=== PATIENT | male | born 1955 | race Caucasian/White ===

== ENCOUNTER 2020-05-21 10:10 | Emergency (ER) | payer OTHER ==
--- OUTSIDE RECORDS SUMMARY | 2020-05-21 10:13 | XMS REPORT | Continuity of Care Document ---
:1955 Author Organization [facility]tras Care Team Providers Name Role Phone hetras Unavailable Un available Problems Problem Status Onset Classification Date Comments Sourc e Date Reported PAINFUL TKA Active 08/03/20 [facility] 17 [place]ick Arthritis Active Problem 08/22/2017 [facility] (disorder[facility] Chronic pain Active Problem 08/22/2017 [facility] (finding) and Spine Dementia Active Problem 08/22/2017 [facility] (disorder[facility] Depressive Active Problem 08/22/2017 [facility] disorder and Spine (disorder) Diabetes mellitus Active Problem 08/22/2017 [facility] (disorder) [facility] Spine Hyperlipidemia Active Problem 08/22/2017 [facility] (disorder) and Spine Hypertensive Active Problem 08/22/2017 Ort [facility] disorder, systemic a nd Spine arterial (disorder) Neuropathy Active Problem 08/22/2017 Feet [facility] (disorder) and Spine Pain (finding) Active Problem 08/22/2017 Chronic [facility] rtho back pain and Spine Restless legs Active Problem 08/22/2017 [facility] tho (disorder) and Spine Sleep apnea Active Problem 08/22/2017 [facility] (finding) and Spine Therapeutic opioid Active Problem 08/22/2017 [facility] induced and Spine constipation (disorder) Diabetes mellitus Active Problem 08/22/2017 [facility] type 2 (disorder) an d Spine Medications Medication Details Route Status Patient Ordering Order Source Instructions Provider Date POLYETHYLENE Notes: Dissolve No Longer 08/20/ M H GLYCOL 3350 in 8 oz of Active 2016 Ortho water or juice. and (Same as: Spine Miralax) remove patch Notes: Remove No Longer old patch Active 2017 Ortho before and application of Spine new patch. Aspirin 325 MG Notes: (Do Not No Longer Enteric Coated Crush) Do not Active 2017 Or tho Tablet crush or chew. and Spine pantoprazole Notes: Tablet No Longer should not be Active 2017 Ortho chewed or and crushed. (Same Spine as: Protonix) rosuvastatin Notes: (Same Inactive As: Crestor) 2017 Orth[facility] and Spine Requip Notes: (Same Inactive as: Requip) 2016 Orth[facility] and Spine donepezil Notes: (Same Inactive as: Aricept) 2017 Ortho and Spine sennosides, SHELTER Notes: (Same Inactive as: Senokot) 2016 Ortho and Spine Celebrex Notes: NSAID. Inactive Please check 2017 Ortho indication. Not and for seizure. Spine (Same As: CeleBREX) Vancomycin 2001 mg: Inactive infuse over 2.5 2017 Ortho hours and MEDICATION Spine WASTE Product Size: 1000 mg Product Wasted: ___ mg Ergocalciferol 50,000 IntlUnit Active H 12832 UNT Oral = 1 cap, PO, 2016 Orth o Capsule Q7D, # 8 and caplet, 0 Spine Refill(s) metFORMIN 500 mg Notes: (Same Inactive H oral tablet, as: Glucophage 2016 Orth o extended release XR) "Do Not and Crush" Spine Docusate Sodium Notes: (Same Inactive 100 MG Oral as: Colace) (Do 2016 Orth o Capsule Not Crush) and Spine Lyrica Notes: Same as Inactive Lyrica 2016 Ortho and Spine Aspirin 325 MG 325 mg = 1 tab, Active H Enteric Coated PO, BID, # 60 2017 Ort ho Tablet tab, 0 and Refill(s) Spine Cefazolin Notes: (Same Inactive As: Ancef, 2016 Ortho Kefzol) and MEDICATION Spine WASTE Product Size: 1000 mg Product Wasted: ___ mg Dextrose 50% 25 gm, 50 mL, Inactive Syringe Route: IVP, 2017 Ortho Drug Form: INJ, and Dosing Weight Spine 102.273, kg, PRN, PRN Blood Glucose Results, Start date: 08/19/17 11:50:00 GRAZING AIDE, Duration: 30 day, Stop date: 09/18/17 11:49:00 GRAZING AIDE Insulin Lispro Notes: (Same Inactive as: Humalog ) 2017 Ortho Roll in palms and of hands Spine gently; Do not shake `vigorously. "Single Patient Use Only " WASTE: F/P - Black; E - Municipal Trash Bin Stable for 28 days at room temperature. Expires in days from D ate Glucagon 1 mg, Route: Inactive IM, Drug form: 2017 Ortho PDR/INJ, PRN, and Dosing Weight Spine 102.273, kg, PRN Blood Glucose Results, Start date: 08/19/17 11:50:00 GRAZING AIDE, Duration: 30 day, Stop date: 09/18/17 11:49:00 GRAZING AIDE Ergocalciferol Notes: (Same Inactive 68817 UNT Oral as: Vitamin D) 2017 Or tho Capsule "Do Not Crush" and Spine tizanidine Notes: (Same Inactive As: Zanaflex) 2016 Ortho and Spine Insulin Lispro Notes: (Same Inactive as: Humalog ) 2017 Ortho Roll in palms and of hands Spine gently; Do not shake `vigorously. "Single Patient Use Only " WASTE: F/P - Black; E - Municipal Trash Bin Stable for 28 days at room temperature. Expires in days from D ate Promethazine Notes: (Same Inactive as: Phenergan) 2017 Ortho and Spine Acetaminophen Notes: Do not Inactive exceed 4 2017 Ortho gm/day. (Same and as: Tylenol) Spine Hydroxyzine Notes: (Same Inactive as: Vistaril) 2017 Ortho and Spine Ondansetron Notes: (Same Inactive as: Zofran) 2017 Ortho MEDICATION and WASTE Spine Product Size: 4 mg Product Wasted: ___ mg Milk of Magnesia Notes: (Same Inactive 08/19/ H as: Milk of 2017 Ortho Magnesia, MOM) and Spine Lactated Ringers 1,000 mL, Rate: Inactive IV 1,000 mL 75 ml/hr, 2017 Ortho Infuse over: and 13.3 hr, Route: Spine IV, Dosing Weight 102.273 kg, Total Volume: 1,000, Start date: 08/19/17 9:30:00 GRAZING AIDE, Duration: 30 day, Stop date: 09/18/17 9:29:00 GRAZING AIDE, 2.35, m2 Promethazine Notes: Do not Inactive give IV push. 2017 Ortho (Same as: and Phenergan) Spine Ondansetron Notes: (Same Inactive as: Zofran) 2017 Ortho MEDICATION and WASTE Spine Product Size: 4 mg Product Wasted: ___ mg Meperidine Notes: (Same Inactive as: Demerol) 2017 Ortho "Use Precaution and in Elderly, Spine Seizure disorders, and Renal impairment&quot ; Acetaminophen Notes: Max Inactive acetaminophen 2017 Ortho 4000 mg/day (4 and gm/day). (Same Spine as: Tylenol Extra Strength) Naloxone Notes: Same as Inactive Narcan 2017 Ortho and Spine Flumazenil Notes: (Same Inactive as: Romazicon) 2016 Ortho and Spine Hydromorphone Notes: (Same Inactive as: Dilaudid) 2017 Ortho and Spine Morphine Notes: (Same Inactive as:MORPhine 2017 Ortho Sulfate) and Spine Labetalol 10 mg, 2 mL, Inactive Route: IVP, 2017 Ortho Drug form: INJ, and Q5Min, Dosing Spine Weight 102.273, kg, PRN Elevated BP, Start date: 08/19/17 7:38:00 GRAZING AIDE, Duration: 5 doses or times, Stop date: 08/19/17 22:00:00 GRAZING AIDE Hydralazine Notes: (Same Inactive as: Apresoline) 2017 Ortho Push over 5 and minutes Spine vancomycin + Notes: TIME Inactive Sodium Chloride CRITICAL 2017 Ortho 0.9% IV 250 mL MEDICATION and (Same As: Spine Vancocin) ropivacaine Notes: NOT Inactive FOR IV use 2017 Ortho Each mL and contains: Spine Ropivacaine 2.46 mg, Epinephrine 0.005 mg, Clonidine 0.0008 mg and Ketorolac 0.3 mg in Sodium Chloride polymyxin B Notes: (Same Inactive sulfate + Sodium as: Polymyxin B 2017 Ortho Chloride 0.9% IV Sulfate) and 250 mL Spine vancomycin 2001 mg: Inactive infuse over 2.5 2017 Ortho hours and Spine Cefazolin Notes: (Same Inactive As: Ancef, 2017 Ortho Kefzol) and MEDICATION Spine WASTE Product Size: 1000 mg Product Wasted: ___ mg Vancomycin 1,534.095 mg, Inactive Route: IVPB, 2017 Ortho ONCALL, Dosing and Weight 102.273, Spine kg, Start date: 08/19/17 6:00:00 GRAZING AIDE, Duration: 1 doses or times, ABX Indication: Surgical Prophylaxis celecoxib Notes: NSAID. Inactive Please check 2017 Ortho indication. Not and for seizure. Spine (Same As: CeleBREX) 72 HR Notes: Change Inactive Scopolamine patch every 72 2016 Ortho 0.0139 MG/HR hours (Same and Transdermal as: Spine Patch Transderm-Scop) Calcium Chloride 1,000 mL, 1,000 Inactive 0.0014 MEQ/ML / ml/hr, Infuse 2017 Or tho Potassium Over: 1 hr, and Chloride 0.004 Route: IV, Spine MEQ/ML / Sodium 1,000, Drug Chloride 0.103 form: INJ, MEQ/ML / Sodium ONCE, Priority: Lactate 0.028 STAT, Dosing MEQ/ML Weight 105.909 Injectable kg, Start date: Solution 08/19/17 5:24:00 GRAZING AIDE, Stop date: 08/19/17 5:24:00 GRAZING AIDE Lactated Ringers 1,000 mL, Rate: Inactive IV 1,000 mL 100 ml/hr, 2017 Ortho Infuse over: 10 and hr, Route: IV, Spine Dosing Weight 102.273 kg, Total Volume: 1,000, Start date: 08/19/17 5:24:00 GRAZING AIDE, Duration: 30 day, Stop date: 09/18/17 5:23:00 GRAZING AIDE, 2.35, m2 Acetaminophen Notes: Max Inactive acetaminophen 2017 Ortho 4000 mg/day (4 and gm/day). (Same Spine as: Tylenol Extra Strength) Famotidine Notes: (Same Inactive as: Pepcid) 2017 Ortho and Spine linaclotide 0.29 290 microgram = Active MG Oral Capsule 1 cap, PO, 2017 Ortho [Linzess] Daily, PRN and Constipation, Spine 30 minutes prior to the first meal of the day, # 30 cap, 0 Refill(s) MORPHINE PAIN MORPHINE PAIN Active PUMP PUMP, Refill(s) 2017 Ortho 0 and Spine donepezil 5 mg 5 mg = 1 tab, No Longer 12/05/ M H oral tablet PO, Bedtime, # Active 2017 Ortho 90 tab, 1 and Refill(s) Spine ropinirole 1 MG 1 mg = 1 tab, Active Oral Tablet PO, Bedtime, # 2017 Ortho [Requip] 30 tab, 1 and Refill(s) Spine Hydromorphone 4 mg = 1 tab, Active Hydrochloride 4 PO, Q8H, PRN 2017 Ort ho MG Oral Tablet Pain, 0 and [Dilaudid] Refill(s) Spine tizanidine 4 mg 4 mg = 1 tab, No Longer oral tablet PO, Q8H, PRN Active 2017 Ortho for muscle and spasms, # 270 Spine tab, 0 Refill(s) glimepiride 2 mg 2 mg = 1 tab, Active 12/ M H oral tablet PO, Breakfast, 2016 Ortho # 30 tab, 0 and Refill(s) Spine metFORMIN 500 mg 500 mg = 1 tab, Active oral tablet, PO, BID-Meals, 2016 Orth o extended release # 60 tab, 1 and Refill(s) Spine rosuvastatin 40 40 mg = 1 tab, No Longer mg oral tablet PO, Bedtime, # Active 2016 Or tho 90 tab, 1 and Refill(s) Spine Azelastine 2 spray, NASAL, Active hydrochloride BID, 0 2016 Ortho 0.137 MG/ACTUAT Refill(s) and Metered Dose Spine Nasal Hughes metFORMIN 500 mg 500 mg = 1 tab, No Longer 08/09 oral tablet, PO, BID-Meals, Active 2016 Orth o extended release # 60 tab, 1 and Refill(s) Spine Hydromorphone 4 mg = 1 tab, No Longer Hydrochloride 4 PO, TID, PRN Active 2016 Ort ho MG Oral Tablet Pain, 0 and [Dilaudid] Refill(s) Spine tizanidine 4 mg See No Longer oral tablet Instructions, Active 2016 Ortho PRN as needed and for muscle Spine spasm, 1-2 tab PO BID PRN muscle spasm, 0 Refill(s) Azelastine 2 spray, NASAL, No Longer hydrochloride BID, 0 Active 2016 Ortho 0.137 MG/ACTUAT Refill(s) and Metered Dose Spine Nasal Hughes linaclotide 0.29 290 microgram = No Longer 08/09 MG Oral Capsule 1 cap, PO, Active 2016 Ortho [Linzess] Daily, PRN and Constipation, Spine 30 minutes prior to the first meal of the day, # 30 cap, 0 Refill(s) glimepiride 2 mg 2 mg = 1 tab, No Longer oral tablet PO, Breakfast, Active 2016 Ortho # 30 tab, 0 and Refill(s) Spine donepezil 5 mg 5 mg = 1 tab, Active oral tablet PO, Daily, # 30 2016 Orth o tab, 0 and Refill(s) Spine ropinirole 1 MG 1 mg = 1 tab, No Longer Oral Tablet PO, Bedtime, # Active 2016 Ortho [Requip] 30 tab, 1 and Refill(s) Spine rosuvastatin 40 40 mg = 1 tab, Active 08/09/ M H mg oral tablet PO, Bedtime, # 2017 Or tho 30 tab, 0 and Refill(s) Spine Allergies, Adverse Reactions, Alerts Substance Category Reaction Severity Reaction Status Date Comments S ource type Reported sulfamethoxazole Assertion Drug Active allergy [facility] Sp[facility] Immunizations No Data Provided for This Section Results Order Name Results Value Reference Date Interpretation Comments Roseanne rce Range CHEM PANEL Vitamin D, 25-OH, 24.0 30.0 - 08/09 Total 100.0 [facility] and Spine CHEM PANEL Globulin 3.9 2.7 - 4.2 08/09 Ortho and Spine CHEM PANEL A/G Ratio 0.9 0.7 - 1.6 08/09 [facility] and Spine CHEM PANEL AGAP 7.2 10.0 - 12 MH 20.0 /2017 Ortho and Spine CHEM PANEL B/C Ratio 15 6 - 25 08/09 [facility] Spine CHEM PANEL eGFR 65 08/09 Result Comment: The Ortho eGFR is and calculated Spine using the CKD-EPI formula. In most young, healthy individuals the eGFR will be >90 mL/min/1.73m2 . The eGFR declines with age. An eGFR of 60-89 may be normal in some populations, particularly the elderly, for whom the CKD-EPI formula has not been extensively validated. Use of the eGFR is not recommended in the following populations:< br/>
Renita viduals with unstable creatinine concentration s, including patients and those with serious co-morbid conditions.<b r/>
Patie nts with extremes in muscle mass or diet.

The data above are obtained from the National Kidney Disease Education Program (NKDEP) which additionally recommends that when the eGFR is used in patients with extremes of body mass index for purposes of drug dosing, the eGFR should be multiplied by the estimated BMI. CHEM PANEL CO2 34 24 - 32 08/09 [facility] CHEM PANEL Glucose Lvl 87 70 - 99 08/09 [facility] CHEM PANEL BUN 18 7 - 22 08/09 [facility] CHEM PANEL Creatinine Lvl 1.20 0.50 - 08/09 1.40 [facility] CHEM PANEL Sodium Lvl 141 135 - 145 08/09 [facility] CHEM PANEL Alk Phos 55 39 - 136 08/09 [facility] CHEM PANEL Bili Total 0.7 0.2 - 1.3 08/09 [facility] Spine CHEM PANEL Total Protein 7.6 6.4 - 8.4 08/09 [facility] and Spine CHEM PANEL ALANINE 25 0 - 65 08/09 AMINOTRANSFERASE Ortho and Spine CHEM PANEL Albumin Lvl 3.7 3.5 - 5.0 08/09 [facility] and Spine CHEM PANEL ASPARTATE 19 0 - 37 08/09 TRANSAMINASE Ortho and Spine CHEM PANEL Calcium Lvl 9.3 8.5 - 10.5 08/09 [facility] and Spine CHEM PANEL Chloride Lvl 104 95 - 109 08/09 [facility] Sp[facility] CHEM PANEL Potassium Lvl 4.2 3.5 - 5.1 08/09 [facility] Spine HEMATOLOGY INR 0.91 0.85 - 08/09 MH 1.17 /2016 Orth[facility] and Spine HEMATOLOGY PROTIME 12.3 12.0 - 12 MH 14.7 /2016 [facility] and Spine HEMATOLOGY aPTT 33.6 22.9 - 12 MH 35.8 /2017 [facility] and Spine HEMATOLOGY MPV 7.5 7.4 - 10.4 12 [facility] and Spine HEMATOLOGY Platelet 196 133 - 450 12 [facility] and Spine HEMATOLOGY RDW 17.4 11.5 - 12 MH 14.5 /2016 [facility] and Spine HEMATOLOGY MCH 25.4 27.0 - 12 MH 31.0 /2016 [facility] and Spine HEMATOLOGY MCHC 31.9 32.0 - 12 MH 36.0 /2016 [facility] Spine HEMATOLOGY MCV 79.5 80.0 - 12 MH 94.0 /2016 [facility] and Spine HEMATOLOGY Hct 42.1 42.0 - 08/09 MH 54.0 /2016 [facility] and Spine HEMATOLOGY Hgb 13.4 14.0 - 08/09 MH 18.0 /2016 [facility] HEMATOLOGY RBC 5.29 4.70 - 08/09 MH 6.10 /2016 [facility] HEMATOLOGY WBC 4.8 3.7 - 10.4 08/09 [facility] HEMATOLOGY Monocytes # 0.5 0.0 - 0.8 08/09 [facility] HEMATOLOGY Eosinophils # 0.2 0.0 - 0.5 08/09 [facility] HEMATOLOGY Lymphocytes # 1.1 1.0 - 5.5 08/09 [facility] HEMATOLOGY Segs-Bands # 3.0 1.5 - 8.1 08/09 [facility] HEMATOLOGY Basophils 0.7 0.0 - 1.0 08/09 [facility] HEMATOLOGY Eosinophils 4.7 0.0 - 4.0 08/09 [facility] HEMATOLOGY Monocytes 10.6 2.0 - 12.0 08/09 [facility] HEMATOLOGY Lymphocytes 23.0 20.0 - 12 MH 40.0 /2017 [facility] and Spine HEMATOLOGY Segs 61.0 45.0 - 12 MH 75.0 /2016 [facility] SPECIAL Hgb A1C 7.1 <=5.6 % 08/09 [facility] Spine Pathology Reports No Data Provided for This Section Diagnostic Reports Report Value Date Source Knee 1-2 Views EXAM: XR RIGHT KNEE 2 VIEWS 08/19/2017 Nickolas Teresa unilateral DX DATE: 08/19/2017 9:30 AM GRAZING AIDE INDICATION: post-operative in PACU. COMPARISON: None. TECHNIQUE: AP and lateral radiographs of the kn ee. FINDINGS: Postsurgical herrera es of a revision right total knee arthroplasty are present. 2 screws are visualized at the tibial tuberosity. Normal alignment. Mild, chronic remodeling around the medial asp ects of the femoral and tibi al components. No hardware complication. No acute fracture. Expected postoperative edema and air. Anterior skin fredrick. IMPRESSION: Expected postsur gical changes without hardware complication identified. Consultation Notes No Data Provided for This Section Discharge Summaries No Data Provided for This Section History and Physicals No Data Provided for This Section Vital Signs Vital Sign Value Date Comments Source Respitory Rate 18 08/19/2017 [facility] Systolic (mm Hg) 119 08/19/2017 [facility]ine Diastolic (mm Hg) 60 08/19/2017 [facility] a nd Spine Temperature Oral (F) 97.7 F 08/19/2017 [facility] Heart Rate 59 08/19/2017 [facility] Systolic (mm Hg) 122 08/19/2017 [facility] Diastolic (mm Hg) 61 08/19/2017 [facility] a nd Spine Respitory Rate 16 08/19/2017 [facility] Heart Rate 78 08/19/2017 [facility] Heart Rate 77 08/19/2017 [facility] Temperature Oral (F) 96.9 F 08/19/2017 [facility] Systolic (mm Hg) 122 08/19/2017 [facility] Spine Diastolic (mm Hg) 61 08/19/2017 [facility] a nd Spine Respitory Rate 18 08/19/2017 [facility] Temperature Oral (F) 97.8 F 08/19/2017 [facility] BMI Calculated 27.45 08/19/2017 [facility] Weight 102.273 08/19/2017 [facility] Height 193.04 cm 08/19/2017 [facility] Encounters Location Location Encounter Encounter Reason Attending ADM [place] Stat us Source Details Type Number For Provider Date Date Visit [facility] [id number] S[facility]a 08/19 08/20 [facility] Procedures Procedure Code Date Perfomer Comments Source Arthroscopic [id number] Ortho procedure and Spine Back fusion [id number] [facility] Cholecystectomy [id number] [facility] Implantation of [id number] NON-WORKING Ortho sacral nerve and Spine stimulator<sup>1</sup > Insertion of [id number] MORPHINE PUMP [facility] implantable and Spine intrathecal pump<sup>2</sup> Knee replacement [id number] [facility] Procedure on foot [id number] [facility] Assessment and Plan Assessment and Plan Date Source Extracted from:Title: Progress Note 08/20/2017 [facility] Author: Michael Vargas MD Date: 08/19/17 Right knee pain due to s/p R knee excision of exostosis lateral femur and patella r elease Immediate postop care; IVF, IV Abx per SCIP, DVT prophylaxis Optimize pain control w/ multimodal regimen Consult PT for mobility Vitamin D deficiency Start ergocalciferol Diabetesmellitus type II,well-controlled (A1c 7.1) Resume metformin.Hold glimepiride. Accu-Checks and sliding s roque insulin Chronic pain syndromeon morphine pump Will benefit from APMS consultation for pain control Dementia; continue donepezil Restless leg syndrome; continueropinirole ASA 325 BID As per the primary team [place] hospitalist is a consult service , please call [phone] with questions or concerns Extracted from:Title: Clinical Document Author: Yovana Vogel Date: 08/19/17 CHIEF COMPLAINT: Right knee pain, status post multiple knee surgeries. HISTORY OF PRESENT ILLNESS: This is a v catherine pleasant 62-year-old male here with his today to discuss his right knee pain. He has had catching and locking episodes since his most recent knee surger y approximately [address] Dickerson is to the best of his recollection. His knee surgery started back in the early with knee replacement and had early loosening, then had an early revision x2 with Dr. Guerrero and subsequently went on for further loosening and had a more recent surgery with Dr. Jean for a right knee revision with stemmed components in what he thinks is 2016. Since that most recent surgery, he has had painful catching and locking symptoms and popping to the right knee. He had a recent scoped procedure of unknown time approximately 6 months ago with no resolution of s ymptoms. He notices these symptoms when he is coming from flexion to full extension and it is audible and painful. PAST MEDICAL HISTORY: Significant for b ack pain, depression, diabetes, gallbladder disease, hay fever, hernia. PAST SURGICAL HISTORY: Previous mention ed right knee surgeries as well as a foot surgery at an unknown time, shoulder surgery at an unknown time and a back surgery in 1988. CURRENT MEDICATIONS: Please see Care4. ALLERGIES: NKDA. SOCIAL HISTORY: Negative for smoking, a lcohol or drug use. Daily caffeine use and no exercise. FAMILY HISTORY: Significant for diabete s, tuberculosis, heart disease, high blood pressure, arthritis, cancer. His father had a pancreas tumor and at 60. His mother in her sleep when she was 69. REVIEW OF SYSTEMS: An 11-point review o f systems are reviewed on the patients intake chart and signed, but significant for weight loss, weight gain, poor appetite, rash, hay fever, depression, gas, con stipation, musculoskeletal complaints, i ntermittent chest pain, swollen ankles, headaches, and dizziness. PHYSICAL EXAMINATION: A well-appearing male, height 6 foot 4 inches, weight 237 pounds, no acute distress. Equal chest expansion bilaterally. Unable to recall distant memories at this time. Focused exam to right lower extremity with mild swelling, no erythema around the right knee, well-healed surgical incision without signs of infection. Range of motion from 0 to 110 degrees with pain and audibl e click going from flexion to extension approximately at 30 degrees. This click is also palpable over the anterior aspect of the knee and painful. He is able to hold his full extension with full strength with no extension lag. IMAGING: Reviewed 3 views of right knee status post revision knee components with DePuy SROM components. Components appeared to be well fixed with no signs of early loosening. ASSESSMENT AND PLAN: A 62-year-old male with painful right total knee, status post revision. At this time, we discussed with him about possible etiologies of his pain. We discussed the more likely et iology of the patellar maltracking and p ossible scar tissue buildup. We discussed different operative and nonoperative courses with him. He wishes to undergo an operative management of this, which herrera l include an open lysis of adhesions and possible patellar realignment surgery with a possible revision patellar resurfacing. Infectious markers including ESR, CRP, D-dimer are negative at this time. The risks, benefits, and alternatives of a right patella realignment were discussed with the patient. The risks discussed included but were not limited to the possibility of a DVT, PE, infection, bleedi ng, necessity for subsequent surgeries, difficulty with anesthesia, nerve palsy, and even . No guarantees were made or implied. I believe that informed, verbal consent was obtained from the patient . Formal, written consent will be obtain ed on the day of surgery. All of the patient's questions were answered and they expressed understanding of the plan moving forward. Of the 20-minute clinic visit, mireille calhoun dennis 50% of time was spent in counseling the patient on his diagnosis and treatment. He was satisfied and all questions were answered. Extracted from:Title: Consult Note Author: Kris Mercado MD Date: 08/09/17 1.Preop cardiovascular exam Type of surgery:Right knee patellar realignment, interme diate risksurgery Surgery specificmedical issues:Diabetes, hypertension, hy perlipidemia Physical exam concerns: None Patient is able to perform >4METs Act ivity with out cardiovascular symptoms(biking, stairs) Baseline EKG showssinus bradycardia Outpatient docking saw operator:None Revised cardiac risk index scoreis 0 consistent with 0.4% risk ofmajor perioperativecardiac event Patient is considered a lowperioperat iveCardiovascular risk for intermediate risk surgery and may proceed without further preoperativeworkup. Risks and benefits of surgery discussed with patient 2.Right knee pain Scheduled for right knee patellar realignmentwith Dr. Vieira on08/19/2017 3.Hypertension Not currently on medications 4.DM (diabetes mellitus), type 2 Continue on metformin and glimepiride. Hemoglobin A1c is 7. 1% 5.Hyperlipidemia Continue on rosuvastatin 6.Restless leg syndrome Continue on Requip 7.Mild dementia Continue on donepezil 8.Constipation due to opioid therapy Takes Linzess as needed 9.Chronic pain Patient has morphinepump in place,takes as needed Dilaudid andtizanidine. Would recommendacute pain service consult postoperativelyto help with pain control [facility] Hospitalist Consult Please [id number] with any questions Plan of Care No Data Provided for This Section Social History Social History Date Source Social History TypeResponse 08/09/2017 [facility] Substance Abuse Use: None. Exercise Exercise duration: 0.1 Alcohol Current, Frequency: 1-2 times per month. Smoking Status Never smoker; Exposure to Tobacco Smoke None; Cigarette Smoking Last 365 Days No; Reg Smoking Cessation Counseling No 1PT DENIES ANY SOB/CP W/EXERTION. Family History No Data Provided for This Section Advance Directives No Data Provided for This Section Functional Status No Data Provided for This Section
--- OUTSIDE RECORDS SUMMARY | 2020-05-21 10:14 | XMS REPORT | Summary of Care ---
:1955 Author Organization [facility] Address [address] [place] [id number] Care Team Providers Name Role Phone MD Yamil Primary Care Provider Reason for Referral (Routine) Status Reason Specialty Diagnoses / Referred By Referred To Procedures Contact Contact New Request Cardiology Diagnoses Chest pain, unspecified type Earnest Lobo, Procedures CONSULT/REFERRAL CARDIOLOGY [address] [place] [phone] Reason for Visit Reason Comments Follow-up INJECTION Tshot 200mg left plus B12 Encounter Details Date Type Department Care Team Description 03/27/2020 Office Visit [facility] Pediatric Earnest Lobo Lo w serum vitamin B12 (Primary Dx); and Adult Primary Hypogonadism in male; [facility]- [address] Chest pain, unspecified type [address] [facility], [address] [place] [phone] Allergies Active Allergy Reactions Severity Noted Date Comments Sulfamethoxazole Nausea and/or Vomiting 08/16/2016 documented as of this encounter (statuses as of 03/31/2020) Medications Medication Sig Dispensed Refills Start Date End Date Status HYDROmorphOne Take 4 mg by 0 Act jose (DILAUDID) 4 mg tablet mouth 3 (three) times daily. tiZANidine (ZANAFLEX) Take 4 mg by 0 Active 4 mg capsule mouth 2 (two) times daily. omega-3/dha/epa/dpa/fi Take by mouth. 0 Active sh oil (OMEGA-3 2100 ORAL) cinnamon bark Take by mouth. 0 Active (CINNAMON ORAL) ergocalciferol, Take by mouth. 0 Active vitamin D2, (VITAMIN D ORAL) Cholecalciferol, Take by mouth. 0 Active Vitamin D3, (VITAMIN D3) 1,000 unit capsule triamcinolone 55 mcg Use 2 Sprays in 1 Bottle 3 07/25/2018 Active nasal inhaler each nostril daily. docusate (STOOL TAKE ONE CAPSULE 100 capsule 3 08/22/2018 Active SOFTENER) 100 mg BY MOUTH TWICE A capsule DAY ONETOUCH ULTRA2 METER Use as directed 1 Each 0 05/16/2019 Active Kit once a day to monitor blood glucose for ICD code of E11.9. ONE TOUCH DELICA 33 Use as directed 100 Each 3 05/23/2019 Active gauge MiscIndications: once a day to Type 2 diabetes monitor blood mellitus with diabetic glucose for ICD polyneuropathy, code of E11.9. without long-term current use of insulin ONE TOUCH DELICA Use as directed 1 Kit 0 05/23/2019 Active KitIndications: Type 2 once a day to diabetes mellitus with monitor blood diabetic glucose for ICD polyneuropathy, code of E11.9. without long-term current use of insulin ONETOUCH ULTRA BLUE Use as directed 100 Strip 0 05/23/2019 Active TEST STRIP for once a day stripIndications: Type glucose 2 diabetes mellitus monitoring for with diabetic ICD of E11.9 polyneuropathy, without long-term current use of insulin aspirin 81 mg EC Take 1 tablet by 0 06/29/2019 Active tabletIndications: mouth daily. Atherosclerosis of [place] coronary artery of [place] heart without angina pectoris, Essential hypertension, Type 2 diabetes mellitus with diabetic polyneuropathy, without long-term current use of insulin nitroglycerin 0.[address] 1 tablet 1 Bottle 5 06/29/2019 Active sublingual under the tongue tabletIndications: every 5 (five) Atherosclerosis of minutes as [place] coronary artery needed for Chest of [place] heart pain. without angina pectoris, Essential hypertension, Type 2 diabetes mellitus with diabetic polyneuropathy, without long-term current use of insulin galantamine 12 mg Take 1 tablet by 60 tablet 6 10/11/2019 Active tablet mouth 2 (two) times daily. tamsulosin 0.4 mg 24 Take 1 capsule 30 capsule 5 11/01/2019 Active hr capsuleIndications: by mouth daily. BPH with obstruction/lower urinary tract symptoms mupirocin 2 % Apply to 22 g 0 11/07/2019 Activ e ointmentIndications: area(s) 3 Cellulitis of right (three) times lower extremity, daily. Infected cyst of skin cefUROXime 500 mg Take 1 tablet by 20 tablet 0 11/15/2019 Active tabletIndications: mouth 2 (two) Abscess times daily. gabapentin 300 mg TAKE ONE CAPSULE 90 capsule 2 12/27/2019 Active capsuleIndications: BY MOUTH THREE Diabetic TIMES A DAY polyneuropathy associated with type 2 diabetes mellitus LOSARTAN 25 mg tablet TAKE ONE TABLET 90 tablet 0 01/08/2020 Active BY MOUTH DAILY rosuvastatin 40 mg TAKE ONE TABLET 90 tablet 1 01/17/2020 Active tabletIndications: BY MOUTH EVERY Hyperlipidemia, EVENING unspecified hyperlipidemia type azelastine 137 mcg USE ONE SPRAY IN 1 Bottle 4 02/27/2020 Active (0.1 %) nasal EACH NOSTRIL sprayIndications: TWICE DAILY Allergic rhinitis, unspecified seasonality, unspecified trigger donepezil 5 mg Take 1 tablet by 90 tablet 1 02/27/2020 Active tabletIndications: mouth at Memory loss bedtime. metformin ER 500 mg 24 Take 1 tablet by 180 tablet 3 0 Active hr tabletIndications: mouth 2 (two) Type 2 diabetes times daily. mellitus with diabetic polyneuropathy, without long-term current use of insulin glimepiride 2 mg TAKE ONE TABLET 90 tablet 1 02/27/2020 Active tabletIndications: BY MOUTH DAILY Type 2 diabetes WITH BREAKFAST mellitus with diabetic polyneuropathy, without long-term current use of insulin Hospital, Clinic, or Ordered Dose Route Frequency Start Date End D ate Status Other Facility Administered Medication NaCl 0.9% (NS) IV 250 mL IV Infusion CONTINUOUS 06/08/2018 Active infusion 250 mLIndications: Other chest pain DOBUTamine (DOBUTREX) 540 mcg/min IV TITRATE 06/08/2018 Active 500 mg in 250mL(Fixed Dose) D5W infusionIndications: Other chest pain testosterone 200 mg IM ONCE 03/27/2020 03/27/2020 Ended cypionate (DEPO-TESTOSTERONE) injection 200 mg cyanocobalamin 1000 mcg IM ONCE 03/27/2020 03/27/2020 End ed (VITAMIN B12) injection 1,000 mcg documented as of this encounter (statuses as of 03/31/2020) Active Problems Problem Noted Date Low serum vitamin B12 05/17/2019 SOB (shortness of breath) 05/21/2018 Chest pain 05/21/2018 PVC (premature ventricular contraction) 05/21/2018 Dizziness 05/21/2018 Venous insufficiency 05/21/2018 Palpitations 05/20/2018 Type 2 diabetes mellitus 06/06/2015 Essential hypertension 06/06/2015 Degenerative disc disease, lumbar 06/06/2015 Fusion of lumbar spine 06/06/2015 History of knee replacement, total, right 06/06/2015 Chronic back pain 06/06/2015 Fracture of metatarsal bone of left foot with malunion 06/06/2015 H/O repair of right rotator cuff 06/06/2015 Neuropathy in diabetes 06/06/2015 Presence of intrathecal pump 06/06/2015 Hypogonadism in male 06/06/2015 documented as of this encounter (statuses as of 03/31/2020) Immunizations Name Administration Dates Next Due Influenza Virus Vaccine Quad .5 mL IM 6+ MO 06/20/2019 Influenza Virus Vaccine Quad ID 18-64 YRS 06/06/2015 Influenza Virus Vaccine Quad IM Multi-dose 6+ MO 08/03/2016 Pneumococcal Polysaccharide, PPSV23 (PNEUMOVAX) 05/21/2018 TDAP 11/07/2019 documented as of this encounter Social History Tobacco Use Types Packs/Day Years Used Date Never Smoker Smokeless Tobacco: Never Used Alcohol Use Drinks/Week oz/Week Comments Yes 0 Standard drinks or equival ent 1.0 1 Cans of beer Alcohol Habits Answer Date Recorded How often do you have a drink containing alcohol? Monthly or less 07/04/2019 How many drinks containing alcohol do you have on a Not aske d typical day when you are drinking? How often do you have six or more drinks on one Not asked occasion? Sex Assigned at Date Recorded Not on file Job Start Date Occupation Industry Not on file Not on file Not on file Travel History Travel Start Travel End No recent travel history available. COVID-19 Exposure Response Date Recorded In the last month, have you been in contact with No / Unsure 03/27/2020 9:21 AM CDT someone who was confirmed or suspected to have Coronavirus / COVID-19? documented as of this encounter Last Filed Vital Signs Vital Sign Reading Time Taken Comments Blood Pressure 130/70 03/27/2020 9:26 AM CDT Pulse - - Temperature - - Respiratory Rate - - Oxygen Saturation - - Inhaled Oxygen Concentration - - Weight 104.3 kg (230 lb) 03/27/2020 9:26 AM CDT Height - - Body Mass Index 28 11/19/2019 9:06 AM CDT documented in this encounter Progress Notes Earnest Loob MD - 03/27/2020 9:30 AM CDT Cc: Low t and B-12 Chief Complaint Patient presents with Follow-up INJECTION Tshot 200mg left plus B12 Melody Duarte is a 64 year old male. Here for low B-12 and T. Having congestion, chest pain Allergies Melody is allergic to sulfamethoxazole. Medications Outpatient Medications Prior to Visit Medication Sig Dispense Refill azelastine 137 mcg (0.1 %) nasal spray USE ONE SPRAY IN EACH NOSTRIL TWICE DAILY 1 Bottle 4 donepezil 5 mg tablet Take 1 tablet by mouth at bedtime. 90 tablet 1 glimepiride 2 mg tablet TAKE ONE TABLET BY MOUTH DAILY WITH BREAKFAST 90 tablet 1 metformin ER 500 mg 24 hr tablet Take 1 tablet by mouth 2 (two) times daily. 180 tablet 3 rosuvastatin 40 mg tablet TAKE ONE TABLET BY MOUTH EVERY EVENING 90 tablet 1 LOSARTAN 25 mg tablet TAKE ONE TABLET BY MOUTH DAILY 90 tablet 0 gabapentin 300 mg capsule TAKE ONE CAPSULE BY MOUTH THREE TIMES A DAY 90 capsule 2 cefUROXime 500 mg tablet Take 1 tablet by mouth 2 (two) times daily. 20 tablet 0 mupirocin 2 % ointment Apply to area(s) 3 (three) times daily. 22 g 0 tamsulosin 0.4 mg 24 hr capsule Take 1 capsule by mouth daily. 30 capsule 5 galantamine 12 mg tablet Take 1 tablet by mouth 2 (two) times daily. 60 tablet 6 aspirin 81 mg EC tablet Take 1 tablet by mouth daily. nitroglycerin 0.[address] 1 tablet under the tongue every 5 (five) minutes as needed for Chest pain. 1 Bottle 5 ONE TOUCH DELICA 33 gauge Misc Use as directed once a day to monitor blood glucose for ICD code of E11.9. 100 Each 3 ONE TOUCH DELICA Kit Use as directed once a day to monitor blood glucose for ICD code of E11.9. 1 Kit 0 ONETOUCH ULTRA BLUE TEST STRIP strip Use as directed for once a day glucose monitoring for ICD of E11.9 100 Strip 0 ONETOUCH ULTRA2 METER Kit Use as directed once a day to monitor blood glucose for ICD code of E11.9. 1 Each 0 docusate (STOOL SOFTENER) 100 mg capsule TAKE ONE CAPSULE BY MOUTH TWICE A DAY 100 capsule 3 triamcinolone 55 mcg nasal inhaler Use 2 Sprays in each nostril daily. 1 Bottle 3 Cholecalciferol, Vitamin D3, (VITAMIN D3) 1,000 unit capsule Take by mouth. cinnamon bark (CINNAMON ORAL) Take by mouth. ergocalciferol, vitamin D2, (VITAMIN D ORAL) Take by mouth. omega-3/dha/epa/dpa/fish oil (OMEGA-3 2100 ORAL) Take by mouth. HYDROmorphOne (DILAUDID) 4 mg tablet Take 4 mg by mouth 3 (three) times daily. tiZANidine (ZANAFLEX) 4 mg capsule Take 4 mg by mouth 2 (two) times daily. Facility-Administered Medications Prior to Visit Medication Dose Route Frequency Provider Last Rate Last Dose DOBUTamine (DOBUTREX) 500 mg in 250mL(Fixed Dose) D5W infusion 5 mcg/kg/min Intravenous TITRATE Keli Spence MD 129.6 mL/hr at 06/08/18 0904 40 mcg/kg/min at 06/08/18 0904 NaCl 0.9% (NS) IV infusion 250 mL 250 mL IV Infusion CONTINUOUS Keli Spence MD 50 mL/hr at 06/08/18 0815 250 mL at 06/08/18 0815 Histories Past Medical History: Diagnosis Date Arthritis Chronic back pain DM (diabetes mellitus) Hyperlipidemia Hypertension Hypogonadism, male Past Surgical History: Procedure Laterality Date BACK SURGERY CHOLECYSTECTOMY FRACTURE SURGERY Left ORIF L foot INTRATHECAL INFUSION PUMP REVISION Left 07/09/2019 Surgeon: Pipe Mathis MD; Location: [facility] OR Location LUMBAR EPIDURAL STEROID INJECTION N/A 11/10/2015 Surgeon: Pipe Mathis MD; Location: [facility] OR Location LUMBAR EPIDURAL STEROID INJECTION N/A 11/17/2015 Surgeon: Pipe Mathis MD; Location: [facility] OR [facility] LUMBAR EPIDURAL STEROID INJECTION N/A 11/03/2015 Surgeon: Pipe Mathis MD; Location: [facility] OR Location LUMBAR EPIDURAL STEROID INJECTION N/A 08/16/2016 Surgeon: Pipe Mathis MD; Location: [facility] OR Location LUMBAR EPIDURAL STEROID INJECTION N/A 08/23/2016 Surgeon: Pipe Mathis MD; Location: [facility] OR Location LUMBAR EPIDURAL STEROID INJECTION N/A 09/06/2016 Surgeon: Pipe Mathis MD; Location: [facility] OR Location NERVE STIMULATOR INSERTION NERVE STIMULATOR REVISION SPINE SURGERY TOTAL KNEE ARTHROPLASTY Right X 4 Social History Socioeconomic History Marital status: Spouse name: Not on file Number of children: Not on file Years of education: Not on file Highest education level: Not on file Occupational History Not on file Social Needs Financial resource strain: Not on file Food insecurity: Worry: Not on file Inability: Not on file Transportation needs: Medical: Not on file Non-medical: Not on file Tobacco Use Smoking status: Never Smoker Smokeless tobacco: Never Used Substance and Sexual Activity Alcohol use: Yes Alcohol/week: 1.0 standard drinks Types: 1 Cans of beer per week Frequency: Monthly or less Drug use: No Sexual activity: Not on file Lifestyle Physical activity: Days per week: Not on file Minutes per session: Not on file Stress: Not on file Relationships Social connections: Talks on phone: Not on file Gets together: Not on file Attends islam service: Not on file Active member of club or organization: Not on file Attends meetings of clubs or organizations: Not on file Relationship status: Not on file Intimate partner violence: Fear of current or ex partner: Not on file Emotionally abused: Not on file Physically abused: Not on file Forced sexual activity: Not on file Other Topics Concern Not on file Social History Narrative disabled Family History Problem Relation Age of Onset Kidney disease Mother Other - see comments Father pancoast tumors Heart Brother HTN [place] (myocardial infarction) Maternal Uncle [place] (myocardial infarction) Other cousin, [place] @ 40 Review of Systems Vital Signs BP 130/70 | Wt 230 lb (104.3 kg) | BMI 28.00 kg/m Physical Exam Constitutional: He is oriented to person, place, and time. He appears well- developed and well-nourished. HENT: Head: Normocephalic and atraumatic. Right Ear: External ear normal. Left Ear: External ear normal. Cardiovascular: Normal rate and regular rhythm. Pulmonary/Chest: Effort normal and breath sounds normal. Abdominal: Soft. Musculoskeletal: Normal range of motion. Neurological: He is alert and oriented to person, place, and time. Skin: Skin is warm. Vitals reviewed. Assessment/Plan Low t, depotestosterone 200mg Low B-12, injection Chest pain, cardiology, This visit did not involve counseling and coordination that comprised more than 50% of the visit time. documented in this encounter Plan of Treatment Date Type Specialty Care Team Description 04/28/2020 Office Visit Family Medicine Earnest Lobo MD [address] [place] [phone] 06/30/2020 Office Visit Cardiology Keli Spence M D [address] [place] [phone] Health Maintenance Due Date Last Done Comments HEPATITIS C (HCV) SCREEN 1955 EYE EXAM 1965 URINE MICROALBUMIN 1966 COLONOSCOPY 2006 Zoster Recombinant Vaccine 2006 (SHINGRIX) (1 of 2) HgA1C 05/27/2019 11/24/2018, 05/20/2018, 06/08/2016, Additional history exists LDL-C 11/25/2019 11/24/2018, 05/20/2018, 06/08/2016, Additional history exists INFLUENZA VACCINE (#1) 2020 06/20/2019, 08/03/2016 FOOT EXAM 06/18/2020 06/18/2019, 06/18/2019 CREATININE (SERUM) 10/29/2020 10/29/2019, 10/18/2019, 05/17/2019, Additional history exists Depression Screening 11/18/2020 11/19/2019 DTaP,Tdap,and Td Vaccines (2 - Td) 11/06/2029 11/07/2019 PNEUMOCOCCAL 0-64 YEARS COMBINED Completed 05/21/2018 SERIES documented as of this encounter Implants Implanted Type Area Ticket Writer Device Identifier Shelf Exp iration Model / Date Serial / L ot Pump, Medtronic Synchromed Ii Infusion W ith Filter (20 Ml) #8637-20 - [id number] Pump Medtronic 09/18/2020 8637-20 / Implanted: Qty: 1 on 07/09/2019 by Pipe Easton MD at [facility] N [id number] / [id number] Right Total Knee documented as of this encounter Results Not on filedocumented in this encounter Visit Diagnoses Diagnosis Low serum vitamin B12 - Primary Hypogonadism in male Chest pain, unspecified type documented in this encounter Administered Medications Medication Order MAR Action Action Date Dose Rate Site cyanocobalamin (VITAMIN Given 03/27/2020 10:08 1,000 mcg Left B12) injection 1,000 mcg AM CDT Dorsogluteal-IM 1,000 mcg, Intramuscular, ONCE, 1 dose, Bing 03/27/20 at 1100, Routine testosterone cypionate Given 03/27/2020 10:08 AM 200 mg Left Dorsogluteal-IM (DEPO-TESTOSTERONE) injection CDT 200 mg 200 mg, Intramuscular, ONCE, 1 dose, Bing 03/27/20 at 1045, Routine documented in this encounter Insurance Payer Benefit Plan / Subscriber ID Effective Dates Phone Addre ss Type Group [employer] [id number] 2019-Prese Medicare Adv PLUS PLUS nt HMO CLASSIC/VALUE documented as of this encounter"
--- OUTSIDE RECORDS SUMMARY | 2020-05-21 10:14 | XMS REPORT | Summary of Care ---
:1955 Author Organization [facility] Address [address] [place] [id number] Care Team Providers Name Role Phone MD Yamil Primary Care Provider Reason for Visit Reason Comments Follow-up INJECTION Tshot 200mg to right hip due with B12 1000mcg Refill Request Encounter Details Date Type Department Care Team Description 02/27/2020 Office Visit [facility] Earnest Lobo Hy pogonadism in male (Primary Dx); and Adult Primary MD Type 2 diabetes mellitus with diabetic p olyneuropathy, without long-term current use of insulin; [place] [id number] [address] [facility] Allergic rhinitis, unspecifi ed seasonality, unspecified trigger; [address] [facility] Memory loss [facility], [address] [place] [address] [phone] Allergies Active Allergy Reactions Severity Noted Date Comments Sulfamethoxazole Nausea and/or Vomiting 08/16/2016 documented as of this encounter (statuses as of 02/28/2020) Medications Medication Sig Dispensed Refills Start End Date Status Date HYDROmorphOne Take 4 mg by 0 Act jose (DILAUDID) 4 mg mouth 3 tablet (three) times daily. tiZANidine Take 4 mg by 0 Active (ZANAFLEX) 4 mg mouth 2 (two) capsule times daily. omega-3/dha/epa/dpa Take by 0 Active /fish oil (OMEGA-3 mouth. 2100 ORAL) cinnamon bark Take by 0 Active (CINNAMON ORAL) mouth. ergocalciferol, Take by 0 Acti ve vitamin D2, mouth. (VITAMIN D ORAL) Cholecalciferol, Take by 0 Act jose Vitamin D3, mouth. (VITAMIN D3) 1,000 unit capsule triamcinolone 55 Use 2 Sprays 1 Bottle 3 Active mcg nasal inhaler in each 8 nostril daily. docusate (STOOL TAKE ONE 100 capsule 3 Ac tive SOFTENER) 100 mg CAPSULE BY 8 capsule MOUTH TWICE A DAY ONETOUCH ULTRA2 Use as 1 Each 0 Acti ve METER Kit directed once 9 a day to monitor blood glucose for ICD code of E11.9. ONE TOUCH DELICA 33 Use as 100 Each 3 Active gauge directed once 9 MiscIndications: a day to Type 2 diabetes monitor blood mellitus with glucose for diabetic ICD code of polyneuropathy, E11.9. without long-term current use of insulin ONE TOUCH DELICA Use as 1 Kit 0 Act jose KitIndications: directed once 9 Type 2 diabetes a day to mellitus with monitor blood diabetic glucose for polyneuropathy, ICD code of without long-term E11.9. current use of insulin ONETOUCH ULTRA BLUE Use as 100 Strip 0 Active TEST STRIP directed for 9 stripIndications: once a day Type 2 diabetes glucose mellitus with monitoring for diabetic ICD of E11.9 polyneuropathy, without long-term current use of insulin aspirin 81 mg EC Take 1 tablet 0 Active tabletIndications: by mouth 9 Atherosclerosis of daily. [place] coronary artery of [place] heart without angina pectoris, Essential hypertension, Type 2 diabetes mellitus with diabetic polyneuropathy, without long-term current use of insulin nitroglycerin 0.[address] Place 1 tablet 1 Bottle 5 Active mg sublingual under the 9 tabletIndications: tongue every Atherosclerosis of 5 (five) [place] coronary minutes as artery of [place] needed for heart without Chest pain. angina pectoris, Essential hypertension, Type 2 diabetes mellitus with diabetic polyneuropathy, without long-term current use of insulin galantamine 12 mg Take 1 tablet 60 tablet 6 Active tablet by mouth 2 0 (two) times daily. tamsulosin 0.4 mg Take 1 capsule 30 capsule 5 Active 24 hr by mouth 0 capsuleIndications: daily. BPH with obstruction/lower urinary tract symptoms mupirocin 2 % Apply to 22 g 0 Active ointmentIndications area(s) 3 0 : Cellulitis of (three) times right lower daily. extremity, Infected cyst of skin cefUROXime 500 mg Take 1 tablet 20 tablet 0 Active tabletIndications: by mouth 2 0 Abscess (two) times daily. gabapentin 300 mg TAKE ONE 90 capsule 2 A ctive capsuleIndications: CAPSULE BY 0 Diabetic MOUTH THREE polyneuropathy TIMES A DAY associated with type 2 diabetes mellitus LOSARTAN 25 mg TAKE ONE 90 tablet 0 Activ e tablet TABLET BY 0 MOUTH DAILY rosuvastatin 40 mg TAKE ONE 90 tablet 1 A ctive tabletIndications: TABLET BY 0 Hyperlipidemia, MOUTH EVERY unspecified EVENING hyperlipidemia type azelastine 137 mcg USE ONE SPRAY 1 Bottle 4 Active (0.1 %) nasal IN EACH 0 sprayIndications: NOSTRIL TWICE Allergic rhinitis, DAILY unspecified seasonality, unspecified trigger donepezil 5 mg Take 1 tablet 90 tablet 1 A ctive tabletIndications: by mouth at 0 Memory loss bedtime. metformin ER 500 mg Take 1 tablet 180 tablet 3 Active 24 hr by mouth 2 0 tabletIndications: (two) times Type 2 diabetes daily. mellitus with diabetic polyneuropathy, without long-term current use of insulin glimepiride 2 mg TAKE ONE 90 tablet 1 Act jose tabletIndications: TABLET BY 0 Type 2 diabetes MOUTH DAILY mellitus with WITH BREAKFAST diabetic polyneuropathy, without long-term current use of insulin azelastine 137 mcg USE ONE SPRAY 1 Bottle 4 0 Discontinued (0.1 %) nasal IN EACH 9 20 (Reord er) sprayIndications: NOSTRIL TWICE Allergic rhinitis, DAILY unspecified seasonality, unspecified trigger GLIMEPIRIDE 2 mg TAKE ONE 90 tablet 1 02/27/20 Dis continued tablet TABLET BY 0 20 (Reorder) MOUTH DAILY WITH BREAKFAST donepezil 5 mg Take 1 tablet 90 tablet 1 02/27/20 D iscontinued tabletIndications: by mouth at 0 20 (Reorder) Memory loss bedtime. METFORMIN ER 500 mg TAKE ONE 180 tablet 0 02/27/20 Discontinued 24 hr tablet TABLET BY 0 20 (Reorde r) MOUTH TWICE A DAY Hospital, Clinic, or Ordered Dose Route Frequency Start Date End D ate Status Other Facility Administered Medication NaCl 0.9% (NS) IV 250 mL IV Infusion CONTINUOUS 06/08/2018 Active infusion 250 mLIndications: Other chest pain DOBUTamine (DOBUTREX) 540 mcg/min IV TITRATE 06/08/2018 Active 500 mg in 250mL(Fixed Dose) D5W infusionIndications: Other chest pain testosterone 200 mg IM ONCE 02/27/2020 02/27/2020 Ended cypionate (DEPO-TESTOSTERONE) injection 200 mg cyanocobalamin 1000 mcg IM ONCE 02/27/2020 02/27/2020 End ed (VITAMIN B12) injection 1,000 mcg documented as of this encounter (statuses as of 02/28/2020) Active Problems Problem Noted Date Low serum [...] as of this encounter (statuses as of 02/28/2020) Immunizations Name Administration Dates Next Due Influenza [...] been in contact with No / Unsure 02/27/2020 8:33 AM CDT someone who was confirmed or suspected to have Coronavirus / COVID-19? documented as of this encounter Last Filed Vital Signs Vital Sign Reading Time Taken Comments Blood Pressure 112/70 02/27/2020 8:34 AM CDT Pulse - - Temperature - - Respiratory Rate - - Oxygen Saturation - - Inhaled Oxygen Concentration - - Weight 103.9 kg (229 lb) 02/27/2020 8:34 AM CDT Height - - Body Mass Index 27.87 11/19/2019 9:06 AM CDT documented in this encounter Progress Notes Earnest Lobo MD - 02/27/2020 8:30 AM CDT Cc: low t Chief Complaint Patient presents with Follow-up INJECTION Tshot 200mg to right hip due with B12 1000mcg Refill Request Melody Duarte is a 64 year old male. Here for low t, medication medication refills Allergies Melody is allergic to sulfamethoxazole. Medications Outpatient Medications Prior to Visit Medication Sig Dispense Refill METFORMIN ER 500 mg 24 hr tablet TAKE ONE TABLET BY MOUTH TWICE A DAY 180 tablet 0 donepezil 5 mg tablet Take 1 tablet by mouth at bedtime. 90 tablet 1 rosuvastatin 40 mg tablet TAKE ONE TABLET BY MOUTH EVERY EVENING 90 tablet 1 LOSARTAN 25 mg tablet TAKE ONE TABLET BY MOUTH DAILY 90 tablet 0 gabapentin 300 mg capsule TAKE ONE CAPSULE BY MOUTH THREE TIMES A DAY 90 capsule 2 GLIMEPIRIDE 2 mg tablet TAKE ONE TABLET BY MOUTH DAILY WITH BREAKFAST 90 tablet 1 cefUROXime 500 mg tablet Take 1 tablet [...] for ICD of E11.9 100 Strip 0 azelastine 137 mcg (0.1 %) nasal spray USE ONE SPRAY IN EACH NOSTRIL TWICE DAILY 1 Bottle 4 ONETOUCH ULTRA2 METER Kit Use as directed [...] 250 mL 250 mL IV Infusion CONTINUOUS Jordy, MD Keli 50 mL/hr at 06/08/18814 250 mL at 06/08/1815 Histories Past Medical History: Diagnosis Date Arthritis Chronic back pain DM (diabetes mellitus) Hyperlipidemia Hypertension Hypogonadism, male Past Surgical History: Procedure Laterality Date BACK SURGERY CHOLECYSTECTOMY FRACTURE SURGERY Left ORIF L foot INTRATHECAL INFUSION PUMP REVISION Left 07/09/2019 Surgeon: Pipe Mathis MD; Location: [facility] OR Location LUMBAR EPIDURAL STEROID INJECTION N/A 11/10/2015 Surgeon: Pipe Mathis MD; Location: [facility] OR Location LUMBAR EPIDURAL STEROID INJECTION N/A 11/17/2015 Surgeon: Pipe Mathis MD; Location: [facility] OR Location LUMBAR EPIDURAL STEROID INJECTION N/A 11/03/2015 Surgeon: Pipe Mathis MD; Location: [facility] OR Location LUMBAR EPIDURAL STEROID INJECTION N/A 08/16/2016 Surgeon: Pipe Mathis MD; Location: [facility] OR Location LUMBAR EPIDURAL STEROID INJECTION N/A 08/23/2016 Surgeon: Pipe Mathis MD; Location: [facility] OR Location LUMBAR EPIDURAL STEROID INJECTION N/A 09/06/2016 Surgeon: Pipe Mathis MD; Location: [facility] OR Location NERVE STIMULATOR INSERTION NERVE [...] file Gets together: Not on file Attends jehovah's witness service: Not on file Active member of [...] comments Father pancoast tumors Heart Brother HTN [place] (myocardial infarction) Maternal Uncle [place] (myocardial infarction) Other cousin, [place] @ 40 Review of Systems Vital Signs BP 112/70 | Wt 229 lb (103.9 kg) | BMI 27.87 kg/m Physical Exam Constitutional: He appears well-developed and well-nourished. HENT: Head: Normocephalic and atraumatic. Right Ear: External ear normal. Cardiovascular: Normal rate and regular rhythm. Pulmonary/Chest: Effort normal and breath sounds normal. Abdominal: Soft. Musculoskeletal: Normal range of motion. Neurological: He is alert. Vitals reviewed. Assessment/Plan Hypogonadism, 200mg depotestosterone DM, medication refilled AR, medication refill This visit did not involve counseling and coordination that comprised more than 50% of the visit time. documented in this encounter Plan of Treatment Date Type Specialty Care Team Description 03/27/2020 Office Visit Family Medicine Earnest Lobo MD [address] [place] [address] [phone] 06/30/2020 Office Visit Cardiology eKli Spence M D [address] [place] [address] [place] [address] 15 [phone] Health Maintenance Due Date Last Done Comments HEPATITIS C (HCV) SCREEN 1955 EYE EXAM 1965 URINE MICROALBUMIN 1966 COLONOSCOPY 2006 Zoster Recombinant Vaccine 2006 (SHINGRIX) (1 of 2) HgA1C 05/27/2019 11/24/2018, 05/20/2018, 06/08/2016, Additional history exists LDL-C 11/25/2019 11/24/2018, 05/20/2018, 06/08/2016, Additional history exists FOOT EXAM 06/18/2020 06/18/2019, 06/18/2019 CREATININE (SERUM) 10/29/2020 10/29/2019, 10/18/2019, 05/17/2019, Additional history exists Depression Screening 11/18/2020 11/19/2019 DTaP,Tdap,and Td Vaccines (2 - Td) 11/06/2029 11/07/2019 PNEUMOCOCCAL 0-64 YEARS COMBINED Completed 05/21/2018 SERIES INFLUENZA VACCINE Completed 06/20/2019, 08/03/2016 documented as of this encounter Implants Implanted Type Area Pilot Can Router Device Identifier Shelf Exp iration Model / Date Serial / L ot Pump, Medtronic Synchromed Ii Infusion W ith Filter (20 Ml) #8637-20 - [id number] Pump Medtronic 09/18/2020 8637-20 / Implanted: Qty: 1 on 07/09/2019 by Pipe Easton MD at [facility] N [id number] / [id number] Right Total Knee documented as of this encounter Results Not on filedocumented in this encounter Visit Diagnoses Diagnosis Hypogonadism in male - Primary Type 2 diabetes mellitus with diabetic p olyneuropathy, without long-term current use of insulin Allergic rhinitis, unspecified seasonali ty, unspecified trigger Memory loss documented in this encounter Administered Medications Medication Order MAR Action Action Date Dose Rate Site cyanocobalamin (VITAMIN Given 02/27/2020 10:07 1,000 mcg Right B12) injection 1,000 mcg AM CDT Dorsogluteal-IM 1,000 mcg, Intramuscular, ONCE, 1 dose, Tue02/27/20 at 1030, Routine testosterone cypionate Given 02/27/2020 8:58 AM 200 mg Right Dorsogluteal-IM (DEPO-TESTOSTERONE) injection CDT 200 mg 200 mg, Intramuscular, ONCE, 1 dose, Tue02/27/20 at 1000, Routine documented in this encounter Insurance Payer Benefit Plan / Subscriber ID Effective Dates Phone Addre ss Type Group RESHMA DURAN [id number] 2019-Prese Medicare Adv PLUS PLUS nt HMO CLASSIC/VALUE documented as of this encounter"
--- OUTSIDE RECORDS SUMMARY | 2020-05-21 10:14 | XMS REPORT | Summary of Care ---
:1955 Author Organization [facility] Address [address] [place] [address] Care Team Providers Name Role Phone MD Yamil Primary Care Provider Reason for Visit Reason Comments Follow-up INJECTION Tshot 200mg to right hip due with B12 1000mcg Refill Request Encounter Details Date Type Department Care Team Description 02/27/2020 Office Visit [facility] Earnest Lobo Hy pogonadism in male (Primary Dx); and Adult Primary MD Type 2 diabetes mellitus with diabetic p olyneuropathy, without long-term current use of insulin; [place] [id number] [address] [facility] Allergic rhinitis, unspecifi ed seasonality, unspecified trigger; [address] [facility] Memory loss [facility], [address] [place] [address] [phone] Allergies Active Allergy Reactions Severity Noted Date [...] tabletIndications: by mouth 9 Atherosclerosis of daily. [place] coronary artery of [place] heart without angina pectoris, Essential hypertension, Type 2 diabetes mellitus with diabetic polyneuropathy, without long-term current use of insulin nitroglycerin 0.4 Place 1 tablet 1 Bottle 5 Active mg sublingual under the 9 tabletIndications: tongue every Atherosclerosis of 5 (five) [place] coronary minutes as artery of [place] needed for heart without Chest pain. angina [...] Left 07/09/2019 Surgeon: Pipe Mathis MD; Location: [facility] OR Location LUMBAR EPIDURAL STEROID INJECTION N/A 11/10/2015 Surgeon: Pipe Mathis MD; Location: [facility] OR Location LUMBAR EPIDURAL STEROID INJECTION N/A 11/17/2015 Surgeon: Pipe Mathis MD; Location: [facility] OR Location LUMBAR EPIDURAL STEROID INJECTION N/A 11/03/2015 Surgeon: Pipe Mathis MD; Location: [facility] OR Location LUMBAR EPIDURAL STEROID INJECTION N/A 08/16/2016 Surgeon: Pipe Mathis MD; Location: [facility] OR Location LUMBAR EPIDURAL STEROID INJECTION N/A 08/23/2016 Surgeon: Pipe Mathis MD; Location: [facility] OR Location LUMBAR EPIDURAL STEROID INJECTION N/A 09/06/2016 Surgeon: Pipe Mathis MD; Location: [facility] OR Location NERVE STIMULATOR INSERTION NERVE STIMULATOR [...] comments Father pancoast tumors Heart Brother HTN [place] (myocardial infarction) Maternal Uncle [place] (myocardial infarction) Other cousin, [place] @ 40 Review of Systems Vital Signs [...] Office Visit Family Medicine Earnest Lobo MD [address] [place] [address] [phone] 06/30/2020 Office Visit Cardiology Keli Spence M D [address] [place] [address] [place] [address] 15 [phone] Health Maintenance Due Date Last Done Comments [...] of this encounter Implants Implanted Type Area Orthopedic Tech Device Identifier Shelf Exp iration Model / Date Serial / L ot Pump, Medtronic Synchromed Ii Infusion W ith Filter (20 Ml) #8637-20 - [id number] Pump Medtronic 09/18/2020 8637-20 / Implanted: Qty: 1 on 07/09/2019 by Pipe Easton MD at [facility] N [id number] / [id number] Right Total Knee documented as of this [...] Phone Addre ss Type Group RESHMA DURAN [id number] 2019-Prese Medicare Adv PLUS PLUS nt HMO CLASSIC/VALUE documented as of this encounter"
--- OUTSIDE RECORDS SUMMARY | 2020-05-21 10:14 | XMS REPORT | Continuity of Care Document ---
:1955 Author Organization [facility] t Address [address] [place] [address] Care Team Providers Name Role Phone Provider, Urgent Care Attending Clinician Unavailable Yamil THOMPSON Attending Clinician Porfirio BLAIR Attending Clinician MEGHA Attending Clinician Unavailable LEYDA Attending Clinician Unavailable Donald Vieira Attending Clinician Donald Vieira Admitting Clinician Problems Condition Condition Condition Status Onset Resolution Last Treating Co mments Source Name Details Category Date Date Treatment Clinician Date PAINFUL Diagnosis Active 2016-092017-08-22 Me moria TKA 10-03 16:59:00 l PAINFUL 00:00: [place] TKA 00 Active 08/03/2017 [facility] Arthritis Problem Active 2017-08-22 Me moria (disorder) 01:57:15 l [place] Arthritis (disorder) Active Problem 08/22/2017 [facility] Chronic Problem Active 2017-08-22 Nickolas emeka pain 01:57:15 l (finding) Chronic Herm ely pain (finding) Active Problem 08/22/2017 [facility] Dementia Problem Active 2017-08-22 Mem oria (disorder) 01:57:15 l Dementia Ken n (disorder) Active Problem 08/22/2017 [facility] Depressive Problem Active 2017-08-22 M emoria disorder 01:57:15 l (disorder) Ken n Depressive disorder (disorder) Active Problem 08/22/2017 [facility] Diabetes Problem Active 2017-08-22 Mem oria mellitus 01:57:15 l (disorder) Diabetes He r[place] mellitus (disorder) Active Problem 08/22/2017 [facility] Hyperlipid Problem Active 2017-08-22 M emoria emia 01:57:15 l (disorder) Ken n Hyperlipid emia (disorder) Active Problem 08/22/2017 [facility] Hypertensi Problem Active 2017-08-22 M emoria ve 01:57:15 l disorder, [place] systemic Hypertensi arterial ve (disorder) disorder, systemic arterial (disorder) Active Problem 08/22/2017 [facility] Neuropathy Problem Active 2017-08-22 M emoria (disorder) 01:57:15 l [place] Neuropathy (disorder) Active Problem 08/22/2017 Feet [facility] Pain Problem Active 2017-08-22 Mem[facility] ia (finding) 01:57:15 l Pain [place] (finding) Active Problem 08/22/2017 Chronic back pain [facility] Restless Problem Active 2017-08-22 Mem [facility] legs 01:57:15 l (disorder) Restless He [place] legs (disorder) Active Problem 08/22/2017 [facility] Sleep Problem Active 2017-08-22 [facility] ia apnea 01:57:15 l (finding) Sleep Ken n apnea (finding) Active Problem 08/22/2017 [facility] Therapeuti Problem Active 2017-08-22 M emoria c opioid 01:57:15 l induced [place] constipati Therapeuti on c opioid (disorder) induced constipati on (disorder) Active Problem 08/22/2017 [facility] Diabetes Problem Active 2017-08-22 Mem o[facility] mellitus 01:57:15 l type 2 Diabetes Ken n (disorder) mellitus type 2 (disorder) Active Problem 08/22/2017 [facility] Allergies, Adverse Reactions, Alerts Allergy Allergy Status Severity Reaction(s) Onset Inactive Treating Comm ents Source Name Type Date Date Clinician sulfamet sulfamet Active Shirin a hoxazole hoxazole koby Teresa Social History Social Habit Start Date Stop Date Quantity Comments Source Social History 2017-08-09 2017-08-09 Leilani redmond 20:40:47 20:40:47 Medications Ordered Filled Start Stop Current Ordering Indication Dosage Frequency Signature Comments Components Source Medication Medication Date Date Medication? Clinician (SIG) Name Name POLYETHYLEN 2016-09 No Notes: Nickolas emeka E GLYCOL 2-16 Dissolve l 3350 15:00: in 8 oz of [place] 00 water or juice. (Same as: Miralax) remove 2016-09 No Notes: Mem[facility] patch 2-16 Remove old l 15:00: patch [place] 00 before applicatio n of new patch. Aspirin 325 2016-09 No Notes: (Do [facility] MG Enteric 2-16 Not Crush) l Coated 14:00: Do not [place] Tablet 00 crush or chew. pantoprazol 2016-09 No Notes: Nickolas emeka e 2-16 Tablet l 13:30: should not [place] 00 be chewed or crushed. (Same as: Protonix) rosuvastati 2016-09 No Notes: Nickolas emeka n 2-16 (Same As: l 03:00: Crestor) [place] 00 Requip 2016-09 No Notes: Memoria 2-16 (Same as: l 03:00: Requip) [place] 00 donepezil 2016-09 No Notes: Mem[facility] a 2-16 (Same as: l 03:00: Aricept) [place] 00 sennosides, 2016-09 No Notes: Nickolas emeka LONGTERM 2-16 (Same as: l 03:00: Senokot) [place] 00 Celebrex 2016-09 No Notes: [facility] 2-16 NSAID. l 00:00: Please [place] 00 check indication . Not for seizure. (Same As: CeleBREX) Vancomycin 2016-09 Yes 2001 mg: Me moria 2-16 infuse l 00:00: over 2.5 [place] 00 hours MEDICATION WASTE Product Size: 1000 mg Product Wasted: ___ mg Ergocalcife 2016-09 Yes 50,000 Nickolas emeka rol 47731 2-15 IntlUnit = l UNT Oral 23:26: 1 cap, PO, Her cervantes Capsule 00 Q7D, # 8 caplet, 0 Refill(s) metFORMIN 2016-09 No Notes: Mem[facility] a 500 mg oral 2-15 (Same as: l tablet, 23:00: Glucophage Herm ely extended 00 XR) "Do release Not Crush" Docusate 2016-09 No Notes: [facility] Sodium 100 2-15 (Same as: l MG Oral 23:00: Colace) [place] Capsule 00 (Do Not Crush) Lyrica 2016-09 No Notes: [facility] 2-15 Same as l 22:00: Lyrica [place] 00 Aspirin 325 2016-09 Yes 325 mg = 1 Memoria MG Enteric 2-15 tab, PO, l Coated 20:33: BID, # 60 Ken n Tablet 00 tab, 0 Refill(s) Cefazolin 2016-09 No Notes: Mem[facility] a 2-15 (Same As: l 20:00: Ancef, [place] 00 Kefzol) MEDICATION WASTE Product Size: 1000 mg Product Wasted: ___ mg Dextrose 2016-09 No 25 gm, 50 Nickolas emeka 50% Syringe 2-15 mL, Route: l 17:50: IVP, Drug [place] 00 Form: INJ, Dosing Weight 102.273, kg, PRN, PRN Blood Glucose Results, Start date: 08/19/17 11:50:00 [employer] PROJECT MANAGER, Duration: 30 day, Stop date: 09/18/17 11:49:00 [employer] PROJECT MANAGER Insulin 2016-09 No Notes: [facility] Lispro 2-15 (Same as: l 17:50: Humalog ) [place] 00 Roll in palms of hands gently; Do not shake `vigorousl y. "Single Patient Use Only " WASTE: F/P - Black; E - Municipal Trash Bin Stable for 28 days at room temperatur e. Expires in days from ____Date Glucagon 2016-09 No 1 mg, Memoria 2-15 Route: IM, l 17:50: Drug form: [place] 00 PDR/INJ, PRN, Dosing Weight 102.273, kg, PRN Blood Glucose Results, Start date: 08/19/17 11:50:00 [employer] PROJECT MANAGER, Duration: 30 day, Stop date: 09/18/17 11:49:00 W[employer] PROJECT MANAGER Ergocalcife 2016-09 No Notes: Nickolas emeka rol 53771 2-15 (Same as: l UNT Oral 16:00: Vitamin D) Her cervantes Capsule 00 "Do Not Crush" tizanidine 2016-09 No Notes: Memor ia 2-15 (Same As: l 15:30: Zanaflex) [place] 00 Insulin 2016-09 No Notes: [facility] Lispro 2-15 (Same as: l 15:30: Humalog ) [place] 00 Roll in palms of hands gently; Do not shake `vigorousl y. "Single Patient Use Only " WASTE: F/P - Black; E - Municipal Trash Bin Stable for 28 days at room temperatur e. Expires in days from ____Date Promethazin 2016-09 No Notes: Nickolas emeka e 2-15 (Same as: l 15:30: Phenergan) Acetaminoph 2016-09 No Notes: Do M emoria en 2-15 not exceed l 15:30: 4 gm/day. (Same as: Tylenol) Hydroxyzine 2016-09 No Notes: Nickolas emeka 2-15 (Same as: l 15:30: Vistaril) Ondansetron 2016-09 No Notes: Nickolas emeka 2-15 (Same as: l 15:30: Zofran) MEDICATION WASTE Product Size: 4 mg Product Wasted: ___ mg Milk of 2016-09 No Notes: [facility] Magnesia 2-15 (Same as: l 15:30: Milk of Magnesia, MOM) Lactated 2016-09 No 1,000 mL, Nickolas emeka Ringers IV 2-15 Rate: 75 l 1,000 mL 15:30: ml/hr, Infuse over: 13.3 hr, Route: IV, Dosing Weight 102.273 kg, Total Volume: 1,000, Start date: 08/19/17 9:30:00 [employer] PROJECT MANAGER, Duration: 30 day, Stop date: 09/18/17 9:29:00 W[employer]OURCES PROJECT MANAGER, 2.35, m2 Promethazin 2016-09 No Notes: Do M emoria e 2-15 not give l 13:38: IV push. (Same as: Phenergan) Ondansetron 2016-09 No Notes: Nickolas emeka 2-15 (Same as: l 13:38: Zofran) MEDICATION WASTE Product Size: 4 mg Product Wasted: ___ mg Meperidine 2016-09 No Notes: Memor ia 2-15 (Same as: l 13:38: Demerol) "Use Precaution in Elderly, Seizure disorders, and Renal impairment " Acetaminoph 2016-09 No Notes: Max [facility]oria en 2-15 acetaminop l 13:38: hen 4000 [place] 00 mg/day (4 gm/day). (Same as: Tylenol Extra Strength) Naloxone 2016-09 No Notes: [facility] 2-15 Same as l 13:38: Narcan [place] 00 Flumazenil 2016-09 No Notes: Memor ia 2-15 (Same as: l 13:38: Romazicon) [place] 00 Hydromorpho 2016-09 No Notes: Nickolas emeka ne 2-15 (Same as: l 13:38: Dilaudid) [place] 00 Morphine 2016-09 No Notes: [facility] 2-15 (Same l 13:38: as:MORPhin [place] 00 e Sulfate) Labetalol 2016-09 No 10 mg, 2 Nickolas emeka 2-15 mL, Route: l 13:38: IVP, Drug [place] 00 form: INJ, Q5Min, Dosing Weight 102.273, kg, PRN Elevated BP, Start date: 08/19/17 7:38:00 [employer] PROJECT MANAGER, Duration: 5 doses or times, Stop date: 08/19/17 22:00:00 W[employer] PROJECT MANAGER Hydralazine 2016-09 No Notes: Nickolas emeka 2-15 (Same as: l 13:38: Apresoline [place] 00 ) Push over 5 minutes vancomycin 2016-09 No Notes: Memor ia + Sodium 2-15 TIME l Chloride 13:00: CRITICAL Suzy nn 0.9% IV 250 00 MEDICATION mL (Same As: Vancocin) ropivacaine 2016-09 No Notes: Nickolas emeka 2-15 NOT FOR l 13:00: IV use [place] 00 Each mL contains: Ropivacain e 2.46 mg, Epinephrin e 0.005 mg, Clonidine 0.0008 mg and Ketorolac 0.3 mg in Sodium Chloride polymyxin B 2016-09 No Notes: Nickolas emeka sulfate + 2-15 (Same as: l Sodium 13:00: Polymyxin Ken n Chloride 00 B Sulfate) 0.9% IV 250 mL vancomycin 2016-09 No 2001 mg: Me moria 2-15 infuse l 12:00: over 2.5 [place] 00 hours Cefazolin 2016-09 No Notes: Memori a 2-15 (Same As: l 12:00: Ancef, [place] 00 Kefzol) MEDICATION WASTE Product Size: 1000 mg Product Wasted: ___ mg Vancomycin 2016-09 No 1,534.095 Me moria 2-15 mg, Route: l 12:00: IVPB, [place] 00 ONCALL, Dosing Weight 102.273, kg, Start date: 08/19/17 6:00:00 W[employer] PROJECT MANAGER, Duration: 1 doses or times, ABX Indication : Surgical Prophylaxi s celecoxib 2016-09 No Notes: Memori a 2-15 NSAID. l 12:00: Please [place] 00 check indication . Not for seizure. (Same As: CeleBREX) 72 HR 2016-09 No Notes: [facility] Scopolamine 2-15 Change l 0.0139 11:24: patch [place] MG/HR 00 every 72 Transdermal hours Patch (Same as: Transderm- Scop) Calcium 2016-09 No 1,000 mL, Memor ia Chloride 2-15 1,000 l 0.0014 11:24: ml/hr, [place] MEQ/ML / 00 Infuse Potassium Over: 1 Chloride hr, Route: 0.004 IV, 1,000, MEQ/ML / Drug form: Sodium INJ, ONCE, Chloride Priority: 0.103 STAT, MEQ/ML / Dosing Sodium Weight Lactate 105.909 0.028 kg, Start MEQ/ML date: Injectable 08/19/17 Solution 5:24:00 W[employer] PROJECT MANAGER, Stop date: 08/19/17 5:24:00 WATER [employer] PROJECT MANAGER Lactated 2016-09 No 1,000 mL, Nickolas emeka Ringers IV 2-15 Rate: 100 l 1,000 mL 11:24: ml/hr, [place] 00 Infuse over: 10 hr, Route: IV, Dosing Weight 102.273 kg, Total Volume: 1,000, Start date: 08/19/17 5:24:00 W[employer] PROJECT MANAGER, Duration: 30 day, Stop date: 09/18/17 5:23:00 W[employer] PROJECT MANAGER, 2.35, m2 Acetaminoph 2016-09 No Notes: Max Memoria en 2-15 acetaminop l 11:24: hen 4000 [place] 00 mg/day (4 gm/day). (Same as: Tylenol Extra Strength) Famotidine 2016-09 No Notes: Memor ia 2-15 (Same as: l 11:24: Pepcid) [place] 00 linaclotide 2016-09 Yes 290 Memori a 0.29 MG 2-05 microgram l Oral 20:49: = 1 cap, [place] Capsule 00 PO, Daily, [Linzess] PRN Constipati on, 30 minutes prior to the first meal of the day, # 30 cap, 0 Refill(s) MORPHINE 2016-09 Yes MORPHINE Memor ia PAIN PUMP 2-05 PAIN PUMP, l 20:49: Refill(s) [place] 00 0 donepezil 5 2016-09 No 5 mg = 1 Me moria mg oral 2-05 tab, PO, l tablet 20:48: Bedtime, # Suzy nn 00 90 tab, 1 Refill(s) ropinirole 2016-09 Yes 1 mg = 1 Mem oria 1 MG Oral 2-05 tab, PO, l Tablet 20:47: Bedtime, # Suzy nn [Requip] 00 30 tab, 1 Refill(s) Hydromorpho 2016-09 Yes 4 mg = 1 Me moria ne 2-05 tab, PO, l Hydrochlori 20:47: Q8H, PRN He rmann de 4 MG 00 Pain, 0 Oral Tablet Refill(s) [Dilaudid] tizanidine 2016-09 No 4 mg = 1 Mem oria 4 mg oral 2-05 tab, PO, l tablet 20:47: Q8H, PRN [place] 00 for muscle spasms, # 270 tab, 0 Refill(s) glimepiride 2016-09 Yes 2 mg = 1 Me moria 2 mg oral 2-05 tab, PO, l tablet 20:47: Breakfast, Suzy nn 00 # 30 tab, 0 Refill(s) metFORMIN 2016-09 Yes 500 mg = 1 Me moria 500 mg oral 2-05 tab, PO, l tablet, 20:46: BID-Meals, Herm ely extended 00 # 60 tab, release 1 Refill(s) rosuvastati 2016-09 No 40 mg = 1 M emoria n 40 mg 2-05 tab, PO, l oral tablet 20:46: Bedtime, # [place] 00 90 tab, 1 Refill(s) Azelastine 2016-09 Yes 2 spray, Mem oria hydrochlori 2-05 NASAL, l de 0.137 20:45: BID, 0 [place] MG/ACTUAT 00 Refill(s) Metered Dose Nasal [place] metFORMIN 2016-09 No 500 mg = 1 Me moria 500 mg oral 2-05 tab, PO, l tablet, 20:43: BID-Meals, Herm ely extended 00 # 60 tab, release 1 Refill(s) Hydromorpho 2016-09 No 4 mg = 1 Me moria ne 2-05 tab, PO, l Hydrochlori 20:43: TID, PRN He rmann de 4 MG 00 Pain, 0 Oral Tablet Refill(s) [Dilaudid] tizanidine 2016-09 No See Memoria 4 mg oral 2-05 Instructio l tablet 20:43: ns, PRN as Suzy nn 00 needed for muscle spasm, 1-2 tab PO BID PRN muscle spasm, 0 Refill(s) Azelastine 2016-09 No 2 spray, Mem oria hydrochlori 2-05 NASAL, l de 0.137 20:43: BID, 0 [place] MG/ACTUAT 00 Refill(s) Metered Dose Nasal [place] linaclotide 2016-09 No 290 Memori a 0.29 MG 2-05 microgram l Oral 20:43: = 1 cap, [place] Capsule 00 PO, Daily, [Linzess] PRN Constipati on, 30 minutes prior to the first meal of the day, # 30 cap, 0 Refill(s) glimepiride 2016-09 No 2 mg = 1 Me moria 2 mg oral 2-05 tab, PO, l tablet 20:43: Breakfast, Suzy nn 00 # 30 tab, 0 Refill(s) donepezil 5 2016-09 Yes 5 mg = 1 Me moria mg oral 2-05 tab, PO, l tablet 20:43: Daily, # [place] 00 30 tab, 0 Refill(s) ropinirole 2016-09 No 1 mg = 1 Mem oria 1 MG Oral 2-05 tab, PO, l Tablet 20:43: Bedtime, # Suzy nn [Requip] 00 30 tab, 1 Refill(s) rosuvastati 2016-09 Yes 40 mg = 1 M emoria n 40 mg 2-05 tab, PO, l oral tablet 20:43: Bedtime, # [place] 00 30 tab, 0 Refill(s) Vital Signs Vital Name Observation Time Observation Value Comments Source Respitory Rate 2017-08-19 21:15:00 Memori al [place] Systolic (mm Hg) 2017-08-19 21:15:00 Nickolas rial [place] Diastolic (mm Hg) 2017-08-19 21:15:00 Mem orial [place] Temperature Oral (F) 2017-08-19 21:15:00 97.7 F [facility] [place] Heart Rate 2017-08-19 21:15:00 [facility] [place] Systolic (mm Hg) 2017-08-19 16:23:00 Nickolas rial [place] Diastolic (mm Hg) 2017-08-19 16:23:00 Mem orial [place] Respitory Rate 2017-08-19 16:23:00 [facility] al [place] Heart Rate 2017-08-19 16:23:00 [facility] [place] Heart Rate 2017-08-19 16:20:00 [facility] [place] Temperature Oral (F) 2017-08-19 16:20:00 96.9 F [facility] [place] Systolic (mm Hg) 2017-08-19 16:20:00 Nickolas rial [place] Diastolic (mm Hg) 2017-08-19 16:20:00 Mem orial [place] Respitory Rate 2017-08-19 16:20:00 Memori al [place] Temperature Oral (F) 2017-08-19 11:25:00 97.8 F [facility] [place] BMI Calculated 2017-08-19 11:20:00 [facility] al [place] Weight 2017-08-19 11:20:00 [facility] [place] Height 2017-08-19 11:20:00 193.04 cm [facility] Procedures Procedure Date / Time Performing Clinician Source Performed [U] XRAY KNEE 3 VWS RIGHT 2017-10-11 00:00[facility] [address] [facility] XRAY KNEE 3 VWS RIGHT [facility]10[facility]04 [facility]:00[facility] [facility] [address] [facility]QLH[facility] HEMOGLOBIN A1c 2017-07-20 00:00:00 [facility] Physicians Arthroscopic procedure [facility] Back fusion [facility] Cholecystectomy [facility] Implantation of sacral [facility] nerve stimulator<sup>1</sup> Insertion of implantable Memoria l [place] intrathecal pump<sup>2</sup> Knee replacement [facility] n Procedure on foot [facility] Suzy nn Encounters Start End Encounter Admission Attending Care Care Encounter Source Date/Time Date/Time Type Type Clinicians Facility Department ID 2020-05-20 2020-05-20 Urgent Provider, [facility] [id number] 12:53:56 13:53:03 [facility] [id number] Care [place] [id number] Professio [id number] nal [address] 2020-05-03 2020-05-03 [id number] 00:00:00 00:00:00 [facility] [id number] Surgical [id number] Specialti [id number] es Orestes Roman 2020-05-02 2020-05-02 [facility] [id number] 13:44:56 23:59:00 Encounter Xin Roman [id number] [place] [id number] [place] [id number] 2020-05-02 2020-05-02 Urgent Provider, [facility] [id number] 11:36:44 17:10:18 Care [facility] [id number] Care [place] [id number] Professio [id number] nal [facility] Office Building One 2017-10-13 2017-10-[address] [facility] [id number] Univers 10:15:00 10:15:00 t; ZENY VIEIRA Orthopedics Lesley Doty M.D. Physici ans 2017-10-05 2017-10-[address] [facility] [id number] Univers 13:45:00 13:45:00 t; ZENY VIEIRA Orthopedics ity of [place], M.D. [place] M.D. Physici ans 2017-09-02 2017-09-02 AppointTRINH Wan [facility] [id number] Univers 10:00:00 10:00:00 t; Angel [place] KELLY, Physici P.A. ans 2017-08-19 2017-08-19 Outpatient Vieira, [facility] [id number] 05:05:00 18:00:00 Zeny Almaz Bennett 2017-08-19 2017-08-19 Appointjorge VIEIRATRINH UTP [id number] Univers 09:00:00 09:00:00 t; ZENY VIEIRA it y of [place], M.D. [facility] 2017-07-20 2017-07-20 Appointjorge TRINH VIEIRA UTP [id number] Univers 12:30:00 12:30:00 t; ZENY VIEIRA it y [facility] [place], M.D. [facility] Results Test Description Test Time Test Comments Results Result Comments Source CHEM PANEL 2017-08-09 24.0 [facility] nn 16:50:00 CHEM PANEL 2017-08-09 3.9 [facility] nn 16:50:00 CHEM PANEL 2017-08-09 0.9 [facility] nn 16:50:00 CHEM PANEL 2017-08-09 7.2 [facility] nn 16:50:00 CHEM PANEL 2017-08-09 15 [facility] nn 16:50:00 CHEM PANEL 2017-08-09 65 [facility] nn 16:50:00 CHEM PANEL 2017-08-09 34 [facility] nn 16:50:00 CHEM PANEL 2017-08-09 87 [facility] nn 16:50:00 CHEM PANEL 2017-08-09 18 [facility] nn 16:50:00 CHEM PANEL 2017-08-09 1.20 [facility] nn 16:50:00 CHEM PANEL 2017-08-09 141 [facility] [place] nn 16:50:00 CHEM PANEL 2017-08-09 55 [facility] nn 16:50:00 CHEM PANEL 2017-08-09 0.7 [facility] nn 16:50:00 CHEM PANEL 2017-08-09 7.6 [facility] nn 16:50:00 CHEM PANEL 2017-08-09 25 [facility] nn 16:50:00 CHEM PANEL 2017-08-09 3.7 [facility] nn 16:50:00 CHEM PANEL 2017-08-09 19 [facility] nn 16:50:00 CHEM PANEL 2017-08-09 9.3 [facility] nn 16:50:00 CHEM PANEL 2017-08-09 104 [facility] nn 16:50:00 CHEM PANEL 2017-08-09 4.2 [facility] 16:50:00 HEMATOLOGY 2017-08-09 0.91 [facility] nn 16:50:00 HEMATOLOGY 2017-08-09 16:50:00 Test Item Value Reference Range Interpretation Comme nts PROTIME (test code = PROTIME) 12.3 s 12.0-14.7 Memorial [id number] 16:50:00 Test Item Value Reference Range Interpretation Comments aPTT (test code = aPTT) 33.6 s 22.9-35.8 Memorial [id number] 16:50:007.5[facility] HermannHEMATOLOGY 2017-08-09 16:50:60994Gdvrwyto [id number] 16:50:0017.4[facility] [id number] 16:50:00 Test Item Value Reference Range Interpretation Comments MCH (test code = MCH) 25.4 pg 27.0-31.0 Memorial [id number] 16:50:0031.9[facility] HermannHEMATOLOGY 2017-08-09 16:50:0079.5[facility] [id number] 16:50:0042.1[facility]orial [id number] 16:50:0013.4[facility]orial [id number] 16:50:005.29[facility] [id number] 16:50:004.8[facility] [place] [id number] 16:50:000.5[facility] WzdmcyuUCDHYGKPDJ6950-94-28 16:50:000.2 [facility] [id number] 16:50:001.1[facility] HermannHEMATOLOGY 2017-08-09 16:50:003.0[facility] [id number] 16:50:000.7Memorial [id number] 16:50:004.7Memorial GifucrwFQHWKLQZXH3410-23-56 16:50:0010.6[facility] FelhwdrUXBFWSAJCU6035-27-25 16:50:0023.0[facility] [id number] 16:50:0061.0[facility] HermannSPECIAL [id number] 16:50:007.1[facility]] D-DIMER, [id number] 15:20:01 Test Item Value Reference Range Interpretation Comments D-Dimer (test 0.87 {ug/ml In DIC, quanti tative code = D-Dimer) FEU} D-Dimer is g enerally greater than0.6 6 ug/mL FEU. Values of quantitative D- Dimer less than0.40 u g/mL FEU have been repor ping to be associated with a lowprobability of deep vein thrombosis/pulm onary embolism.This t est alone should not be u sed to rule out DVT/PE . [facility]] C-REACTIVE [id number] 15:20:01 Test Item Value Reference Range Interpretation Comments CRP (test code = CRP) <2.9 <=2.9 [facility]] SED RATE BY MODIFIED [id number] 15:20:01 Test Item Value Reference Range Interpretation Comments Sedimentation Rate (test code = 11 {mm/hr} 0-15 Sedimentation Rate) [facility][CR[facility]ICAL [facility]] HEMOGLOBIN [id number] 15:20:01 Test Item Value Reference Range Interpretation Comments Hemoglobin A1c; Above High Threshold 7.8 % <=5.6 (test code = 4548-4) [facility][U] XRAY KNEE 3 VWS RIGHT [id number] 14:25:00 Images acquired, not reported on this accession number.[facility]
--- OUTSIDE RECORDS SUMMARY | 2020-05-21 10:15 | XMS REPORT | Summary of Care ---
:1955 Author Organization [facility] Address [address] [place] [address] Care Team Providers Name Role Phone MD Yamil Primary Care Provider Reason for Visit Reason Comments Refill Request Encounter Details Date Type Department Care Team Description 04/06/2020 Refill [facility] Family Medicine Earnest Paul MD Refill Request - [address] [place] [address] [place] [address] [phone] Allergies Active Allergy Reactions Severity Noted Date Comments Sulfamethoxazole Nausea and/or Vomiting 08/16/2016 documented as of this encounter (statuses as of 04/07/2020) Medications Medication Sig Dispensed Refills Start End Date Status Date HYDROmorphOne Take 4 mg by 0 Act jose (DILAUDID) 4 mg mouth 3 (three) tablet times daily. tiZANidine Take 4 mg by 0 Active (ZANAFLEX) 4 mg mouth 2 (two) capsule times daily. omega-3/dha/epa/dpa/ Take by mouth. 0 Active fish oil (OMEGA-3 2100 ORAL) cinnamon bark Take by mouth. 0 Active (CINNAMON ORAL) ergocalciferol, Take by mouth. 0 Active vitamin D2, (VITAMIN D ORAL) Cholecalciferol, Take by mouth. 0 Active Vitamin D3, (VITAMIN D3) 1,000 unit capsule triamcinolone 55 mcg Use 2 Sprays in 1 Bottle 3 Active nasal inhaler each nostril 8 daily. docusate (STOOL TAKE ONE 100 capsule 3 Ac tive SOFTENER) 100 mg CAPSULE BY 8 capsule MOUTH TWICE A DAY ONETOUCH ULTRA2 Use as directed 1 Each 0 Active METER Kit once a day to 9 monitor blood glucose for ICD code of E11.9. ONE TOUCH DELICA 33 Use as directed 100 Each 3 Active gauge once a day to 9 MiscIndications: monitor blood Type 2 diabetes glucose for ICD mellitus with code of E11.9. diabetic polyneuropathy, without long-term current use of insulin ONE TOUCH DELICA Use as directed 1 Kit 0 Active KitIndications: Type once a day to 9 2 diabetes mellitus monitor blood with diabetic glucose for ICD polyneuropathy, code of E11.9. without long-term current use of insulin ONETOUCH ULTRA BLUE Use as directed 100 Strip 0 Active TEST STRIP for once a day 9 stripIndications: glucose Type 2 diabetes monitoring for mellitus with ICD of E11.9 diabetic polyneuropathy, without long-term current use of insulin aspirin 81 mg EC Take 1 tablet 0 Active tabletIndications: by mouth daily. 9 Atherosclerosis of [place] coronary artery of [place] heart without angina pectoris, Essential hypertension, Type 2 diabetes mellitus with diabetic polyneuropathy, without long-term current use of insulin nitroglycerin 0.[address] 1 tablet 1 Bottle 5 Active sublingual under the 9 tabletIndications: tongue every 5 Atherosclerosis of (five) minutes [place] coronary as needed for artery of [place] Chest pain. heart without angina pectoris, Essential hypertension, Type 2 diabetes mellitus with diabetic polyneuropathy, without long-term current use of insulin galantamine 12 mg Take 1 tablet 60 tablet 6 Active tablet by mouth 2 0 (two) times daily. tamsulosin 0.4 mg 24 Take 1 capsule 30 capsule 5 Active hr by mouth daily. 0 capsuleIndications: BPH with obstruction/lower urinary tract symptoms mupirocin 2 % Apply to 22 g 0 Active ointmentIndications: area(s) 3 0 Cellulitis of right (three) times lower extremity, daily. Infected cyst of skin cefUROXime 500 mg Take 1 tablet 20 tablet 0 Active tabletIndications: by mouth 2 0 Abscess (two) times daily. rosuvastatin 40 mg TAKE ONE TABLET 90 tablet 1 Active tabletIndications: BY MOUTH EVERY 0 Hyperlipidemia, EVENING unspecified hyperlipidemia type azelastine 137 mcg USE ONE SPRAY 1 Bottle 4 Active (0.1 %) nasal IN EACH NOSTRIL 0 sprayIndications: TWICE DAILY Allergic rhinitis, unspecified seasonality, [...] mg TAKE ONE TABLET 90 tablet 1 Active tabletIndications: BY MOUTH DAILY 0 Type 2 diabetes WITH BREAKFAST mellitus with diabetic polyneuropathy, without long-term current use of insulin GABAPENTIN 300 mg TAKE ONE 90 capsule 1 A ctive capsuleIndications: CAPSULE BY 0 Diabetic MOUTH THREE polyneuropathy TIMES A DAY associated with type 2 diabetes mellitus LOSARTAN 25 mg TAKE ONE TABLET 90 tablet 0 Active tablet BY MOUTH DAILY 0 LOSARTAN 25 mg TAKE ONE TABLET 90 tablet 0 04/07/20 Discontinued tablet BY MOUTH DAILY 0 20 Hospital, Clinic, or Ordered Dose Route Frequency Start Date End D ate Status Other Facility Administered Medication NaCl 0.9% (NS) IV 250 mL IV Infusion CONTINUOUS 06/08/2018 Active infusion 250 mLIndications: Other chest pain DOBUTamine (DOBUTREX) 540 mcg/min IV TITRATE 06/08/2018 Active 500 mg in 250mL(Fixed Dose) D5W infusionIndications: Other chest pain documented as of this encounter (statuses as of 04/07/2020) Active Problems Problem Noted Date Low serum [...] as of this encounter (statuses as of 04/07/2020) Immunizations Name Administration Dates Next Due Influenza [...] Assigned at Date Recorded Not on file COVID-19 Exposure Response Date Recorded In the last month, have you been in contact with No / Unsure 03/27/2020 9:21 AM CDT someone who was confirmed or suspected to have Coronavirus / COVID-19? documented as of this encounter Last Filed Vital Signs Not on filedocumented in this encounter Plan of Treatment Date Type Specialty Care Team Description 04/28/2020 Office Visit Family Medicine Earnest Lobo MD [address] [place] [address] [phone] 06/30/2020 Office Visit Cardiology Keli Spence M D [address] [facility] [address] [place] [address] 15 [phone] Health Maintenance Due Date Last Done Comments HEPATITIS C (HCV) SCREEN 1955 EYE EXAM 1965 URINE MICROALBUMIN 1966 COLON CANCER SCREENING ANNUAL 2006 FIT/FOBT COLON CANCER SCREENING FIT DNA 2006 EVERY 3 YEARS COLON CANCER SCREENING 2006 SIGMOIDOSCOPY EVERY 5 YEARS COLONOSCOPY 2006 Colorectal Cancer Screening 2006 Zoster Recombinant Vaccine 2006 (SHINGRIX) (1 [...] of this encounter Implants Implanted Type Area Diagnostics Sales Developer Device Identifier Shelf Exp iration Model / Date Serial / L ot Pump, Medtronic Synchromed Ii Infusion W ith Filter (20 Ml) #8637-20 - [id number] Pump Medtronic 09/18/2020 8637-20 / Implanted: Qty: 1 on 07/09/2019 by Pipe Easton MD at [facility] N [id number] / [id number] Right Total Knee documented as of this encounter Results Not on filedocumented in this encounter Insurance Payer Benefit Plan / Subscriber ID Effective Dates Phone Addre ss Type Group WE[employer] [place] WELLCARE ROGER [id number] 2019-Prese Medicare Adv PLUS PLUS nt HMO CLASSIC/VALUE documented as of this encounter
--- OUTSIDE RECORDS SUMMARY | 2020-05-21 10:15 | XMS REPORT | Summary of Care ---
:1955 Author Organization [facility] Address [address] [place] [address] Care Team Providers Name Role Phone MD Yamil Primary Care Provider Reason for Visit Reason Comments Refill Request Encounter Details Date Type Department Care Team Description 04/21/2020 Refill [facility] Family Medicine Earnest Paul MD Refill Request - [address] [place] [address] [place] [address] [phone] Allergies Active Allergy Reactions Severity Noted Date Comments Sulfamethoxazole Nausea and/or Vomiting 08/16/2016 documented as of this encounter (statuses as of 04/21/2020) Medications Medication Sig Dispensed Refills Start End [...] tabletIndications: by mouth daily. 9 Atherosclerosis of [place] coronary artery of [place] heart without angina pectoris, Essential hypertension, Type 2 diabetes mellitus with diabetic polyneuropathy, without long-term current use of insulin nitroglycerin 0.[address] 1 tablet 1 Bottle 5 Active sublingual under the 9 tabletIndications: tongue every 5 Atherosclerosis of (five) minutes [place] coronary as needed for artery of [place] Chest pain. heart without angina pectoris, Essential hypertension, Type 2 diabetes mellitus with diabetic polyneuropathy, without long-term current use of insulin galantamine 12 mg Take 1 tablet 60 tablet 6 Active tablet by mouth 2 0 (two) times daily. mupirocin 2 % Apply to 22 g [...] 0 Active tablet BY MOUTH DAILY 0 TAMSULOSIN 0.4 mg 24 TAKE ONE 90 capsule 0 Active hr CAPSULE BY 0 capsuleIndications: MOUTH DAILY BPH with obstruction/lower urinary tract symptoms tamsulosin 0.4 mg 24 Take 1 capsule 30 capsule 5 Discontinued hr by mouth daily. 0 20 capsuleIndications: BPH with obstruction/lower urinary tract symptoms Hospital, Clinic, or Ordered Dose Route Frequency Start Date End D ate Status Other Facility Administered Medication NaCl 0.9% (NS) IV 250 mL IV Infusion CONTINUOUS 06/08/2018 Active infusion 250 mLIndications: Other chest pain DOBUTamine (DOBUTREX) 540 mcg/min IV TITRATE 06/08/2018 Active 500 mg in 250mL(Fixed Dose) D5W infusionIndications: Other chest pain documented as of this encounter (statuses as of 04/21/2020) Active Problems Problem Noted Date Low serum [...] as of this encounter (statuses as of 04/21/2020) Immunizations Name Administration Dates Next Due Influenza [...] Office Visit Family Medicine Earnest Lobo MD [address] [place] [address] [phone] 06/30/2020 Office Visit Cardiology Keli Spence M D [address] [place] [phone] Health Maintenance Due Date Last Done Comments HEPATITIS C (HCV) SCREEN 1955 EYE EXAM 1965 URINE MICROALBUMIN 1966 COLON CANCER SCREENING 2006 ANNUAL FIT/FOBT COLON CANCER SCREENING FIT 2006 DNA EVERY 3 YEARS COLON CANCER SCREENING 2006 [...] Screening 11/18/2020 11/19/2019 DTaP,Tdap,and Td Vaccines (2 11/06/2029 11/07/2019 - Td) PNEUMOCOCCAL 0-64 YEARS Aged Out 05/21/2018 No longe r eligible COMBINED SERIES based on patient 's age to complete this topic documented as of this encounter Implants Implanted Type Area Card Decorator Device Identifier Shelf Exp iration Model / Date Serial / L ot Pump, Medtronic Synchromed Ii Infusion W ith Filter (20 Ml) #8637-20 - [id number] Pump Medtronic 09/18/2020 8637-20 / Implanted: Qty: 1 on 07/09/2019 by Pipe Easton MD at [facility] N [id number] / [id number] Right Total Knee documented as of this encounter Results Not on filedocumented in this encounter Visit Diagnoses Diagnosis BPH with obstruction/lower urinary tract symptoms Hypertrophy of prostate with urinary obs truction and other lower urinary tract symptoms (LUTS) documented in this encounter Insurance Payer Benefit Plan / Subscriber ID Effective Dates Phone Addre ss Type Group WE[employer] [place] WELL[employer]ARE [place] [id number] 2019-Prese Medicare Adv PLUS PLUS nt HMO CLASSIC/VALUE documented as of this encounter
--- OUTSIDE RECORDS SUMMARY | 2020-05-21 10:15 | XMS REPORT | Summary of Care ---
:1955 Author Organization [facility] Address [address] [place] [address] Care Team Providers Name Role Phone MD Yamil Primary Care Provider Reason for Visit Reason Comments Refill Request Encounter Details Date Type Department Care Team Description 04/25/2020 Refill [facility] Family Medicine Earnest Paul MD Refill Request - [address] [place] [address] [place] [address] [phone] Allergies Active Allergy Reactions Severity Noted Date Comments Sulfamethoxazole Nausea and/or Vomiting 08/16/2016 documented as of this encounter (statuses as of 04/25/2020) Medications Medication Sig Dispensed Refills Start End [...] tabletIndications: by mouth daily. 9 Atherosclerosis of [place] coronary artery of [place] heart without angina pectoris, Essential hypertension, Type 2 diabetes mellitus with diabetic polyneuropathy, without long-term current use of insulin nitroglycerin 0.[address] 1 tablet 1 Bottle 5 Active sublingual under the 9 tabletIndications: tongue every 5 Atherosclerosis of (five) minutes [place] coronary as needed for artery of [place] Chest pain. heart without angina pectoris, Essential [...] 0.4 mg 24 TAKE ONE 90 capsule 1 Active hr CAPSULE BY 0 capsuleIndications: MOUTH DAILY BPH with obstruction/lower urinary tract symptoms TAMSULOSIN 0.4 mg 24 TAKE ONE 90 capsule 0 04/25/20 Discontinued hr CAPSULE BY 0 20 capsuleIndications: MOUTH DAILY BPH with obstruction/lower urinary tract symptoms Hospital, [...] as of this encounter (statuses as of 04/25/2020) Active Problems Problem Noted Date Low serum [...] as of this encounter (statuses as of 04/25/2020) Immunizations Name Administration Dates Next Due Influenza [...] Treatment Date Type Specialty Care Team Description 06/30/2020 Office Visit Cardiology Keli Spence M D [address] [place] [address] 15 [phone] Health Maintenance Due Date Last Done Comments [...] of this encounter Implants Implanted Type Area Aerial Planting And Cultivation Manager Device Identifier Shelf Exp iration Model / Date Serial / L ot Pump, Medtronic Synchromed Ii Infusion W ith Filter (20 Ml) #8637-20 - [id number] Pump Medtronic 09/18/2020 8637-20 / Implanted: Qty: 1 on 07/09/2019 by Pipe Easton MD at [facility] N [id number] / [id number] Right Total Knee documented as of this encounter Results Not on filedocumented in this encounter Visit Diagnoses Diagnosis BPH with obstruction/lower urinary tract symptoms Hypertrophy of prostate with urinary obs truction and other lower urinary tract symptoms (LUTS) documented in this encounter Insurance Payer Benefit Plan / Subscriber ID Effective Dates Phone Addre ss Type Group RESHMA DURAN [id number] 2019-Prese Medicare Adv PLUS PLUS nt HMO CLASSIC/VALUE documented as of this encounter
--- OUTSIDE RECORDS SUMMARY | 2020-05-21 10:15 | XMS REPORT | Summary of Care ---
:1955 Author Organization [facility] Address [address] [place] [address] Care Team Providers Name Role Phone MD Yamil Primary Care Provider Reason for Referral (Routine) Status Reason Specialty Diagnoses / Referred By Referred To Procedures Contact Contact New Request Cardiology Diagnoses Chest pain, unspecified type Earnest Lobo, Procedures CONSULT/REFERRAL CARDIOLOGY [address] [place] [phone] Reason for Visit Reason Comments Follow-up INJECTION Tshot 200mg left plus B12 Encounter Details Date Type Department Care Team Description 03/27/2020 Office Visit [facility] Pediatric Earnest Lobo Lo w serum vitamin B12 (Primary Dx); and 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 Atherosclerosis of [place] coronary artery of [place] heart without angina pectoris, Essential hypertension, Type 2 diabetes mellitus with diabetic polyneuropathy, without long-term current use of insulin nitroglycerin 0.[address] 1 tablet 1 Bottle 5 06/29/2019 Active sublingual under the tongue tabletIndications: every 5 (five) Atherosclerosis of minutes as [place] coronary artery needed for Chest of [place] heart pain. without angina pectoris, Essential hypertension, [...] encounter Progress Notes Earnest Lobo MD - 03/27/2020 9:30 AM CDT Cc: [...] Left 07/09/2019 Surgeon: Pipe Mathis MD; Location: [facility] OR Location LUMBAR EPIDURAL STEROID INJECTION N/A 11/10/2015 Surgeon: Pipe Mathis MD; Location: [facility] OR Location LUMBAR EPIDURAL STEROID INJECTION N/A 11/17/2015 Surgeon: Pipe Mathis MD; Location: [facility] OR [facility] LUMBAR EPIDURAL STEROID INJECTION N/A 11/03/2015 Surgeon: Pipe Mathis MD; Location: [facility] OR Location LUMBAR EPIDURAL STEROID INJECTION N/A 08/16/2016 Surgeon: Pipe Mathis MD; Location: [facility] OR Location LUMBAR EPIDURAL STEROID INJECTION N/A 08/23/2016 Surgeon: Pipe Mathis MD; Location: [facility] OR Location LUMBAR EPIDURAL STEROID INJECTION N/A 09/06/2016 Surgeon: Pipe Mathis MD; Location: [facility] OR Location NERVE STIMULATOR INSERTION NERVE STIMULATOR [...] file Gets together: Not on file Attends restoration service: Not on file Active member of [...] comments Father pancoast tumors Heart Brother HTN [place] (myocardial infarction) Maternal Uncle [place] (myocardial infarction) Other cousin, [place] @ 40 Review of Systems Vital Signs [...] Office Visit Family Medicine Earnest Lobo MD [address] [place] [phone] 06/30/2020 Office Visit Cardiology Keli Spence M D [address] [place] [address] Health Maintenance Due Date Last [...] of this encounter Implants Implanted Type Area Marketing Database Coordinator Device Identifier Shelf Exp iration Model / Date Serial / L ot Pump, Medtronic Synchromed Ii Infusion W ith Filter (20 Ml) #8637-20 - [id number] Pump Medtronic 09/18/2020 8637-20 / Implanted: Qty: 1 on 07/09/2019 by iPpe Easton MD at [facility] N [id number] / [id number] Right Total Knee documented as of this [...] Addre ss Type Group WELLC[employer] ROGER DURAN [id number] 2019-Prese Medicare Adv PLUS PLUS nt HMO CLASSIC/VALUE documented as of this encounter"
--- OUTSIDE RECORDS SUMMARY | 2020-05-21 10:15 | XMS REPORT | Summary of Care ---
:1955 Author Organization [facility] Address [address] [place] [address] Care Team Providers Name Role Phone MD Yamil Primary Care Provider Reason for Visit Reason Comments Refill Request Encounter Details Date Type Department Care Team Description 03/30/2020 Refill [facility] Pediatric and Earnest Lobo MD Refill Request Adult Primary Care- [address] [place] [address] [place] [address], [address] [place] [address] Allergies Active Allergy Reactions Severity Noted Date Comments Sulfamethoxazole Nausea and/or Vomiting 08/16/2016 documented as of this encounter (statuses as of 03/31/2020) Medications Medication Sig Dispensed Refills Start End [...] tabletIndications: by mouth daily. 9 Atherosclerosis of [place] coronary artery of [place] heart without angina pectoris, Essential hypertension, Type 2 diabetes mellitus with diabetic polyneuropathy, without long-term current use of insulin nitroglycerin 0.[address] 1 tablet 1 Bottle 5 Active sublingual under the 9 tabletIndications: tongue every 5 Atherosclerosis of (five) minutes [place] coronary as needed for artery of [place] Chest pain. heart without angina pectoris, Essential [...] mouth 2 0 Abscess (two) times daily. LOSARTAN 25 mg TAKE ONE TABLET 90 tablet 0 Active tablet BY MOUTH DAILY 0 rosuvastatin 40 mg TAKE ONE TABLET 90 [...] DAY associated with type 2 diabetes mellitus gabapentin 300 mg TAKE ONE 90 capsule 2 03/31/20 D iscontinued capsuleIndications: CAPSULE BY 0 20 Diabetic MOUTH THREE polyneuropathy TIMES A DAY associated with type 2 diabetes mellitus Hospital, Clinic, or Ordered Dose Route Frequency [...] Office Visit Family Medicine Earnest Lobo MD [address] [place] [phone] 06/30/2020 Office Visit Cardiology Keli Spence M D [address] [place] [address] [phone] Health Maintenance Due Date Last Done Comments [...] of this encounter Implants Implanted Type Area Deck Supervisor Device Identifier Shelf Exp iration Model / Date Serial / L ot Pump, Medtronic Synchromed Ii Infusion W ith Filter (20 Ml) #8637-20 - [id number] Pump Medtronic 09/18/2020 8637-20 / Implanted: Qty: 1 on 07/09/2019 by Pipe Easton MD at [facility] N [id number] / [id number] Right Total Knee documented as of this encounter Results Not on filedocumented in this encounter Visit Diagnoses Diagnosis Diabetic polyneuropathy associated with type 2 diabetes mellitus documented in this encounter Insurance Payer Benefit Plan / Subscriber ID Effective Dates Phone Addre ss Type Group WE[employer] ROGER WELLLYLE DURAN [id number] 2019-Prese Medicare Adv PLUS PLUS nt HMO CLASSIC/VALUE documented as of this encounter
--- OUTSIDE RECORDS SUMMARY | 2020-05-21 10:16 | XMS REPORT | Summary of Care ---
:1955 Author Organization [facility] Address [address] [place] [id number] Care Team Providers Name Role Phone MD Yamil Primary Care Provider Reason for Visit Reason Comments LAB WORK Auth/Cert Status Reason Specialty Diagnoses / Procedures Referred By C ontact Referred To Contact Phlebotomy Diagnoses Non-intractable vomiting with nausea, unspecified vomiting type Adc Pob Lab Draw Procedures cbc Professional Office Building [address] [facility] , [address] [place] [address] Phone: Fax: Encounter Details Date Type Department Care Team Description 05/02/2020 Hand Molder Visit [facility] Xin Monroy FNP [address] [address] Non-intractable Professional Office Pob, Adc Lab Main vomiting, presence Building Phlebotomy of nause a not Lab specified, Professional Office unspecif ied Building vomiting type [address] [facility] , [address] [place] [address] Allergies Active Allergy Reactions Severity Noted Date Comments Sulfamethoxazole Nausea and/or Vomiting 08/16/2016 documented as of this encounter (statuses as of 05/02/2020) Medications Medication Sig Dispensed Refills Start Date [...] 06/29/2019 Active tabletIndications: mouth daily. Atherosclerosis of [place] coronary artery of [place] heart without angina pectoris, Essential hypertension, Type 2 diabetes mellitus with diabetic polyneuropathy, without long-term current use of insulin nitroglycerin 0.[address] 1 tablet 1 Bottle 5 06/29/2019 Active sublingual under the tongue tabletIndications: every 5 (five) Atherosclerosis of minutes as [place] coronary artery needed for Chest of [place] heart pain. without angina pectoris, Essential hypertension, Type 2 diabetes mellitus with diabetic polyneuropathy, without long-term current use of insulin galantamine 12 mg Take 1 tablet by 60 tablet 6 10/11/2019 Active tablet mouth 2 (two) times daily. mupirocin 2 % Apply to 22 g 0 11/07/2019 Activ e ointmentIndications: area(s) 3 Cellulitis of right (three) times lower extremity, daily. Infected cyst of skin cefUROXime 500 mg Take 1 tablet by 20 tablet 0 11/15/2019 Active tabletIndications: mouth 2 (two) Abscess times daily. rosuvastatin 40 mg TAKE ONE [...] of insulin GABAPENTIN 300 mg TAKE ONE CAPSULE 90 capsule 1 03/31/2020 Active capsuleIndications: BY MOUTH THREE Diabetic TIMES A DAY polyneuropathy associated with type 2 diabetes mellitus LOSARTAN 25 mg tablet TAKE ONE TABLET 90 tablet 0 04/07/2020 Active BY MOUTH DAILY TAMSULOSIN 0.4 mg 24 TAKE ONE CAPSULE 90 capsule 1 04/25/2020 Active hr capsuleIndications: BY MOUTH DAILY BPH with obstruction/lower urinary tract [...] as of this encounter (statuses as of 05/02/2020) Active Problems Problem Noted Date Low serum [...] as of this encounter (statuses as of 05/02/2020) Immunizations Name Administration Dates Next Due Influenza [...] been in contact with No / Unsure 05/02/2020 11:46 AM CDT someone who was confirmed or suspected to have Coronavirus / COVID-19? documented as of this encounter Last Filed Vital Signs Not on filedocumented in this encounter Nursing Notes Angela Pina - 05/02/2020 12:30 PM CDT Venipuncture collection performed by clean technique on the right anticubitus. Total of 1 attempts were made. Slight pressure and a bandage/dressing were applied to the site(s). The patient experiencedno complications. The following specimens were processed according to instructions and sent to [facility] laboratories per lab order on : LT BLUE 1 SST RED 1 LAV PPT DK GREEN (LiHep) DK GREEN (SodH) WILLS DK BLUE (K2) DK BLUE (S) ACD Blood Culture NIPT/NTD documented in this encounter Plan of Treatment Date Type Specialty Care Team Description 05/02/2020 Appointment Radiology Xin Monroy, MORNING BABYSITTER [address] [facility] [place], [place] [address] 06/30/2020 Office Visit Cardiology Keli Spence M D [address] [facility] [address] [place], [place] [address] Health Maintenance Due Date Last Done [...] of this encounter Implants Implanted Type Area Starchmaker Device Identifier Shelf Exp iration Model / Date Serial / L ot Pump, Medtronic Synchromed Ii Infusion W ith Filter (20 Ml) #8637-20 - [id number] Pump Medtronic 09/18/2020 8637-20 / Implanted: Qty: 1 on 07/09/2019 by Pipe Easton MD at [facility] N [id number] / [id number] Right Total Knee documented as of this encounter Results Not on filedocumented in this encounter Visit Diagnoses Diagnosis Non-intractable vomiting, presence of na usea not specified, unspecified vomiting type documented in this encounter Additional Health Concerns Infection Onset Date Last Indicated Resolved Time COVID-19 Rule Out 05/02/2020 05/02/2020 documented as of this encounter Insurance Payer Benefit Plan / Subscriber ID Effective Dates Phone Addre ss Type Group [employer] [place] [employer] [place] [id number] 2019-Prese Medicare Adv PLUS PLUS nt HMO CLASSIC/VALUE documented as of this encounter
--- OUTSIDE RECORDS SUMMARY | 2020-05-21 10:16 | XMS REPORT | Summary of Care ---
:1955 Author Organization [facility] Address [address] [place] [address] Care Team Providers Name Role Phone MD Yamil Primary Care Provider Reason for Referral MRI/CAT Scan (STAT) Status Reason Specialty Diagnoses / Referred By Referred To Procedures Contact Contact New Request Diagnostic Diagnoses Non-intractable vomiting with nausea, unspecified vomiting type Drug-induced constipation Generalized abdominal pain Xin Monroy, Radiology Procedures CT ABDOMEN PELVIS WO CONTRAST TAX PREPARER [address] [address] Reason for Visit Reason Comments Vomiting on and off x2 weeks Auth/Cert Status Reason Specialty Diagnoses / Procedures Referred By Sulema del cid Referred To Contact Phlebotomy Diagnoses Non-intractable vomiting with nausea, unspecified vomiting type Adc Pob Lab Draw Procedures cbc Professional Office Building [address] [facility] [address], [address] [place] [address] Phone: Fax: Encounter Details Date Type Department Care Team Description 05/02/2020 Urgent Care [facility] Family Naldo Monroy, TAX PREPARER [address] [address] Suspected Covid-19 Virus Infection (Prim regan Dx); Medicine - [place] Provider, [facility] Non-intractable vomiting with nausea, un specified vomiting type; [address] [place] [address] Drug-induc ed constipation; Drive Generalized abdominal pain [place] [phone] Allergies Active Allergy Reactions Severity Noted Date [...] 06/29/2019 Active tabletIndications: mouth daily. Atherosclerosis of [place] coronary artery of [place] heart without angina pectoris, Essential hypertension, Type 2 diabetes mellitus with diabetic polyneuropathy, without long-term current use of insulin nitroglycerin 0.[address] 1 tablet 1 Bottle 5 06/29/2019 Active sublingual under the tongue tabletIndications: every 5 (five) Atherosclerosis of minutes as [place] coronary artery needed for Chest of [place] heart pain. without angina pectoris, Essential hypertension, [...] Sign Reading Time Taken Comments Blood Pressure 136/77 05/02/2020 11:50 AM CDT Pulse 58 05/02/2020 11:50 AM CDT Temperature 36.6 C (97.8 F) 05/02/2020 11:50 AM CDT Respiratory Rate - - Oxygen Saturation 98% 05/02/2020 11:50 AM CDT Inhaled Oxygen Concentration - - Weight 104.3 kg (230 lb) 05/02/2020 11:50 AM CDT Height 193 cm (6' 4") 05/02/2020 11:50 AM CDT Body Mass Index 28 05/02/2020 11:50 AM CDT documented in this encounter Progress Notes Xin Monroy FNP - 05/02/2020 11:40 AM CDT Cc: Chief Complaint Patient presents with Vomiting on and off x2 weeks Melody Duarte is a 64 year old male. Patient in the past few weeks has had recurrent nausea and vomiting, sometimes he vomits once per day. Sometime multiple times, he has had his gall bladder removed, which has since helped with GERD. Noother GI symptoms. He has chronic constipation from multiple pain medication including morphine and dilaudid he is taking. She is on stool softners and miralax. His last BM was at least 3 days ago, itwas small amount, and Hard stools. GI Problem The primary symptoms include abdominal pain (bloating and pressure), nausea and vomiting. Primary symptoms do not include fever or fatigue. The onset was gradual. The illness is also significant for bloating and constipation. The illness does not include chills. Significant associated medical issues include GERD. Allergies Melody is allergic to sulfamethoxazole. Medications Outpatient Medications Prior to Visit Medication Sig Dispense Refill TAMSULOSIN 0.4 mg 24 hr capsule TAKE ONE CAPSULE BY MOUTH DAILY 90 capsule 1 LOSARTAN 25 mg tablet TAKE ONE TABLET BY MOUTH DAILY 90 tablet 0 GABAPENTIN 300 mg capsule TAKE ONE CAPSULE BY MOUTH THREE TIMES A DAY 90 capsule 1 azelastine 137 mcg (0.1 %) nasal spray [...] BY MOUTH EVERY EVENING 90 tablet 1 cefUROXime 500 mg tablet Take 1 tablet by mouth 2 (two) times daily. 20 tablet 0 mupirocin 2 % ointment Apply to area(s) 3 (three) times daily. 22 g 0 galantamine 12 mg tablet Take 1 tablet [...] Keli Spence MD 129.6 mL/hr at 06/08/18 09 40 mcg/kg/min at 06/08/18903 NaCl 0.9% (NS) IV infusion 250 mL 250 mL IV Infusion CONTINUOUS Keli Spence MD 50 mL/hr at 06/08/18814 250 mL at 06/08/18814 Histories Past Medical History: Diagnosis Date Arthritis Chronic back pain DM (diabetes mellitus) Hyperlipidemia Hypertension Hypogonadism, male Past Surgical History: Procedure Laterality Date BACK SURGERY CHOLECYSTECTOMY FRACTURE SURGERY Left ORIF L foot INTRATHECAL INFUSION PUMP REVISION Left 07/09/2019 Surgeon: Pipe Mathis MD; Location: [place] [facility] Location LUMBAR EPIDURAL STEROID INJECTION N/A 11/10/2015 Surgeon: Pipe Mathis MD; Location: [facility] Location LUMBAR EPIDURAL STEROID INJECTION N/A 11/17/2015 Surgeon: Pipe Mathis MD; Location: [facility] Location LUMBAR EPIDURAL STEROID INJECTION N/A 11/03/2015 Surgeon: Pipe Mathis MD; Location: [facility] Location LUMBAR EPIDURAL STEROID INJECTION N/A 08/16/2016 Surgeon: Pipe Mathis MD; Location: [facility] Location LUMBAR EPIDURAL STEROID INJECTION N/A 08/23/2016 Surgeon: Pipe Mathis MD; Location: [facility] Location LUMBAR EPIDURAL STEROID INJECTION N/A 09/06/2016 Surgeon: Pipe Mathis MD; Location: [facility] Location NERVE STIMULATOR INSERTION NERVE STIMULATOR REVISION SPINE SURGERY TOTAL KNEE ARTHROPLASTY Right X 4 Social History Socioeconomic History Marital status: Spouse name: Not on file Number of children: Not on file Years of education: Not on file Highest education level: Not on file Occupational History Not on file Social Needs Financial resource strain: Not on file Food insecurity Worry: Not on file Inability: Not on file Transportation needs Medical: Not on file Non-medical: Not on file Tobacco Use Smoking status: Never Smoker Smokeless tobacco: Never Used Substance and Sexual Activity Alcohol use: Yes Alcohol/week: 1.0 standard drinks Types: 1 Cans of beer per week Frequency: Monthly or less Drug use: No Sexual activity: Not on file Lifestyle Physical activity Days per week: Not on file Minutes per session: Not on file Stress: Not on file Relationships Social connections Talks on phone: Not on file Gets together: Not on file Attends mandaeism service: Not on file Active member of club or organization: Not on file Attends meetings of clubs or organizations: Not on file Relationship status: Not on file Intimate partner violence Fear of current or ex partner: Not on file Emotionally abused: Not on file Physically abused: Not on file Forced sexual activity: Not on file Other Topics Concern Not on file Social History Narrative disabled Family History Problem Relation Age of Onset Kidney disease Mother Other - see comments Father pancoast tumors Heart Brother HTN AR (myocardial infarction) Maternal Uncle AR (myocardial infarction) Other cousin, AR @ 40 Review of Systems Constitutional: Negative. Negative for chills, fatigue and fever. Respiratory: Negative. Negative for cough, chest tightness, shortness of breath and wheezing. Cardiovascular: Negative. Negative for chest pain and palpitations. Gastrointestinal: Positive for abdominal pain (bloating and pressure), bloating, constipation, nausea and vomiting. Neurological: Negative. Negative for syncope, weakness, light-headedness and headaches. Psychiatric/Behavioral: Negative. Endocrine: Endocrine negative Vital Signs BP 136/77 | Pulse 58 | Temp 36.6 C (97.8 F) (Oral) | Ht 6' 4" (1.93 m) | Wt 230 lb (104.3 kg) | SpO2 98% | BMI 28.00 kg/m Physical Exam Vitals signs and nursing note reviewed. Constitutional: General: He is not in acute distress. Appearance: He is well-developed. Cardiovascular: Rate and Rhythm: Normal rate and regular rhythm. Heart sounds: Normal heart sounds. No murmur. No friction rub. No gallop. Pulmonary: Effort: Pulmonary effort is normal. No respiratory distress. Breath sounds: Normal breath sounds. No stridor. No wheezing or rales. Chest: Chest wall: No tenderness. Abdominal: General: Bowel sounds are normal. There is distension. Palpations: Abdomen is soft. Tenderness: There is abdominal tenderness. Skin: General: Skin is warm and dry. Capillary Refill: Capillary refill takes less than 2 seconds. Neurological: Mental Status: He is alert and oriented to person, place, and time. Psychiatric: Mood and Affect: Mood normal. Assessment/Plan 1. Abdominal pain: 2. Nausea and vomiting: Will get CBC, CMP, UA and culture as well as CT of the abdomen for further eval to determine etiology. Clinical references for home care instructions reviewed and copy given, further interventions including the option to refer to GI to follow depending on study result and if symptoms persists. Plan of care, desired health behaviors, goals, and medication discussed with patient. Education resources provided and reviewed with AVS. Patient/guardian/family verbalized understanding & agrees to plan of care. This visit did not involve counseling and coordination that comprised more than 50% of the visit time. If applicable, the [place] ODIN database was accessed to review any controlled substance prescription claims data. The [place] PAL prescription claims data in [employer] was reviewed to assess patient compliance with the medication treatment plan. documented in this encounter Plan of Treatment Date Type Specialty Care Team Description 05/02/2020 Appointment Radiology Xin Monroy FNP [address] [place] [phone] 06/30/2020 Office Visit Cardiology Keli Spence M D [address] [facility] [address] [place], [place] [address] Name Type Priority Associated Diagnoses Date/Ti me COVID-19 (PCR MOLECULAR LAB Routine Suspected Covid-1 9 Virus 05/02/2020 11:49 AM CDT TESTING) Infection Name Type Priority Associated Diagnoses Order S chedule COVID-19 (PCR MOLECULAR LAB Routine Suspected Covid-1 9 Virus Expected: 05/02/2020, TESTING) Infection Expires: 2020 URINALYSIS LAB Routine Non-intractable vomiting Ord ered: 05/02/2020 with nausea, unspecified vomiting type Drug-induced constipation Generalized abdominal pain URINE CULTURE LAB Routine Non-intractable vomiting Or dered: 05/02/2020 with nausea, unspecified vomiting type Drug-induced constipation Generalized abdominal pain CT ABDOMEN PELVIS WO IMAGING STAT Non-intractable vomi ting Expected: 05/02/2020, CONTRAST with nausea, unspecified Exp ires: 05/02/2021 vomiting type Drug-induced constipation Generalized abdominal pain Health Maintenance Due Date Last Done Comments [...] of this encounter Implants Implanted Type Area Utilization Coordinator Device Identifier Shelf Exp iration Model / Date Serial / L ot Pump, Medtronic Synchromed Ii Infusion W ith Filter (20 Ml) #8637-20 - [id number] Pump Medtronic 09/18/2020 8637-20 / Implanted: Qty: 1 on 07/09/2019 by Pipe Easton MD at [facility] N [id number] / [id number] Right Total Knee documented as of this encounter Procedures Procedure Name Priority Date/Time Associated Diagnosis Comme nts CBC WITH DIFF Routine 05/02/2020 12:53 PM Non-intractable Resu lts for this CDT vomiting with procedure are in nausea, unspecified the resu lts vomiting type section. Drug-induced constipation Generalized abdominal pain COMP. METABOLIC Routine 05/02/2020 12:53 PM Non-intractable Re sults for this PANEL (41742) CDT vomiting with procedure are in nausea, unspecified the resu lts vomiting type section. Drug-induced constipation Generalized abdominal pain documented in this encounter Results COMP. METABOLIC PANEL (40924) (05/02/2020 12:53 PM CDT) Pathologist Sig nature NA 137 135 - 145 [facility] mmol/L [facility] K 4.8 3.5 - 5.0 [facility] mmol/L [facility] CL 102 98 - 108 mmol/L [facility] CO2 TOTAL 30 23 - 31 mmol/L [facility] AGAP 5 2 - 16 [facility] BUN 22 7 - 23 mg/dL [facility] GLUCOSE 174 (H) 70 - 110 mg/dL [facility] CREATININE 1.17 0.60 - 1.25 [facility] mg/dL [facility] TOTAL BILI 1.2 (H) 0.1 - 1.1 mg/dL [facility] CALCIUM 9.4 8.6 - 10.6 [facility] mg/dL [facility] T PROTEIN 6.9 6.3 - 8.2 g/dL [facility] ALBUMIN 4.2 3.5 - 5.0 g/dL [facility] ALK PHOS 66 34 - 122 U/L [facility] ALTv 15 5 - 50 U/L [facility] AST(SGOT) 20 13 - 40 U/L [facility] eGFR Calculation 63.0 mL/min/1.73m2 [facility] [place] eGFR Calculation 76.3 mL/min/1.73m2 [facility] ([facility]) [facility] Specimen Blood Narrative Performed At Association of Glomerular Filtration Rate (GFR) [facility] and Staging of Kidney Disease* + + +- + | GFR (mL/min/1.73 m2) | With Kidney Damage | Without Kidney Damage + + +- + | >90 | Stage one | Normal + + +- + | 60-89 | Stage two | Decreased GFR + + +- + | 30-59 | Stage three | Stage three + + +- + | 15-29 | Stage four | Stage four + + +- + | <15 (or dialysis) | Stage five | Stage five + + +- + *Each stage assumes the associated GFR level has been in effect for at least three months. Stages 1 to 5, with or without kidney disease, indicate chronic kidney disease. Notes: Determination of stages one and two (with eGFR >59mL/min/1.73 m2) requires estimation of kidney damage for at least three months as defined by structural or functional abnormalities of the kidney, manifested by either: Pathological abnormalities or Markers of kidney damage (including abnormalities in the composition of the blood or urine or abnormalities in imaging tests). Performing Organization Address City/State/Zipcode Phone Number [facility] CLIA: [id number] [place] [address] CBC WITH DIFF (05/02/2020 12:53 PM CDT) Pathologist Sig nature WBC 5.31 4.20 - 10.70 [facility] 10*3/L [facility] RBC 5.10 4.26 - 5.52 [facility] 10*6/L [facility] HGB 13.0 12.2 - 16.4 [facility] g/dL [facility] HCT 43.0 38.4 - 49.3 % [facility] MCV 84.3 81.7 - 95.6 fL [facility] MCH 25.5 (L) 26.1 - 32.7 pg [facility] MCHC 30.2 (L) 31.2 - 35.0 [facility] g/dL [facility] RDW-SD 46.9 38.5 - 51.6 fL [facility] RDW-CV 15.4 12.1 - 15.4 % [facility] PLT 175 150 - 328 [facility] 10*3/L [facility] MPV 9.6 (L) 9.8 - 13.0 fL [facility] NRBC/100 WBC 0.0 0.0 - 10.0 /100 [facility] WBCs [facility] NRBC x10^3 <0.01 10*3/L [facility] GRAN MAT (NEUT) % 78.9 % [facility] IMM GRAN % 0.20 % [facility] LYMPH % 14.7 % [facility] MONO % 4.9 % [facility] EOS % 0.9 % [facility] BASO % 0.4 % [facility] GRAN MAT x10^3(ANC) 4.19 1.99 - 6.95 [facility] 10*3/uL HOSPITAL LABORATORY IMM GRAN x10^3 <0.03 0.00 - 0.06 [facility] 10*3/uL HOSPITAL LABORATORY LYMPH x10^3 0.78 (L) 1.09 - 3.23 [facility] 10*3/uL [facility] MONO x10^3 0.26 (L) 0.36 - 1.02 [facility] 10*3/uL HOSPITAL LABORATORY EOS x10^3 0.05 (L) 0.06 - 0.53 [facility] 10*3/uL [facility] BASO x10^3 <0.03 0.01 - 0.09 [place] [address]*3/uL [facility] Specimen Blood Performing Organization Address City/State/Zipcode Phone Number [facility] CLIA: [id number] [place] [address] documented in this encounter Visit Diagnoses Diagnosis Suspected Covid-19 Virus Infection - [facility] Non-intractable vomiting with nausea, un specified vomiting type Drug-induced constipation Other constipation Generalized abdominal pain Abdominal pain, generalized documented in this encounter Additional Health Concerns Infection Onset Date Last Indicated Resolved Time COVID-19 Rule Out 05/02/2020 05/02/2020 documented as of this encounter Insurance Payer Benefit Plan / Subscriber ID Effective Dates Phone Addre ss Type Group [employer] [id number] 2019-Prese Medicare Adv PLUS PLUS nt HMO CLASSIC/VALUE documented as of this encounter
--- OUTSIDE RECORDS SUMMARY | 2020-05-21 10:16 | XMS REPORT | Summary of Care ---
:1955 Author Organization [facility] Address [address] [place] [address] Care Team Providers Name Role Phone MD Yamil Primary Care Provider Reason for Referral MRI/CAT Scan (STAT) Status Reason Specialty Diagnoses / Referred By Referred To Procedures Contact Contact Closed Diagnostic Diagnoses Non-intractable vomiting with nausea, unspecified vomiting type Drug-induced constipation Generalized abdominal pain Xin Monroy, Radiology Procedures CT ABDOMEN PELVIS WO CONTRAST CHG CT SCAN,ABDOMENT AND PELVIS,W/O CONTRAST [employer] [address] [address] Reason for Visit Reason Comments Vomiting on and off x2 weeks Auth/Cert Status Reason Specialty Diagnoses / Procedures Referred By C ontact Referred To Contact Phlebotomy Diagnoses Non-intractable vomiting with nausea, unspecified vomiting type Adc Pob Lab Draw Procedures cbc Professional Office Building [address] [place] [address] moe Thomas, [address] [place] [address] Phone: Fax: Encounter Details Date Type Department Care Team Description 05/02/2020 Urgent Care [facility] Family Naldo Monroy, [employer]ING [employer]ACH[employer] [address] [address] Generalized abdominal pain (Primary Dx); Medicine - [place] Provider, [facility] Suspected Covid-19 Virus Infection; [address] [place] [address] Non-intrac table vomiting with nausea, unspecified vomiting type; [place] [id number] Allergies Active Allergy Reactions Severity Noted Date [...] 06/29/2019 Active tabletIndications: mouth daily. Atherosclerosis of [place] coronary artery of [place] heart without angina pectoris, Essential hypertension, Type 2 diabetes mellitus with diabetic polyneuropathy, without long-term current use of insulin nitroglycerin 0.[address] 1 tablet 1 Bottle 5 06/29/2019 Active sublingual under the tongue tabletIndications: every 5 (five) Atherosclerosis of minutes as [place] coronary artery needed for Chest of [place] heart pain. without angina pectoris, Essential hypertension, [...] Left 07/09/2019 Surgeon: Pipe Mathis MD; Location: [facility] [facility] LUMBAR EPIDURAL STEROID INJECTION N/A 11/10/2015 Surgeon: Pipe Mathis MD; Location: [facility] LUMBAR EPIDURAL STEROID INJECTION N/A 11/17/2015 Surgeon: Pipe Mathis MD; Location: [facility] LUMBAR EPIDURAL STEROID INJECTION N/A 11/03/2015 Surgeon: Pipe Mathis MD; Location: [facility] LUMBAR EPIDURAL STEROID INJECTION N/A 08/16/2016 Surgeon: Pipe Mathis MD; Location: [facility] LUMBAR EPIDURAL STEROID INJECTION N/A 08/23/2016 Surgeon: Pipe Mathis MD; Location: [facility] LUMBAR EPIDURAL STEROID INJECTION N/A 09/06/2016 Surgeon: Pipe Mathis MD; Location: [facility] NERVE STIMULATOR INSERTION NERVE STIMULATOR [...] file Gets together: Not on file Attends pentecostal service: Not on file Active member of [...] cousin, [place] @ 41 Review of Systems Constitutional: Negative. [...] abdomen for further eval to determine etiology. 3. Suspected Covid-19 Virus Infection - COVID-19 (PCR MOLECULAR TESTING); Future - COVID-19 (PCR MOLECULAR TESTING) - Quarantine until your COVID results are back Criteria met - Covid testing - pending. This test can take 2-3 days to be resulted. While the test is pending...Please socially isolate your self - do not go out to stores or out in public. We will contact you once we have the results. If you are negative - continue with symptomatic treatment. (see below) Patients who have positive results will be contacted by the health department to enforce quarantine measures and for additional community contact tracing. The Infection Control Department will also undertake evaluation of exposures in our healthcare facility. If symptoms worsen - please call your Primary Care Doctor - do not go into the clinic. Call first. Clinical references for home care instructions reviewed [...] of the visit time. If applicable, the [facility] database was accessed to review any controlled substance prescription claims data. The [employer] prescription claims data in ITDatabase was reviewed to assess patient compliance with the medication treatment plan. documented in this encounter Plan of Treatment Date Type Specialty Care Team Description 06/30/2020 Office Visit Cardiology Keli Spence M D [address] [place] [address] [place] [address] [phone] Name Type Priority Associated Diagnoses Date/Ti me COVID-19 (PCR LAB Routine Suspected Covid-19 Virus 11:49 AM MOLECULAR TESTING) Infection CDT URINE CULTURE LAB Routine Non-intractable vomiting 12:53 PM with nausea, unspecified CDT vomiting type Drug-induced constipation Generalized abdominal pain CT ABDOMEN PELVIS WO IMAGING STAT Non-intractable vomi ting 05/02/2020 2:50 PM CONTRAST with nausea, unspecified CDT vomiting type Drug-induced constipation Generalized abdominal pain Name Type Priority Associated Diagnoses Order S chedule COVID-19 (PCR MOLECULAR LAB Routine Suspected Covid-1 9 Virus Expected: 05/02/2020, TESTING) Infection Expires: 2020 CT ABDOMEN PELVIS WO IMAGING STAT Non-intractable [...] of this encounter Implants Implanted Type Area Copyright Expert Device Identifier Shelf Exp iration Model / Date Serial / L ot Pump, Medtronic Synchromed Ii Infusion W ith Filter (20 Ml) #8637-20 - [id number] Pump Medtronic 09/18/2020 8637-20 / Implanted: Qty: 1 on 07/09/2019 by Pipe Easton MD at [facility] [place] N [id number] / [id number] Right Total Knee documented as of this encounter Procedures Procedure Name Priority Date/Time Associated Diagnosis Comme nts URINALYSIS Routine 05/02/2020 12:53 Non-intractable Results for this PM CDT vomiting with procedure are in nausea, unspecified the resu lts vomiting type section. Drug-induced constipation Generalized abdominal pain CBC WITH DIFF Routine 05/02/2020 12:53 Non-intractable Results for this PM CDT vomiting with procedure are in nausea, unspecified the resu lts vomiting type section. Drug-induced constipation Generalized abdominal pain COMP. METABOLIC Routine 05/02/2020 12:53 Non-intractable Resul ts for this PANEL (20590) PM CDT vomiting with procedure are in nausea, unspecified the resu lts vomiting type section. Drug-induced constipation Generalized abdominal pain documented in this encounter Results URINALYSIS (05/02/2020 12:53 PM CDT) Pathologist Sig nature APPEARANCE Clear Clear [facility] COLOR Yellow Yellow [facility] PH 6.0 4.8 - 8.0 [facility] SP GRAVITY 1.023 1.003 - 1.030 [facility] GLU U QUAL Normal Normal [facility] BLOOD Negative Negative [facility] KETONES 5 mg/dL (A) Negative [facility] PROTEIN 30 mg/dL (A) Negative [facility] UROBILIN 4.0 mg/dL (A) Normal [facility] BILIRUBIN Negative Negative [facility] NITRITE Negative Negative [facility] LEUK ABHAY Negative Negative [facility] RBC/HPF 1 0 - 3 HPF [facility] WBC/HPF 3 0 - 5 HPF [facility] BACTERIA Few (A) Negative [facility] MUCOUS Slight (A) Negative LPF [facility] SQ EPITH <1 HPF [facility] HYAL CAST 7 (H) <=2 LPF [facility] GRAN CASTS 16 (H) <=1 LPF [facility] Specimen Urine Performing Organization Address City/State/Zipcode Phone Number [facility] CLIA: [id number] [place] [address] COMP. METABOLIC PANEL (11977) (05/02/2020 12:53 PM CDT) [facility] NA 137 135 - 145 [facility] mmol/L [facility] K 4.8 3.5 - 5.0 [facility] mmol/L [facility] CL 102 98 - 108 mmol/L [facility] CO2 TOTAL 30 23 - 31 mmol/L [facility] AGAP 5 2 - 16 [facility] BUN 22 7 - 23 mg/dL [facility] GLUCOSE 174 (H) 70 - 110 mg/dL [facility] CREATININE 1.17 0.60 - 1.25 [facility] mg/dL [facility] TOTAL BILI 1.2 (H) 0.1 - 1.1 mg/dL [facility] CALCIUM 9.4 8.6 - 10.6 [facility] mg/dL [facility] T PROTEIN 6.9 6.3 - 8.2 g/dL [facility] ALBUMIN 4.2 3.5 - 5.0 g/dL [facility] ALK PHOS 66 34 - 122 U/L [facility] ALTv 15 5 - 50 U/L [facility] AST(SGOT) 20 13 - 40 U/L [facility] eGFR Calculation 63.0 mL/min/1.73m2 [facility] ([facility] [place]) eGFR Calculation 76.3 mL/min/1.73m2 [facility] () [facility] Specimen Blood Narrative Performed At Association of Glomerular Filtration Rate (GFR) [facility] and Staging of Kidney Disease* [...] tests). Performing Organization Address City/State/Zipcode Phone Number [facility] CLIA: [id number] [place] [address] CBC WITH DIFF (05/02/2020 12:53 PM CDT) Pathologist Sig nature WBC 5.31 4.20 - 10.70 [facility] 10*3/L [facility] RBC 5.10 4.26 - 5.52 [facility] 10*6/L [facility] HGB 13.0 12.2 - 16.4 [facility] g/dL [facility] HCT 43.0 38.4 - 49.3 % [facility] MCV 84.3 81.7 - 95.6 fL [facility] MCH 25.5 (L) 26.1 - 32.7 pg [facility] MCHC 30.2 (L) 31.2 - 35.0 [facility] g/dL [facility] RDW-SD 46.9 38.5 - 51.6 fL [facility] RDW-CV 15.4 12.1 - 15.4 % [facility] PLT 175 150 - 328 [facility] 10*3/L [facility] MPV 9.6 (L) 9.8 - 13.0 fL [facility] NRBC/100 WBC 0.0 0.0 - 10.0 /100 [facility] WBCs [facility] NRBC x10^3 <0.01 10*3/L [facility] GRAN MAT (NEUT) % 78.9 % [facility] IMM GRAN % 0.20 % [facility] LYMPH % 14.7 % [facility] MONO % 4.9 % [facility] EOS % 0.9 % [facility] BASO % 0.4 % [facility] GRAN MAT x10^3(ANC) 4.19 1.99 - 6.95 [facility] 10*3/uL HOSPITAL LAB[facility]ATORY IMM GRAN x10^3 <0.03 0.00 - 0.06 [facility] 10*3/uL HOSPITAL LAB[facility] LYMPH x10^3 0.78 (L) 1.09 - 3.23 [facility] 10*3/uL [facility] MONO x10^3 0.26 (L) 0.36 - 1.02 [facility] 10*3/uL [facility] EOS x10^3 0.05 (L) 0.06 - 0.53 [facility] 10*3/uL [facility] BASO x10^3 <0.03 0.01 - 0.09 [facility] 10*3/uL [facility] Specimen Blood Performing Organization Address City/State/Zipcode Phone Number [facility] CLIA: [id number] [place] [address] documented in this encounter Visit Diagnoses Diagnosis Generalized abdominal pain - Primary Abdominal pain, generalized Suspected Covid-19 Virus Infection Non-intractable vomiting with nausea, un specified vomiting type Drug-induced constipation Other constipation documented in this encounter Additional Health Concerns Infection Onset Date Last Indicated Resolved Time COVID-19 Rule Out 05/02/2020 05/02/2020 documented as of this encounter Insurance Payer Benefit Plan / Subscriber ID Effective Dates Phone Addre ss Type Group [employer] [id number] 2019-Prese Medicare Adv PLUS PLUS nt HMO CLASSIC/VALUE documented as of this encounter
--- OUTSIDE RECORDS SUMMARY | 2020-05-21 10:17 | XMS REPORT | Summary of Care ---
:1955 Author Organization [facility] - [facility] Address [address] [place] [id number] Care Team Providers Name Role Phone MD Yamil Primary Care Provider Reason for Visit Reason Comments Abdominal Pain Encounter Details Date Type Department Care Team Description 05/20/2020 Urgent Care [facility] Naldo Monroy FNP [address] [address] Nausea (Primary Dx); [facility] Provider, [facility] Drug-induced constipation [address] [place] [address] Allergies Active Allergy Reactions Severity Noted Date Comments Sulfamethoxazole Nausea and/or Vomiting 08/16/2016 documented as of this encounter (statuses as of 05/20/2020) Medications Medication Sig Dispensed Refills Start Date End Date Status HYDROmorphOne Take 4 mg by 0 Act jose (DILAUDID) 4 mg mouth 3 (three) tablet times daily. tiZANidine (ZANAFLEX) Take 4 mg by 0 Active 4 mg capsule mouth 2 (two) times daily. omega-3/dha/epa/dpa/f Take by mouth. 0 Active zara oil (OMEGA-3 2100 ORAL) cinnamon bark Take [...] directed 100 Each 3 05/23/2019 Active gauge once a day to MiscIndications: Type monitor blood 2 diabetes mellitus glucose for ICD with diabetic code of E11.9. polyneuropathy, without long-term current use of insulin ONE TOUCH DELICA Use as directed 1 Kit 0 05/23/2019 Active KitIndications: Type once a day to 2 diabetes mellitus monitor blood with diabetic glucose for ICD polyneuropathy, code of E11.9. without long-term current use of insulin ONETOUCH ULTRA BLUE Use as directed 100 Strip 0 05/23/2019 Active TEST STRIP for once a day stripIndications: glucose Type 2 diabetes monitoring for mellitus with ICD of E11.9 diabetic polyneuropathy, without long-term current use of insulin aspirin 81 mg EC Take 1 tablet by 0 06/29/2019 Active tabletIndications: mouth daily. Atherosclerosis of inaja coronary artery of inaja heart without angina pectoris, Essential hypertension, Type 2 diabetes mellitus with diabetic polyneuropathy, without long-term current use of insulin nitroglycerin 0.[address] 1 tablet 1 Bottle 5 06/29/2019 Active sublingual under the tongue tabletIndications: every 5 (five) Atherosclerosis of minutes as inaja coronary needed for Chest artery of inaja pain. heart without angina pectoris, Essential hypertension, [...] lower extremity, daily. Infected cyst of skin rosuvastatin 40 mg TAKE ONE TABLET 90 [...] metformin ER 500 mg Take 1 tablet by 180 tablet 3 02/27/2020 Active 24 hr mouth 2 (two) tabletIndications: times daily. Type 2 diabetes mellitus with diabetic polyneuropathy, [...] CAPSULE 90 capsule 1 04/25/2020 Active hr BY MOUTH DAILY capsuleIndications: BPH with obstruction/lower urinary tract symptoms proMETHazine 25 mg Take 1 tablet by 62 tablet 0 05/20/2020 Active tabletIndications: mouth every 6 Nausea (six) hours as needed for Nausea and Vomiting (N/V) for up to 30 days. magnesium citrate Take 300 mL by 150 mL 0 05/20/20202019 Active solutionIndications: mouth once now Drug-induced for 1 dose. constipation Hospital, Clinic, or Ordered Dose Route Frequency Start Date End D ate Status Other Facility Administered Medication NaCl 0.9% (NS) IV 250 mL IV Infusion CONTINUOUS 06/08/2018 Active infusion 250 mLIndications: Other chest pain DOBUTamine (DOBUTREX) 540 mcg/min IV TITRATE 06/08/2018 Active 500 mg in 250mL(Fixed Dose) D5W infusionIndications: Other chest pain documented as of this encounter (statuses as of 05/20/2020) Active Problems Problem Noted Date Low serum [...] as of this encounter (statuses as of 05/20/2020) Immunizations Name Administration Dates Next Due Influenza [...] been in contact with No / Unsure 05/20/2020 12:52 PM CDT someone who was confirmed or suspected to have Coronavirus / COVID-19? documented as of this encounter Last Filed Vital Signs Vital Sign Reading Time Taken Comments Blood Pressure 138/68 05/20/2020 1:06 PM CDT Pulse 67 05/20/2020 1:06 PM CDT Temperature 36.8 C (98.3 F) 05/20/2020 1:06 PM CDT Respiratory Rate - - Oxygen Saturation 100% 05/20/2020 1:06 PM CDT Inhaled Oxygen Concentration - - Weight 104.3 kg (230 lb) 05/20/2020 1:06 PM CDT Height 193 cm (6' 4") 05/20/2020 1:06 PM CDT Body Mass Index 28 05/20/2020 1:06 PM CDT documented in this encounter Patient Instructions Patient InstructionsXin Monroy, OPERATOR [employer] - 05/20/2020 1:00 PM CDT Patient Education Constipation (Adult) Constipation means that you have bowel movements that are less frequent than usual. Stools often become very hard and difficult to pass. Constipation is very common. At some point in life, it affects almost everyone. Since everyone's bowel habits are different, what is constipation to one person may not be to another. Your healthcare provider may do tests to diagnose constipation. It depends on whathe or shefinds when evaluating you. Symptoms of constipation include: Abdominal pain Bloating Vomiting Painful bowel movements Itching, swelling, bleeding, or pain around the anus Causes Constipation can have many causes. These include: Diet low in fiber Too much dairy Not drinking enough liquids Lack of exercise or physical activity (especially true for older adults) Changes in lifestyle or daily routine, including , aging, work, and travel Frequent use or misuse of laxatives Ignoring the urge to have a bowel movement or delaying it until later Medicines, such as certain prescription pain medicines, iron supplements, antacids, certain antidepressants, and calcium supplements Diseases like irritable bowel syndrome, bowel obstructions, stroke, diabetes, thyroid disease, Parkinson disease, hemorrhoids, and colon cancer Complications Potential complications of constipation can include: Hemorrhoids Rectal bleeding from hemorrhoids or anal fissures(skin tears) Hernias Dependency on laxatives Chronic constipation Fecal impaction, a severe form of constipation in which a large amount of hard stool is in your rectum that you can't pass Bowel obstruction or perforation Home care All treatment should be done after talking with your healthcare provider. This is especially true ifyou have another medical problems, are taking prescription medicines, or are an older adult. Treatment most often involves lifestyle changes. You may also need medicines. Your healthcare provider will tell you which will work best for you. Follow the advice below to help avoid this problem in the future. Lifestyle changes These lifestyle changes can help prevent constipation: Diet. Eat a high-fiber diet, with fresh fruit and vegetables, and reduce dairy intake, meats, andprocessed foods Fluids. It's important to get enough fluids each day. Drink plenty of water when you eat more fiber. If you are on diet that limits the amount of fluid you can have, talk about this with your healthcare provider. Regular exercise. Check with your healthcare provider first. Medicines Take any medicines as directed. Some laxatives are safe to use only every now and then. Others can be taken on a regular basis. While laxatives don't cause bowel dependence, they are treating the symptoms. So your constipation may return if you don't make other changes. Talk with your healthcare provider or pharmacist if you have questions. Prescription pain medicines can cause constipation. If you are taking this kind of medicine, ask your healthcare provider if you should also take a stool softener. Medicines you may take to treat constipation include: Fiber supplements Stool softeners Laxatives Enemas Rectal suppositories Follow-up care Follow up with your healthcare provider if symptoms don't get better in the next few days. You may need to have more tests or see a specialist. Call 911 Call 911 if any of these occur: Trouble breathing Stiff, rigid abdomen that is severely painful to touch Confusion Fainting or loss of consciousness Rapid heart rate Chest pain When to seek medical advice Call your healthcare provider right away if any of these occur: Fever of 100.4F (38C) or higher, or as directed by your healthcare provider Failure to resume normal bowel movements Pain in your abdomen or back gets worse Nausea or vomiting Swelling in your abdomen Blood in the stool Black, tarry stool Involuntary weight loss Weakness Counsyl last reviewed this educational content on 02/03/201819992810-9523 [employer]. [address] [place] [address]. All rights reserved. This information is not intended as a substitute for professional medical care. Always follow your healthcare professional's instructions. Patient Education Eating a High-Fiber Diet Fiber is what gives strength and structure to plants. Most grains, beans, vegetables, and fruits contain fiber. Foods rich in fiber are often low in calories and fat, and they fill you up more. They may also reduce your risks for certain health problems.To find out the amount of fiber in canned, packaged, or frozen foods, read the Nutrition Facts label. It tells you how much fiber is in one serving. Types of fiber and their benefits There are two types of fiber: insoluble and soluble. They both aid digestion and help you maintain ahealthy weight. Insoluble fiber. This is found in whole grains, cereals, certain fruits and vegetables such as apple skin, corn, and carrots. Insoluble fiber may prevent constipation and reduce the risk for certaintypes of cancer. It's called insoluble because it doesn't dissolve in water. Soluble fiber. This type of fiber is in oats, beans, and certain fruits and vegetables such as strawberries and peas. Soluble fiber can reduce cholesterol, which may help lower the risk for heart disease. It also helps control blood sugar levels. Look for high-fiber foods Try these foods to add fiber to your diet: Whole-grain breads and cereals. Try to eat6 to 8 ounces a day. Include wheat and oat bran cereals, whole-wheat muffins or toast, and corn tortillas in your meals. Fruits. Try to eat2 cups a day. Apples, oranges, strawberries, pears, and bananas are good sources. (Note: Fruit juice is lowin fiber.) Vegetables. Try to eat at least 2.5 cups a day. Add asparagus, carrots, broccoli, peas, and corn to your meals. Beans.One cup of cooked lentils gives you over15 grams of fiber. Try navy beans, lentils, andchickpeas. Seeds.A small handful of seeds gives you about 3 grams of fiber. Try sunflower or valorie seeds. Keep track of your fiber Keep track of how much fiber you eat. Start by reading food labels. Then eat a variety of foods highin fiber. As you start to eat more fiber, ask your healthcare provider how much water you should be drinking to keep your digestive system working smoothly. Aim for a certain amount of fiber in your diet each day. The daily value for fiber is 25 grams a day. But some experts advise that women under 50 eat 25 to 28grams per day and that men under 50 eat 30 to 38 grams per day. After age 50, your daily fiber needs drop to 22 grams for women and28 grams for men. Before you reach for the fiber supplements, think about this. Fiber is found naturally in healthy whole foods. It gives you that feeling of fullness after you eat. Taking fiber supplements or eating fiber-enrichedfoods will not give you this full feeling. Your fiber intake is a good measure for the quality of your overall diet. If you are missing out on your daily amount of fiber, you may be lacking other important nutrients as well. Tommy last reviewed this educational content on 03/05/201919993884-3120 [employer]. [address] [place] [address], [place] [address]. All rights reserved. This information is not intended as a substitute for professional medical care. Always follow your healthcare professional's instructions. Patient Education Diet: Diabetes Food is an important tool that you can use to control diabetes and stay healthy. Eating well-balanced meals in the correct amounts will help you control your blood glucose levels and prevent low blood sugar reactions. It will also help you reduce the health risks of diabetes. There is no one specific diet that is right for everyone with diabetes. But there are general guidelines to follow. A registered dietitian (RD) will create a tailored diet approach thats just right for you. He or she will also help you plan healthy meals and snacks. If you have any questions, call your dietitian for advice. Guidelines for success Talk with your healthcare provider before starting a diabetes diet or weight loss program. If you haven't talked with a dietitian yet, ask your provider for a referral. The following guidelines can help you succeed: Select foods from the 6 food groups below. Your dietitian will help you find food choices within each group. He or she will also show you serving sizes and how many servings you can have at each meal. ? Grains, beans, and starchy vegetables ? Vegetables ? Fruit ? Milk or yogurt ? Meat, poultry, fish, or tofu ? Healthy fats Check your blood sugar levels as directed by your provider. Take any medicine as prescribed by your provider. Learn to read food labels and pick the right portion sizes. Limit carbohydrates at each meal to help manage your diabetes. The carbohydrates you eat become glucose in the blood. Talk with your healthcare provider about how many grams of carbohydrates are recommended for you at each meal. Eat 3 meals a day, at consistent times. Don't skip meals. If you are hu ngry between meals, eat a small, low-carbohydrate snack. Talk with your healthcare provider if you drink alcohol. Alcohol can have unpredictable effects on blood glucose. It's also high in empty calories and can raise a type of blood fat called triglycerides. Drink water or calorie-free diet drinks instead. Eat less fat to help lower your risk of heart disease. Use nonfat or low-fat dairy products and lean meats. Avoid fried foods. Use cooking oils that are unsaturated, such as olive, canola, or peanutoil. Don't eat foods with added salt. Salt can contribute to high blood pressure, which can cause heart disease. People with diabetes already have a risk for high blood pressure and heart disease. Stay at a healthy weight. If you need to lose weight, cut down on your portion sizes. But dontskip meals. Exercise is an important part of any weight management program. Talk with your provider about an exercise program thats right for you. For more information about the best diet plan for you, talk with an RD. To find an RD in your area, contact: ? Academy of Nutrition and Dietetics www.eatright.org ? [place] [employer] [phone] www.diabetes.org Tommy alvarez reviewed this educational content on 03/05/201919996794-7623 [employer]. [address] [place] [address]. All rights reserved. This information is not intended as a substitute for professional medical care. Always follow your healthcare professional's instructions. Patient Education Liberty Diet Your healthcare provider may recommend a bland dietif you have an upset stomach. It consists of foods that are mild and easy to digest. It is better to eat small frequent meals rather than3 large meals a day. Beverages OK: Fruit juices, non-caffeinated teas and coffee, non-carbonated correa Avoid: Carbonated beverage, caffeinated tea and coffee, all alcoholic beverages Bread OK: Refined white, wheat or rye bread, duane or soda crackers, Eliza toast, plain rolls, bagels Avoid: Whole-grain bread Cereal OK: Refined cereals: cooked or ready to eat Avoid: Whole-grain cereals and granola, or those containing bran, seeds or nuts Desserts OK: Peanut butter and all others except those to "avoid" Avoid: Chocolate, cocoa, coconut, popcorn, nuts, seeds, jam, marmalade Fruits OK: Canned, cooked, frozen or fresh fruits without seeds or tough skin Avoid: Olives, skin and seeds of fruit, dried fruit Meats OK: All fresh or preserved meat, fish and fowl Avoid: Any that are prepared with those spices to "avoid" Cheese and eggs OK: Eggs, cottage cheese, cream cheese, other cheeses Avoid: All cheeses made with those spices to "avoid" Potatoes and pasta OK: Potato, rice, macaroni, noodles, spaghetti Avoid: None Soups OK: All soups without heavy seasoning Avoid: Soups made with those spices to "avoid" Vegetables OK: Canned, cooked, fresh or frozen mildly flavored vegetables without seeds, skins or coarse fiber Avoid: Vegetables prepared with those spices to "avoid"; skin and seeds of vegetables and those withcoarse fiber, broccoli, cabbage, cauliflower, cucumber, green peppers, and corn Spices OK: Salt, lemon and limejuice, vinegar, all extracts, diego, cinnamon, thyme, mace, allspice, paprika Avoid: [place] powder, cloves, pepper, seed spices, garlic, gravy pickles, highly seasoned salad dressings Counsyl last reviewed this educational content on 01/03/201819993289-4829 [employer]. [address] [place] [address]. All rights reserved. This information is not intended as a substitute for professional medical care. Always follow your healthcare professional's instructions. documented in this encounter Progress Notes Xin Monroy FNP - 05/20/2020 1:00 PM CDT Cc: Chief Complaint Patient presents with Abdominal Pain Melody Duarte is a 64 year old male. Patient has recurrent abdominal pain recent CT abdomen showed moderate stool, and he does have hx ofmedication induced constipation as he is on routine narcotics (pain pump). recent CT also show inflammatory bowel process, and he was recommended to see GI. He has an appointment with GI in a few days ( Tuesday). In the meantime, he continues to have pain, feel bloated and constipated despite stool softeners he is on. Abdominal Pain Pain location: Generalized Pain quality: bloating Pain radiates to: Does not radiate Pain severity: Moderate Onset quality: Gradual Timing: Intermittent Progression: Unchanged Chronicity: Recurrent Context: previous surgery (pain pump, cholecystectomy ) Relieved by: Nothing Worsened by: Nothing Ineffective treatments: OTC medications (prescription) Associated symptoms: nausea Associated symptoms: no anorexia, no belching, no chest pain, no chills, no constipation, no cough, no diarrhea, no dysuria, no fatigue, no fever, no flatus, no hematemesis, no hematochezia, no hematuria, no melena, no shortness of breath, no sore throat, no vaginal bleeding, no vaginal discharge and no vomiting Risk factors: being elderly, multiple surgeries and obesity Allergies Melody is allergic to sulfamethoxazole. Medications [...] BY MOUTH EVERY EVENING 90 tablet 1 mupirocin 2 % ointment Apply to area(s) [...] Left 07/09/2019 Surgeon: Pipe Mathis MD; Location: [facility] OR Location LUMBAR EPIDURAL STEROID INJECTION N/A 11/10/2015 Surgeon: Piep Mathis MD; Location: [facility] OR Location LUMBAR EPIDURAL STEROID INJECTION N/A 11/17/2015 Surgeon: Pipe Mathis MD; Location: [facility] OR Location LUMBAR EPIDURAL STEROID INJECTION N/A 11/03/2015 Surgeon: Pipe Mathis MD; Location: [facility] OR Location LUMBAR EPIDURAL STEROID INJECTION N/A 08/16/2016 Surgeon: Pipe Mathis MD; Location: [facility] OR Location LUMBAR EPIDURAL STEROID INJECTION N/A 08/23/2016 Surgeon: Pipe Mathis MD; Location: [facility] OR Location LUMBAR EPIDURAL STEROID INJECTION N/A 09/06/2016 Surgeon: Pipe Mathis MD; Location: [facility] OR [facility] NERVE STIMULATOR INSERTION NERVE STIMULATOR REVISION SPINE [...] file Gets together: Not on file Attends sabianism service: Not on file Active member of [...] comments Father pancoast tumors Heart Brother HTN [place] (myocardial infarction) Maternal Uncle [place] (myocardial infarction) Other cousin, [place] @ 40 Review of Systems Constitutional: Negative. Negative for chills, fatigue and fever. HENT: Negative for sore throat. Respiratory: Negative. Negative for cough, chest tightness, shortness of breath and wheezing. Cardiovascular: Negative. Negative for chest pain and palpitations. Gastrointestinal: Positive for abdominal distention, abdominal pain and nausea. Negative for anorexia, constipation, diarrhea, flatus, hematemesis, hematochezia, melena and vomiting. Genitourinary: Negative for dysuria, hematuria, vaginal bleeding and vaginal discharge. Neurological: Negative. Negative for syncope, weakness, light-headedness and headaches. Psychiatric/Behavioral: Negative. Endocrine: Endocrine negative Vital Signs BP 138/68 | Pulse 67 | Temp 36.8 C (98.3 F) (Oral) | Ht 6' 4" (1.93 m) | Wt 230 lb (104.3 kg) | SpO2 100% | BMI 28.00 kg/m Physical Exam Vitals [...] Palpations: Abdomen is soft. Tenderness: There is generalized abdominal tenderness. Skin: General: Skin is warm and dry. Capillary Refill: Capillary refill takes less than 2 seconds. Neurological: Mental Status: He is alert and oriented to person, place, and time. Psychiatric: Mood and Affect: Mood normal. Assessment/Plan Nausea (primary encounter diagnosis) Comment: Plan: proMETHazine 25 mg tablet Drug-induced constipation Comment: Plan: magnesium citrate solution x1 given Routine exercise as tolerated recommended. Clinical reference for other home care instructions reviewed and copy given. Abdominal pain: Appoitment made to GI for continued care. If worse or new onset of symptoms in the meantime, go to the ER. Plan of care, desired health behaviors, goals, and medication discussed with patient. Education resources provided and reviewed with AVS. Patient/guardian/family verbalized understanding & agrees to plan of care. This visit did not involve counseling and coordination that comprised more than 50% of the visit time. If applicable, the [facility] database was accessed to review any controlled substance prescription claims data. The [employer] prescription claims data in [place] was reviewed to assess patient compliance with the medication treatment plan. documented in this encounter Plan of Treatment Date Type Specialty Care Team Description 06/30/2020 Office Visit Cardiology Keli Spence M D [address] [id number] [phone] Health Maintenance Due Date Last Done Comments [...] 06/20/2019, 08/03/2016 FOOT EXAM 06/18/2020 06/18/2019, 06/18/2019 Depression Screening 11/18/2020 11/19/2019 CREATININE (SERUM) 05/02/2021 05/02/2020, 10/29/2019, 10/18/2019, Additional history exists DTaP,Tdap,and Td Vaccines (2 11/06/2029 11/07/2019 - Td) PNEUMOCOCCAL 0-64 YEARS Aged Out 05/21/2018 No longe r eligible COMBINED SERIES based on patient 's age to complete this topic documented as of this encounter Implants Implanted Type Area Head Of Business Development Device Identifier Shelf Exp iration Model / Date Serial / L ot Pump, Medtronic Synchromed Ii Infusion W ith Filter (20 Ml) #8637-20 - [id number] Pump Med[employer]onic 09/18/2020 8637-20 / Implanted: Qty: 1 on 07/09/2019 by Pipe Easton MD at [facility] N [id number] / [id number] Right Total Knee documented as of this encounter Results Not on filedocumented in this encounter Visit Diagnoses Diagnosis Nausea - Primary Nausea alone Drug-induced constipation Other constipation documented in this encounter Insurance Payer Benefit Plan / Subscriber ID Effective Dates Phone Addre ss Type Group [employer] [id number] 2019-Prese Medicare Adv PLUS PLUS nt HMO CLASSIC/VALUE documented as of this encounter
--- OUTSIDE RECORDS SUMMARY | 2020-05-21 10:17 | XMS REPORT | Summary of Care ---
:1955 Author Organization [facility] Address [address] [place] [address] Care Team Providers Name Role Phone MD Yamil Primary Care Provider Reason for Referral MRI/CAT Scan (STAT) Status Reason Specialty Diagnoses / Referred By Referred To Procedures Contact Contact Closed Diagnostic Diagnoses Non-intractable vomiting with nausea, unspecified vomiting type Drug-induced constipation Generalized abdominal pain Xin Monroy, Radiology Procedures CT ABDOMEN PELVIS WO CONTRAST CHG CT SCAN,ABDOMENT AND PELVIS,W/O CONTRAST HAIR BOILER [address] [place] [id number] Reason for Visit Auth/Cert Status Reason Specialty Diagnoses / Procedures Referred By Sulema mgact Referred To Contact Phlebotomy Diagnoses Non-intractable vomiting with nausea, unspecified vomiting type Adc Pob Lab Draw Procedures cbc Professional Office Building [address] [facility] [address], [address] [place] [address] Phone: Fax: Encounter Details Date Type Department Care Team Description 05/02/2020 Hospital Encounter [facility] Sulema Monroy, HAIR BOILER Arrived [employer] [address] Tomography [id number] [place] [id number] Allergies Active Allergy Reactions Severity Noted Date Comments Sulfamethoxazole Nausea and/or Vomiting 08/16/2016 documented as of this encounter (statuses as of 05/03/2020) Medications Medication Sig Dispensed Refills Start Date [...] 06/29/2019 Active tabletIndications: mouth daily. Atherosclerosis of [place] coronary artery of [place] heart without angina pectoris, Essential hypertension, Type 2 diabetes mellitus with diabetic polyneuropathy, without long-term current use of insulin nitroglycerin 0.[address] 1 tablet 1 Bottle 5 06/29/2019 Active sublingual under the tongue tabletIndications: every 5 (five) Atherosclerosis of minutes as [place] coronary artery needed for Chest of [place] heart pain. without angina pectoris, Essential hypertension, [...] as of this encounter (statuses as of 05/03/2020) Active Problems Problem Noted Date Low serum [...] as of this encounter (statuses as of 05/03/2020) Immunizations Name Administration Dates Next Due Influenza [...] Visit Cardiology Keli Spence M D [address] [facility] [address] [place] [address] [phone] Health Maintenance Due Date Last Done Comments [...] of this encounter Implants Implanted Type Area Hot Header Operator Device Identifier Shelf Exp iration Model / Date Serial / L ot Pump, Medtronic Synchromed Ii Infusion W ith Filter (20 Ml) #8637-20 - [id number] Pump Medtronic 09/18/2020 8637-20 / Implanted: Qty: 1 on 07/09/2019 by Pipe Easton MD at [facility] N [id number] / [id number] Right Total Knee documented as of this encounter Procedures Procedure Name Priority Date/Time Associated Diagnosis Comme nts CT ABDOMEN PELVIS STAT 05/02/2020 2:50 PM Non-intractable Results for this WO CONTRAST CDT vomiting with procedure are in nausea, unspecified the resu lts vomiting type section. Drug-induced constipation Generalized abdominal pain documented in this encounter Results CT ABDOMEN PELVIS WO CONTRAST (05/02/2020 2:50 PM CDT) Specimen Impressions Performed At PACS/VR/DOSE Fat stranding around the superior pole o f the left kidney is nonspecific could represent infectious or inflammato ry process. Otherwise no acute intraabdominal or pelvic process. Moderate stool burden Preliminary Report Dictated by Resident: Jessica Howard I, Danny Blanco MD., have reviewed this study and agree with the above report. Narrative Performed At EXAM: CT ABDOMEN PELVIS WO CONTRAST PACS/VR/DOSE HISTORY: 64 years -old Male with Nausea, vomiting COMPARISON: None, CT chest pulmonary ang iogram from 05/20/2018. TECHNIQUE AND FINDINGS: Contiguous axial imaging from the level of the lung bases through the pubic symphysis was pe rformed without the intravenous administration of contrast. Coronal and sagittal reconstructions were obtained. Auto mA and/or iterative rec onstruction were used to reduce radiation dose. FINDINGS: LOWER THORAX: Significant motion artifac t limits assessment of lower thorax. Approximately 7 mm partially gregory cified nodule is present in the right lower lobe. Lung bases are otherwi se clear. The lungs bases are clear. No cardiomegaly. Limited evaluation of solid organs in th e absence of IV contrast. LIVER: No focal hepatic lesions. Lucy l liver contour. Prior cholecystectomy. GALLBLADDER AND BILIARY TREE: No biliary ductal dilati on. No gallbladder wall thickening. SPLEEN: No splenomegaly. PANCREAS: No ductal dilation or masses. Pancreas is atrophic. ADRENAL GLANDS: No adrenal nodules. KIDNEYS: No hydronephrosis, stones, or m asses. There is nonspecific fat stranding around the superior pole of th e left kidney. GI TRACT: No dilation or wall thickening . Moderate stool burden PERITONEUM AND RETROPERITONEUM: No free air or fluid. LYMPH NODES: No enlarged lymphadenopathy . PELVIS/BLADDER: Prostate enlarged. Bladd er decompressed. VESSELS: Unremarkable. Scattered atheros clerotic calcifications in the aorta. BONES AND SOFT TISSUES: Severe osteoarthritic changes throughout the lumbar spine. No suspicious lytic or sclerotic bony lesions. An intrathecal lead is in place. Changes of flow laminectomy are seen at L5 level. Procedure Note [facility], Radiant Results Inft User - 2019 3:57 PM CDT EXAM: CT ABDOMEN PELVIS WO CONTRAST HISTORY: 64 years -old Male with Nausea, vomiting COMPARISON: None, CT chest pulmonary ang iogram from 05/20/2018. TECHNIQUE AND FINDINGS: Contiguous axial imaging from the level of the lung bases through the pubic symphysis was pe rformed without the intravenous administration of contrast. Coronal and sagittal reconstructions were obtained. Auto mA and/or iterative jewell nstruction were used to reduce radiation dose. FINDINGS: LOWER THORAX: Significant motion artifac t limits assessment of lower thorax. Approximately 7 mm partially gregory cified nodule is present in the right lower lobe. Lung bases are otherwi se clear. The lungs bases are clear. No cardiomegaly. Limited evaluation of solid organs in th e absence of IV contrast. LIVER: No focal hepatic lesions. Normal liver contour. Prior cholecystectomy. GALLBLADDER AND BILIARY TREE: No biliary ductal dilation. No gallbladder wall thickening. SPLEEN: No splenomegaly. PANCREAS: No ductal dilation or masses. Pancreas is atrophic. ADRENAL GLANDS: No adrenal nodules. KIDNEYS: No hydronephrosis, stones, or m asses. There is nonspecific fat stranding around the superior pole of th e left kidney. GI TRACT: No dilation or wall thickening . Moderate stool burden PERITONEUM AND RETROPERITONEUM: No free air or fluid. LYMPH NODES: No enlarged lymphadenopathy . PELVIS/BLADDER: Prostate enlarged. Bladd er decompressed. VESSELS: Unremarkable. Scattered atheros clerotic calcifications in the aorta. BONES AND SOFT TISSUES: Severe osteoarth ritic changes throughout the lumbar spine. No suspicious lytic or sclerotic bony lesions. An intrathecal lead is in place. Changes of flow laminectomy are seen at L5 level. IMPRESSION Fat stranding around the superior pole o f the left kidney is nonspecific could represent infectious or inflammato ry process. Otherwise no acute intraabdominal or pelvic process. Moderate stool burden Preliminary Report Dictated by Resident: Danny Burrell MD., have reviewed [facility] study and agree with the above report. Performing Organization Address City/State/Zipcode Phone Number PACS/VR/DOSE documented in this encounter Visit Diagnoses Diagnosis Non-intractable vomiting with nausea, un specified vomiting type Drug-induced constipation Other constipation Generalized abdominal pain Abdominal pain, generalized documented in this encounter Additional Health Concerns Infection Onset Date Last Indicated Resolved Time COVID-19 Rule Out 05/02/2020 05/02/2020 05/02/2020 11: 03 PM CDT documented as of this encounter Insurance Payer Benefit Plan / Subscriber ID Effective Dates Phone Addre ss Type Group RESHMA DURAN [id number] 2019-Prese Medicare Adv PLUS PLUS nt HMO CLASSIC/VALUE documented as of this encounter
--- OUTSIDE RECORDS SUMMARY | 2020-05-21 10:17 | XMS REPORT | Summary of Care ---
:1955 Author Organization [facility] Address [address] [place] [address] Care Team Providers Name Role Phone MD Yamil Primary Care Provider Reason for Referral MRI/CAT Scan (STAT) Status Reason Specialty Diagnoses / Referred By Referred To Procedures Contact Contact Closed Diagnostic Diagnoses Non-intractable vomiting with nausea, unspecified vomiting type Drug-induced constipation Generalized abdominal pain Xin Monroy, Radiology Procedures CT ABDOMEN PELVIS WO CONTRAST CHG CT SCAN,ABDOMENT AND PELVIS,W/O CONTRAST SAP BASIS [address] [address] Reason for Visit Reason Comments Vomiting on and off x2 weeks Auth/Cert Status Reason Specialty Diagnoses / Procedures Referred By C ontact Referred To Contact Phlebotomy Diagnoses Non-intractable vomiting with nausea, unspecified vomiting type Adc Pob Lab Draw Procedures cbc Professional Office Building [address] [place] [address] [address], [address] [place] [address] Phone: Fax: Encounter Details Date Type Department Care Team Description 05/02/2020 Urgent Care [facility] Naldo Monroy, SAP BASIS [address] [address] Generalized abdominal pain (Primary Dx); Medicine - [place] Provider, [facility] Suspected Covid-19 Virus Infection; [address] [place] [address] Non-intrac table vomiting with nausea, unspecified vomiting type; Drive Drug-induced constipation; [place], [place] Acute cystitis without hematuria; [id number] Infection in abdomen [phone] Allergies Active Allergy Reactions Severity Noted Date Comments Sulfamethoxazole Nausea and/or Vomiting 08/16/2016 documented as of this encounter (statuses as of 05/02/2020) Medications Medication Sig Dispensed Refills Start End [...] tabletIndications: by mouth 9 Atherosclerosis of daily. [place] coronary artery of [place] heart without angina pectoris, Essential hypertension, Type 2 diabetes mellitus with diabetic polyneuropathy, without long-term current use of insulin nitroglycerin 0.4 Place 1 tablet 1 Bottle 5 Active mg sublingual under the 9 tabletIndications: tongue every Atherosclerosis of 5 (five) [place] coronary minutes as artery of [place] needed for heart without Chest pain. angina [...] lower daily. extremity, Infected cyst of skin rosuvastatin 40 mg TAKE ONE 90 tablet [...] e tablet TABLET BY 0 MOUTH DAILY TAMSULOSIN 0.4 mg TAKE ONE 90 capsule 1 A ctive 24 hr CAPSULE BY 0 capsuleIndications: MOUTH DAILY BPH with obstruction/lower urinary tract symptoms amoxicillin-clavula Take 1 tablet 20 tablet 0 Active nadia (AUGMENTIN) by mouth 2 0 20 875-125 mg per (two) times tabletIndications: daily for 10 Acute cystitis days. without hematuria, Infection in abdomen cefUROXime 500 mg Take 1 tablet 20 tablet 0 05/02/20 Discontinued tabletIndications: by mouth 2 0 20 (Therapy Abscess (two) times complete d) daily. Hospital, Clinic, or Ordered Dose Route Frequency [...] Left 07/09/2019 Surgeon: Pipe Mathis MD; Location: [place] [facility] LUMBAR EPIDURAL STEROID INJECTION N/A 11/10/2015 Surgeon: Pipe Mathis MD; Location: [place] [facility] LUMBAR EPIDURAL STEROID INJECTION N/A 11/17/2015 Surgeon: Pipe Mathis MD; Location: [place] [facility] LUMBAR EPIDURAL STEROID INJECTION N/A 11/03/2015 Surgeon: Pipe Mathis MD; Location: [place] [facility] LUMBAR EPIDURAL STEROID INJECTION N/A 08/16/2016 Surgeon: Pipe Mathis MD; Location: [place] [facility] LUMBAR EPIDURAL STEROID INJECTION N/A 08/23/2016 Surgeon: Pipe Mathis MD; Location: [place] [facility] LUMBAR EPIDURAL STEROID INJECTION N/A 09/06/2016 Surgeon: Pipe Mathis MD; Location: [place] [facility] NERVE STIMULATOR INSERTION NERVE STIMULATOR [...] file Gets together: Not on file Attends congregation service: Not on file Active member of [...] comments Father pancoast tumors Heart Brother HTN [place] (myocardial infarction) Maternal Uncle [place] (myocardial infarction) Other cousin, [place] @ 40 Review of Systems Constitutional: Negative. [...] of the visit time. If applicable, the [place] [employer] database was accessed to review any controlled substance prescription claims data. The [employer] prescription claims data in seedchange was reviewed to assess patient compliance with the medication treatment plan. documented in this encounter Miscellaneous Notes Addendum Note - Xin Monroy FNP - 05/02/2020 11:40 AM CDT Addended by: CLARENCE HANLEY, JOHNNIE-BCXIN O on: 05/02/2020 05:10 PM Modules accepted: Orders documented in this encounter Plan of Treatment Date Type Specialty Care Team Description 06/30/2020 Office Visit Cardiology Keli Spence M D [address] [place] [address] [phone] Name Type Priority Associated Diagnoses Date/Ti me COVID-19 (PCR MOLECULAR LAB Routine Suspected Covid-1 9 Virus 05/02/2020 11:49 AM CDT TESTING) Infection URINE CULTURE LAB Routine Non-intractable vomiting 12:53 PM CDT with nausea, unspecified vomiting type Drug-induced con stipation Generalized abdominal pain Name Type Priority Associated Diagnoses Order S chedule COVID-19 (PCR MOLECULAR LAB Routine Suspected Covid-1 9 Virus Expected: 05/02/2020, TESTING) Infection Expires: 2020 Health Maintenance Due Date Last Done Comments [...] of this encounter Implants Implanted Type Area Institutional Asset Manager Device Identifier Shelf Exp iration Model / Date Serial / L ot Pump, Medtronic Synchromed Ii Infusion W ith Filter (20 Ml) #8637-20 - [id number] Pump Medtronic 09/18/2020 8637-20 / Implanted: Qty: 1 on 07/09/2019 by Pipe Easton MD at [facility] N [id number] / [id number] Right Total Knee documented as of this [...] 12:53 Non-intractable Resul ts for this PANEL (55367) PM CDT vomiting with procedure are in [...] Howard I, Danny Blanco MD., have reviewed [facility] study and agree with the above report. Performing Organization Address City/State/Zipcode Phone Number PACS/VR/DOSE URINALYSIS (05/02/2020 12:53 PM CDT) Pathologist Sig nature APPEARANCE Clear Clear [facility] COLOR Yellow Yellow [facility] PH 6.0 4.8 - 8.0 [facility] SP GRAVITY 1.023 1.003 - 1.030 [facility] GLU U QUAL Normal Normal [facility] BLOOD Negative Negative [facility] KETONES 5 mg/dL (A) Negative [facility] PROTEIN 30 mg/dL (A) Negative [facility] UROBILIN 4.0 mg/dL (A) Normal [facility] BILIRUBIN Negative Negative [facility] NITRITE Negative Negative [facility] LEUK ABHAY Negative Negative [facility] RBC/HPF 1 0 - 3 HPF [facility] WBC/HPF 3 0 - 5 HPF [facility] BACTERIA Few (A) Negative [facility] MUCOUS Slight (A) Negative LPF [facility] SQ EPITH <1 HPF [facility] HYAL CAST 7 (H) <=2 LPF [facility] GRAN CASTS 16 (H) <=1 LPF [facility] Specimen Urine Performing Organization Address City/State/Zipcode Phone Number [facility] CLIA: [id number] [place] [address] COMP. METABOLIC PANEL (83696) (05/02/2020 12:53 PM CDT) Pathologist Sig nature NA 137 135 - 145 [facility] mmol/L [facility] K 4.8 3.5 - 5.0 [facility] mmol/L [facility] CL 102 98 - 108 mmol/L [facility] CO2 TOTAL 30 23 - 31 mmol/L [facility] AGAP 5 2 - 16 [facility] BUN 22 7 - 23 mg/dL [facility] GLUCOSE 174 (H) 70 - 110 mg/dL [facility] CREATININE 1.17 0.60 - 1.25 [facility] mg/dL [facility] TOTAL BILI 1.2 (H) 0.1 - 1.1 mg/dL [facility] CALCIUM 9.4 8.6 - 10.6 [facility] mg/dL [facility] T PROTEIN 6.9 6.3 - 8.2 g/dL [facility] ALBUMIN 4.2 3.5 - 5.0 g/dL [facility] ALK PHOS 66 34 - 122 U/L [facility] ALTv 15 5 - 50 U/L [facility] AST(SGOT) 20 13 - 40 U/L [facility] eGFR Calculation 63.0 mL/min/1.73m2 [facility] (Non-[facility] Indonesian) eGFR Calculation 76.3 mL/min/1.73m2 [facility] () [facility] Specimen Blood Narrative Performed At Association of Glomerular Filtration Rate (GFR) [facility] and Staging of Kidney Disease* + [...] tests). Performing Organization Address City/State/Zipcode Phone Number [facility] CLIA: [id number] [place] [address] CBC WITH DIFF (05/02/2020 12:53 PM CDT) Pathologist Sig nature WBC 5.31 4.20 - 10.70 [facility] 10*3/L [facility] RBC 5.10 4.26 - 5.52 [facility] 10*6/L [facility] HGB 13.0 12.2 - 16.4 [facility] g/dL [facility] HCT 43.0 38.4 - 49.3 % [facility] MCV 84.3 81.7 - 95.6 fL [facility] MCH 25.5 (L) 26.1 - 32.7 pg [facility] MCHC 30.2 (L) 31.2 - 35.0 [facility] g/dL [facility] RDW-SD 46.9 38.5 - 51.6 fL [facility] RDW-CV 15.4 12.1 - 15.4 % [facility] PLT 175 150 - 328 [facility] 10*3/L [facility] MPV 9.6 (L) 9.8 - 13.0 fL [facility] NRBC/100 WBC 0.0 0.0 - 10.0 /100 [facility] WBCs [facility] NRBC x10^3 <0.01 10*3/L [facility] GRAN MAT (NEUT) % 78.9 % [facility] IMM GRAN % 0.20 % [facility] LYMPH % 14.7 % [facility] MONO % 4.9 % [facility] EOS % 0.9 % [facility] BASO % 0.4 % [facility] GRAN MAT x10^3(ANC) 4.19 1.99 - 6.95 [facility] 10*3/uL [facility] IMM GRAN x10^3 <0.03 0.00 - 0.06 [facility] 10*3/uL [facility] LYMPH x10^3 0.78 (L) 1.09 - 3.23 [facility] 10*3/uL [facility] MONO x10^3 0.26 (L) 0.36 - 1.02 [facility] 103/uL [facility] EOS x10^3 0.05 (L) 0.06 - 0.[address]uL [facility] BASO x10^3 <0.03 0.01 - 0.09 [place] [address]/[facility] LABORATORY Specimen Blood Performing Organization Address City/State/Zipcode Phone Number [facility] CLIA: [id number] [place] [address] documented in this encounter Visit Diagnoses Diagnosis Generalized abdominal pain - Primary Abdominal pain, generalized Suspected Covid-19 Virus Infection Non-intractable vomiting with nausea, un specified vomiting type Drug-induced constipation Other constipation Acute cystitis without hematuria Acute cystitis Infection in abdomen Unspecified peritonitis documented in this encounter Additional Health Concerns Infection Onset Date Last Indicated Resolved Time COVID-19 Rule Out 05/02/2020 05/02/2020 documented as of this encounter Insurance Payer Benefit Plan / Subscriber ID Effective Dates Phone Addre ss Type Group JERCARE ROGER DURAN [id number] 2019-Prese Medicare Adv PLUS PLUS nt HMO CLASSIC/VALUE documented as of this encounter
--- OUTSIDE RECORDS SUMMARY | 2020-05-21 10:17 | XMS REPORT | Summary of Care ---
:1955 Author Organization [facility] Address [address] [place] [id number] Care Team Providers Name Role Phone MD Yamil Primary Care Provider Reason for Visit Reason Comments Results urgent care lab results-requ esting copy Encounter Details Date Type Department Care Team Description 05/03/2020 Telephone [facility] Daniel Lobo MD Results (urgent care Urgent Care [address] lab results-requesting [address] [place], [place] copy) [address] [address] [place], [place] [phone] [address] [phone] Allergies Active Allergy Reactions Severity Noted Date Comments Sulfamethoxazole Nausea and/or Vomiting 08/16/2016 documented as of this encounter (statuses as of 05/07/2020) Medications Medication Sig Dispensed Refills Start Date [...] 06/29/2019 Active tabletIndications: mouth daily. Atherosclerosis of big sandy coronary artery of big sandy heart without angina pectoris, Essential hypertension, Type 2 diabetes mellitus with diabetic polyneuropathy, without long-term current use of insulin nitroglycerin 0.[address] 1 tablet 1 Bottle 5 06/29/2019 Active sublingual under the tongue tabletIndications: every 5 (five) Atherosclerosis of minutes as big sandy coronary needed for Chest artery of big sandy pain. heart without angina pectoris, Essential hypertension, [...] capsuleIndications: BPH with obstruction/lower urinary tract symptoms amoxicillin-clavulana Take 1 tablet by 20 tablet 0 05/02/2020 05/12/2020 Active te (AUGMENTIN) mouth 2 (two) 875-125 mg per times daily for tabletIndications: 10 days. Acute cystitis without hematuria, Infection in abdomen Hospital, Clinic, or Ordered Dose Route Frequency Start Date End D ate Status Other Facility Administered Medication NaCl 0.9% (NS) IV 250 mL IV Infusion CONTINUOUS 06/08/2018 Active infusion 250 mLIndications: Other chest pain DOBUTamine (DOBUTREX) 540 mcg/min IV TITRATE 06/08/2018 Active 500 mg in 250mL(Fixed Dose) D5W infusionIndications: Other chest pain documented as of this encounter (statuses as of 05/07/2020) Active Problems Problem Noted Date Low serum [...] as of this encounter (statuses as of 05/07/2020) Immunizations Name Administration Dates Next Due Influenza [...] Signs Not on filedocumented in this encounter Miscellaneous Notes Telephone Encounter - Lorena Bradford RN - 05/07/2020 6:08 PM CDTThis RN called patient to see if assistance is still needed or if they were able to access results. Patient answered and asked that this RN speak to his . This Rn asked patient's if assitance is needed and she stated that the clinic called them back yesterday and no further assistance is needed at this time. She thanked RN for calling. elephone Encounter - Miguel Bernabe - 05/05/2020 2:43 PM CDTHerbertndsaeed Wilbert Duarte is a 64 year old male Pt's spouse is calling back states experiencing trouble accessing mychart,requesting to curing pickling packer results from test Please call her back at [phone] to discuss Thank you Telephone Encounter - Arlette Lynne - 05/05/2020 10:22 AM CDTPatient calling again requesting lab results/ covid test results from 05/02/2020. Can someone give patient a call back. Thank you elephone Encounter - Matilda Rivera - 05/03/2020 1:26 PM CDTPatient wants to discuss lab results, having trouble accessing MyChart. documented in this encounter Plan of Treatment Date Type Specialty Care Team Description 06/30/2020 Office Visit Cardiology Keli Spence M D [address] [phone] Health Maintenance Due Date Last Done Comments [...] of this encounter Implants Implanted Type Area Wool Hat Sanding Machine Operator Device Identifier Shelf Exp iration Model / Date Serial / L ot Pump, Medtronic Synchromed Ii Infusion W ith Filter (20 Ml) #8637-20 - [id number] Pump Medtronic 09/18/2020 8637-20 / Implanted: Qty: 1 on 07/09/2019 by Pipe Easton MD at [facility] N [id number] / [id number] Right Total Knee documented as of this encounter Results Not on filedocumented in this encounter Insurance Payer Benefit Plan / Subscriber ID Effective Dates Phone Addre ss Type Group [employer] [place] [employer] [id number] 2019-Prese Medicare Adv PLUS PLUS nt HMO CLASSIC/VALUE documented as of this encounter
[2020-05-21 10:42] LABS: Absolute Lymphocytes (CBC) 0.8 K/uL (0.7-4.9)
[2020-05-21 10:45] LABS: Basophils % 0.4 % (0-1.3); Hematocrit 41.4 % (39.6-49.0); Lymphocytes % 13.6 % (15.3-44.8); RBC Red Blood Cell Count 5.24 M/uL (4.33-5.43)
[2020-05-21 10:57] LABS: Albumin 3.7 g/dL (3.4-5.0); Bilirubin Direct 0.4 mg/dL (0-0.2); Bilirubin Total 1.8 mg/dL (0.2-1.0); Potassium 3.6 mmol/L (3.5-5.1); Protein, Total 7.7 g/dL (6.4-8.2)
--- NOTE | 2020-05-21 11:08 | RAD REPORT ---
EXAM DESCRIPTION: CTAbdomen Pelvis W Contrast - 05/21/2020 10:48 am CLINICAL HISTORY: Abdominal pain. back pain, constipation;Abd pain COMPARISON: No comparisons TECHNIQUE: Biphasic CT imaging of the abdomen and pelvis was performed with 100 ml non-ionic IV cont rast. All CT scans are performed using dose optimization technique as appropriate and may include automated exposure control or mA/KV adjustment according to patient size. FINDINGS: 8 mm calcified granuloma in the posterior right lower lobe.Cholecystectomy clips. The liver, spleen, pancreas, adrenal glands and kidneys are within normal limits. No bowel obstruction, free air, free fluid or abscess. Moderate stool is present throughout the colon . The appendix is normal. No evidence of significant lymphadenopathy. Postsurgical changes are present involving the lumbar spine with prominent degenerative spondylosis i s present. IMPRESSION: No acute intra-abdominal or pelvic finding. Moderate constipation.
[2020-05-21] MEDS ORDERED: MAGNESIUM CITRATE 300 ML BOT ONE (11:21)
[2020-05-21] MEDS ORDERED: NA CHLORIDE 0.9% 1,000 ML ONE (11:21)
--- NOTE | 2020-05-21 11:21 | EDPHYS ---
Physician Documentation [facility] Name: Melody Duarte Age: 64 yrs Sex: Male : 1955 Arrival Date: 05/21/2020 Time: 10:13 Bed 15 Private MD: ED Physician Srinivas Lemos HPI: 05/21 10:18 This 64 yrs old Male presents to ER via EMS with complaints of Abdominal rn Pain, back pain, constipation. 10:18 The patient presents with abdominal pain. Onset: The symptoms/episode began/occurred rn yesterday. The symptoms do not radiate. Associated signs and symptoms: Pertinent positives: constipation, Pertinent negatives: nausea and vomiting, fever, hematuria, shortness of breath, vomiting. The symptoms are described as crampy. Modifying factors: The symptoms are alleviated by nothing, the symptoms are aggravated by nothing. Severity of pain: At its worst the pain was very mild in the emergency department the pain is unchanged. The patient has experienced similar episodes in the past. Reports constipation, chronic problem, seen by his doctor yesterday who prescribed magnesium citrate, did not fill, no fever. No vomiting. Reports usually miralax helps but has not tried it. Glucose 200s. No chest pain. Takes dilaudid and morphine for chronic back pain. . Historical: - Allergies: 10:35 Sulfa (Sulfonamide Antibiotics); jl7 - Home Meds: 10:35 docusate sodium 100 mg Oral cap 1 cap 2 times per day [Active]; aspirin 81 mg Oral TbEC jl7 1 tab once daily [Active]; azelastine 137 mcg (0.1 %) nasal spra 2 times per day [Active]; donepezil 5 mg oral tab 1 tab once daily [Active]; gabapentin 300 mg oral cap 1 cap 3 times per day [Active]; galantamine 12 mg oral tab 1 tab 2 times per day [Active]; glimepiride 2 mg Oral tab 1 tab once daily [Active]; hydromorphone 4 mg Oral tab 1 tab [Active]; losartan 25 mg oral tab 1 tab once daily [Active]; metformin 500 mg Oral tab 1 tab 2 times per day [Active]; nitroglycerin 0.4 mg SL subl 1 tab every 5 minutes [Active]; rosuvastatin 40 mg oral tab 1 tab once daily [Active]; tamsulosin 0.4 mg oral cp24 1 cap once daily [Active]; tizanidine 4 mg oral cap [Active]; - PMHx: 10:35 Dementia; Diabetes - NIDDM; Chronic pain; Hyperlipidemia; Hypertension; jl7 - Immunization history:: Adult Immunizations unknown. - Family history:: not pertinent. - Hospitalizations: : No recent hospitalization is reported. ROS: 10:18 Constitutional: Negative for fever, chills, and weight loss, Eyes: Negative for injury, rn pain, redness, and discharge, Cardiovascular: Negative for chest pain, palpitations, and edema, Respiratory: Negative for shortness of breath, cough, wheezing, and pleuritic chest pain, Abdomen/GI: + abd pain, + constipation Back: + chronic back pain, + fell yesterday, reports mid-low back pain MS/Extremity: Negative for injury and deformity, Skin: Negative for injury, rash, and discoloration, Neuro: Negative for headache, weakness, numbness, tingling, and seizure. Exam: 10:18 Constitutional: Disheveled man, no acute distress. Head/Face: Normocephalic, rn atraumatic. ENT: dry MM Cardiovascular: Bradycardic, regular Respiratory: Speaking full sentences, unlabored Abdomen/GI: soft, mild lower abd tenderness, + LLQ pain pump Skin: Warm, dry MS/ Extremity: Pulses equal, no cyanosis. Neuro: Awake and alert, GCS 15, oriented to person, place, and situation. Cranial nerves II-XII grossly intact. Motor strength 5/5 in all extremities. Sensory grossly intact. Vital Signs: 10:13 BP 157 / 69; Pulse 51; Resp 14; Temp 98.3; Pulse Ox 97% ; Pain 6/10; jl7 11:45 BP 165 / 63; Pulse 60; Resp 15; Pulse Ox 96% ; jl7 MDM: 10:14 Patient medically screened. rn 11:18 Differential diagnosis: bowel obstruction, diverticulitis, non-specific abd pain, rn constipation. Data reviewed: vital signs, nurses notes, lab test result(s), radiologic studies, CT scan, and as a result, I will discharge patient. Counseling: I had a detailed discussion with the patient and/or guardian regarding: the historical points, exam findings, and any diagnostic results supporting the discharge/admit diagnosis, lab results, radiology results, the need for outpatient follow up, to return to the emergency department if symptoms worsen or persist or if there are any questions or concerns that arise at home. Special discussion: Based on the patient's Hx, exam, and Dx evaluation, there is no indication for emergent surgery or inpatient Tx. It is understood by the patient/guardian that if the Sx's persist or worsen they need to return immediately for re-evaluation. I discussed with the patient/guardian in detail that at this point there is no indication for admission to the hospital. It is understood, however, that if the symptoms persist or worsen the patient needs to return immediately for re-evaluation. ED course: CT neg for acute findings, no acute back injury, + mild to moderate constipation. Recommend dc home with pcp f/u and continuation of laxatives prn with rehydration. . 05/21 10:17 Order name: Basic Metabolic Panel; Complete Time: 11:01 rn 05/21 10:17 Order name: CBC with Diff; Complete Time: 11: rn 05/21 10:17 Order name: Hepatic Function; Complete Time: 11: rn 05/21 10:17 Order name: Lipase; Complete Time: 11:01 rn 05/21 10:17 Order name: CT Abd/Pelvis - IV Contrast Only; Complete Time: 11:18 rn 05/21 11:20 Order name: CREATININE WHOLE BLOOD EDNJ 05/21 10:17 Order name: IV Saline Lock; Complete Time: 10:39 rn 05/21 10:17 Order name: Labs collected and sent; Complete Time: 10:39 rn Administered Medications: 11:00 Drug: NS 0.9% 1000 ml Route: IV; Rate: 1000 ml; Site: right antecubital; [facility] 12:05 Follow up: Response: No adverse reaction; IV Status: Completed infusion jl7 11:50 Drug: Magnesium Citrate Liquid 300 ml Route: PO; jl7 12:06 Follow up: Response: Medication administered at discharge. 7 Disposition: 05/21/20 11:20 Discharged to Home. Impression: Constipation, unspecified, Dehydration. - Condition is Stable. - Discharge Instructions: Constipation, Adult, Dehydration, Adult. - Medication Reconciliation Form, Thank You Letter, Antibiotic Education, Prescription Opioid Use form. - Follow up: Private Physician; When: As needed; Reason: Recheck today's complaints, Re-evaluation by your physician. - Problem is chronic. - Symptoms have improved. Signatures: Dispatcher [employer] EDSrinivas Whyte MD MD rn Leal, Jahala, RN RN jl7 Corrections: (The following items were deleted from the chart) 12:06 11:20 05/21/2020 11:20 Discharged to Home. Impression: Constipation, unspecified; jl7 Dehydration. Condition is Stable. Forms are Medication Reconciliation Form, Thank You Letter, Antibiotic Education, Prescription Opioid Use. Follow up: Private Physician; When: As needed; Reason: Recheck today's complaints, Re-evaluation by your physician. Problem is chronic. Symptoms have improved. rn
--- NOTE | 2020-05-21 11:21 | ER ---
Nurse's Notes [facility] Name: Melody Duarte Age: 64 yrs Sex: Male : 1955 Arrival Date: 05/21/2020 Time: 10:13 Bed 15 Private MD: Diagnosis: Constipation, unspecified;Dehydration Presentation: 05/21 10:13 Chief complaint: EMS states: Abdominal pain x 1 day, family reports last BM 3 days ago, jl7 pt reports loose BM last night. Coronavirus screen: Client denies travel out of the [place] in the last 14 days. At this time, the client does not indicate any symptoms associated with coronavirus-19. Ebola Screen: No symptoms or risks identified at this time. Initial Sepsis Screen: Does the patient meet any 2 criteria? No. Patient's initial sepsis screen is negative. Does the patient have a suspected source of infection? No. Patient's initial sepsis screen is negative. Risk Assessment: Do you want to hurt yourself or someone else? Patient reports no desire to harm self or others. Onset of symptoms was May 20, 2020. Care prior to arrival: None. Transition of care: patient was not received from another setting of care. 10:13 Method Of Arrival: EMS: [facility] jl7 10:13 Acuity: EVA 3 jl7 Triage Assessment: 10:35 General: Appears in no apparent distress. uncomfortable, Behavior is calm, cooperative, jl7 appropriate for age. Pain: Complains of pain in umbilical area Pain currently is 6 out of 10 on a pain scale. Neuro: Level of Consciousness is obeys commands, Drowsy. Oriented to person, place, time. Cardiovascular: Patient's skin is warm and dry. Respiratory: Airway is patent Respiratory effort is even, unlabored, Respiratory pattern is regular, symmetrical. GI: Abdomen is non-distended, Last BM was May 20, 2020. Bowel sounds present X 4 quads. Abd is soft X 4 quads Abd is non tender in right upper quadrant and left upper quadrant Abdomen is tender to palpation in umbilical area, right lower quadrant and left lower quadrant Patient currently denies nausea, vomiting. : No signs and/or symptoms were reported regarding the genitourinary system. Derm: Skin is pink, warm \T\ dry. Musculoskeletal: No signs and/or symptoms reported regarding the musculoskeletal system. Historical: - Allergies: 10:35 Sulfa (Sulfonamide Antibiotics); jl7 - Home Meds: 10:35 docusate sodium 100 mg Oral cap 1 cap 2 times per day [Active]; aspirin 81 mg Oral TbEC jl7 1 tab once daily [Active]; azelastine 137 mcg (0.1 %) nasal spra 2 times per day [Active]; donepezil 5 mg oral tab 1 tab once daily [Active]; gabapentin 300 mg oral cap 1 cap 3 times per day [Active]; galantamine 12 mg oral tab 1 tab 2 times per day [Active]; glimepiride 2 mg Oral tab 1 tab once daily [Active]; hydromorphone 4 mg Oral tab 1 tab [Active]; losartan 25 mg oral tab 1 tab once daily [Active]; metformin 500 mg Oral tab 1 tab 2 times per day [Active]; nitroglycerin 0.4 mg SL subl 1 tab every 5 minutes [Active]; rosuvastatin 40 mg oral tab 1 tab once daily [Active]; tamsulosin 0.4 mg oral cp24 1 cap once daily [Active]; tizanidine 4 mg oral cap [Active]; - PMHx: 10:35 Dementia; Diabetes - NIDDM; Chronic pain; Hyperlipidemia; Hypertension; jl7 - Immunization history:: Adult Immunizations unknown. - Family history:: not pertinent. - Hospitalizations: : No recent hospitalization is reported. Screenin:37 Abuse screen: Denies threats or abuse. Denies injuries from another. Nutritional jl7 screening: No deficits noted. Tuberculosis screening: No symptoms or risk factors identified. Fall Risk IV access (20 points). Total Romero Fall Scale indicates No Risk (0-24 pts). Assessment: 10:37 General: See triage assessment. jl7 11:45 Reassessment: Called and left a message, awaiting return call for pt to be picked jl7 up. Vital Signs: 10:13 BP 157 / 69; Pulse 51; Resp 14; Temp 98.3; Pulse Ox 97% ; Pain 6/10; jl7 11:45 BP 165 / 63; Pulse 60; Resp 15; Pulse Ox 96% ; jl7 ED Course: 10:13 Patient arrived in ED. jl7 10:14 Srinivas Lemos MD is Attending Physician. rn 10:16 Triage completed. jl7 10:35 Arm band placed on right wrist. jl7 10:37 Patient has correct armband on for positive identification. Placed in gown. Bed in low jl7 position. Call light in reach. Side rails up X 1. Pulse ox on. NIBP on. 10:37 Warm blanket given. jl7 10:37 Initial lab(s) drawn, by wv, sent to lab. Inserted saline lock: 20 gauge in right jl7 antecubital area, using aseptic technique. Blood collected. 10:48 CT Abd/Pelvis - IV Contrast Only In Process Unspecified. EDMS 11:07 Kathy Pastrana, RN is Primary Nurse. jl7 12:06 No provider procedures requiring assistance completed. IV discontinued, intact, jl7 bleeding controlled, No redness/swelling at site. Pressure dressing applied. Administered Medications: 11:00 Drug: NS 0.9% 1000 ml Route: IV; Rate: 1000 ml; Site: right antecubital; jl7 12:05 Follow up: Response: No adverse reaction; IV Status: Completed infusion jl7 11:50 Drug: Magnesium Citrate Liquid 300 ml Route: PO; jl7 12:06 Follow up: Response: Medication administered at discharge. jl7 Outcome: 11:20 Discharge ordered by . rn 12:06 Discharged to home via wheelchair, with family. jl7 12:06 Condition: stable 12:06 Discharge instructions given to patient, family, Instructed on discharge instructions, follow up and referral plans. Demonstrated understanding of instructions, follow-up care. 12:06 Patient left the ED. jl7 Signatures: Dispatcher [employer] EDPA Srinivas Lemos MD MD rn Leal, Jahala, JOSE F RN jl7
[2020-05-21 12:15] VITALS: TEMP 98.3
[2020-05-21 12:16] VITALS: BP 165/63; O2SAT 96
== END 2020-05-21 12:06 | disposition home or self-care (01) ==
LOC: ER 10:10
DX: E86.0 Dehydration (principal); I10 Essential (primary) hypertension; E78.5 Hyperlipidemia, unspecified; E11.9 Type 2 diabetes mellitus without complications; F03.90 Unspecified dementia, unspecified severity, without behavioral disturbance, psychotic disturbance, mood disturbance, and anxiety; Z79.82 Long term (current) use of aspirin; Z88.2 Allergy status to sulfonamides
CPT/HCPCS: 85025; 80048; 36415; 82565; 80076; 83690; 74177; 96360; 99284; Q9967; J7030

== ENCOUNTER 2020-10-30 14:54 | Observation (INO) | payer OTHER ==
--- OUTSIDE RECORDS SUMMARY | 2020-10-30 14:58 | XMS REPORT | Continuity of Care Document ---
:1955 Author Organization [facility] t Address [address] [place] [address] Care Team Providers Name Role Phone Sharpless Primary Care Physician 2, Lab Attending Clinician Unavailable Lacey THOMPSON Attending Clinician Merchant THOMPSON Attending Clinician IRINA Attending Clinician Unavailable Irina THOMPSON Attending Clinician Jen Castano MD Attending Clinician MEGHA Attending Clinician Unavailable LEYDA Attending Clinician Unavailable Donald Cleveland Attending Clinician JEN CASTANO Admitting Clinician Unavailable Donald Cleveland Admitting Clinician Payers Payer Name Policy Type Policy Effective Date Expiration Date Sour ce Number WELLCARE MEDICARE [id number] [facility] MGD CAREWELLCARE 00:00:00 - Medica l [id number] Center 21-Present CARE IMPROVEMENT [id number] [facility] MEDICARE MGD 00:00:00 - Medical CARECARE Center IMPROVEMENT [id number] Problems Condition Condition Condition Status Onset Resolution Last Treating Co mments Source Name Details Category Date Date Treatment Clinician Date Acute Acute Disease Active [facility] pulmonary 1-08 [facility] - embolism embolism 00:00: Medica l 00 Center Opiate Opiate Disease Active [facility] withdrawal withdrawal 1-08 Parvin kes - 00:00: Medical 00 Center Pneumonia Pneumonia Disease Active [facility] - [facility] 00 Center Weakness Weakness Disease [facility] - [facility] Medical 00 Center PAINFUL Diagnosis Active 2016-092017-08-22 Va moria TKA 10-03 16:59:00 l PAINFUL 00:00: Malick TKA 00 Active 08/03/2017 [facility] [place] Diabetes Problem Active 2017-08-22 Mem oria mellitus [...] M emoria c opioid 01:57:15 l induced [place] constipati Therapeuti on c opioid (disorder) induced constipati on (disorder) Active Problem 08/22/2017 [facility] Diabetes Problem Active 2017-08-22 Mem oria mellitus 01:57:15 l type 2 Diabetes Ken n (disorder) mellitus type 2 (disorder) Active Problem 08/22/2017 [facility] Arthritis Problem Active 2017-08-22 Me moria (disorder) [...] Type Date Date Clinician sulfamet sulfamet Active Memori a hoxazole hoxazole koby Teresa Social History Social Habit Start Date Stop Date Quantity Comments Source Sex Assigned At [facility] Social History 2017-08-09 2017-08-09 [facility] 20:40:47 20:40:47 Tobacco use and 2015-10-17 2015-10-17 Never used [facility] exposure 00:00:00 00:00:00 [facility] Alcohol intake 2015-10-17 2015-10-17 [facility]:00 non-drinker of Medical nter alcohol (finding) Smoking Status Start Date Stop Date Source Never smoker [facility] edical [place] Medications Ordered Filled Start Stop Current Ordering Indication Dosage Frequency Signature Comments Components Source Medication Medication Date Date Medication? Clinician (SIG) Name Name rivaroxaban 2020- Yes 20mg Take [address] [facility] (XARELTO) 09-13 03-19 tablet (20 Renny es - 20 mg Tab 00:00: 23:59 mg total) Va dical tablet 00 :00 by mouth Center daily with dinner for 69 days. rivaroxaban 2020- No 15mg Take 1 [facility] (XARELTO) 09-1330 tablet (15 Renny es - 15 mg Tab 00:00: 23:59 mg total) Me dical tablet 00 :00 by mouth 2 Center (two) times daily with breakfast and dinner for 21 days. rosuvastati 0 Yes 40mg QD Take [address] [facility] n (CRESTOR) 1-08 by mouth Luke s - 40 MG 18:03: daily. Medical tablet 17 Center metFORMIN 0 Yes 500mg Take [address] (GLUCOPHAGE 1-08 mg by [facility]ukes - ) 500 MG 18:03: mouth 2 Medica l tablet 17 (two) Center times daily with breakfast and dinner. glimepiride 0 Yes 2mg Take [address] (AMARYL) 2 -08 by mouth [facility]ukes - MG tablet 18:03: every Medical 17 morning Center before breakfast. tiZANidine 0 Yes 4mg Q.5D Take [address] (ZANAFLEX) -08 by mouth 2 Renny es - 4 MG tablet 18:03: (two) Medic al 17 times Center daily. promethazin 0 Yes 25mg Take [address] e -08 by mouth [facility]ukes - (PHENERGAN) 18:03: every 6 Med ical 25 MG 17 (six) Center tablet hours as needed for Nausea. lisinopril 0 Yes 20mg QD Take [address] (PRINIVIL,Z -08 by mouth Luke s - ESTRIL) 20 18:03: daily. Medic al MG tablet 17 Center HYDROmorpho 0 Yes 4mg Take [address] ne 08 by mouth [facility] - (DILAUDID) 18:03: every 8 Medi gregory 4 MG tablet 17 (eight) Cente r hours as needed for Pain. donepezil 0 Yes 5mg QD Take [address] (ARICEPT) 5 -08 by mouth Luke s - MG tablet 18:03: nightly. Medi gregory 17 Center MORPHINE [address] SULFATE -08 Miscellane [facility] - (MORPHINE, 18:03: ous route. Ashvin FORD, [facility]) 17 Center celecoxib 2020-0 2020- No 200mg Take [address] (CELEBREX) -08 01-08 mg by [facility]ukes - 200 MG 09:53: 00:00 mouth Medical capsule 50 :00 every 12 Center (twelve) hours as needed for Pain. apixaban 2020- No Take [address] [facility] (ELIQUIS) 5 09-12 tablets Luke s - mg Tab 00:00: 00:00 (10 mg Medical tablet 00 :00 total) by Center mouth 2 (two) times daily for 7 days, THEN 1 tablet (5 mg total) 2 (two) times daily for 83 days. POLYETHYLEN 2016-09 No Notes: Nickolas emeka E GLYCOL 2-16 Dissolve l 3350 15:00: in 8 oz of [place] 00 water or juice. (Same as: Miralax) remove 2016-09 No Notes: Memoria patch 2-16 Remove old l 15:00: patch [place] 00 before applicatio n of new patch. Aspirin 325 2016-09 No Notes: (Do Memoria MG Enteric 2-16 Not Crush) l Coated 14:00: Do not [place] Tablet 00 crush or chew. pantoprazol 2016-09 No Notes: Nickolas emeka e 2-16 Tablet l 13:30: should not [place] 00 be chewed or crushed. (Same as: Protonix) rosuvastati 2016-09 No Notes: Nickolas emeka n 2-16 (Same As: l 03:00: Crestor) [place] 00 Requip 2016-09 No Notes: Memoria 2-16 (Same as: l 03:00: Requip) [place] 00 donepezil 2016-09 No Notes: Memori a 2-16 (Same as: l 03:00: Aricept) [place] 00 sennosides, 2016-09 No Notes: Nickolas emeka SNF 2-16 (Same as: l 03:00: Senokot) [place] 00 Celebrex 2016-09 No Notes: Memoria 2-16 NSAID. l 00:00: Please [place] 00 check indication . Not for seizure. (Same As: CeleBREX) Vancomycin 2016-09 Yes 2001 mg: Me moria 2-16 infuse l 00:00: over 2.5 [place] 00 hours MEDICATION WASTE Product Size: 1000 mg Product Wasted: ___ mg Ergocalcife 2016-09 Yes 50,000 Nickolas emeka rol 87189 2-15 IntlUnit = l UNT Oral 23:26: 1 cap, PO, Her cervantes Capsule 00 Q7D, # 8 caplet, 0 Refill(s) metFORMIN 2016-09 No Notes: Memori a 500 mg oral 2-15 (Same as: l tablet, 23:00: Glucophage Herm ely extended 00 XR) "Do release Not Crush" Docusate 2016-09 No Notes: Memoria Sodium 100 2-15 (Same as: l MG Oral 23:00: Colace) [place] Capsule 00 (Do Not Crush) Lyrica 2016-09 No Notes: Memoria 2-15 Same as l 22:00: Lyrica [place] 00 Aspirin 325 2016-09 Yes 325 mg = 1 Memoria MG Enteric 2-15 tab, PO, l Coated 20:33: BID, # 60 Ken n Tablet 00 tab, 0 Refill(s) Cefazolin 2016-09 No Notes: Memori a 2-15 (Same As: l 20:00: Ancef, [place] Kefzol) MEDICATION WASTE Product Size: 1000 mg Product Wasted: ___ mg Dextrose 2016-09 No 25 gm, 50 Nickolas emeka 50% Syringe 2-15 mL, Route: l 17:50: IVP, Drug [place] 00 Form: INJ, Dosing Weight 102.273, kg, PRN, PRN Blood Glucose Results, Start date: 08/19/17 11:50:00 MEDICAL RESEARCH ASSISTANT, Duration: 30 day, Stop date: 09/18/17 11:49:00 MEDICAL RESEARCH ASSISTANT Insulin 2016-09 No Notes: Memoria Lispro 2-15 (Same as: l 17:50: Humalog ) Roll in palms of hands gently; Do not shake `vigorousl y. "Single Patient Use Only " WASTE: F/P - Black; E - Municipal Trash Bin Stable for 28 days at room temperatur e. Expires in days from ____Date Glucagon 2016-09 No 1 mg, Memoria 2-15 Route: IM, l 17:50: Drug form: [place] 00 PDR/INJ, PRN, Dosing Weight 102.273, kg, PRN Blood Glucose Results, Start date: 08/19/17 11:50:00 MEDICAL RESEARCH ASSISTANT, Duration: 30 day, Stop date: 09/18/17 11:49:00 MEDICAL RESEARCH ASSISTANT Ergocalcife 2016-09 No Notes: Nickolas emeka rol 33653 2-15 (Same as: l UNT Oral 16:00: Vitamin D) Her cervantes Capsule "Do Not Crush" tizanidine 2016-09 No Notes: Memor ia 2-15 (Same As: l 15:30: Zanaflex) Insulin 2016-09 No Notes: Memoria Lispro 2-15 (Same as: l 15:30: Humalog ) Roll in palms of hands gently; Do [...] 2-15 not exceed l 15:30: 4 gm/day. [place] 00 (Same as: Tylenol) Hydroxyzine 2016-09 No Notes: [...] Total Volume: 1,000, Start date: 08/19/17 9:30:00 MEDICAL RESEARCH ASSISTANT, Duration: 30 day, Stop date: 09/18/17 9:29:00 MEDICAL RESEARCH ASSISTANT, 2.35, m2 Promethazin 2016-09 No Notes: Do M emoria e 2-15 not give l 13:38: IV push. [place] (Same as: Phenergan) Ondansetron 2016-09 No Notes: [...] Memoria 2-15 Same as l 13:38: Narcan Flumazenil 2016-09 No Notes: Memor ia 2-15 (Same as: l 13:38: Romazicon) Hydromorpho 2016-09 No Notes: Nickolas emeka ne 2-15 (Same as: l 13:38: Dilaudid) Morphine 2016-09 No Notes: Memoria 2-15 (Same l 13:38: as:MORPhin [place] e Sulfate) Labetalol 2016-09 No 10 mg, 2 Nickolas emeka 2-15 mL, Route: l 13:38: IVP, Drug form: INJ, Q5Min, Dosing Weight 102.273, kg, PRN Elevated BP, Start date: 08/19/17 7:38:00 MEDICAL RESEARCH ASSISTANT, Duration: 5 doses or times, Stop date: 08/19/17 22:00:00 MEDICAL RESEARCH ASSISTANT Hydralazine 2016-09 No Notes: Nickolas emeka 2-15 (Same as: l 13:38: Apresoline ) Push over 5 minutes vancomycin 2016-09 [...] moria 2-15 infuse l 12:00: over 2.5 [place] 00 hours Cefazolin 2016-09 No Notes: Memori a 2-15 (Same As: l 12:00: Ancef, [place] 00 Kefzol) MEDICATION WASTE Product Size: 1000 mg Product Wasted: ___ mg Vancomycin 2016-09 No 1,534.095 Me moria 2-15 mg, Route: l 12:00: IVPB, [place] 00 ONCALL, Dosing Weight 102.273, kg, Start date: 08/19/17 6:00:00 MEDICAL RESEARCH ASSISTANT, Duration: 1 doses or times, ABX Indication : Surgical Prophylaxi s celecoxib 2016-09 No Notes: Memori a 2-15 NSAID. l 12:00: Please [place] 00 check indication . Not for seizure. (Same As: CeleBREX) 72 HR 2016-09 No Notes: Memoria Scopolamine 2-15 Change l 0.0139 11:24: patch [place] MG/HR 00 every 72 Transdermal hours Patch (Same as: Transderm- Scop) Calcium 2016-09 No 1,000 mL, Memor ia Chloride 2-15 1,000 l 0.0014 11:24: ml/hr, [place] MEQ/ML / 00 Infuse Potassium Over: 1 Chloride hr, Route: 0.004 IV, 1,000, MEQ/ML / Drug form: Sodium INJ, ONCE, Chloride Priority: 0.103 STAT, MEQ/ML / Dosing Sodium Weight Lactate 105.909 0.028 kg, Start MEQ/ML date: Injectable 08/19/17 Solution 5:24:00 MEDICAL RESEARCH ASSISTANT, Stop date: 08/19/17 5:24:00 MEDICAL RESEARCH ASSISTANT Lactated 2016-09 No 1,000 mL, Nickolas emeka Ringers IV 2-15 Rate: 100 l 1,000 mL 11:24: ml/hr, [place] 00 Infuse over: 10 hr, Route: IV, Dosing Weight 102.273 kg, Total Volume: 1,000, Start date: 08/19/17 5:24:00 MEDICAL RESEARCH ASSISTANT, Duration: 30 day, Stop date: 09/18/17 5:23:00 MEDICAL RESEARCH ASSISTANT, 2.35, m2 Acetaminoph 2016-09 No Notes: Max Memoria en 2-15 acetaminop l 11:24: hen 4000 [place] 00 mg/day (4 gm/day). (Same as: Tylenol Extra Strength) Famotidine 2016-09 No Notes: Memor ia 2-15 (Same as: l 11:24: Pepcid) [place] 00 linaclotide 2016-09 Yes 290 Memori a 0.29 MG 2-05 microgram l Oral 20:49: = 1 cap, [place] Capsule 00 PO, Daily, [Linzess] PRN Constipati on, 30 minutes prior to the first meal of the day, # 30 cap, 0 Refill(s) MORPHINE 2016-09 Yes MORPHINE Memor ia PAIN PUMP 2-05 PAIN PUMP, l 20:49: Refill(s) [place] 00 0 donepezil 5 2016-09 No 5 [...] PO, l oral tablet 20:46: Bedtime, # [place] 00 90 tab, 1 Refill(s) Azelastine 2016-09 Yes 2 spray, Mem oria hydrochlori 2-05 NASAL, l de 0.137 20:45: BID, 0 [place] MG/ACTUAT 00 Refill(s) Metered Dose Nasal [place] metFORMIN 2016-09 No 500 mg = 1 [...] [place] MG/ACTUAT 00 Refill(s) Metered Dose Nasal [place] linaclotide 2016-09 No 290 Memori a 0.29 [...] tab, PO, l tablet 20:43: Daily, # [place] 00 30 tab, 0 Refill(s) ropinirole 2016-09 No 1 mg = 1 Mem oria 1 MG Oral 2-05 tab, PO, l Tablet 20:43: Bedtime, # Suzy nn [Requip] 00 30 tab, 1 Refill(s) rosuvastati 2016-09 Yes 40 mg = 1 M emoria n 40 mg 2-05 tab, PO, l oral tablet 20:43: Bedtime, # [place] 00 30 tab, 0 Refill(s) Vital Signs Vital Name Observation Time Observation Value Comments Source Systolic blood 2020-09-12 11:42:00 138 mm[Hg] [facility] Diastolic blood 2020-09-12 11:42:00 76 mm[Hg] [facility] Heart rate 2020-09-12 11:42:00 69 /min [facility] Body temperature 2020-09-12 11:42:00 36.72 [facility] Respiratory rate 2020-09-12 11:42:00 19 /min [facility] Oxygen saturation in 2020-09-12 11:42:00 100 /min [facility] Arterial blood by Medical Ce nter Pulse oximetry Body height 2020-09-10 22:00:00 190.5 cm [facility] Body weight 2020-09-10 22:00:00 99.746 kg [facility] BMI 2020-09-10 22:00:00 27.49 kg/m2 [facility] Respitory Rate 2017-08-19 21:15:00 Memori al [place] Systolic (mm Hg) 2017-08-19 21:15:00 Nickolas rial [place] Diastolic (mm Hg) 2017-08-19 21:15:00 Mem orial [place] Temperature Oral (F) 2017-08-19 21:15:00 97.7 F [facility] [place] Heart Rate 2017-08-19 21:15:00 [facility] [place] Systolic (mm Hg) 2017-08-19 16:23:00 Nickolas rial [place] Diastolic (mm Hg) 2017-08-19 16:23:00 Mem orial [place] Respitory Rate 2017-08-19 16:23:00 Shirin al [place] Heart Rate 2017-08-19 16:23:00 [facility] [place] Heart Rate 2017-08-19 16:20:00 [facility] [place] Temperature Oral (F) 2017-08-19 16:20:00 96.9 F [facility] [place] Systolic (mm Hg) 2017-08-19 16:20:00 Nickolas salas [place] Diastolic (mm Hg) 2017-08-19 16:20:00 Mem orial [place] Respitory Rate 2017-08-19 16:20:00 Memori al [place] Temperature Oral (F) 2017-08-19 11:25:00 97.8 F [facility] [place] BMI Calculated 2017-08-19 11:20:00 Memjudy al [place] Weight 2017-08-19 11:20:00 [facility] [place] Height 2017-08-19 11:20:00 193.04 cm [facility] Procedures Procedure Date / Time Performing Clinician Source Performed CT CHEST PE TEST DESIGN 2020-09-12 09:10:00 Sp Castano [facility] POCT-GLUCOSE METER 2020-09-11 [facility]47[facility] POCT-GLUCOSE METER 2020-09-11 17:02:[facility] URINALYSIS WITH 2020-09-11 12:07:00 Sp Castano [facility] - MICROSCOPIC IF INDICATED [facility] URINALYSIS MICROSCOPIC 2020-09-11 12:07:00 Sp Castano [facility] POCT-GLUCOSE METER 2020-09-11 11:09:00 [facility] POCT-GLUCOSE METER 2020-09-11 08:32:[facility] TROPONIN I 2020-09-11 06:07:00 Sp Castano [facility] SARS-COV2/INFLUENZA/RSV 2020-09-11 05:50:00 Sp Castano [facility] - RT-PCR [facility] RESPIRATORY PANEL [facility] 2020-09-11 05:50:[address] [facility] BLOOD CULTURE 2020-09-11 01:00[facility]00 [facility] 2020-09-11 00:52:00 [facility] CBC W/PLT COUNT & AUTO 2020-09-11 00:46:00 Sp Castano [facility] BASIC METABOLIC PANEL (7) 2020-09-11 00:46:00 [facility] 2020-09-11 00:46[facility] [facility] TROPONIN I 2020-09-11 00:46:00 [facility] CREATINE KINASE (CK) 2020-09-11 00:46:00 [facility] LACTIC ACID, VENOUS 2020-09-11 00:46:00 [facility] TSH/FREE T4 IF INDICATED 2020-09-11 00:46:00 [facility] FERRITIN 2020-09-11 00:46:00 [facility] D-DIMER 2020-09-11 00:46:00 [facility] LACTATE DEHYDROGENASE 2020-09-11 00:46:00 [facility] C-REACTIVE PROTEIN 2020-09-11 00:46:00 [facility] REPORT OF PROCEDURE - 2020-09-10 00:00:00 ProviderGunjan [facility] [U] XRAY KNEE 3 VWS RIGHT 2017-10-11 [facility]:00[facility] [address] [facility] XRAY KNEE 3 VWS RIGHT 2017-10-04 00:00:00 [facility] [address] [facility] [QLH] HEMOGLOBIN A1c 2017-07-20 00:00:00 [facility] Arthroscopic procedure [facility] [place] Back fusion [facility] [place] Cholecystectomy [facility] [place] Implantation of sacral [facility] [place] nerve stimulator<sup>1</sup> Insertion of implantable Memoria l [place] intrathecal pump<sup>2</sup> Knee replacement Leilani Mayoan n Procedure on foot Leilani Almonte nn Plan of Care Planned Activity Planned Date Details Comments Source Future Scheduled 2029-11-06 DTAP/TDAP/TD [facility] Test 00:[facility]:00 VACCINES (2 - Td) Medical Ce nter [code = DTAP/TDAP/TD VACCINES (2 - Td)] Future Scheduled 2016-10-[address] [facility] - Test 00:00:00 WELLNESS (YEAR 2 or Medical Center FIRST YEAR if no IPPE) [code = MEDICARE ANNUAL WELLNESS (YEAR 2 or FIRST YEAR if no IPPE)] Future Scheduled 2006 SHINGLES VACCINES ([address] [facility] - Test 00:00:00 of 2) [code = [facility] SHINGLES VACCINES (1 of 2)] Future Scheduled [address] [facility] - Test 00:00:00 (procedure) [code = [facility] 07659865] Future Scheduled [address] [facility] - Test 00:00:00 SCREENING [code = Medical Ce nter HEPATITIS C SCREENING] Future Scheduled [address] [facility] - Test 00:00:00 malignant neoplasm Medical C enter of colon (procedure) [code = 496241088] Encounters Start End Encounter Admission Attending Care Care Encounter Source Date/Time Date/Time Type Type Clinicians Facility Department ID 2020-10-27 2020-10-27 Plant Machinist 2, Adc Lab [facility] [id number] 10:38:49 10:53:49 Visit Abel [id number] Scott [id number] Professio [phone] [facility] [address] [facility] 2020-10-27 2020-10-27 Office Lacey [facility] [id number] 09:21:16 09:56:15 Visit Elijah Roman [id number] Scott [id number] Professio [phone] [address] 2017-10-13 2017-10-13 AppointTRINH Kidd [facility] [id number] Univers 10:15:00 10:15:00 t; [facility] [place] [facility] Lesley Doty M.D. Physici ans 2017-10-05 2017-10-05 AppointTRINH Kidd [facility] [id number] Univers 13:45:00 13:45:00 t; [facility] [place] [facility] Lesley Doty M.D. Physici ans 2017-09-02 2017-09-02 AppointTRINH Wan [facility] [id number] Univers 10:00:00 10:00:00 t; Angel [place] KELLY, Physici P.A. ans 2017-08-19 2017-08-19 Outpatient Megha [facility] [id number] 05:05:00 18:00:[address] [place] [address] 2017-08-19 2017-08-19 AppointTRINH Kidd [facility] [id number] Univers 09:00:00 09:00:00 t; [place]Y [place] it y [facility] [place], M.D. [place] M.D. Physici ans 2017-07-20 2017-07-20 AppointTRINH Kidd [facility] [id number] Univers 12:30:00 12:30:00 t; [place]Y [place] it y [facility] [place], M.D. [place] M.D. Physici ans Results Test Description Test Time Test Comments Results Result Comments Source Blood Culture - Routine (Right Venipuncture) 2020-09-16 03:0 1:00 Test Item Value Reference Range Interpretation Comme nts Result (test code = 6463-4) [id number]00 Test Item Value Reference Range Interpretation Comments CULTURE (BEAKER) (test No growth in 5 days code = 1095) BLOOD [id number] 03:01:00 Test Item Value Reference Range Interpretation Comments CULTURE (BEAKER) (test No growth in 5 days code = 1095) CT, CHEST WITH IV CONTRAST- PE TEST [id number] 09:38:00Unlisted Reason for Exam - Click Yes and Enter Reason Below->No [facility] : 1955 Sex: MFINAL REPORT TECHNIQUE: CT of the chest WITH intravenous contrast (pulmonary embolism protocol). Dose modulation, iterative reconstruction, and/or weight-based adjustment of the mA/kV was utilized to reduce the radiation dose to as low as reasonably achievable. INDICATION: PE suspected, intermediate prob, positive D-dimer COMPARISON: None. FINDINGS: LINES/TUBES: None. PULMONARY ARTERIES: Proximal to the bifurcation of the main pulmonary artery, the main pulmonary artery is 2.8 cm in diameter. There is nonocclusive filling defect within the right lower lobe arebranch. (Axial image 83). There is also a nonocclusive filling defect at the bifurcation of the leftlower lobe segmental branches involving the posterior and lateral segments. There is also a filling d efect within the left lower lobe anterior segmental branch. LUNGS AND AIRWAYS: Central airways are patent. There is mild diffuse bronchial wall thickening in the lung bases. There are clustered irregular nodular tree-in-bud opacities within the basilar segments of the left lower lobe. (See axial image42).. Few bilateral subcentimeter calcified granulomas. PLEURA: The pleural spaces are clear. HEART AND MEDIASTINUM: The visualized thyroid gland is normal. No significant mediastinal, hilar, or axillary lymphadenopathy. The heart and pericardium are within normal limits. SOFT TISSUES AND BONES: Degenerative changes in the spine. No suspicious osseous lesion.. UPPER ABDOMEN: Prior cholecystectomy.. IMPRESSION:Acute bilateral lower lobe pulmonary emboli. No evidence of right heart strain.. Clusteredirregular nodular tree-in-bud opacities within the left lower lobe likely related to infectious bronchiolitis. Sequelae of healed granulomatous disease. Bilateral lower lobe PE findings were relayed toDr. Negron at 9:37 am. Via Game Cl[employer]. Signed: Jovita Doherty MDReport Verified Date/Time: 09/12/2020 09:38:21 Reading Location: [facility] Diagnostic Imaging Reading Room - [place] [address] CT chest for pulmonary embolus 2020-09-12 09:38:00Interface, External Ris In - 09/12/2020 9:40 AM CSTFINAL REPORT TECHNIQUE: CT of the chest WITH intravenous contrast (pulmonary embolism protocol). Dose modulation, iterative rec onstruction, and/or weight-based adjustment of the mA/kV was utilized to reduce the radiation dose to as low as reasonably achievable. INDICATION: PE suspected, intermediate prob, positive D-dimer COMPARISON: None. FINDINGS: LINES/TUBES: None. PULMONARY ARTERIES: Proximal to the bifurcation of the main pulmonary artery, the main pulmonary artery is 2.8 cm in diameter. There is nonocclusive fillingdefect within the right lower lobe are branch. (Axial image 83). There is also a nonocclusive filling defect at the bifurcation of the left lower lobe segmental branches involving the posterior and lateral segments. There is also a filling defect within the left lower lobe anterior segmental branch. LUNGS AND AIRWAYS: Central airways are patent. There is mild diffuse bronchial wall thickening in the lung bases. There are clustered irregular nodular tree-in-bud opacities within the basilar segments of the left lower lobe. (See axial image 42).. Few bilateral subcentimeter calcified granulomas. PLEURA: The pleural spaces are clear. HEART AND MEDIASTINUM: The visualized thyroid gland is normal. No significant mediastinal, hilar, or axillary lymphadenopathy. The heart and pericardium are within normal limits. SOFT TISSUES AND BONES: Degenerative changes in the spine. No suspicious osseous lesion.. UPPER ABDOMEN: Prior cholecystectomy.. IMPRESSION:Acute bilateral lower lobe pulmonary emboli. No evidence of right heart strain.. Clustered irregular nodular tree-in-bud opacities within the left lowerlobe likely related to infectious bronchiolitis. Sequelae of healed granulomatous disease. Bilaterallower lobe PE findings were relayed to Dr. Negron at 9:37 am. Via Game [employer]. Signed: Jovita Doherty Verified Date/Time: 09/12/2020 09:38:21 Reading Location: [facility] Diagnostic Imaging Reading Room - [place] [id number] [facility] POC-Glucose [id number] 20:59:00 Test Item Value Reference Range Interpretation Comments POC-Glucose Meter (test 146 mg/dL 70-110 H : No tified RN/MD: code = 1538) TESTED AT [address], [address]: Medical Research Assistant/Techni keren ID = [id number] for NOHEMY RODRIGUEZ Lab Interpretation (test Abnormal code = 68378-7) [facility] [id number] 20:59:00 Test Item Value Reference Range Interpretation Comments POC-GLUCOSE METER 146 mg/dL 70-110 H : Notified RN/MD: (NELSON) (test code = TESTED AT [place] [address] 1538) [facility], [address]: Medical Research Assistant/Techni keren ID = [id number] for LORENZO NGY POCT-GLUCOSE [id number] 17:20:00 Test Item Value Reference Range Interpretation Comments POC-GLUCOSE METER 141 mg/dL 70-110 H : TESTED A T [place] [address] ([facility]) (test code = [facility], 1538) [address]: Medical Research Assistant/Techni keren ID = [id number] for CADETTRACEY GAY TTE Respiratory Panel [id number] 15:25:00 Test Item Value Reference Range Interpretation Comments Human Metapneumovirus Not detected Not detected, (test code = 80990-0) Equivocal Rhinovirus (test code = Not detected Not detected, 33679-6) Equivocal INFLUENZA A (NO Not detected Not detected, SUBTYPE) (test code = Equivocal 56818-4) Influenza A subtype H1 (test code = 08725-4) Influenza A Subtype H3 (test code = 26870-7) Influenza A Subtype H1-2009 (test code = 80733-2) Influenza B (test code Not detected Not detected, = 96106-1) Equivocal Respiratory Syncytial Not detected Not detected, Virus (test code = Equivocal 18110-1) Parainfluenza Virus 1 Not detected Not detected, (test code = 02008-8) Equivocal Parainfluenza Virus 2 Not detected Not detected, (test code = 67189-4) Equivocal Parainfluenza virus 3 Not detected Not detected, (test code = 06793-0) Equivocal Parainfluenza Virus 4 Not detected Not detected, (test code = 99956-5) Equivocal Adenovirus (test code = Not detected Not detected, 08508-1) Equivocal Coronavirus 229E (test Not detected Not detected, code = 28374-4) Equivocal Coronavirus HKU1 (test Not detected Not detected, code = 05785-0) Equivocal Coronavirus NL63 (test Not detected Not detected, code = 26284-9) Equivocal Coronavirus OC43 (test Not detected Not detected, code = 81433-3) Equivocal Bordetella Pertussis Not detected Not detected, (test code = 62522-4) Equivocal Chlamydophila Not detected Not detected, Pneumoniae (test code = Equivocal 43730-1) Mycoplasma Pneumoniae Not detected Not detected, (test code = 52498-7) Equivocal JEFF (test code = JEFF) Other viruses and bacteria not targeted by this PCR panel cannot be excluded; therefore clinical correlation and follow up of serology, culture results, and other molecular studies is required. The results are not intended to be used as the sole means for clinical diagnosis or patient management decisions. This sample was tested at the [facility] Molecular Diagnostics Laboratory using the yuilop SLArray Respiratory Panel. It is FDA cleared and has been verified and approved by the [facility] Molecular Diagnostics Laboratory for clinical use on nasopharyngeal swab specimens. The performance of the FilmArray RP has not been established in individuals who received influenza vaccine. Recent administration of a nasal influenza vaccine may cause false positive results for Influenza A and/orInfluenza B. [facility] [id number] 15:25:00 Test Item Value Reference Range Interpretation Comments HUMAN METAPNEUMOVIRUS Not detected Not detected, (BEAKER) (test code = 2683) Equivocal RHINOVIRUS (BEAKER) (test Not detected Not detected, code = 2684) Equivocal INFLUENZA A (BEAKER) (test Not detected Not detected, code = 2685) Equivocal INFLUENZA A (NO SUBTYPE) (test code = 3606) INFLUENZA A SUBTYPE H1 (BEAKER) (test code = 2686) INFLUENZA A SUBTYPE H3 (BEAKER) (test code = 2687) INFLUENZA A SUBTYPE H1-2009 (BEAKER) (test code = 3198) INFLUENZA B (BEAKER) (test Not detected Not detected, code = 2688) Equivocal RESPIRATORY SYNCYTIAL VIRUS Not detected Not detected, (BEAKER) (test code = 3199) Equivocal PARAINFLUENZA VIRUS 1 Not detected Not detected, (BEAKER) (test code = 2691) Equivocal PARAINFLUENZA VIRUS 2 Not detected Not detected, (BEAKER) (test code = 2692) Equivocal PARAINFLUENZA VIRUS 3 Not detected Not detected, (BEAKER) (test code = 2693) Equivocal PARAINFLUENZA VIRUS 4 Not detected Not detected, (BEAKER) (test code = 3200) Equivocal ADENOVIRUS (BEAKER) (test Not detected Not detected, code = 2694) Equivocal CORONAVIRUS 229E (BEAKER) Not detected Not detected, (test code = 3201) Equivocal CORONAVIRUS HKU1 (BEAKER) Not detected Not detected, (test code = 3202) Equivocal CORONAVIRUS NL63 (BEAKER) Not detected Not detected, (test code = 3203) Equivocal CORONAVIRUS OC43 (BEAKER) Not detected Not detected, (test code = 3204) Equivocal BORDETELLA PERTUSSIS Not detected Not detected, (BEAKER) (test code = 3205) Equivocal CHLAMYDOPHILA PNEUMONIAE Not detected Not detected, (BEAKER) (test code = 3206) Equivocal MYCOPLASMA PNEUMONIAE Not detected Not detected, (BEAKER) (test code = 3207) Equivocal Other viruses and bacteria not targeted by this PCR panel cannot be excluded; therefore clinical correlation and follow up of serology, culture results, and other molecular studies is required. The results are not intended to be used as the sole means for clinical diagnosis or patient management decisions. This sample was tested at the [facility] Molecular Diagnostics Laboratory using the yuilop SLArray Respiratory Panel. It is FDA cleared and has been verified and approved by the [facility] Molecular Diagnostics Laboratory for clinical use on nasopharyngeal swab specimens.The performance of the FilmArrayRP has not been established in individuals who received influenza vaccine. Recent administration ofa nasal influenza vaccine may cause false positive results for Influenza A and/orInfluenza B.Urinalysis with Microscopic If [id number] 12:34:00 Test Item Value Reference Range Interpretation Comments Color, UA (test code = Yellow 5778-6) Clarity, UA (test code = Clear 5767-9) Specific [place], UA (test 1.024 1.001-1.035 code = 5811-5) pH, UA (test code = 6.0 5.0-8.0 5803-2) Protein, UA (test code = 10 mg/dL Negative A 06382-4) Glucose, UA (test code = Negative Negative 365) Ketones, UA (test code = 10 mg/dL Negative A 2514-8) Bilirubin, UA (test code = Negative Negative 02132-0) Blood, UA (test code = Negative Negative 18594-6) Nitrite, UA (test code = Negative Negative 5802-4) Leukocytes, UA (test code Negative Negative = 5799-2) Urobilinogen, UA (test 3.0 mg/dL 0.2-1 H code = 25712-9) Specimen Source (test code = 2795) JEFF (test code = JEFF) Medical Research Assistant ID - [auto]Medical Research Assistant ID - [auto] Lab Interpretation (test Abnormal code = 71188-5) [facility] Microscopic [id number] 12:34:00 Test Item Value Reference Range Interpretation Comments RBC, UA (test 0 See_Comment [Automated me ssage] code = 98964-2) The system [employer] generated this result transmitted ref erence range: /HPF. Th e reference range was not used to int erpret this result as normal/abnormal . WBC, UA (test 1 See_Comment [Automated me ssage] code = 5821-4) The system [facility] generated this result transmitted ref erence range: /HPF. Th e reference range was not used to int erpret this result as normal/abnormal . Mucus (test Rare code = 8247-9) JEFF (test code Medical Research Assistant ID - = JEFF) [auto] [facility] WITH MICROSCOPIC IF [id number] 12:34:00 Test Item Value Reference Range Interpretation Comments COLOR (BEAKER) (test code = 470) Yellow CLARITY (BEAKER) (test code = 469) Clear SPECIFIC GRAVITY UA (BEAKER) (test 1.024 1.001-1.035 code = 468) PH UA (BEAKER) (test code = 467) 6.0 5.0-8.0 PROTEIN UA (BEAKER) (test code = 10 mg/dL Negative A 464) GLUCOSE UA (BEAKER) (test code = Negative Negative 365) KETONES UA (BEAKER) (test code = 10 mg/dL Negative A 371) BILIRUBIN UA (BEAKER) (test code = Negative Negative 462) BLOOD UA (BEAKER) (test code = 461) Negative Negative NITRITE UA (BEAKER) (test code = Negative Negative 465) LEUKOCYTE ESTERASE UA (BEAKER) Negative Negative (test code = 466) UROBILINOGEN UA (BEAKER) (test code 3.0 mg/dL 0.2-1.0 H = 463) SOURCE(BEAKER) (test code = 2795) Medical Research Assistant ID - [auto]Medical Research Assistant ID - [auto]URINALYSIS [id number] 12:34:00 Test Item Value Reference Range Interpretation Comments RBC UA (BEAKER) (test code = 519) 0 /HPF WBC UA (BEAKER) (test code = 520) 1 /HPF MUCUS (BEAKER) (test code = 1574) Rare Medical Research Assistant ID - [auto]POCT-GLUCOSE [id number] 11:21:00 Test Item Value Reference Range Interpretation Comments POC-GLUCOSE METER 158 mg/dL 70-110 H : TESTED A T [facility] 6720 (BEAKER) (test code = [facility], 1538) [address]: Medical Research Assistant/Techni keren ID = [id number] for CADET, TRACEY TTE POCT-GLUCOSE [id number] 08:44:00 Test Item Value Reference Range Interpretation Comments POC-GLUCOSE METER 156 mg/dL 70-110 H : TESTED A T [facility] 6720 (BEAKER) (test code = [facility], 1538) [address]: Medical Research Assistant/Techni keren ID = [id number] for CADET, TRACEY TTE SARS-CoV2/Influenza/RSV RT-PCR (Symptomatic ONLY)2020-09-11 08:28:00 Test Item Value Reference Range Interpretation Comments SARS-COV2/RT-PCR (test Negative Negative code = 84687-8) Influenza A RT-PCR Negative Negative (test code = 5408776) Influenza B RT-PCR Negative Negative (test code = 5338003) RSV by RT-PCR (test Negative Negative Performa nce of the code = 0944410) Xpert Xpress SARS-CoV-2/Flu/ RSV test has only been established in nasopharyngeal swab specimens. Use of the Xpert Xpress SARS-CoV-2/Flu/ RSV test with other spec imen types has not b een assessed and performance characteristics are unknown. As wi th any molecular test, mutations withi n the targeted geneti c regions identif ied by the Xpert Xpres s SARS-CoV-2/Flu/ RSV test could affect pr palmer and/or probe bi nding resulting in fa ilure to detect the pres ence of virus or the vi brooke being detected less predictably.Neg ative results do not preclude SARS-CoV-2, Inf luenza A/B, or RSV inf ection and should not be used as the sole bas is for treatment or ot her patient managem ent decisions. Res ults from the Xpert Xpress SARS-CoV-2/Flu/ RSV test should be corre lated with the clinic al history, epidemiological data, and other data available to th e clinician evalu ating the patient. I nvalid test results ma y occur from improper s pecimen collection; denis lure to follow the jewell mmended sample collecti on, handling, and s torage procedures; rosey hnical error. False ne gative results may occ ur if virus is presen t at levels below th e analytical limi t of detection (LOD: 131 copies/mL). Vi ral nucleic acid ma y persist in vivo , independent of virus viability. Dete ction of analyte target( s) does not imply that the corresponding v irus(es) are infectious or are the causative a gents for clinical sy mptoms. Recent patient exposure to FluMist or other live attenuated influenza vacci marita may cause inaccurat e positive result s.This test has been authorized by [employer] under an EUA for use by authorized laboratories. This test is only au thorized for the duratio n of the declaration benjamín t circumstances e xist justifying the authorization o f emergency use o f in vitro diagnosti c tests for detection a nd/or diagnosis of CO VID-19 under Section 5 64(b)(1) of the Federal Food, Drug and Cosmet ic Act, 21 U.S.C. 360bbb-3(b)(1), unless the authorizati on is terminated or r evoked sooner. Fact Sh eet for Healthcare Prov iders: https://www.[employer] /Documents/Xper t%20Xpre ss%62FTEE-EiG-4 -Flu-RSV /302-4508%20Rev .%20B%20 HCP%20Fact%20Sh eet.pdf Fact Sheet for Healthcare Maria D ents: https://www.[employer] /Documents/Xper t%20Xpre ss%02BAZF-EkX-5 -Flu-RSV /302-4507%20Rev .%20B%20 Patient%20Fact% 20Sheet. pdf Lab Interpretation Normal (test code = 57884-4) [facility]RSV [id number] 08:28:00 Test Item Value Reference Range Interpretation Comments SARS-COV2/RT-PCR Negative Negative (test code = 4141864) INFLUENZA A RT-PCR Negative Negative (test code = 9552780) INFLUENZA B RT-PCR Negative Negative (test code = 3500123) RSV RT-PCR (test Negative Negative Performanc e of the Xpert code = 2961588) Xpress SARS- CoV-2/Flu/RSV test has only b een established in nasopharyngeal swab specimens. Use of the Xpert Xpress SARS-CoV-2/Flu/ RSV test with other spec imen types has not been as sessed and performance characteristics are unknown. As wi th any molecular test, mutations within the targ eted genetic regions identified by t Xpert Xpress SARS-CoV -2/Flu/RSV test could affe ct primer and/or probe bi nding resulting in fa ilure to detect the pres ence of virus or the vi brooke being detected less predictably.Neg ative results do not preclude SARS-CoV-2, Inf luenza A/B, or RSV inf ection and should not be u sed as the sole basis for treatment or other patien t management deci sions. Results from e Xpert Xpress SARS-CoV -2/Flu/RSV test should be correlated with the clinic al history, epidem iological data, and other data available to e clinician evalu ating the patient. Inval id test results may occ ur from improper specim en collection; denis lure to follow the jewell mmended sample collecti on, handling, and s torage procedures; rosey hnical error. False ne gative results may occ ur if virus is presen t at levels below e analytical limi t of detection (LOD: 131 copies/mL). Vi ral nucleic acid ma y persist in vivo, indepe ndent of virus viability . Detection of an alyte target(s) does not imply that the corres ponding virus(es) are i nfectious or are the caus ative agents for clin ical symptoms. Rece nt patient exposure to Flu Mist or other live atte nuated influenza vacci marita may cause inaccurat e positive results.This te st has been authorized by FDA under an EUA fo r use by authorized labo ratories. This test is on ly authorized for the duration of the declaration benjamín t circumstances e xist justifying the authorization o f emergency use o f in vitro diagnostic test s for detection and/o r diagnosis of CO VID-19 under Section 5 64(b)(1) of the Federal Food, Drug and Cosmetic Ac t, 21 U.S.C. 360bbb -3(b)(1), unless the auth orization is terminated o r revoked sooner.Fact She et for Healthcare Prov iders: https://www.[employer]/D ocuments/Xpert% 20Xpress%2 2PHHA-UmH-0-Flu -RSV/ 508%20Rev.%20B% 20HCP%20Fa ct%20Sheet.pdfF act Sheet for Healthcare Patients: https://www.[employer]/D ocuments/Xpert% 20Xpress%2 3FZUV-CkH-1-Flu -RSV/ 507%20Rev.%20B% 20Patient% 20Fact%20Sheet. pdf Creatine Kinase (CK)2020-09-11 08:01:00 Test Item Value Reference Range Interpretation Comments Total CK (test code = 53 U/L 29-200 2157-6) JEFF (test code = JEFF) Medical Research Assistant ID Eden Lock Lab Interpretation (test Normal code = 96067-6) [facility] (CK)2020-09-11 08:01:00 Test Item Value Reference Range Interpretation Comments CREATINE KINASE TOTAL (BEAKER) (test 53 U/L 29-200 code = 380) Medical Research Assistant ID - JOVON MTroponin [id number] 08:00:00 Test Item Value Reference Range Interpretation Comments Troponin I (test code = <0.01 0-0.03 02154-7) JEFF (test code = JEFF) Troponin I (TnI) levels must be interpreted in the context of the presenting symptoms and the clinical findings. Elevated TnI levels indicate myocardial damage, but are not specific for ischemic heart disease. Elevated TnI levels are seen in patients with other cardiac conditions (including myocarditis and congestive heart failure), and slight TnI elevations occur in patients with other conditions, including sepsis, renal failure, acidosis, acute neurological disease, and persistent tachyarrhythmia.[facility] HEVER SIGALA Lab Interpretation (test Normal code = 36886-5) [facility] HospitalTROPONIN [id number] 08:00:00 Test Item Value Reference Range Interpretation Comments TROPONIN I (BEAKER) (test code = 397) < ng/mL 0.00-0.03 Troponin I (TnI) levels must be interpreted in the context of the presenting symptoms and the clinical findings. Elevated TnI levels indicate myocardial damage, but are not specific for ischemic heart disease. Elevated TnI levels are seen in patients with other cardiac conditions (including myocarditis and congestive heart failure), and slight TnI elevations occur in patients with other conditions, including sepsis, renal failure, acidosis, acute neurological disease, and persistent tachyarrhythmia.Medical Research Assistant ID - JOVON [id number] 02:36:00 Test Item Value Reference Range Interpretation Comments Ferritin (test code = 34.09 ng/mL 5-886 2276-4) JEFF (test code = JEFF) Medical Research Assistant ID Eden SIGALA M Lab Interpretation (test Normal code = 38518-7) [facility]TSH/Free T4 If [id number] 02:36:00 Test Item Value Reference Range Interpretation Comments TSH (test code = 0.788 See_Comment [Automated 91631-4) message] The system which generated this result transmit sanjiv reference range : 0.350 - 4.940 uIU/mL. The reference range was not used to interpret this result as normal/abnormal . JEFF (test code = JEFF) Medical Research Assistant HEVER Lock Lab Interpretation Normal (test code = 27669-4) [facility]ERRITIN2021-[facility]-07 02:36:00 Test Item Value Reference Range Interpretation Comments FERRITIN (BEAKER) (test code = 34.09 ng/mL 5.00-275.00 361) Medical Research Assistant ID - JOVON MTSH/FREE T4 IF [id number] 02:36:00 Test Item Value Reference Range Interpretation Comments THYROID STIMULATING HORMONE 0.788 uIU/mL 0.350-4.940 (BEAKER) (test code = 772) Medical Research Assistant ID - JOVON MBasic Metabolic [id number] 02:11:00 Test Item Value Reference Range Interpretation Comments Sodium (test code = 140 meq/L 058-057 4401-2) Potassium (test code = 2.9 meq/L 3.5-5.1 L 2823-3) Chloride (test code = 112 meq/L 98-107 H 2075-0) CO2 (test code = 19 meq/L 22-29 L 2028-9) BUN (test code = 18 mg/dL 7-21 3094-0) Creatinine (test code 0.93 mg/dL 0.57-1.25 = 2160-0) Glucose (test code = 117 mg/dL 70-105 H 2345-7) Calcium (test code = 7.2 mg/dL 8.4-10.2 L 87106-5) EGFR (test code = 82 mL/min/1.73 [place] [address]-5) NOT ACCURATE CREATININE CLEARANCE IN PREDICTING GLOMERULAR FILTRATION RATE . ESTIMATED GFR I S NOT APPLICABLE FOR DIALYSIS PATIENTS. JEFF (test code = JEFF) Medical Research Assistant ID - JOVON Lock Lab Interpretation Abnormal (test code = 90136-7) [facility] METABOLIC [id number] 02:11:00 Test Item Value Reference Range Interpretation Comments SODIUM (BEAKER) 140 meq/L 136-145 (test code = 381) POTASSIUM (BEAKER) 2.9 meq/L 3.5-5.1 L (test code = 379) CHLORIDE (BEAKER) 112 meq/L 98-107 H (test code = 382) CO2 (BEAKER) (test 19 meq/L 22-29 L code = 355) BLOOD UREA NITROGEN 18 mg/dL 7-21 (BEAKER) (test code = 354) CREATININE (BEAKER) 0.93 mg/dL 0.57-1.25 (test code = 358) GLUCOSE RANDOM 117 mg/dL 70-105 H (BEAKER) (test code = 652) CALCIUM (BEAKER) 7.2 mg/dL 8.4-10.2 L (test code = 697) EGFR (BEAKER) (test 82 mL/min/1.73 ESTIMA SANJIV GFR IS code = 1092) sq m NOT ACCURATE CREATININE CLEARANCE IN PREDICTING GLOMERULAR FILTRATION RATE . ESTIMATED GFR I S NOT APPLICABLE FOR DIALYSIS PATIEN TS. Medical Research Assistant ID - JOVON MTROPONIN [id number] 02:08:00 Test Item Value Reference Range Interpretation Comments TROPONIN I (BEAKER) (test code = 0.02 ng/mL 0.00-0.03 397) Troponin I (TnI) levels must be interpreted in the context of the presenting symptoms and the clinical findings. Elevated TnI levels indicate myocardial damage, but are not specific for ischemic heart disease. Elevated TnI levels are seen in patients with other cardiac conditions (including myocarditis and congestive heart failure), and slight TnI elevations occur in patients with other conditions, including sepsis, renal failure, acidosis, acute neurological disease, and persistent tachyarrhythmia.Medical Research Assistant ID - JOVON epatic function [id number] 02:05:00 Test Item Value Reference Range Interpretation Comments Protein, Total (test 5.7 See_Comment L [Autom ated code = 2885-2) message] The system which generated this result transmit sanjiv reference range : 6.0 - 8.3 gm/dL . The reference range was not u sed to interpret th is result as normal/abnormal . Albumin (test code = 3.0 g/dL 3.5-5 L 65456-3) Total Bilirubin (test 1.2 mg/dL 0.2-1.2 code = 1974-2) Bilirubin, Direct 0.5 mg/dL 0.1-0.5 (test code = 1968-7) Alkaline Phosphatase 49 U/L 40-150 (test code = 6768-6) AST (test code = 14 U/L 5-34 1920-8) ALT (test code = 12 U/L 6-55 1742-6) JEFF (test code = JEFF) Medical Research Assistant ID - JOVON M Lab Interpretation Abnormal (test code = 83815-1) [facility] HospitalLactate dehydrogenase (LDH)2020-09-11 02:05:00 Test Item Value Reference Range Interpretation Comments LDH (test code = 2532-0) 203 U/L 125-220 JEFF (test code = JEFF) Medical Research Assistant ID [facility] Lab Interpretation (test Normal code = 50823-0) [facility] HospitalC-Reactive [id number] 02:05:00 Test Item Value Reference Range Interpretation Comments CRP (test code = 676) 0.07 mg/dL 0-0.5 JEFF (test code = JEFF) Medical Research Assistant ID [facility] Lab Interpretation (test Normal code = 70275-9) [facility] HospitalHEPATIC FUNCTION [id number] 02:05:00 Test Item Value Reference Range Interpretation Comments TOTAL PROTEIN (BEAKER) (test code = 5.7 gm/dL 6.0-8.3 L 770) ALBUMIN (BEAKER) (test code = 1145) 3.0 g/dL 3.5-5.0 L BILIRUBIN TOTAL (BEAKER) (test code 1.2 mg/dL 0.2-1.2 = 377) BILIRUBIN DIRECT (BEAKER) (test 0.5 mg/dL 0.1-0.5 code = 706) ALKALINE PHOSPHATASE (BEAKER) (test 49 U/L 40-150 code = 346) AST (SGOT) (BEAKER) (test code = 14 U/L 5-34 353) ALT (SGPT) (BEAKER) (test code = 12 U/L 6-55 347) Medical Research Assistant ID - [facility] MLACTATE DEHYDROGENASE (LDH)2020-09-11 02:05:00 Test Item Value Reference Range Interpretation Comments LACTATE DEHYDROGENASE (BEAKER) (test 203 U/L 125-220 code = 635) Medical Research Assistant ID [facility] MC-REACTIVE [id number] 02:05:00 Test Item Value Reference Range Interpretation Comments C-REACTIVE PROTEIN (BEAKER) (test 0.07 mg/dL 0.00-0.50 code = 676) Medical Research Assistant HEVER SIGALA MLactic acid, [id number] 01:46:00 Test Item Value Reference Range Interpretation Comments Lactate, Venous (test code 1.19 mmol/L 0.5-2.2 = 2872) JEFF (test code = JEFF) Medical Research Assistant HEVER SIGALA M Lab Interpretation (test Normal code = 30460-0) [facility]LACTIC ACID, [id number] 01:46:00 Test Item Value Reference Range Interpretation Comments LACTATE BLOOD VENOUS (2) (BEAKER) 1.19 mmol/L 0.50-2.20 (test code = 2872) Medical Research Assistant HEVER SIGALA [id number] 01:39:00 Test Item Value Reference Range Interpretation Comments D-Dimer, Quant (test 3.43 See_Comment H [Autom ated code = 09883-4) message] The system which generated this result transmitted reference range : <0.50 MG/L FEU. The reference range was not used to interpr et this result as normal/abnormal . JEFF (test code = JEFF) Intended Use: The D-Dimer Assay can be used to aid in the diagnosis of Deep Vein Thrombosis (DVT) and Pulmonary Embolism Disease (PED).In patients with low pre-test probability, various studies concerning STA Liatest D-dimer test have reported that with a cutoff value of 0.50 MG/L FEU, the Negative Predictive Value (NPV) regarding the exclusion of thrombosis is within 95-100% range. Lab Interpretation Abnormal (test code = 75447-3) [id number]00 Test Item Value Reference Range Interpretation Comments D-DIMER QUANTITATIVE (BEAKER) 3.43 MG/L FEU <0.50 H (test code = 671) Intended Use: The D-Dimer Assay can be used to aid in the diagnosis of Deep Vein Thrombosis (DVT) and Pulmonary Embolism Disease (PED).In patients with low pre- test probability, various studies concerning STA Liatest D-dimer test have reported that with a cutoff value of 0.50 MG/L FEU, the Negative Predictive Value (NPV) regarding the exclusion of thrombosis is within 95-100% range.CBC with platelet count + automated [id number] 01:18:00 Test Item Value Reference Range Interpretation Comments WBC (test code = 6690-2) 8.5 See_Comment [A utomated message] The system sMedio generated this result transmitted ref erence range: 3.5 - 10 .5 K/L. The refe rence range was not u sed to interpret this result as normal/abnor mal. RBC (test code = 789-8) 5.13 See_Comment [Au tomated message] The system [employer]Medio generated this result transmitted ref erence range: 4.63 - 6 .08 M/L. The refe rence range was not u sed to interpret this result as normal/abnor mal. MCHC (test code = 786-4) 31.9 See_Comment L [A utomated message] The system sMedio generated this result transmitted ref erence range: 32.3 - 3 6.5 GM/DL. The refe rence range was not u sed to interpret this result as normal/abnor mal. Hematocrit (test code = 40.7 % 40.1-51 4544-3) MCV (test code = 787-2) 79.3 fL 79-92.2 MCH (test code = 785-6) 25.3 pg 25.7-32.2 L RDW (test code = 788-0) 16.2 % 11.6-14.4 H Platelets (test code = 225 See_Comment [Aut omated message] 777-3) The system [employer]Medio generated this result transmitted ref erence range: 150 - 45 0 K/CU MM. The referen ce range was not u sed to interpret this result as normal/abnor mal. MPV (test code = 9.0 fL 9.4-12.4 L 94021-7) nRBC (test code = 413) 0 See_Comment [Aut omated message] The system [employer]Medio generated this result transmitted ref erence range: 0 - 0 /1 00 WBC. The refere nce range was not u sed to interpret this result as normal/abnor mal. % Neutros (test code = 73 % 429) % Lymphs (test code = 18 % 430) % Monos (test code = 8 % 431) % Eos (test code = 432) 1 % % Baso (test code = 437) 0 % # Neutros (test code = 6.17 See_Comment H [Aut omated message] 670) The system sMedio generated this result transmitted ref erence range: 1.78 - 5 .38 K/L. The refe rence range was not u sed to interpret this result as normal/abnor mal. # Lymphs (test code = 1.52 See_Comment [Auto mated message] 414) The system sMedio generated this result transmitted ref erence range: 1.32 - 3 .57 K/L. The refe rence range was not u sed to interpret this result as normal/abnor mal. # Monos (test code = 0.66 See_Comment [Autom ated message] 415) The system sMedio generated this result transmitted ref erence range: 0.30 - 0 .82 K/L. The refe rence range was not u sed to interpret this result as normal/abnor mal. # Eos (test code = 416) 0.05 See_Comment [Au tomated message] The system sMedio generated this result transmitted ref erence range: 0.04 - 0 .54 K/L. The refe rence range was not u sed to interpret this result as normal/abnor mal. # Baso (test code = 417) 0.03 See_Comment [A utomated message] The system sMedio generated this result transmitted ref erence range: 0.01 - 0 .08 K/L. The refe rence range was not u sed to interpret this result as normal/abnor mal. Immature 0 % 0-1 Granulocytes-Relative (test code = 2801) Lab Interpretation (test Abnormal code = 28469-9) [facility] W/PLT COUNT & AUTO [id number] 01:18:00 Test Item Value Reference Range Interpretation Comments WHITE BLOOD CELL COUNT (BEAKER) 8.5 K/ L 3.5-10.5 (test code = 775) RED BLOOD CELL COUNT (BEAKER) 5.13 M/ L 4.63-6.08 (test code = 761) HEMOGLOBIN (BEAKER) (test code = 13.0 GM/DL 13.7-17.5 L 410) HEMATOCRIT (BEAKER) (test code = 40.7 % 40.1-51.0 411) MEAN CORPUSCULAR VOLUME (BEAKER) 79.3 fL 79.0-92.2 (test code = 753) MEAN CORPUSCULAR HEMOGLOBIN 25.3 pg 25.7-32.2 L (BEAKER) (test code = 751) MEAN CORPUSCULAR HEMOGLOBIN CONC 31.9 GM/DL 32.3-36.5 L (BEAKER) (test code = 752) RED CELL DISTRIBUTION WIDTH 16.2 % 11.6-14.4 H (BEAKER) (test code = 412) PLATELET COUNT (BEAKER) (test 225 K/CU MM 150-450 code = 756) MEAN PLATELET VOLUME (BEAKER) 9.0 fL 9.4-12.4 L (test code = 754) NUCLEATED RED BLOOD CELLS 0 /100 WBC 0-0 (BEAKER) (test code = 413) NEUTROPHILS RELATIVE PERCENT 73 % (BEAKER) (test code = 429) LYMPHOCYTES RELATIVE PERCENT 18 % (BEAKER) (test code = 430) MONOCYTES RELATIVE PERCENT 8 % (BEAKER) (test code = 431) EOSINOPHILS RELATIVE PERCENT 1 % (BEAKER) (test code = 432) BASOPHILS RELATIVE PERCENT 0 % (BEAKER) (test code = 437) NEUTROPHILS ABSOLUTE COUNT 6.17 K/ L 1.78-5.38 H (BEAKER) (test code = 670) LYMPHOCYTES ABSOLUTE COUNT 1.52 K/ L 1.32-3.57 (BEAKER) (test code = 414) MONOCYTES ABSOLUTE COUNT (BEAKER) 0.66 K/ L 0.30-0.82 (test code = 415) EOSINOPHILS ABSOLUTE COUNT 0.05 K/ L 0.04-0.54 (BEAKER) (test code = 416) BASOPHILS ABSOLUTE COUNT (BEAKER) 0.03 K/ L 0.01-0.08 (test code = 417) IMMATURE GRANULOCYTES-RELATIVE 0 % 0-1 PERCENT (BEAKER) (test code = 2801) TKO-[id number] 00:00:00Ordered by an unspecified provider.[facility] [id number] 16:50:000.7[facility] 2017-08-09 16:50:007.6[facility]annCHE[facility] [id number] 16:50:0025[facility]annCHEM JPWIY8020-02-74 16:50:003.7[facility]annCHEM [id number] 16:50:0019[facility]annCHEM [id number] 16:50:009.3[facility]annCHEM YNKWW6508-18-10 16:50:93356Onmgedbi HermannCHEM [id number] 16:50:004.2 [facility] JdgcrsaLACUQKBGDA2956-86-29 16:50:000.91[facility]annHEMATOLOGY 2017-08-09 16:50:00 Test Item Value Reference Range Interpretation Comments PROTIME (test code = PROTIME) 12.3 s 12.0-14.7 [facility] [id number] 16:50:00 Test Item Value Reference Range Interpretation Comments aPTT (test code = aPTT) 33.6 s 22.9-35.8 [facility] FqzlgyxNNBMAREVCX0026-69-88 16:50:007.5[facility]annHEMATOLOGY 2017-08-09 16:50:59335Eltajahm VswdvctGXJBTCTCIF6782-27-60 16:50:0017.4[facility] MugwgmpYQGOBEMJVM0693-28-24 16:50:00 Test Item Value Reference Range Interpretation Comments MCH (test code = MCH) 25.4 pg 27.0-31.0 [facility] OdoerxsDGACOHIPCN6990-28-78 16:50:0031.9[facility]annHEMATOLOGY 2017-08-09 16:50:0079.5[facility] FhavuohCNOOHXALQA3375-77-67 16:50:0042.1[facility] SojbfycEONYYFNESR4653-32-72 16:50:0013.4[facility] AxygxaeXPGUBHKPIM6018-89-08 16:50:005.29[facility] UmlcdxcYPBALCQEQH6883-91-20 16:50:004.8[facility] [place] WAGFIWWUDB4991-46-25 16:50:000.5[facility] WgmtrinHPWQQQWZJS4103-63-40 16:50:000.2 [facility] IjxgmrfQGHSNPDECD6075-71-92 16:50:001.1[facility]annHEMATOLOGY 2017-08-09 16:50:003.0[facility] EktreevTNYQQPXKMQ9917-39-07 16:50:000.7[facility] LuxujdlWUQLVATKXG9753-27-59 16:50:004.7[facility] KaoldfoGZETKEDEAU2293-25-27 16:50:0010.6[facility] WtwstzwKOXVUJNCJZ5027-58-69 16:50:0023.0[facility] KNKAGDPCUM8062-73-65 16:50:0061.0[facility] HermannSPECIAL YKUGSVGIE4506-45-21 16:50:007.1[facility] HermannCHEM UQAIS7255-70-20 16:50:0024.0[facility]annCHEM IZEHB2195-07-68 16:50:003.9[facility]annCHEM [id number] 16:50:000.9 [facility]annCHEM [id number] 16:50:007.2[facility]annCHEM PANEL 2017-08-09 16:50:0015[facility]annCHEM GJFBH4135-14-16 16:50:0065[facility]annCHEM [id number] 16:50:0034[facility]annCHEM [id number] 16:50:0087[facility]annCHEM DQNGY6811-59-05 16:50:0018[facility]annCHEM [id number] 16:50:001.20[facility]annCHEM IAWFK0590-50-83 16:50:73741 [facility]annCHE[facility] [id number] 16:50:0055[facility][QLH] D-DIMER, [id number] 15:20:01 Test Item Value Reference Range Interpretation Comments D-Dimer (test 0.87 {ug/ml In DIC, quanti tative code = D-Dimer) FEU} D-Dimer is g enerally greater than0.6 6 ug/mL FEU. Values of quantitative D- Dimer less than0.40 u g/mL FEU have been repor sanjiv to be associated with a lowprobability of deep vein thrombosis/pulm onary embolism.This t est alone should not be u sed to rule out DVT/PE . [facility]] C-REACTIVE [id number] 15:20:01 Test Item Value Reference Range Interpretation Comments CRP (test code = CRP) <2.9 <=2.9 [facility]] SED RATE BY MODIFIED [id number] 15:20:01 Test Item Value Reference Range Interpretation Comments Sedimentation Rate (test code = 11 {mm/hr} 0-15 Sedimentation Rate) [facility]] HEMOGLOBIN [id number] 15:20:01 Test Item Value Reference Range Interpretation Comments Hemoglobin A1c; Above High Threshold 7.8 % <=5.6 (test code = 4548-4) [facility][U] XRAY KNEE 3 VWS RIGHT [id number] 14:25:00 Images acquired, not reported on this accession number.[facility]
--- NOTE | 2020-10-30 16:15 | RAD REPORT ---
EXAM DESCRIPTION: [facility]it[place] Single View10/30/2020 4:01 pm CLINICAL HISTORY: Chest pain COMPARISON: none FINDINGS: The lungs appear clear of acute infiltrate. The heart is normal size IMPRESSION: No acute abnormalities displayed
[2020-10-30 16:31] LABS: ALT/SGPT 19 U/L (12-78); AST/SGOT 10 U/L (15-37); Albumin 3.6 g/dL (3.4-5.0); Alkaline Phosphatase 64 U/L (45-117); BUN Blood Urea Nitrogen 12 mg/dL (7-18); Bicarbonate 30 mmol/L (21-32); Bilirubin Direct 0.3 mg/dL (0-0.2); Glucose Level 137 mg/dL (74-106); NT PRO-BNP 83 pg/mL (<125); Potassium 4.3 mmol/L (3.5-5.1); Sodium Level 146 mmol/L (136-145); Troponin (Emerg Dept Use Only) < 0.02 ng/mL (0.0-0.045)
[2020-10-30 16:35] LABS: Protime INR 1.3
[2020-10-30 16:36] LABS: Absolute Lymphocytes (CBC) 0.6 K/uL (0.7-4.9); Basophils % 0.2 % (0-1.3); Hematocrit 38.1 % (39.6-49.0); Lymphocytes % 7.3 % (15.3-44.8); MPV 7.8 fL (7.6-11.3); RBC Red Blood Cell Count 4.75 M/uL (4.33-5.43)
--- NOTE | 2020-10-30 16:48 | RAD REPORT ---
EXAM DESCRIPTION: CT - Head C Spine Mpr Wo Con - 10/30/2020 4:29 pm CLINICAL HISTORY: Head and neck injury status post fall. Head and neck pain COMPARISON: None. TECHNIQUE: Computed axial tomography of the head and cervical spine was obtained. Sagittal and coronal reconstruction was performed. All CT scans are performed using dose optimization technique as appropriate and may include automated exposure control or mA/KV adjustment according to patient size. FINDINGS: An intracranial bleed is not seen. The ventricles are normal in caliber. An extra-axial fl uid collection is not noted.Fluid within the visualized sinuses and mastoids is not seen A cervical fracture is not visualized. No dislocation is noted. IMPRESSION: No acute intracranial abnormality is seen. A cervical fracture is not visualized. If the patient continues to have symptoms to suggest intracra nial /spinal cord pathology then MRI would be recommended
[2020-10-30 17:31] LABS: SARS-COV-2 RT PCR NEGATIVE (NEGATIVE)
[2020-10-30] MEDS ORDERED: NA CHLORIDE 0.9% 1,000 ML ONE (17:50)
[2020-10-30 18:10] LABS: Platelet Estimate ADEQ; White Blood Cell Scan OK (OK)
[2020-10-30 18:11] LABS: Blood Morphology Comment NOT SEEN (NOT SEEN)
--- NOTE | 2020-10-30 19:18 | ER ---
Nurse's Notes [facility] Name: Melody Duarte Age: 65 yrs Sex: Male : 1955 Arrival Date: 10/30/2020 Time: 15:19 Bed 8 Private MD: Diagnosis: Chest pain, unspecified;Hypotension Presentation: 10/30 15:20 Chief complaint: EMS states: family called 911 for systolic BP around 70s, upon scene aa5 arrival BP was 88 systolic and increased to 106 systolic after 650mls of NS bolus. Pt reports generalized weakness and decreased appetite for a few days. Reports dizziness today and reports similar low blood pressure episodes in the past. 15:20 Coronavirus screen: At this time, the client does not indicate any symptoms associated aa5 with coronavirus-19. Ebola Screen: No symptoms or risks identified at this time. Initial Sepsis Screen: Does the patient meet any 2 criteria? No. Patient's initial sepsis screen is negative. Does the patient have a suspected source of infection? No. Patient's initial sepsis screen is negative. Risk Assessment: Do you want to hurt yourself or someone else? Patient reports no desire to harm self or others. Onset of symptoms was October 2020. 15:20 Acuity: EVA 3 aa5 15:20 Method Of Arrival: EMS: [facility] aa5 Historical: - Allergies: 15:20 Sulfa (Sulfonamide Antibiotics); aa5 - Home Meds: 15:33 tizanidine 4 mg Oral cap [Active]; hydromorphone 4 mg Oral tab 1 tab [Active]; aa5 mirtazapine 15 mg Oral tab [Active]; donepezil 5 mg Oral tab 1 tab once daily [Active]; glimepiride 2 mg Oral tab 1 tab once daily [Active]; Xarelto 20 mg oral tab [Active]; losartan 25 mg Oral tab 1 tab once daily [Active]; tizanidine 4 mg oral cap [Active]; tamsulosin 0.4 mg Oral cp24 1 cap once daily [Active]; metformin 500 mg Oral tab 1 tab 2 times per day [Active]; gabapentin 300 mg Oral cap 1 cap 3 times per day [Active]; rosuvastatin 40 mg Oral tab 1 tab once daily [Active]; - PMHx: 15:20 Chronic pain; Dementia; Diabetes - NIDDM; Hyperlipidemia; Hypertension; aa5 - PSHx: 15:20 Morphine pain pump; Spinal stimulator; aa5 - Immunization history:: Adult Immunizations unknown. - Social history:: Smoking status: unknown. Screenin:20 Abuse screen: Denies threats or abuse. Denies injuries from another. Nutritional sv screening: No deficits noted. Tuberculosis screening: No symptoms or risk factors identified. Fall Risk None identified. Assessment: 15:30 General: Appears in no apparent distress. uncomfortable, Behavior is calm, cooperative, jl7 appropriate for age. Pain: Denies pain. Neuro: Level of Consciousness is awake, alert, obeys commands, Oriented to person, place, time, situation. Cardiovascular: Denies chest pain, Patient's skin is warm and dry. Respiratory: Airway is patent Respiratory effort is even, unlabored, Respiratory pattern is regular, symmetrical, Denies shortness of breath. GI: Reports nausea, vomiting, x 1 MAINTENANCE CHIEF. Derm: Skin is pink, warm \T\ dry. 16:30 Reassessment: Patient appears in no apparent distress at this time. No changes from jl7 previously documented assessment. Patient and/or family updated on plan of care and expected duration. Pain level reassessed. Patient is alert, oriented x 3, equal unlabored respirations, skin warm/dry/pink. 17:30 Reassessment: Patient appears in no apparent distress at this time. No changes from jl7 previously documented assessment. Patient and/or family updated on plan of care and expected duration. Pain level reassessed. Patient is alert, oriented x 3, equal unlabored respirations, skin warm/dry/pink. 18:30 Reassessment: Patient appears in no apparent distress at this time. No changes from jl7 previously documented assessment. Patient and/or family updated on plan of care and expected duration. Pain level reassessed. Patient is alert, oriented x 3, equal unlabored respirations, skin warm/dry/pink. 19:39 General: Appears in no apparent distress. Behavior is calm, cooperative, appropriate ea for age. Pain: Denies pain. Neuro: Level of Consciousness is awake, alert, obeys commands, Oriented to person, place, time, situation. Cardiovascular: Patient's skin is warm and dry. Respiratory: Airway is patent Respiratory effort is even, unlabored, Respiratory pattern is regular, symmetrical. Derm: Skin is pink, warm \T\ dry. 20:55 Reassessment: Patient and/or family updated on plan of care and expected duration. Pain ea level reassessed. Patient is alert, oriented x 3, equal unlabored respirations, skin warm/dry/pink. Report called to receiving nurse. Pt left ED via stretcher per medical technologist prn. Pt tolerating well. Vital Signs: 15:20 BP 106 / 65; Pulse 66; Resp 16 S; Temp 98.0(O); Pulse Ox 99% on R/A; aa5 15:30 BP 111 / 58; Pulse 78; Resp 15; Pulse Ox 99% ; jl7 15:45 BP 110 / 64; Pulse 78; Resp 17; Pulse Ox 99% ; jl7 16:00 BP 112 / 52; Pulse 64; Resp 14; Pulse Ox 97% ; Pain 0/10; jl7 17:13 BP 95 / 43; Pulse 61; Resp 15; Pulse Ox 98% ; jl7 18:34 BP 110 / 44; Pulse 67; Resp 16; Pulse Ox 95% ; jl7 19:41 BP 98 / 55; Pulse 72; Resp 18; Pulse Ox 98% ; ea 20:50 BP 116 / 61; Pulse 70; Resp 18; Pulse Ox 100% on R/A; ea ED Course: 15:19 Patient arrived in ED. em1 15:20 Roseanna Silva, RN is Primary Nurse. sv 15:20 Arm band placed on Patient placed in an exam room, on a stretcher. sv 15:20 Patient has correct armband on for positive identification. Bed in low position. Call sv light in reach. Side rails up X2. Pulse ox on. NIBP on. Door closed. Head of bed elevated. 15:26 Bishop Jennings PA is PHCP. [facility] 15:26 Tyrone Martínez MD is Attending Physician. [facility] 15:30 Triage completed. aa5 15:41 EKG done, by ED staff, reviewed by Tyrone Martínez MD. Maintain EMS IV. Dressing intact. mh5 Site clean \T\ dry. 15:45 Initial lab(s) drawn, by me, sent to lab. First set of blood cultures drawn by me. jl7 15:51 Inserted saline lock: 20 gauge in right antecubital area, using aseptic technique. jl7 Blood collected. 15:51 Second set of blood cultures drawn. jl7 15:58 Kathy Pastrana, RN is Primary Nurse. jl7 16:01 XRAY Chest (1 view) In Process Unspecified. EDMS 16:30 CT Head C Spine In Process Unspecified. EDMS 18:49 Repeat lab(s) drawn. by md, sent to lab. 7 19:17 Chito Barnard is Hospitalizing Provider. m 20:22 Urine collected: straight cath specimen, clear. Straight cath inserted, using sterile rr5 technique, 16 Fr. Specimen obtained. Patient tolerated well. 20:51 No provider procedures requiring assistance completed. Patient admitted, IV remains in ea place. Administered Medications: 16:15 CANCELLED (wrong pt): NARcan 0.4 mg IVP once jmm 19:37 Drug: Aspirin Chewable Tablet 324 mg Route: PO; ea 20:54 Follow up: Response: No adverse reaction ea Outcome: 19:17 Decision to Hospitalize by Provider. jmm 20:51 Condition: stable ea 20:51 Instructed on the need for admit, Demonstrated understanding of instructions. 20:53 Discharged to home ea 20:53 Admitted to Med/surg accompanied by tech, via wheelchair, room 427, with chart, Report called to Receiving nurse on fourth floor 21:01 Patient left the ED. ea Signatures: Dispatcher [employer] Roseanna Wallace, RN RN Bishop Singh PA PA jmm Martinez, Eric em1 Cheyenne Wilcox, JOSE F swann5 [facility] Kathy Pastrana, RN RN mouna7 Rosa M Montalvo RN RN ea Roque, Raymond RN RN rr5
--- NOTE | 2020-10-30 19:18 | EDPHYS ---
Physician Documentation [facility] Name: Melody Duarte Age: 65 yrs Sex: Male : 1955 Arrival Date: 10/30/2020 Time: 15:19 Bed 8 Private MD: ED Physician Tyrone Martínez HPI: 10/30 15:50 This 65 yrs old Male presents to ER via EMS with complaints of weakness, jmm dizziness, chest pain. 15:50 Onset: this morning. The pain does not radiate. Associated signs and symptoms: jmm Pertinent positives: dizziness, weakness. The chest pain is described as a pressure. Duration: The patient or guardian reports a single episode, that lasted 45 minute(s). Modifying factors: The symptoms are alleviated by nothing. This is a 65 year old male with a history of chronic pain, dementia, DM, HLP, HTN that presents to the ED with complaints weakness, low blood pressure. Patient states earlier this morning he had an episode of chest pressure which states lasted for approx 30 to 45 minutes. Patient states he currently has no chest pain but still feels weaker than usual. Historical: - Allergies: 15:20 Sulfa (Sulfonamide Antibiotics); aa5 - Home Meds: 15:33 tizanidine 4 mg Oral cap [Active]; hydromorphone 4 mg Oral tab 1 tab [Active]; aa5 mirtazapine 15 mg Oral tab [Active]; donepezil 5 mg Oral tab 1 tab once daily [Active]; glimepiride 2 mg Oral tab 1 tab once daily [Active]; Xarelto 20 mg oral tab [Active]; losartan 25 mg Oral tab 1 tab once daily [Active]; tizanidine 4 mg oral cap [Active]; tamsulosin 0.4 mg Oral cp24 1 cap once daily [Active]; metformin 500 mg Oral tab 1 tab 2 times per day [Active]; gabapentin 300 mg Oral cap 1 cap 3 times per day [Active]; rosuvastatin 40 mg Oral tab 1 tab once daily [Active]; - PMHx: 15:20 Chronic pain; Dementia; Diabetes - NIDDM; Hyperlipidemia; Hypertension; aa5 - PSHx: 15:20 Morphine pain pump; Spinal stimulator; aa5 - Immunization history:: Adult Immunizations unknown. - Social history:: Smoking status: unknown. ROS: 15:50 Constitutional: Negative for fever, chills, and weight loss. jmm 15:50 Constitutional: Positive for fatigue. 15:50 Cardiovascular: Positive for chest pain. 15:50 Neuro: Positive for dizziness. 15:50 All other systems are negative. Exam: 15:50 Constitutional: This is a well developed, well nourished patient who is awake, alert, jmm and in no acute distress. Head/Face: atraumatic. Eyes: EOMI, no conjunctival erythema appreciated ENT: Moist Mucus Membranes Neck: Trachea midline, Supple Chest/axilla: Normal chest wall appearance and motion. Cardiovascular: Regular rate and rhythm. No edema appreciated Respiratory: Normal respirations, no respiratory distress appreciated Abdomen/GI: Non distended, soft Back: Normal ROM Skin: General appearance color normal MS/ Extremity: Moves all extremities, no obvious deformities appreciated, no edema noted to the lower extremities Neuro: Awake and alert, normal gait Psych: Behavior is normal, Mood is normal, Patient is cooperative and pleasant Vital Signs: 15:20 BP 106 / 65; Pulse 66; Resp 16 S; Temp 98.0(O); Pulse Ox 99% on R/A; aa5 15:30 BP 111 / 58; Pulse 78; Resp 15; Pulse Ox 99% ; jl7 15:45 BP 110 / 64; Pulse 78; Resp 17; Pulse Ox 99% ; jl7 16:00 BP 112 / 52; Pulse 64; Resp 14; Pulse Ox 97% ; Pain 0/10; jl7 17:13 BP 95 / 43; Pulse 61; Resp 15; Pulse Ox 98% ; jl7 18:34 BP 110 / 44; Pulse 67; Resp 16; Pulse Ox 95% ; jl7 19:41 BP 98 / 55; Pulse 72; Resp 18; Pulse Ox 98% ; ea 20:50 BP 116 / 61; Pulse 70; Resp 18; Pulse Ox 100% on R/A; ea MDM: 15:26 Patient medically screened. [facility] 19:15 The patient was given aspirin in the Emergency Department. Data reviewed: vital signs, [facility] nurses notes, lab test result(s), EKG, radiologic studies, CT scan, plain films. ED course: I discussed the patient with Morgan Gordon whom accepted the patient to Dr. Barnard's service. . 10/30 15:26 Order name: Basic Metabolic Panel; Complete Time: 16:44 [facility] 10/30 15:26 Order name: CBC with Diff; Complete Time: 18:12 [facility] 10/30 15:26 Order name: LFT's; Complete Time: 16:44 [facility] 10/30 15:26 Order name: Magnesium; Complete Time: 16:44 [facility] 10/30 15:26 Order name: NT PRO-BNP; Complete Time: 16:44 [facility] 10/30 15:26 Order name: PT-INR; Complete Time: 16:44 [facility] 10/30 15:26 Order name: Troponin (emerg Dept Use Only); Complete Time: 16:44 [facility] 10/30 15:27 Order name: Procalcitonin; Complete Time: 16:51 [facility] 10/30 15:27 Order name: Lactate; Complete Time: 16:44 [facility] 10/30 15:27 Order name: Blood Culture Adult (2) [facility] 10/30 16:06 Order name: Glucose, Ancillary Testing; Complete Time: 16:23 [facility] 10/30 17:31 Order name: COVID-19/FLU A+B; Complete Time: 17:32 [facility] 10/30 15:26 Order name: XRAY Chest (1 view); Complete Time: 16:23 [facility] 10/30 15:26 Order name: EKG; Complete Time: 15:27 [facility] 10/30 15:26 Order name: Cardiac monitoring; Complete Time: 15:41 [facility] 10/30 15:26 Order name: EKG - Nurse/Tech; Complete Time: 15:40 [facility] 10/30 15:26 Order name: IV Saline Lock; Complete Time: 16:00 [facility] 10/30 15:26 Order name: Labs collected and sent; Complete Time: 16:00 [facility] 10/30 15:26 Order name: O2 Per Protocol; Complete Time: 16:00 [facility] 10/30 15:26 Order name: O2 Sat Monitoring; Complete Time: 16:00 [facility] 10/30 16:02 Order name: CT Head C Spine; Complete Time: 16:51 [facility] 10/30 18:10 Order name: CBC Smear Scan; Complete Time: 18:12 [facility] 10/30 19:14 Order name: Lactate Sepsis 2 HR Follow-up; Complete Time: 19:15 [facility] 10/30 20:22 Order name: Urine Dipstick--Ancillary (enter results); Complete Time: 20:32 [facility] 10/30 20:23 Order name: Straight Cath - Urine; Complete Time: 20:23 [id number] Administered Medications: 16:15 CANCELLED (wrong pt): NARcan 0.4 mg IVP once [facility] 19:37 Drug: Aspirin Chewable Tablet 324 mg Route: PO; ea 20:54 Follow up: Response: No adverse reaction ea Disposition: 10/30/20 19:17 Hospitalization ordered by Chito Barnard for Observation. Preliminary diagnosis are Chest pain, unspecified, Hypotension. - Bed requested for Telemetry/MedSurg (observation). - Status is Observation. ea - Condition is Stable. - Problem is new. - Symptoms have improved. Addendum: 11/03/2020 05:56 Co-signature as Attending Physician, Tyrone Martínez MD I agree with the assessment and k dr plan of care. Signatures: Dispatcher [employer] [facility] Naveen Lopez, RN Tyrone Villalobos MD MD kdr Mickail, Joel, PA PA [facility] Cheyenne Wilcox, RN RN aa5 Kathy Pastrana RN RN jl7 Rosa M Montalvo, RN RN Yomi Alcaraz, RN RN rr5 Corrections: (The following items were deleted from the chart) 10/30 16:15 16:13 NARcan 0.4 mg IVP once ordered. [facility] 16:45 15:30 Influenza Screen (A \T\ B)+BA.LAB.BRZ ordered. [facility] 16:45 15:30 CORONAVIRUS+MR.LAB.BRZ ordered. [facility] 20:22 19:17 Hospitalization Ordered by Chito Barnard for Observation. Preliminary diagnosis sg is Chest pain, unspecified; Hypotension. Bed requested for Telemetry/MedSurg (observation). Status is Observation. Condition is Stable. Problem is new. Symptoms have improved. [facility] 21:01 20:22 10/30/2020 19:17 Hospitalization Ordered by Chito Barnard for Observation. ea Preliminary diagnosis is Chest pain, unspecified; Hypotension. Bed requested for Telemetry/MedSurg (observation). Status is Observation. Condition is Stable. Problem is new. Symptoms have improved. sg
[2020-10-30] MEDS ORDERED: ASPIRIN 81 MG CHEWABLE TABLET ONE (19:50)
[2020-10-30 20:31] LABS: Urine Blood NEGATIVE (NEG); Urine Glucose NEGATIVE (NEG); Urine Protein 2+ (NEG); Urine Specific Gravity >1.030 (1.005-1.030)
[2020-10-30 21:45] VITALS: BMI 26.6
[2020-10-30] MEDS ORDERED: ACETAMINOPHEN 500 MG TAB PO PRN (22:26)
[2020-10-30] MEDS ORDERED: ONDANSETRON 4 MG/2 ML VIAL IV PRN (22:26)
[2020-10-30] MEDS: NA CHLORIDE 0.9% 1,000 ML IV SCH (23:41)
--- NOTE | 2020-10-31 02:45 | P.HP ---
Certification for Inpatient Patient admitted to: Observation With expected LOS: <2 Midnights Patient will require the following post-hospital care: None Practitioner: I am a practitioner with admitting privileges, knowledge of patient current condition, hospital course, and medical plan of care. Services: Services provided to patient in accordance with Admission requirements found in Title 42 Section 412.3 of the Code of Federal Regulations <Christina Gordonshua - Last Filed: 10/31/20 02:39> Patient History Date of Service: 10/31/20 Reason for admission: Chest Pain, ARF, Dehydration History of Present Illness: This is a 65-year-old male with history of chronic back pain, hyperlipidemia, hypertension, dementia, fkw-xhbyixc-gykuoprvr diabetes mellitus that presented to the emergency room with sudden onset of dizziness weakness and chest tightness today. Patient stated that the episode lasted for about up in the emergency room and found to have a sodium of 146, potassium 4.3, chloride 112, bicarb 30, BUN 12, creatinine of 1.64, glucose 137. Patient had a white cell count of 7.7, hemoglobin of 12.4, hematocrit 38.1, platelet 138. Patient did have elevated lactate of 2.5. Troponin and BNP were within normal range. CT head C-spine and chest x-ray were both negative, flu negative, SARs negative. Patient poor historian and could not really tell me what happened today other than he became dizzy and had chest tightness. Patient currently feeling better in the emergency room at this time. Patient will be admitted for observation for chest pain and acute renal dysfunction. Home medications list reviewed: Yes - Past Medical/Surgical History Has patient received pneumonia vaccine in the past: No Diabetic: Yes -: DEMENTIA ,DM,HLP,HTN,CHRONIC PAIN - Social History Smoking Status: Never smoker Smoking therapy provided: No Alcohol use: No CD- Drugs: No Caffeine use: No Place of Residence: Home <Bairon Gordon - Last Filed: 10/31/20 02:39> Date of Service: 11/01/20 <clifford navarrete - Last Filed: 11/01/20 18:17> Allergies Sulfa (Sulfonamide Antibiotics) Allergy (Intermediate, Verified 10/30/20 21:44) Hives/Rash Home Medications: Donepezil [Aricept*] 5 mg PO BEDTIME 10/30/20 Gabapentin 300 mg PO TID 10/30/20 Hydromorphone [Dilaudid*] 4 mg PO BID 10/30/20 Metformin ER [Glucophage ER*] 500 mg PO BID 10/30/20 Mirtazapine [Remeron] 15 mg PO BEDTIME 10/30/20 Rivaroxaban [Xarelto] 20 mg PO BEDTIME 10/30/20 Rosuvastatin [Crestor*] 40 mg PO BEDTIME 10/30/20 Tizanidine [Zanaflex*] 4 mg PO BID 10/30/20 Review of Systems General: Weakness Eyes: Unremarkable ENT: Unremarkable Respiratory: Unremarkable Cardiovascular: Chest Pain Gastrointestinal: Unremarkable Genitourinary: Unremarkable Musculoskeletal: Unremarkable Integumentary: Unremarkable Neurological: As per HPI Lymphatics: Unremarkable <Bairon Gordon - Last Filed: 10/31/20 02:39> Physical Examination - Vital Signs Temperature: 97.7 F Blood Pressure: 131/56 Pulse: 72 Respirations: 16 Pulse Ox (%): 97 - Physical Exam General: Alert, In no apparent distress, Oriented x3, Cooperative HEENT: PERRLA, Mucous membr. moist/pink, EOMI Neck: Supple, 2+ carotid pulse no bruit, JVD not distended, No Thyromegaly Respiratory: Clear to auscultation bilaterally, Normal air movement Cardiovascular: No edema, Normal pulses, Regular rate/rhythm, Normal S1 S2, No gallops, No rubs, No murmurs Capillary refill: <2 Seconds Gastrointestinal: Normal bowel sounds, Soft and benign, Non-distended, No ascite s, No tenderness, No masses, No rebound, No guarding Musculoskeletal: No clubbing, No swelling, No contractures, No erythema, No tenderness, No warmth Integumentary: No rashes, No breakdown, No significant lesion, No tenderness/swelling, No erythema, No warmth, No cyanosis Neurological: Normal speech, Normal strength at 5/5 x4 extr, Normal tone, Sensation intact, Cranial nerves 3-12 intact, Normal affect Lymphatics: No axilla or inguinal lymphadenopathy - Studies Laboratory Data (last 24 hrs) 10/30/20 15:51: PT 15.0 H, INR 1.30 10/30/20 15:51: WBC 7.70, Hgb 12.4 L, Hct 38.1 L, Plt Count 188 10/30/20 15:51: Sodium 146 H, Potassium 4.3, BUN 12, Creatinine 1.64 H, Glucose 137 H, Magnesium 2.0, Total Bilirubin 1.0, AST 10 L, ALT 19, Alkaline Phosphatase 64 <Bairon Godron - Last Filed: 10/31/20 02:39> Assessment and Plan - Problems (Diagnosis) (1) Chest pain Status: Acute Qualifiers: Chest pain type: unspecified Qualified Code(s): R07.9 - Chest pain, unspecified (2) Dehydration Status: Acute (3) Acute renal failure Status: Acute Qualifiers: Acute renal failure type: unspecified Qualified Code(s): N17.9 - Acute kidney failure, unspecified - Plan 1. Patient will be admitted to telemetry floor and be monitored with telemetry unit will have repeat vital signs. 2. Patient will have repeat troponins for his chest pain. Cardiology has been consulted. EKGs as necessary. 3. Patient will have repeat labs in the morning to ensure stability of renal function. Patient will be on light hydration to hopefully increases renal function. 4. Monitor glucose as needed with glucose checks. Patient placed on ADA diet. Glucose in the emergency was 137. Does not require sliding scale at this time. Discharge Plan: Home Plan to discharge in: 24 Hours - Advance Directives Does patient have a Living Will: No Does patient have a Durable POA for Healthcare: No - Code Status/Comfort Care Code Status Assessed: Yes Code Status: Full Code Critical Care: No Time Spent Managing Pts Care (In Minutes): 70 <DenaeoseiChristina smithBairon - Last Filed: 10/31/20 02:39> - Problems (Diagnosis) (1) Acute renal failure Status: Acute Qualifiers: Acute renal failure type: unspecified Qualified Code(s): N17.9 - Acute kidney failure, unspecified (2) Chest pain Status: Acute Qualifiers: Chest pain type: unspecified Qualified Code(s): R07.9 - Chest pain, unspecified (3) Chronic back pain Status: Chronic Qualifiers: Back pain location: back pain in unspecified location Back pain laterality: unspecified Qualified Code(s): M54.9 - Dorsalgia, unspecified; G89.29 - Other chronic pain (4) Dementia Status: Chronic Qualifiers: Dementia type: unspecified type (5) Hypertension Status: Chronic Qualifiers: Hypertension type: essential hypertension Qualified Code(s): I10 - Essential (primary) hypertension Physician Review: Patient Assessed, Agree with Above Assessment and Plan Physician Review Additional Text: Chest pain. Acute renal failure. Brief IV hydration. Cardiology consult. Trend troponin. <clifford navarrete - Last Filed: 11/01/20 18:17>
[2020-10-31 07:44] LABS: Absolute Lymphocytes (CBC) 0.6 K/uL (0.7-4.9); Basophils % 0.1 % (0-1.3); Hematocrit 38.4 % (39.6-49.0); Lymphocytes % 9.4 % (15.3-44.8); MPV 7.6 fL (7.6-11.3); RBC Red Blood Cell Count 4.74 M/uL (4.33-5.43)
[2020-10-31] MEDS ORDERED: ASPIRIN EC 81 MG TAB PO SCH (09:00)
[2020-10-31] MEDS: NA CHLORIDE 0.9% 1,000 ML IV SCH (12:03)
[2020-10-31 12:09] VITALS: BP 143/53; TEMP 98.4
--- NOTE | 2020-10-31 13:53 | P.DS ---
Admission Date: 10/30/20 Discharge Date: 10/31/20 Reason for Admission: Chest Pain, ARF, Dehydration - Problems (1) Chest pain Current Visit: Yes Status: Acute Qualifiers: Chest pain type: unspecified Qualified Code(s): R07.9 - Chest pain, unspecified (2) Dehydration Current Visit: Yes Status: Acute (3) Acute renal failure Current Visit: Yes Status: Acute Qualifiers: Acute renal failure type: unspecified Qualified Code(s): N17.9 - Acute kidney failure, unspecified (4) Chronic back pain Current Visit: Yes Status: Chronic Qualifiers: Back pain location: back pain in unspecified location Back pain laterality: unspecified Qualified Code(s): M54.9 - Dorsalgia, unspecified; G89.29 - Other chronic pain (5) Hyperlipidemia Current Visit: Yes Status: Chronic Qualifiers: Hyperlipidemia type: unspecified Qualified Code(s): E78.5 - Hyperlipidemia, unspecified (6) Hypertension Current Visit: Yes Status: Chronic Qualifiers: Hypertension type: essential hypertension Qualified Code(s): I10 - Essential (primary) hypertension (7) Dementia Current Visit: Yes Status: Chronic Qualifiers: Dementia type: unspecified type (8) Diabetes Current Visit: Yes Status: Chronic Qualifiers: Diabetes mellitus type: type 2 Diabetes mellitus vermin exterminator insulin use: without long-term use Diabetes mellitus complication status: with other specified complication Qualified Code(s): E11.69 - Type 2 diabetes mellitus with other specified complication Brief History of Present Illness: 65-year-old male with history of chronic back pain, hyperlipidemia, hypertension, dementia, bkg-routdky-cfjsgdpmg diabetes mellitus that presented to the emergency room with sudden onset of dizziness weakness and chest tightness. Patient stated that the episode lasted for about up in the emergency room and found to have a sodium of 146, potassium 4.3, chloride 112, bicarb 30, BUN 12, creatinine of 1.64, glucose 137. Patient had a white cell count of 7.7, hemoglobin of 12.4, hematocrit 38.1, platelet 138. Patient did have elevated lactate of 2.5. Troponin and BNP were within normal range. CT head C-spine and chest x-ray were both negative, flu negative, SARs negative. Patient admitted for observation for chest pain and acute renal dysfunction. Hospital Course: Patient was admitted to the telemetry unit for monitoring. BP was initially low, now has stabilized. Repeat troponins were all negative and patient reports no more chest pain. EKG was normal in the ER. Cr improving today from 1.64 to 1.36. Patient has been receiving light hydration. Blood glucose levels were controlled on admission. <Vineet Rowley - Last Filed: 10/31/20 13:55> Admission Date: 10/30/20 Discharge Date: 10/31/20 - Problems (1) Acute renal failure Current Visit: Yes Status: Acute Qualifiers: Acute renal failure type: unspecified Qualified Code(s): N17.9 - Acute kidney failure, unspecified (2) Chest pain Current Visit: Yes Status: Acute Qualifiers: Chest pain type: unspecified Qualified Code(s): R07.9 - Chest pain, unspecified (3) Chronic back pain Current Visit: Yes Status: Chronic Qualifiers: Back pain location: back pain in unspecified location Back pain laterality: unspecified Qualified Code(s): M54.9 - Dorsalgia, unspecified; G89.29 - Other chronic pain (4) Dementia Current Visit: Yes Status: Chronic Qualifiers: Dementia type: unspecified type (5) Hypertension Current Visit: Yes Status: Chronic Qualifiers: Hypertension type: essential hypertension Qualified Code(s): I10 - Essential (primary) hypertension Hospital Course: Patient spouse stated patient has been more confused recently and the confusion has been intermittent. UA shows no UTI, no leukocytosis, patient has been afebrile. Noted his blood pressure was borderline low in the ED. Spouse reports patient fell yesterday. His dizziness and fall could be related to orthostasis. Neurology was consulted, patient was seen by Dr. Hathaway. No focal deficit noted. CT head unremarkable and shows no acute disease. MRI of the brain cannot be performed because of intrathecal pain pump. Dr. Hathaway recommend follow up with him in the office next as an outpatient for further evaluation. Will hold tamsulosin and losartan for now given borderline low blood pressure and presentation. <clifford navarrete - Last Filed: 10/31/20 18:29> Discharge Condition: GOOD Vital Signs/Physical Exam: Temp Pulse Resp BP Pulse Ox 98.4 F 66 16 143/53 H 91 10/31/20 12:00 10/31/20 12:00 10/31/20 12:00 10/31/20 12:00 10/31/20 12:00 General: Alert, In no apparent distress, Oriented x3 HEENT: Atraumatic, Normocephalic, PERRLA, Mucous membr. moist/pink, EOMI, Sclerae nonicteric Neck: Supple, 2+ carotid pulse no bruit, JVD not distended, No Thyromegaly, No LAD Respiratory: Clear to auscultation bilaterally, Normal air movement Cardiovascular: No edema, Normal pulses, Regular rate/rhythm, Normal S1 S2, No gallops, No rubs, No murmurs Capillary refill: <2 Seconds Gastrointestinal: Normal bowel sounds, Soft and benign, Non-distended, No ascites, No tenderness, No masses, No rebound, No guarding Musculoskeletal: No clubbing, No swelling, No contractures, No erythema, No tenderness, No warmth Integumentary: No rashes, No breakdown, No significant lesion, No tenderness/swelling, No erythema, No warmth, No cyanosis Neurological: Normal speech, Normal strength at 5/5 x4 extr, Normal tone, Sensation intact, Cranial nerves 3-12 intact, Dementia Lymphatics: No axilla or inguinal lymphadenopathy Laboratory Data at Discharge: WBC 6.90 K/uL (4.3-10.9) 10/31/20 07:31 Hgb 12.2 g/dL (13.6-17.9) L 10/31/20 07:31 Hct 38.4 % (39.6-49.0) L 10/31/20 07:31 Plt Count 170 K/uL (152-406) 10/31/20 07:31 PT 15.0 SECONDS (9.5-12.5) H 10/30/20 15:51 INR 1.30 10/30/20 15:51 Sodium 146 mmol/L (136-145) H 10/31/20 07:31 Potassium 4.0 mmol/L (3.5-5.1) 10/31/20 07:31 BUN 8 mg/dL (7-18) 10/31/20 07:31 Creatinine 1.36 mg/dL (0.55-1.3) H 10/31/20 07:31 Glucose 152 mg/dL (74-106) H 10/31/20 07:31 Magnesium 2.0 mg/dL (1.8-2.4) 10/30/20 15:51 Total Bilirubin 1.0 mg/dL (0.2-1.0) 10/30/20 15:51 AST 10 U/L (15-37) L 10/30/20 15:51 ALT 19 U/L (12-78) 10/30/20 15:51 Alkaline Phosphatase 64 U/L (45-117) 10/30/20 15:51 Troponin I < 0.02 ng/mL (0.0-0.045) 10/31/20 02:09 <Vineet Rowley S - Last Filed: 10/31/20 13:55> Vital Signs/Physical Exam: Temp Pulse Resp BP Pulse Ox 98.4 F 66 16 143/53 H 91 10/31/20 16:47 10/31/20 16:47 10/31/20 16:47 10/31/20 16:47 10/31/20 16:47 Laboratory Data at Discharge: WBC 6.90 K/uL (4.3-10.9) 10/31/20 07:31 Hgb 12.2 g/dL (13.6-17.9) L 10/31/20 07:31 Hct 38.4 % (39.6-49.0) L 10/31/20 07:31 Plt Count 170 K/uL (152-406) 10/31/20 07:31 PT 15.0 SECONDS (9.5-12.5) H 10/30/20 15:51 INR 1.30 10/30/20 15:51 Sodium 146 mmol/L (136-145) H 10/31/20 07:31 Potassium 4.0 mmol/L (3.5-5.1) 10/31/20 07:31 BUN 8 mg/dL (7-18) 10/31/20 07:31 Creatinine 1.36 mg/dL (0.55-1.3) H 10/31/20 07:31 Glucose 152 mg/dL (74-106) H 10/31/20 07:31 Magnesium 2.0 mg/dL (1.8-2.4) 10/30/20 15:51 Total Bilirubin 1.0 mg/dL (0.2-1.0) 10/30/20 15:51 AST 10 U/L (15-37) L 10/30/20 15:51 ALT 19 U/L (12-78) 10/30/20 15:51 Alkaline Phosphatase 64 U/L (45-117) 10/30/20 15:51 Troponin I < 0.02 ng/mL (0.0-0.045) 10/31/20 02:09 <clifford navarrete - Last Filed: 10/31/20 18:29> Diet: Regular Time spent managing pt's care (in minutes): 55 <Vineet Rowley - Last Filed: 10/31/20 13:55> <clifford navarrete - Last Filed: 10/31/20 18:29> Home Medications: Donepezil [Aricept*] 5 mg PO BEDTIME 10/30/20 Gabapentin 300 mg PO TID 10/30/20 Hydromorphone [Dilaudid*] 4 mg PO BID 10/30/20 Metformin ER [Glucophage ER*] 500 mg PO BID 10/30/20 Mirtazapine [Remeron] 15 mg PO BEDTIME 10/30/20 Rivaroxaban [Xarelto] 20 mg PO BEDTIME 10/30/20 Rosuvastatin [Crestor*] 40 mg PO BEDTIME 10/30/20 Tizanidine [Zanaflex*] 4 mg PO BID 10/30/20 Physician Discharge Instructions: Please continue home medications. Please see bulk intake worker outpatient for further evaluation. Followup: López Hathaway MD [ASSOCIATE-ACTIVE - CAN ADMIT] - 1 Week (call to schedule appointment) Earnest Lobo MD [Primary Care Provider] - (call to schedule appointment)
--- NOTE | 2020-10-31 14:12 | EKG ---
Test Date: 2020-10-30 Test Time: 15:36:05 Hotel Services Supervisor: QUINN MEASUREMENT RESULTS: Intervals: Rate: 79 TN: 202 QRSD: 84 QT: 386 QTc: 442 Vadito: P: 60 TN: 202 QRS: 74 T: 62 INTERPRETIVE STATEMENTS: Normal sinus rhythm Normal ECG Compared to ECG 08/14/2007 10:08:47 No significant changes Electronically Signed On 10-31-20 14:09:07 ENGINE ASSEMBLY SUPERVISOR by Chago Hernandez
[2020-10-31 16:08] VITALS: O2SAT 98
--- NOTE | 2020-10-31 16:34 | P.PN ---
Subjective Date of Service: 10/31/20 Chief Complaint: Chest Pain, ARF, Dehydration Patient appeared confused. He did not cooperate with echocardiogram. Spouse reports patient appeared more confused. He fell yesterday. CT head done in the emergency department shows no acute. According to the spouse patient has been h aving intermittent episodes of confusion. Physical Examination - Vital Signs Temperature: 98.4 F Blood Pressure: 143/53 Pulse: 66 Respirations: 16 Pulse Ox (%): 91 - Physical Exam General: In no apparent distress, Confused HEENT: Mucous membr. moist/pink Neck: Supple, JVD not distended Respiratory: Clear to auscultation bilaterally, Normal air movement Cardiovascular: No edema, Regular rate/rhythm, Normal S1 S2 Gastrointestinal: Normal bowel sounds, Soft and benign, Non-distended, No tenderness Musculoskeletal: No swelling, No tenderness Integumentary: No rashes Neurological: Other (No focal motor deficit) - Studies Laboratory Data (last 24 hrs) 10/30/20 15:51: PT 15.0 H, INR 1.30 10/30/20 15:51: WBC 7.70, Hgb 12.4 L, Hct 38.1 L, Plt Count 188 10/30/20 15:51: Sodium 146 H, Potassium 4.3, BUN 12, Creatinine 1.64 H, Glucose 137 H, Magnesium 2.0, Total Bilirubin 1.0, AST 10 L, ALT 19, Alkaline Phosphatase 64 Assessment And Plan - Current Problems (Diagnosis) (1) Acute renal failure Current Visit: Yes Status: Acute Qualifiers: Acute renal failure type: unspecified Qualified Code(s): N17.9 - Acute kidney failure, unspecified (2) Chest pain Current Visit: Yes Status: Acute Qualifiers: Chest pain type: unspecified Qualified Code(s): R07.9 - Chest pain, unspecified (3) Chronic back pain Current Visit: Yes Status: Chronic Qualifiers: Back pain location: back pain in unspecified location Back pain laterality: unspecified Qualified Code(s): M54.9 - Dorsalgia, unspecified; G89.29 - Other chronic pain (4) Dementia Current Visit: Yes Status: Chronic Qualifiers: Dementia type: unspecified type (5) Hypertension Current Visit: Yes Status: Chronic Qualifiers: Hypertension type: essential hypertension Qualified Code(s): I10 - Essential (primary) hypertension - Plan reports waxing and waning confusion. CT head negative. Troponin negative Patient uncooperative with echocardiogram and so could not be performed. Patient seen by cardiology. No further input. Neurology-Dr. Hathaway consulted to evaluate. Continue IV hydration for UZAIR. Cultures: no growth to date. UA: No UTI. Patient has somehow had borderline hypotension on presentation. I suspect patient had syncope secondary to orthostasis. Check orthostatics vitals. Continue monitoring as inpatient.
[2020-10-31] MEDS ORDERED: MIRTAZAPINE 15 MG TAB PO SCH (21:00)
[2020-10-31] MEDS ORDERED: ROSUVASTATIN 10 MG TAB PO SCH (21:00)
[2020-10-31] MEDS ORDERED: DONEPEZIL HCL 5 MG TAB PO SCH (21:00)
[2020-10-31] MEDS ORDERED: RIVAROXABAN 20 MG TABLET PO SCH (21:00)
--- NOTE | 2020-10-31 22:49 | CON ---
Reason For Consultation: This consultation was called because of intermittent confusion. History Of Present Illness: Mr. Oliver is a 65-year-old right-handed patient with multipl e medical problems including hypertension, dyslipidemia, diabetes mellitus, and dementia along with a long-standing chronic pain pump implanted 31 years ago and managed by Dr. Mathis marvel ion. She states episodes began somewhere after Halloween last year and he became disoriented, confus ed to be normal at other times, but then back to being confused again. She denies any fac e, arm, leg numbness or weakness. There are episodes of confusion. He also has some independent epi sodes of dizziness on standing and actually has had a fall after one of those and became suddenly diz zy and some chest tightness and was admitted to [facility] on 10/30/2020 for that workup. H e was found to be dehydrated with creatinine up to 1.64 and was actually hydrated and seem to improve somewhat. His head and C-spine along with chest CT and x-ray were negative for any acute ischemic o r hemorrhagic change. He is negative for COVID. Past Medical History: As indicated. Allergies: SULFA DRUGS. Medications: At home Aricept 5 mg at bedtime, gabapentin 300 mg 3 times a day, Dilaudid 4 mg orally twice a day. Losartan 25 mg daily, metformin 500 mg twice daily, Remeron 50 mg at bedtime, Xarelto 1 0 mg daily, Crestor 40 mg at bedtime, Flomax 0.4 mg daily, Zanaflex 4 mg twice daily and a pain pump managed by Dr. Mathis. Family History: Noncontributory. Social History: Denies alcohol, tobacco, or IV drug use. Surgical History: Chronic pain pump implanted 31 years ago. Review of Systems: The patient has had intermittent weakness, confusion, disorientation and dizziness on standing with s ome chest pain as indicated. Otherwise unremarkable on a 10 point systems review. Physical Examination: Vital Signs: Blood pressure 143/53, pulse is 66, respiratory rate 16, temp 98.4, and saturation 98%. Weight 213 pounds, height 63 inches, BMI 26.7. General: Mr. Duarte is resting in bed. is at the bedside. He is normocephalic, atraumatic. Sclerae are nonicteric. Oropharynx is moist. Neck: Supple. Chest: Clear. Heart: Regular. Extremities: Show no edema, cyanosis, or clubbing. Neurologic: He is alert and oriented to situation and place. He followed all commands appropriately , even across the midline. Cranial nerves, he has no focal deficits. Symmetric face and smiling in the upper extremities. He gets proximal and distal 5/5 strength in lower extremities with some mild diffuse weakness throughout 4+, but symmetric in the upper and lower extremities. Please note that saige romo does have significant edema in the right lower extremity, did have right knee replacement compared to the left side and it is moderate actually the edema in the right lower extremity compared to the l eft side. Otherwise, on terms of the rest of his neurological examination, he has stocking-glove los s to light touch temperature. Reflexes depressed in upper and lower extremities. Coordination intac t but slow on gait, he requires some assistance with transfers and standing. Laboratory Studies: Complete blood count with differential is essentially unremarkable except for sl ightly low hemoglobin, hematocrit of 12.2 and 38.4, platelets now 150, white blood cell count normal, coagulation panel shows INR 1.3. Chemistries, which showed elevated creatinine of 1.36. He is rece iving some IV fluids. His sodium elevated to 146, all consistent with dehydration. Gluco se ranged 121-153. Lactic acid 1.4, calcium 8.5. His procalcitonin was negative at 0.05. It should be noted lactic acid was elevated yesterday and it was 2.5 yesterday, now 1.4. Urinalysis shows taryn vated specific gravity consistent with dehydration and . COVID-19 test is negative. Influ rachel A and B negative and his peripheral smear is okay. Assessment: Mr. Duarte is 65-year-old patient with intended episodes of confusion, present for at [facility] 6 months of unclear etiology. Does not have any focal neurologic deficits. CT scan of the head shows no ischemic stroke. He has comorbid diabetes, hypertension, dyslipidemia, and a chronic pain pump implanted 31 years ago and managed by Dr. Mathis. Dementia. Plan: 1.Continue his donepezil for his dementia and gave aspirin 81 mg. He does have Xarelto. May consid er just using Xarelto instead of aspirin. Continue with Crestor. Continue with Flomax. 2.He should be discharged home and call the office on Tuesday to set up ambulatory video EEG monitori ng to help characterize social confusion. The patient, however, should not be started on antiepilept ic medications at this time. May consider cutting back on narcotic medications, which perhaps could be a contributing factor. The patient does have again dementia, which will be further evaluated on o utpatient basis. TERRIE/LUPE Voice ID: [id number] Report ID: [id number]
[2020-11-01] MEDS ORDERED: TAMSULOSIN 0.4 MG SR CAP PO SCH (09:00)
--- NOTE | 2020-11-02 06:18 | CON ---
Date of Consultation: 10/31/2020 Reason For Consultation: Chest pain. History Of Present Illness: Mr. Duarte is a 65-year-old white male, has a history of hypertension, diabetes, dyslipidemia, benign prostatic hypertrophy, and paroxysmal atrial fibrillation. He has sev ere dementia. He was almost impossible to get a history from, but apparently had come in with chest pain that is atypical. No details regarding his chest pain. By the time we saw him, he had ruled ou t for IA. He had a creatinine of 1.64, otherwise his workup was negative. His EKG was nonspecific. His chest x-ray was negative. There was an echocardiogram that was pending. Allergies: SULFA. Review of Systems: Negative. Social History: Negative. Family History: Negative. Medications At Home: Losartan, metformin, Dilaudid, Aricept, Xarelto, Crestor, and Flomax. Physical Examination: Vital signs: Stable. He was afebrile. He was in a sinus rhythm. General: He was definitely showing significant signs of dementia or some form of encephalopathy. He was hard to arouse. He was hard to get any questions from. He would not answer my questions. HEENT: Negative. Neck: Supple with no bruit. Chest: Clear. Cardiac: Revealed a regular rhythm and rate. No murmurs, gallops, or rubs. Abdomen: Benign. Extremities: Revealed no clubbing, cyanosis, or edema. Diagnostic Data: Unremarkable. Impression And Plan: 1.Atypical chest pain. Echocardiogram is pending. 2.Hypertension, well controlled. 3.Diabetes. 4.Renal insufficiency stage 3. 5.Dementia. 6.Dyslipidemia. 7.Benign prostatic hypertrophy. 8.Atrial fibrillation, paroxysmal. He is in sinus rhythm. He is on Xarelto. I would continue his present regimen. We will see what the echocardiogram shows. It would be practically impossible to d o an invasive workup on Mr. Duarte. Hopefully, his echocardiogram is normal. We will continue to f ollow him. NB/MODL Voice ID: [id number] Report ID: [id number]
--- NOTE | 2020-11-02 06:21 | PN ---
Date of Progress Note: 11/01/2020 Mr. Duarte was admitted on 10/30/2020. I saw him on 10/31/2020 because of chest pain. Mr. Duarte has many issues including hypertension, diabetes, severe dementia, dyslipidemia, benign prostatic hyp ertrophy, and paroxysmal atrial fibrillation. He is on Xarelto for his atrial fibrillation and he ta kes losartan for his high blood pressure. His creatinine is 1.64, otherwise all his workup was negat jose. He would not allow the orthophotography technician to do an echocardiogram on him. I think his dementia is severe enough that doing an invasive workup on him would be impossible. I would continue his presen t regimen. He is on Aricept. He is on appropriate therapy from a heart standpoint including losarta n, Xarelto, and Crestor. His pain has resolved. I will sign off his case for now. I will see him a s needed. ANABELLE/LUPE Voice ID: [id number] Report ID: [id number]
== END 2020-10-31 18:43 | disposition home or self-care (01) ==
LOC: ER 14:54 → ERHOLD 20:28 → 4TH 20:57
PROVIDERS: ADMIT Internal Medicine; ATTEND Internal Medicine
DX: R07.89 Other chest pain (principal); E86.0 Dehydration; N17.9 Acute kidney failure, unspecified; M54.9 Dorsalgia, unspecified; G89.29 Other chronic pain; E11.22 Type 2 diabetes mellitus with diabetic chronic kidney disease; Z20.822 Contact with and (suspected) exposure to COVID-19; E78.5 Hyperlipidemia, unspecified; F03.90 Unspecified dementia, unspecified severity, without behavioral disturbance, psychotic disturbance, mood disturbance, and anxiety; Z79.4 Long term (current) use of insulin; I48.0 Paroxysmal atrial fibrillation; N40.0 Benign prostatic hyperplasia without lower urinary tract symptoms; N18.30 Chronic kidney disease, stage 3 unspecified; I12.9 Hypertensive chronic kidney disease with stage 1 through stage 4 chronic kidney disease, or unspecified chronic kidney disease; Z79.01 Long term (current) use of anticoagulants
CPT/HCPCS: 0240U; 36415; 51702; 70450; 71045; 72125; 80048; 80076; 81003; 82947; 83605; 83735; 83880; 84145; 84484; 85025; 85610; 87040; 93005; 99285; G0378; J7030

== ENCOUNTER 2021-04-04 12:59 | Emergency (ER) | payer MEDICARE, OTHER ==
--- OUTSIDE RECORDS SUMMARY | 2021-04-04 13:04 | XMS REPORT | Continuity of Care Document ---
:1955 Author Organization [facility] t Address [address] [place] [address] Care Team Providers Name Role Phone Sharpless Primary Care Physician Yamil THOMPSON Attending Clinician Merchant THOMPSON Attending Clinician IRINA Attending Clinician Unavailable Irina THOMPSON Attending Clinician Jen Castano MD Attending Clinician MEGHA Attending Clinician Unavailable LEYDA Attending Clinician Unavailable Donald Cleveland Attending Clinician JEN CASTANO Admitting Clinician Unavailable Donald Cleveland Admitting Clinician Payers Payer Name Policy Type Policy Effective Date Expiration Date Sour ce Number WELLCARE MEDICARE [id number] [address] [facility] MGD CAREWELLCARE 00:00:00 - Medica l [id number]/09/24 Center 21-Present CARE IMPROVEMENT [id number] [facility] MEDICARE MGD 00:00:00 - Medical CARECARE Center IMPROVEMENT [id number] Problems Condition Condition Condition Status Onset Resolution Last Treating Co mments Source Name Details Category Date Date Treatment Clinician Date Acute Acute Disease Active [facility] pulmonary pulmonary 09-12 [facility] - embolism embolism 00:00: Medica l 00 Center Opiate Opiate Disease Active [facility] withdrawal withdrawal 1-08 Parvin kes - 00:00: Medical 00 Center Pneumonia Pneumonia Disease Active [facility] - 00[facility] Medical 00 Center Weakness Weakness Disease [facility] - 00:[facility]: Medical 00 Center PAINFUL Diagnosis Active 2016-092017-08-22 Md moria TKA 10-03 16:59:00 l PAINFUL 00:00: Todd TKA 00 Active 08/03/2017 [facility] Todd Diabetes Problem Active 2017-08-22 Mem oria mellitus [...] Active 2017-08-22 M emoria (disorder) 01:57:15 l Todd Neuropathy (disorder) Active Problem 08/22/2017 Feet MH [...] 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 Social History 2017-08-09 2017-08-09 [facility] 20:40:47 20:40:47 Tobacco use and 2015-10-17 2015-10-17 Never used [facility] - exposure 00:00:00 00:00:00 [facility] Alcohol intake 2015-10-17 2015-10-17 [facility]00 non-drinker of Medical nter alcohol (finding) Smoking Status Start Date Stop Date Source Never smoker [facility] edical [place] Medications Ordered Filled Start Stop Current Ordering Indication Dosage Frequency Signature Comments Components Source Medication Medication Date Date Medication? Clinician (SIG) Name Name rivaroxaban 2020- No 20mg Take [address] [facility] (XARELTO) 09-13 03-19 tablet (20 Renny es - 20 mg Tab 00:00: 23:59 mg total) Md dical tablet 00 :00 by mouth Center daily with dinner for 69 days. rivaroxaban 2020- No 15mg Take [address] (XARELTO) 09-13-30 tablet (15 Renny es - 15 mg [...] [address] (AMARYL) 2 1-08 by mouth [facility] - MG tablet 18:03: every Medical 17 morning Center before breakfast. tiZANidine 0 Yes 4mg Q.5D Take [address] (ZANAFLEX) -08 by mouth 2 Renny es - 4 MG tablet 18:03: (two) Medic al 17 times Center daily. promethazin 0 Yes 25mg Take [address] [facility] e 1-08 by mouth [facility] - (PHENERGAN) 18:03: every 6 Med ical 25 MG 17 (six) Center tablet hours as needed for Nausea. lisinopril 0 Yes 20mg QD Take [address] (PRINIVIL,Z -08 by mouth Luke s - ESTRIL) 20 18:03: daily. Medic al MG tablet 17 Center HYDROmorpho 0 Yes 4mg Take [address] ne -08 by mouth [facility] - (DILAUDID) 18:03: every 8 Medi gregory 4 MG tablet 17 (eight) Cente r hours as needed for Pain. donepezil 0 Yes 5mg QD Take [address] (ARICEPT) 5 1-08 by mouth Luke s - MG tablet 18:03: nightly. Medi gregory 17 Center MORPHINE [address] [facility] SULFATE 1-08 Miscellane [facility]ukes - (MORPHINE, 18:03: ous route. M edren FOR[facility], [facility]) 17 Center celecoxib 2020-0 2021- No 200mg Take [address] (CELEBREX) -08 01-08 mg by [facility] - 200 MG 09:53: 00:00 mouth Medical capsule 50 :00 every 12 Center (twelve) hours as needed for Pain. apixaban 2020- No Take [address] [facility] [facility] (ELIQUIS) 5 08 09-13 tablets Luke s - mg Tab 00:00: 00:00 (10 mg Medical tablet 00 :00 total) by Center mouth 2 (two) times daily for 7 days, THEN 1 tablet (5 mg total) 2 (two) times daily for 83 days. POLYETHYLEN 2016-09 No Notes: Nickolas emeka E GLYCOL 2-16 Dissolve l 3350 15:00: in 8 oz of Todd 00 water or juice. (Same as: Miralax) remove 2016-09 No Notes: Memoria patch 2-16 Remove old l 15:00: patch Todd 00 before applicatio n of new patch. Aspirin 325 2016-09 No Notes: (Do Memoria MG Enteric 2-16 Not Crush) l Coated 14:00: Do not Todd Tablet 00 crush or chew. pantoprazol 2016-09 [...] a 2-16 (Same as: l 03:00: Aricept) Todd 00 sennosides, 2016-09 No Notes: Nickolas emeka LONGTERM 2-16 (Same as: l 03:00: Senokot) Malick 00 Celebrex 2016-09 No Notes: Memoria 2-16 NSAID. l 00:00: Please Todd 00 check indication . Not for seizure. (Same As: CeleBREX) Vancomycin 2016-09 Yes 2001 mg: Me moria 2-16 infuse l 00:00: over 2.5 Todd 00 hours MEDICATION WASTE Product Size: 1000 mg Product Wasted: ___ mg Ergocalcife 2016-09 Yes 50,000 Nickolas emeka rol 80470 2-15 IntlUnit = l UNT Oral 23:26: [...] Memoria 2-15 Same as l 22:00: Lyrica Todd 00 Aspirin 325 2016-09 Yes 325 mg = 1 Memoria MG Enteric 2-15 tab, PO, l Coated 20:33: BID, # 60 Ken n Tablet 00 tab, 0 Refill(s) Cefazolin 2016-09 No Notes: Memori a 2-15 (Same As: l 20:00: Ancef, Todd 00 Kefzol) MEDICATION WASTE Product Size: 1000 mg Product Wasted: ___ mg Dextrose 2016-09 No 25 gm, 50 Nickolas emeka 50% Syringe 2-15 mL, Route: l 17:50: IVP, Drug Form: INJ, Dosing Weight 102.273, kg, PRN, PRN Blood Glucose Results, Start date: 08/19/17 11:50:00 RESPIRATORY TECH, Duration: 30 day, Stop date: 09/18/17 11:49:00 RESPIRATORY TECH Insulin 2016-09 No Notes: Memoria Lispro 2-15 [...] Blood Glucose Results, Start date: 08/19/17 11:50:00 RESPIRATORY TECH, Duration: 30 day, Stop date: 09/18/17 11:49:00 RESPIRATORY TECH Ergocalcife 2016-09 No Notes: Nickolas emeka rol 39285 2-15 (Same as: l UNT Oral 16:00: [...] 2-15 not exceed l 15:30: 4 gm/day. Malick 00 (Same as: Tylenol) Hydroxyzine 2016-09 No [...] Total Volume: 1,000, Start date: 08/19/17 9:30:00 RESPIRATORY TECH, Duration: 30 day, Stop date: 09/18/17 9:29:00 RESPIRATORY TECH, 2.35, m2 Promethazin 2016-09 No Notes: Do M emoria e 2-15 not give l 13:38: IV push. Malick 00 (Same as: Phenergan) Ondansetron 2016-09 No Notes: Nickolas emeka 2-15 (Same as: l 13:38: Zofran) Todd 00 MEDICATION WASTE Product Size: 4 mg Product Wasted: ___ mg Meperidine 2016-09 No Notes: Memor ia 2-15 (Same as: l 13:38: Demerol) Todd 00 "Use Precaution in Elderly, Seizure disorders, and Renal impairment " Acetaminoph 2016-09 No Notes: Max Memoria en 2-15 acetaminop l 13:38: hen 4000 Malick 00 mg/day (4 gm/day). (Same as: Tylenol Extra Strength) Naloxone 2016-09 No Notes: Memoria 2-15 Same as l 13:38: Narcan Todd 00 Flumazenil 2016-09 No Notes: Memor ia 2-15 (Same as: l 13:38: Romazicon) Todd 00 Hydromorpho 2016-09 No Notes: Nickolas emeka ne 2-15 (Same as: l 13:38: Dilaudid) Todd 00 Morphine 2016-09 No Notes: Memoria 2-15 (Same l 13:38: as:MORPhin Malick 00 e Sulfate) Labetalol 2016-09 No 10 mg, 2 Nickolas emeka 2-15 mL, Route: l 13:38: IVP, Drug form: INJ, Q5Min, Dosing Weight 102.273, kg, PRN Elevated BP, Start date: 08/19/17 7:38:00 RESPIRATORY TECH, Duration: 5 doses or times, Stop date: 08/19/17 22:00:00 RESPIRATORY TECH Hydralazine 2016-09 No Notes: Nickolas emeka 2-15 (Same as: l 13:38: Apresoline Todd 00 ) Push over 5 minutes vancomycin 2016-09 No Notes: Memor ia + Sodium 2-15 TIME l Chloride 13:00: CRITICAL Suzy nn 0.9% IV 250 00 MEDICATION mL (Same As: Vancocin) ropivacaine 2016-09 No Notes: Nickolas emeka 2-15 NOT FOR l 13:00: IV use Todd Each mL contains: Ropivacain e 2.46 mg, [...] a 2-15 (Same As: l 12:00: Ancef, Todd 00 Kefzol) MEDICATION WASTE Product Size: 1000 mg Product Wasted: ___ mg Vancomycin 2016-09 No 1,534.095 Me moria 2-15 mg, Route: l 12:00: IVPB, Todd ONCALL, Dosing Weight 102.273, kg, Start date: 08/19/17 6:00:00 RESPIRATORY TECH, Duration: 1 doses or times, ABX Indication : Surgical Prophylaxi s celecoxib 2016-09 No Notes: Memori a 2-15 NSAID. l 12:00: Please Todd 00 check indication . Not for seizure. (Same As: CeleBREX) 72 HR 2016-09 No Notes: Memoria Scopolamine 2-15 Change l 0.0139 11:24: patch Todd MG/HR 00 every 72 Transdermal hours Patch [...] Start MEQ/ML date: Injectable 08/19/17 Solution 5:24:00 RESPIRATORY TECH, Stop date: 08/19/17 5:24:00 RESPIRATORY TECH Lactated 2016-09 No 1,000 mL, Nickolas emeka Ringers IV 2-15 Rate: 100 l 1,000 mL 11:24: ml/hr, Malick 00 Infuse over: 10 hr, Route: IV, Dosing Weight 102.273 kg, Total Volume: 1,000, Start date: 08/19/17 5:24:00 RESPIRATORY TECH, Duration: 30 day, Stop date: 09/18/17 5:23:00 RESPIRATORY TECH, 2.35, m2 Acetaminoph 2016-09 No Notes: Max Memoria en 2-15 acetaminop l 11:24: hen 4000 Todd 00 mg/day (4 gm/day). (Same as: Tylenol Extra Strength) Famotidine 2016-09 No Notes: Memor ia 2-15 (Same as: l 11:24: Pepcid) Todd 00 linaclotide 2016-09 Yes 290 Memori a 0.29 MG 2-05 microgram l Oral 20:49: = 1 cap, Malick Capsule 00 PO, [...] NASAL, l de 0.137 20:45: BID, 0 Todd MG/ACTUAT 00 Refill(s) Metered Dose Nasal [place] metFORMIN 2016-09 No 500 mg = 1 [...] NASAL, l de 0.137 20:43: BID, 0 Todd MG/ACTUAT 00 Refill(s) Metered Dose Nasal [place] linaclotide 2016-09 No 290 Memori a 0.29 [...] tab, PO, l tablet 20:43: Daily, # Malick 00 30 tab, 0 Refill(s) ropinirole 2016-09 No 1 mg = 1 Mem oria 1 MG Oral 2-05 tab, PO, l Tablet 20:43: Bedtime, # Suzy nn [Requip] 00 30 tab, 1 Refill(s) rosuvastati 2016-09 Yes 40 mg = 1 M emoria n 40 mg 2-05 tab, PO, l oral tablet 20:43: Bedtime, # Todd 00 30 tab, 0 Refill(s) Vital Signs Vital Name Observation Time Observation Value Comments Source Systolic blood 2020-09-12 11:42:00 138 mm[Hg] [facility] Diastolic blood 2020-09-12 11:42:00 76 mm[Hg] [facility] Heart rate 2020-09-12 11:42:00 69 /min [facility] Body temperature 2020-09-12 11:42:00 36.72 Marleen [facility] Respiratory rate 2020-09-12 11:42:00 19 /min [facility] Oxygen saturation in 2020-09-12 11:42:00 100 /min [facility] Arterial blood by Medical Ce nter Pulse oximetry Body height 2020-09-10 22:00:00 190.5 cm [facility] Body weight 2020-09-10 22:00:00 99.746 kg [facility] BMI 2020-09-10 22:00:00 27.49 kg/m2 [facility] Respitory Rate 2017-08-19 21:15:00 Memori al Malick Systolic (mm Hg) 2017-08-19 21:15:00 Nickolas rial Todd Diastolic (mm Hg) 2017-08-19 21:15:00 Mem orial Todd Temperature Oral (F) 2017-08-19 21:15:00 97.7 F [facility] Malick Heart Rate 2017-08-19 21:15:00 [facility] Systolic (mm Hg) 2017-08-19 16:23:00 Nickolas rial Malick Diastolic (mm Hg) 2017-08-19 16:23:00 Mem orial [place]ick Respitory Rate 2017-08-19 16:23:00 Memori al Todd Heart Rate 2017-08-19 16:23:00 [facility]ick Heart Rate 2017-08-19 16:20:00 [facility] [place] Temperature Oral (F) 2017-08-19 16:20:00 96.9 F [facility]ick Systolic (mm Hg) 2017-08-19 16:20:00 Nickolas salas Malick Diastolic (mm Hg) 2017-08-19 16:20:00 Mem orial Todd Respitory Rate 2017-08-19 16:20:00 Memori al Todd Temperature Oral (F) 2017-08-19 11:25:00 97.8 F [facility] Todd BMI Calculated 2017-08-19 11:20:00 Memori al Todd Weight 2017-08-19 11:20:00 [facility] Malick Height 2017-08-19 11:20:00 193.04 cm [facility] Todd Procedures Procedure Date / Time Performing Clinician Source Performed CT CHEST PE TEST DESIGN 2020-09-12 09:10:00 Sp Castano [facility] POCT-GLUCOSE METER 2020-09-11 20:47:00 [facility] POCT-GLUCOSE METER 2020-09-11 17:02:00 [facility] URINALYSIS WITH 2020-09-11 12:07:00 Sp Castano [facility] - MICROSCOPIC IF INDICATED [facility] URINALYSIS MICROSCOPIC 2020-09-11 12:07:00 Sp Castano CH, I [facility] POCT-GLUCOSE METER 2020-09-11 11:09:00 Mercjeanniet [facility] POCT-GLUCOSE METER 2020-09-11 08:32:00 [facility] TROPONIN I 2020-09-11 06:07:00 Sp Castano [facility] SARS-COV2/INFLUENZA/RSV 2020-09-11 05:50:[address] [facility] - RT-PCR [facility] RESPIRATORY PANEL [facility] 2020-09-11 05:50[facility]00 [facility] 2020-09-11 01:00:00 [facility] BLOOD CULTURE 2020-09-11 00:52:00 [facility] CBC W/PLT COUNT & AUTO 2020-09-11 00:46:00 [facility] BASIC METABOLIC PANEL (7) 2020-09-11 00:46:00 [facility] HEPATIC FUNCTION PANEL 2020-09-11 00:46:00 [facility] TROPONIN I 2020-09-11 00:46:00 [facility] CREATINE KINASE (CK) 2020-09-11 00:46:00 [facility] LACTIC ACID, VENOUS 2020-09-11 00:46:00 [facility] TSH/FREE T4 IF INDICATED 2020-09-11 00:46:00 [facility] FERRITIN 2020-09-11 00:46:00 [facility] D-DIMER 2020-09-11 00:46:00 [facility] LACTATE DEHYDROGENASE 2020-09-11 00:46:00 [facility] ([facility]) [facility] C-REACTIVE PROTEIN 2020-09-11 00:46:00 [facility] REPORT OF PROCEDURE - 2020-09-10 00:00:00 Provider, Gunjan [facility] [U] XRAY KNEE 3 VWS RIGHT 2017-10-11 [facility]:00[facility] [address] [facility] XRAY KNEE 3 VWS RIGHT 2017-10-04 00:00:[facility] [address] [facility] [QLH] HEMOGLOBIN A1c 2017-07-20 00:00:00 [facility] Physicians Arthroscopic procedure Memorial Malick Back fusion [facility] Todd Cholecystectomy Memorial Malick Implantation of sacral [facility] nerve stimulator<sup>1</sup> Insertion of implantable Memoria l Todd intrathecal pump<sup>2</sup> Knee replacement Leilani Mayoan n [...] - Test 00:00:00 of 2) [code = Medical Center SHINGLES VACCINES (1 of 2)] Future Scheduled [address] [facility] - Test 00:00:00 (procedure) [code = [facility] [id number]] Future Scheduled [address] [facility] - Test 00:00:00 SCREENING [code = Medical Ce nter HEPATITIS C SCREENING] Future Scheduled [address] [facility]enny [facility] - Test 00:00:00 malignant neoplasm Medical C enter of colon (procedure) [code = 000148896] Encounters Start End Encounter Admission Attending Care Care Encounter Source Date/Time Date/Time Type Type Clinicians Facility Department ID 2021-04-03 2021-04-03 Telephone LUDY Lobo [id number] 00:00:00 00:00:00 Progressive [facility].1.13.10 Wren [id number] Proflanceio [id number] nal 044 Office [address] 2021-03-31 2021-03-31 Office Yamil MANAS [id number] 09:19:06 09:59:06 Visit Progressive Care [id number] Wren [id number] Profmorales [id number] nal 044 Office [address] One 2017-10-13 2017-10-13 AppointTIRNH Kidd [facility] [id number] Univers 10:15:00 10:15:00 t; ZENY [place] OrthopedicLesley Greco M.D. Physici ans 2017-10-05 2017-10-05 AppointTRINH Kidd [facility] [id number] Univers 13:45:00 13:45:00 t; ZENY [place] Orthopedics Lesley Doty M.D. Physici ans 2017-09-02 2017-09-02 AppointTRINH Wan [facility] [id number] Univers 10:00:00 10:00:00 t; Angel [place] KELLY, Physici P.A. ans 2017-08-19 2017-08-19 Outpatient [facility] [id number] 05:05:00 18:00:[address] [place] [address] 2017-08-19 2017-08-19 AppointTRINH Kidd [facility] [id number] Univers 09:00:00 09:00:00 t; ZENY [place] it y of [place], M.D. [place] M.D. Physici ans 2017-07-20 2017-07-20 AppointTRINH Kidd [facility] [id number] Univers 12:30:00 12:30:00 t; ZENY [place] it y of [place], M.D. [place] M.D. Physici ans Results Test Description Test Time Test Comments Results Result Comments Source Blood Culture - Routine (Right Venipuncture) 2020-09-16 03:0 1:00 Test Item Value Reference Range Interpretation Comme nts Result (test code = 6463-4) No growth in 5 days [facility] [id number] 03:01:00 Test Item Value Reference Range Interpretation Comments CULTURE (BEAKER) (test No growth in 5 days code = 1095) BLOOD [id number] 03:01:00 Test Item Value Reference Range Interpretation Comments CULTURE (BEAKER) (test No growth in 5 days code = 1095) CT, CHEST WITH IV CONTRAST- PE TEST [id number] 09:38:00Unlisted Reason for Exam - Click Yes and Enter Reason Below->No [facility]EL [facility] : 1955 Sex: MFINAL REPORT [...] Bilateral lower lobe PE findings were relayed to Jamil at 9:37 am. Via Genesant. Signed: Jovita Doherty MDRivetort Verified Date/Time: 09/12/2020 09:38:21 Reading Location: [facility] Diagnostic Imaging Reading Room - [place] [address] CT chest for pulmonary embolus 2020-09-12 09:38:00Interface, [...] to Dr. Negron at 9:37 am. Via VitalTraxect. Signed: Jovita Doherty MDReport Verified Date/Time: 09/12/2020 09:38:21 Reading Location: [facility] Diagnostic Imaging Reading Room - [place] [address] [facility] POC-Glucose [id number] 20:59:00 Test Item Value Reference Range Interpretation Comments POC-Glucose Meter (test 146 mg/dL 70-110 H : No tified RN/MD: code = 1538) TESTED AT [address], [address]: [employer]/Techni keren ID = [id number] for LORENZO RODRIGUEZY Lab Interpretation (test Abnormal code = 93571-3) [facility] [id number] 20:59:00 Test Item Value Reference Range Interpretation Comments POC-GLUCOSE METER 146 mg/dL 70-110 H : Notified RN/MD: (NELSON) (test code = TESTED AT [place] [id number] 1538) [facility], [address]: [employer]/Techni keren ID = [id number] for JD RUEDA NOHEMY POCT-GLUCOSE [id number] 17:20:00 Test Item Value Reference Range Interpretation Comments POC-GLUCOSE METER 141 mg/dL 70-110 H : TESTED [place] [address] ([facility]) (test code = [facility], 1538) [address]: [employer]/Techni keren ID = [id number] for TRACEY CADET TTE Respiratory Panel [id number] 15:25:00 Test Item Value Reference Range Interpretation Comments Human Metapneumovirus Not detected Not detected, (test code = 60550-8) Equivocal Rhinovirus (test code = Not detected Not detected, 00640-2) Equivocal INFLUENZA A (NO Not detected Not detected, SUBTYPE) (test code = Equivocal 67446-3) Influenza A subtype H1 (test code = 83636-1) Influenza A Subtype H3 (test code = 80783-4) Influenza A Subtype H1-2009 (test code = 94511-8) Influenza B (test code Not detected Not detected, = 70676-8) Equivocal Respiratory Syncytial Not detected Not detected, Virus (test code = Equivocal 97646-6) Parainfluenza Virus 1 Not detected Not detected, (test code = 23941-7) Equivocal Parainfluenza Virus 2 Not detected Not detected, (test code = 27956-3) Equivocal Parainfluenza virus 3 Not detected Not detected, (test code = 65319-6) Equivocal Parainfluenza Virus 4 Not detected Not detected, (test code = 66217-6) Equivocal Adenovirus (test code = Not detected Not detected, 63700-6) Equivocal Coronavirus 229E (test Not detected Not detected, code = 51039-2) Equivocal Coronavirus HKU1 (test Not detected Not detected, code = 57731-7) Equivocal Coronavirus NL63 (test Not detected Not detected, code = 45331-1) Equivocal Coronavirus OC43 (test Not detected Not detected, code = 00538-7) Equivocal Bordetella Pertussis Not detected Not detected, (test code = 30529-0) Equivocal Chlamydophila Not detected Not detected, Pneumoniae (test code = Equivocal 76484-5) Mycoplasma Pneumoniae Not detected Not detected, (test code = 08344-2) Equivocal JEFF (test code = JEFF) Other viruses and bacteria not targeted by this PCR panel cannot be excluded; therefore clinical correlation and follow up of serology, culture results, and other molecular studies is required. The results are not intended to be used as the sole means for clinical diagnosis or patient management decisions. This sample was tested at the [facility] Molecular Diagnostics Laboratory using the QuadriservArray Respiratory Panel. It is FDA cleared and has been verified and approved by the [facility] Molecular Diagnostics [facility] for clinical use on nasopharyngeal swab specimens. The performance of the FilmArray RP has not been established in individuals who received influenza vaccine. Recent administration of a nasal influenza vaccine may cause false positive results for Influenza A and/orInfluenza B. [facility] [id number] 15:25:00 Test Item Value Reference Range Interpretation [...] decisions. This sample was tested at the [facility] Molecular Diagnostics Laboratory using the QuadriservArray Respiratory Panel. It is FDA cleared and has been verified and approved by the [facility] Molecular Diagnostics Laboratory for clinical use on nasopharyngeal swab specimens.The performance of the FilmArrayRP has not been established in individuals who received influenza vaccine. Recent administration ofa nasal influenza vaccine may cause false positive results for Influenza A and/orInfluenza B.Urinalysis with Microscopic If [id number] 12:34:00 Test Item Value Reference Range Interpretation Comments Color, UA (test code = Yellow 5778-6) Clarity, UA (test code = Clear 5767-9) Specific Vaughan, UA (test 1.024 1.001-1.035 code = 5811-5) pH, UA (test code = 6.0 5.0-8.0 5803-2) Protein, UA (test code = 10 mg/dL Negative A 91543-4) Glucose, UA (test code = Negative Negative 365) Ketones, UA (test code = 10 mg/dL Negative A 2514-8) Bilirubin, UA (test code = Negative Negative 88716-6) Blood, UA (test code = Negative Negative 81260-0) Nitrite, UA (test code = Negative Negative 5802-4) Leukocytes, UA (test code Negative Negative = 5799-2) Urobilinogen, UA (test 3.0 mg/dL 0.2-1 H code = 12595-4) Specimen Source (test code = 2795) JEFF (test code = JEFF) [employer] ID - [auto][employer] ID - [auto] Lab Interpretation (test Abnormal code = 88543-6) [facility] Microscopic [id number] 12:34:00 Test Item Value Reference Range Interpretation Comments RBC, UA (test 0 See_Comment [Automated me ssage] code = 55044-0) The system [facility] generated this result transmitted ref erence range: /HPF. Th e reference range was not used to int erpret this result as normal/abnormal . WBC, UA (test 1 See_Comment [Automated me ssage] code = 5821-4) The system [facility] generated this result transmitted ref erence range: /HPF. Th e reference range was not used to int erpret this result as normal/abnormal . Mucus (test Rare code = 8247-9) JEFF (test code [employer] ID - = JEFF) [auto] [facility] WITH MICROSCOPIC IF [id number] 12:34:00 Test Item Value Reference Range Interpretation [...] = 463) SOURCE(BEAKER) (test code = 2795) [employer] ID - [auto][employer] ID - [auto]URINALYSIS [id number] 12:34:00 Test Item Value Reference Range Interpretation Comments RBC UA (BEAKER) (test code = 519) 0 /HPF WBC UA (BEAKER) (test code = 520) 1 /HPF MUCUS (BEAKER) (test code = 1574) [employer] ID - [auto]POCT-GLUCOSE [id number] 11:21:00 Test Item Value Reference Range Interpretation Comments POC-GLUCOSE METER 158 mg/dL 70-110 H : TESTED A T [facility] 6720 (BEAKER) (test code = [facility], 1538) [address]: High School Drafting Teacher/Techni keren ID = [id number] for CADET, TRACEY TTE POCT-GLUCOSE [id number] 08:44:00 Test Item Value Reference Range Interpretation Comments POC-GLUCOSE METER 156 mg/dL 70-110 H : TESTED A T [facility] 6720 (BEAKER) (test code = [facility], 1538) [address]: High School Drafting Teacher/Techni keren ID = [id number] for CADET, TRACEY TTE SARS-CoV2/Influenza/RSV RT-PCR (Symptomatic ONLY)2020-09-11 08:28:00 Test Item Value Reference Range Interpretation Comments SARS-COV2/RT-PCR (test Negative Negative code = 22873-2) Influenza A RT-PCR Negative Negative (test code = 45633-2) Influenza B RT-PCR Negative Negative (test code = 70475-9) RSV by RT-PCR (test Negative Negative Performa nce of the code = 92958-1) Xpert Xpress SARS-CoV-2/Flu/ RSV test has only [...] Fact Sh eet for Healthcare Prov iders: https://www.AF83 /Documents/Xper t%20Xpre ss%46JSRQ-GpQ-2 -Flu-RSV /302-4508%20Rev .%20B%20 HCP%20Fact%20Sh eet.pdf Fact Sheet for Healthcare Maria D ents: https://www.AF83 /Documents/Xper t%20Xpre ss%56VJOP-TwU-7 -Flu-RSV /302-4507%20Rev .%20B%20 Patient%20Fact% 20Sheet. pdf Lab Interpretation Normal (test code = 75584-6) [facility] [id number] 08:28:00 Test Item Value Reference Range Interpretation Comments SARS-COV2/RT-PCR Negative Negative (test code = 7013905) INFLUENZA A RT-PCR Negative Negative (test code = 6856986) INFLUENZA B RT-PCR Negative Negative (test code = 7719326) RSV RT-PCR (test Negative Negative Performanc e of the Xpert code = 9787575) Xpress SARS- CoV-2/Flu/RSV test has only b een established in nasopharyngeal swab specimens. Use of the Xpert Xpress SARS-CoV-2/Flu/ RSV test with other spec imen types has not been as sessed and performance characteristics are unknown. As wi th any molecular test, mutations within the targ eted genetic regions identified by Xpert Xpress SARS-CoV -2/Flu/RSV test could affe [...] iological data, and other data available to th e clinician evalu ating the patient. Inval [...] sooner.Fact She et for Healthcare Prov iders: https://www.Netcipia.com/D ocuments/Xpert% 20Xpress%2 4MQRS-PbD-6-Flu -RSV/- 508%20Rev.%20B% 20HCP%20Fa ct%20Sheet.pdfF act Sheet for Healthcare Patients: https://www.Netcipia.com/D ocuments/Xpert% 20Xpress%2 2GDTL-TpV-9-Flu -RSV/- 507%20Rev.%20B% 20Patient% 20Fact%20Sheet. pdf Creatine Kinase (CK)2020-09-11 08:01:00 Test Item Value Reference Range Interpretation Comments Total CK (test code = 53 U/L 29-200 2157-6) JEFF (test code = JEFF) [employer] HEVER Lock Lab Interpretation (test Normal code = 98511-0) [facility]2020-09-11 08:01:00 Test Item Value Reference Range Interpretation Comments CREATINE KINASE TOTAL (BEAKER) (test 53 U/L 29-200 code = 380) [employer] ID - JOVON Fabiann [id number] 08:00:00 Test Item Value Reference Range Interpretation Comments Troponin I (test code = <0.01 0-0.03 39033-2) JEFF (test code = JEFF) Troponin I [...] SIGALA Lab Interpretation (test Normal code = 77836-0) [facility] [id number] 08:00:00 Test Item Value Reference Range Interpretation [...] failure, acidosis, acute neurological disease, and persistent tachyarrhythmia.[employer] ID - JOVON [id number] 02:36:00 Test Item Value Reference Range Interpretation Comments Ferritin (test code = 34.09 ng/mL 5-415 2276-4) JEFF (test code = JEFF) [employer] HEVER Lock Lab Interpretation (test Normal code = 86430-0) [facility] Center[facility]Free T4 If [id number] 02:36:00 Test Item Value Reference Range Interpretation Comments TSH (test code = 0.788 See_Comment [Automated 42088-2) message] The system which generated this result transmit sanjiv reference range : 0.350 - 4.940 uIU/mL. The reference range was not used to interpret this result as normal/abnormal . JEFF (test code = JEFF) [employer] HEVER Lock Lab Interpretation Normal (test code = 93459-8) [facility] Center[facility]ERR[facility]IN2021-01-07 02:36:00 Test Item Value Reference Range Interpretation Comments FERRITIN (BEAKER) (test code = 34.09 ng/mL 5.00-275.00 361) [employer] ID - JOVON MTSH/FREE T4 IF [id number] 02:36:00 Test Item Value Reference Range Interpretation Comments THYROID STIMULATING HORMONE 0.788 uIU/mL 0.350-4.940 (BEAKER) (test code = 772) [employer] ID - JOVON MBasic Metabolic [id number] 02:11:00 Test Item Value Reference Range Interpretation Comments Sodium (test code = 140 meq/L 447-109 8241-2) Potassium (test code = 2.9 meq/L 3.5-5.1 L 2823-3) Chloride (test code = 112 meq/L 98-107 H 2075-0) CO2 (test code = 19 meq/L 22-29 L 2028-9) BUN (test code = 18 mg/dL 7-21 3094-0) Creatinine (test code 0.93 mg/dL 0.57-1.25 = 2160-0) Glucose (test code = 117 mg/dL 70-105 H 2345-7) Calcium (test code = 7.2 mg/dL 8.4-10.2 L 35183-3) EGFR (test code = 82 mL/min/1.73 [place] [address]-0) NOT ACCURATE CREATININE CLEARANCE IN PREDICTING GLOMERULAR FILTRATION RATE . ESTIMATED GFR I S NOT APPLICABLE FOR DIALYSIS PATIENTS. JEFF (test code = JEFF) [employer] HEVER Lock Lab Interpretation Abnormal (test code = 32936-7) [facility] Center[facility]ABOLIC [id number] 02:11:00 Test Item Value Reference Range Interpretation [...] S NOT APPLICABLE FOR DIALYSIS PATIEN TS. [employer] Teacher ID - JOVON MTROPONIN [id number] 02:08:00 Test Item Value Reference Range Interpretation [...] failure, acidosis, acute neurological disease, and persistent tachyarrhythmia.[employer] Teacher ID - JOVON epatic function [id number] 02:05:00 Test Item Value Reference Range Interpretation Comments Protein, Total (test 5.7 See_Comment L [Autom ated code = 2885-2) message] The system which generated this result transmit sanjiv reference range : 6.0 - 8.3 gm/dL . The reference range was not u sed to interpret th is result as normal/abnormal . Albumin (test code = 3.0 g/dL 3.5-5 L 96108-9) Total Bilirubin (test 1.2 mg/dL 0.2-1.2 code = 1974-2) Bilirubin, Direct 0.5 mg/dL 0.1-0.5 (test code = 1968-7) Alkaline Phosphatase 49 U/L 40-150 (test code = 6768-6) AST (test code = 14 U/L 5-34 1920-8) ALT (test code = 12 U/L 6-55 1742-6) JEFF (test code = JEFF) [employer] ID - JOVON M Lab Interpretation Abnormal (test code = 26744-8) [facility] CenterLact[facility] dehydrogenase (LDH)2020-09-11 02:05:00 Test Item Value Reference Range Interpretation Comments LDH (test code = 2532-0) 203 U/L 125-220 JEFF (test code = JEFF) [employer] Teacher ID [facility] Lab Interpretation (test Normal code = 05843-2) [facility] CenterC-Reactive [id number] 02:05:00 Test Item Value Reference Range Interpretation Comments CRP (test code = 676) 0.07 mg/dL 0-0.5 JEFF (test code = JEFF) [employer] Teacher ID [facility] Lab Interpretation (test Normal code = 00205-4) [facility] CenterHEPATIC FUNCTION [id number] 02:05:00 Test Item Value Reference Range Interpretation [...] (test code = 12 U/L 6-55 347) [employer] Teacher ID [facility] MLACTATE DEHYDROGENASE (LDH)2020-09-11 02:05:00 Test Item Value Reference Range Interpretation Comments LACTATE DEHYDROGENASE (BEAKER) (test 203 U/L 125-220 code = 635) [employer] Drafting Teacher [facility] MC-REACTIVE [id number] 02:05:00 Test Item Value Reference Range Interpretation Comments C-REACTIVE PROTEIN (BEAKER) (test 0.07 mg/dL 0.00-0.50 code = 676) [employer] HEVER SIGALA MLactic acid, [id number] 01:46:00 Test Item Value Reference Range Interpretation Comments Lactate, Venous (test code 1.19 mmol/L 0.5-2.2 = 2872) JEFF (test code = JEFF) [employer] HEVER SIGALA M Lab Interpretation (test Normal code = 35306-8) [facility] CenterLACTIC ACID, [id number] 01:46:00 Test Item Value Reference Range Interpretation Comments LACTATE BLOOD VENOUS (2) (BEAKER) 1.19 mmol/L 0.50-2.20 (test code = 2872) [employer] HEVER SIGALA [id number] 01:39:00 Test Item Value Reference Range Interpretation Comments D-Dimer, Quant (test 3.43 See_Comment H [Autom ated code = 10700-4) message] The system which generated this result [...] range. Lab Interpretation Abnormal (test code = 43251-6) [facility] CenterD-[id number] 01:39:00 Test Item Value Reference Range Interpretation [...] 95-100% range.CBC with platelet count + automated [id number] 01:18:00 Test Item Value Reference Range Interpretation Comments WBC (test code = 6690-2) 8.5 See_Comment [A utomated message] The system [employer] generated this result transmitted ref erence range: 3.5 - 10 .5 K/L. The refe rence range was not u sed to interpret this result as normal/abnor mal. RBC (test code = 789-8) 5.13 See_Comment [Au tomated message] The system [employer] generated this result transmitted ref erence range: 4.63 - 6 .08 M/L. The refe rence range was not u sed to interpret this result as normal/abnor mal. MCHC (test code = 786-4) 31.9 See_Comment L [A utomated message] The system [employer] generated this result transmitted ref erence range: [...] See_Comment [Aut omated message] 777-3) The system [employer] generated this result transmitted ref erence range: 150 - 45 0 K/CU MM. The referen ce range was not u sed to interpret this result as normal/abnor mal. MPV (test code = 9.0 fL 9.4-12.4 L 70108-5) nRBC (test code = 413) 0 See_Comment [Aut omated message] The system [employer] generated this result transmitted ref erence range: [...] H [Aut omated message] 670) The system [employer] generated this result transmitted ref erence range: 1.78 - 5 .38 K/L. The refe rence range was not u sed to interpret this result as normal/abnor mal. # Lymphs (test code = 1.52 See_Comment [Auto mated message] 414) The system [employer] generated this result transmitted ref erence range: 1.32 - 3 .57 K/L. The refe rence range was not u sed to interpret this result as normal/abnor mal. # Monos (test code = 0.66 See_Comment [Autom ated message] 415) The system [employer] generated this result transmitted ref erence range: 0.30 - 0 .82 K/L. The refe rence range was not u sed to interpret this result as normal/abnor mal. # Eos (test code = 416) 0.05 See_Comment [Au tomated message] The system [employer] generated this result transmitted ref erence range: 0.04 - 0 .54 K/L. The refe rence range was not u sed to interpret this result as normal/abnor mal. # Baso (test code = 417) 0.03 See_Comment [A utomated message] The system [employer] generated this result transmitted ref erence range: 0.01 - 0 .08 K/L. The refe rence range was not u sed to interpret this result as normal/abnor mal. Immature 0 % 0-1 Granulocytes-Relative (test code = 2801) Lab Interpretation (test Abnormal code = 33102-1) [facility] & AUTO [id number] 01:18:00 Test Item Value Reference Range Interpretation [...] 0-1 PERCENT (BEAKER) (test code = 2801) GHN-[id number] 00:00:00Ordered by an unspecified provider.[facility] [id number] 16:50:000.7[facility] PANEL 2017-08-09 16:50:007.6[facility]annCHEM [id number] 16:50:0025[facility]annCHEM [id number] 16:50:003.7[facility]annCHEM [id number] 16:50:0019[facility]annCHEM [id number] 16:50:009.3[facility]annCHEM [id number] 16:50:70645Teqvzuly HermannCHEM [id number] 16:50:004.2 [facility] MlqxmssWPYFBMJAPH4603-98-37 16:50:000.91[facility]annHEMATOLOGY 2017-08-09 16:50:00 Test Item Value Reference Range Interpretation Comments PROTIME (test code = PROTIME) 12.3 s 12.0-14.7 [facility] P[id number] 16:50:00 Test Item Value Reference Range Interpretation Comments aPTT (test code = aPTT) 33.6 s 22.9-35.8 [facility] [id number] 16:50:007.5[facility]annHEMATOLOGY 2017-08-09 16:50:94233Bygoddvx LupfmvaZIBPQEGLUQ1889-91-74 16:50:0017.4[facility] VqrqxghPADNRFFMBA9787-04-32 16:50:00 Test Item Value Reference Range Interpretation Comments MCH (test code = MCH) 25.4 pg 27.0-31.0 [facility] MtjzctdODBSLJDLUD6935-18-71 16:50:0031.9[facility]annHEMATOLOGY 2017-08-09 16:50:0079.5[facility] SkwvbseNEQGFMLLIB0388-85-85 16:50:0042.1[facility] ZhkdqaxOQOKDCOFUP8406-02-27 16:50:0013.4[facility] BozmrthXYOBLBTNDR5584-78-25 16:50:005.29[facility] OsrdlttIHFLQKRADR9547-19-59 16:50:004.8[facility] MBKSOCVVYX4295-73-50 16:50:000.5[facility] VwvijdbXMZWDULYZB2523-52-14 16:50:000.2 [facility] CwjzxxhDSTLLZSKLO4866-52-05 16:50:001.1[facility]annHEMATOLOGY 2017-08-09 16:50:003.0[facility] SjfpajtRGOAWBVPYT6336-17-66 16:50:000.7[facility] OrsqdunAMOBDRFKIQ8501-41-36 16:50:004.7[facility] UzgruaaJWBSHGNWXZ7361-57-23 16:50:0010.6[facility] DuhadjgSSXAVJGPWR6308-80-44 16:50:0023.0[facility] HFACVWVZBD9475-18-11 16:50:0061.0[facility] HermannSPECIAL CLQCCHEOE8057-14-96 16:50:007.1[facility]annCHEM GJPYR7664-15-52 16:50:0024.0[facility]annCHEM GTPJV2224-69-72 16:50:003.9[facility]annCHEM [id number] 16:50:000.9 [facility]annCHEM ZVMNK2346-46-14 16:50:007.2[facility]annCHEM PANEL 2017-08-09 16:50:0015[facility] HermannCHEM BDDDC8268-73-08 16:50:0065[facility]annCHEM BPNDS2864-25-07 16:50:0034[facility]annCHEM HDWSQ9012-12-39 16:50:0087[facility]annCHEM ASVZE0679-78-26 16:50:0018[facility]annCHEM FNCMJ0320-42-49 16:50:001.20[facility]annCHEM QYRFN4490-59-13 16:50:78419 [facility]annCHEM [id number] 16:50:0055[facility][QL] D-DIMER, [id number] 15:20:01 Test Item Value Reference Range Interpretation [...] u sed to rule out DVT/PE . [facility]] C-REACTIVE [id number] 15:20:01 Test Item Value Reference Range Interpretation Comments CRP (test code = CRP) <2.9 <=2.9 [facility]] SED RATE BY MODIFIED [id number] 15:20:01 Test Item Value Reference Range Interpretation Comments Sedimentation Rate (test code = 11 {mm/hr} 0-15 Sedimentation Rate) [facility]] HEMOGLOBIN [id number] 15:20:01 Test Item Value Reference Range Interpretation Comments Hemoglobin A1c; Above High Threshold 7.8 % <=5.6 (test code = 4548-4) [facility][U] XRAY KNEE 3 VWS RIGHT [id number] 14:25:00 Images acquired, not reported on this accession number.[facility]
[2021-04-04 14:45] LABS: Absolute Lymphocytes (CBC) 1.2 K/uL (0.7-4.9); Basophils % 0.6 % (0-1.3); Hematocrit 43.7 % (39.6-49.0); Lymphocytes % 13.8 % (15.3-44.8); MPV 7.2 fL (7.6-11.3); RBC Red Blood Cell Count 5.58 M/uL (4.33-5.43)
[2021-04-04 15:01] LABS: Bilirubin Direct 0.3 mg/dL (0-0.2); Bilirubin Total 1.5 mg/dL (0.2-1.0); Potassium 3.1 mmol/L (3.5-5.1); Protein, Total 7.8 g/dL (6.4-8.2)
[2021-04-04] MEDS ORDERED: KCL 20 MEQ/100 mL IVPB 20 MEQ/100 ML BAG IV ONE (16:19)
[2021-04-04] MEDS ORDERED: NA CHLORIDE 0.9% 1,000 ML ONE (16:19)
[2021-04-04] MEDS ORDERED: ONDANSETRON 4 MG/2 ML VIAL ONE (16:19)
--- NOTE | 2021-04-04 16:36 | RAD REPORT ---
EXAM DESCRIPTION: CTAbdomen Pelvis W Contrast - 04/04/2021 4:16 pm CLINICAL HISTORY: Abdominal pain. diarrhea;Abd pain COMPARISON: Abdomen Pelvis W Contrast dated 05/21/2020 TECHNIQUE: Biphasic CT imaging of the abdomen and pelvis was performed with 100 ml non-ionic IV cont rast. All CT scans are performed using dose optimization technique as appropriate and may include automated exposure control or mA/KV adjustment according to patient size. FINDINGS: The lung bases are clear. The liver is within normal limits. Cholecystectomy. Adrenal glands unremarkable. Pancreas unremarkabl e. The spleen is unremarkable. No retroperitoneal lymphadenopathy is identified. Left lower quadrant pain pump and right abdominal wall spinal stimulator. Mild rectal and distal sigmoid wall thickening and hyperenhancement. Normal appendix. No bowel obstruction, free air, free fluid or abscess. The appendix is normal. No evidence of signi ficant lymphadenopathy. No suspicious bony findings. Advanced degenerative changes are present in the spine. IMPRESSION: Distal sigmoid and rectal wall thickening with mild hyperenhancement consistent with a m ild colitis. No complicating features.
--- NOTE | 2021-04-04 16:49 | ER ---
Nurse's Notes [facility] Name: Melody Duarte Age: 65 yrs Sex: Male : 1955 Arrival Date: 04/04/2021 Time: 13:02 Bed 28 Private MD: Diagnosis: Left sided colitis without complications;Hypokalemia Presentation: 04/04 14:14 Chief complaint: Spouse and/or significant other states: has not had anything to eat iw for a few days, has been vomiting and having diarrhea and chills, no fever , says his stomach was hurting. Coronavirus screen: chills, diarrhea, fatigue, vomiting. Ebola Screen: Patient negative for fever greater than or equal to 101.5 degrees Fahrenheit, and additional compatible Ebola Virus Disease symptoms Patient denies exposure to infectious person. Patient denies travel to an Ebola-affected area in the 21 days before illness onset. No symptoms or risks identified at this time. Initial Sepsis Screen: Does the patient meet any 2 criteria? No. Patient's initial sepsis screen is negative. Does the patient have a suspected source of infection? No. Patient's initial sepsis screen is negative. Risk Assessment: Do you want to hurt yourself or someone else? Patient reports no desire to harm self or others. Onset of symptoms was April 01, 2021. 14:14 Method Of Arrival: Wheelchair iw 14:14 Acuity: EVA 3 iw Historical: - Allergies: 14:16 Sulfa (Sulfonamide Antibiotics); iw - Home Meds: 14:16 aspirin 81 mg Oral TbEC 1 tab once daily [Active]; azelastine 137 mcg (0.1 %) nasal iw spra 2 times per day [Active]; docusate sodium 100 mg Oral cap 1 cap 2 times per day [Active]; donepezil 5 mg Oral tab 1 tab once daily [Active]; gabapentin 300 mg Oral cap 1 cap 3 times per day [Active]; galantamine 12 mg Oral tab 1 tab 2 times per day [Active]; glimepiride 2 mg Oral tab 1 tab once daily [Active]; hydromorphone 4 mg Oral tab 1 tab [Active]; losartan 25 mg Oral tab 1 tab once daily [Active]; metformin 500 mg Oral tab 1 tab 2 times per day [Active]; mirtazapine 15 mg Oral tab [Active]; nitroglycerin 0.4 mg SL subl 1 tab every 5 minutes [Active]; rosuvastatin 40 mg Oral tab 1 tab once daily [Active]; tamsulosin 0.4 mg Oral cp24 1 cap once daily [Active]; tizanidine 4 mg Oral cap [Active]; Xarelto 20 mg Oral tab [Active]; - PMHx: 14:16 Chronic pain; Dementia; Diabetes - NIDDM; Hyperlipidemia; Hypertension; iw - PSHx: 14:16 lower back; right knee; iw - Immunization history:: Client reports receiving the 2nd dose of the Covid vaccine. - Family history:: not pertinent. - Social history:: Smoking status: unknown. - Hospitalizations: : No recent hospitalization is reported. Screenin:36 Abuse screen: Denies threats or abuse. Nutritional screening: No deficits noted. ll1 Tuberculosis screening: No symptoms or risk factors identified. Fall Risk IV access (20 points). Gait- Weak (10 pts.). Total Romero Fall Scale indicates Low Risk Score (25-44 pts). Fall prevention measures have been instituted. Side Rails Up X 2 Placed close to Nursing Station Frequent Obs/Assesments occuring Family Present and informed to notify staff if they need to leave bedside As available Patient and Family Educated on Fall Prevention Program and strategies. Assessment: 15:35 General: Appears ill, Behavior is calm, cooperative, appropriate for age. Pain: ll1 Complains of pain in abdomen diffusely Quality of pain is described as aching, crampy. Neuro: Level of Consciousness is awake, alert, obeys commands, Oriented to person, place, time, situation, Appropriate for age Color Maker are weak bilaterally Full function Weakness Gait is unsteady, Speech is normal, Facial symmetry appears normal, Pupils are PERRLA, Reports dizziness, weakness. Cardiovascular: No deficits noted. Respiratory: No deficits noted. GI: Abdomen is flat, Bowel sounds present X 4 quads. Abd is soft and non tender X 4 quads. Reports lower abdominal pain, upper abdominal pain, cramping, diarrhea, nausea, vomiting. 16:35 Reassessment: No changes from previously documented assessment. Patient and/or family ll1 updated on plan of care and expected duration. Pain level reassessed. Patient is alert, oriented x 3, equal unlabored respirations, skin warm/dry/pink. 17:35 Reassessment: No changes from previously documented assessment. Patient and/or family ll1 updated on plan of care and expected duration. Pain level reassessed. Patient is alert, oriented x 3, equal unlabored respirations, skin warm/dry/pink. Patient states feeling better. Patient states symptoms have improved. 18:15 Reassessment: No changes from previously documented assessment. Patient and/or family ll1 updated on plan of care and expected duration. Pain level reassessed. Vital Signs: 14:14 BP 123 / 75; Pulse 82; Resp 16; Temp 98.9; Pulse Ox 100% on R/A; Weight 102.06 kg; iw Height 6 ft. 3 in. (190.50 cm); 16:36 BP 154 / 96; Pulse 62; Resp 16; Pulse Ox 100% ; ll1 19:18 BP 151 / 91; Pulse 60; Resp 17; Pulse Ox 100% ; ll1 14:14 Body Mass Index 28.12 (102.06 kg, 190.50 cm) iw ED Course: 13:02 Patient arrived in ED. rg4 14:16 Triage completed. iw 14:17 Arm band placed on. iw 14:29 Initial lab(s) drawn, by me, sent to lab. Inserted saline lock: 20 gauge in right iw antecubital area, using aseptic technique. Blood collected. 15:28 Srinivas Lemos MD is Attending Physician. rn 15:30 Whitney Eli RN is Primary Nurse. ll1 15:30 Patient placed in an exam room, on a stretcher. ll1 16:16 CT Abd/Pelvis - IV Contrast Only In Process Unspecified. EDMS 16:36 Patient has correct armband on for positive identification. Bed in low position. Call ll1 light in reach. Side rails up X2. Pulse ox on. NIBP on. 18:15 IV discontinued, intact, bleeding controlled, No redness/swelling at site. Pressure ll1 dressing applied. 19:17 No provider procedures requiring assistance completed. ll1 Administered Medications: 16:05 Drug: Zofran (Ondansetron) 4 mg Route: IVP; Site: right antecubital; ll1 16:37 Follow up: Response: No adverse reaction; Nausea is decreased; RASS: Alert and Calm (0) ll1 16:10 Drug: NS 0.9% 1000 ml Route: IV; Rate: 1000 ml; Site: right antecubital; ll1 17:33 Follow up: Response: No adverse reaction; IV Status: Completed infusion; IV Intake: ll1 1000ml 16:34 Drug: Potassium Chloride 10 mEq Route: IV; Rate: calculated rate; Site: right ll1 antecubital; 17:32 Follow up: Response: No adverse reaction; IV Status: Completed infusion; IV Intake: 54oaaa1 17:07 Drug: Rocephin (cefTRIAXone) 1 grams Route: IV; Rate: calculated rate; Site: right ll1 antecubital; 17:32 Follow up: Response: No adverse reaction; IV Status: Completed infusion; IV Intake: 92fjtu7 17:07 Drug: Flagyl (metroNIDAZOLE) 500 mg Volume: 100 ml; Route: IVPB; Rate: 200 ml/hr; ll1 Infused Over: 30 mins; Site: right antecubital; 18:17 Follow up: Response: No adverse reaction; RASS: Alert and Calm (0); IV Status: ll1 Completed infusion; IV Intake: 100ml Intake: 17:32 IV: 50ml; Total: 50ml. ll1 17:32 IV: 50ml; Total: 100ml. ll1 17:33 IV: 1000ml; Total: 1100ml. ll1 18:17 IV: 100ml; Total: 1200ml. ll1 Outcome: 16:49 Discharge ordered by . rn 18:18 Patient left the ED. ll1 18:18 Discharged to home ambulatory. ll1 18:18 Condition: stable 18:18 Discharge instructions given to patient, family, Instructed on discharge instructions, follow up and referral plans. medication usage, Demonstrated understanding of instructions, follow-up care, medications, Prescriptions given X 3. Signatures: Dispatcher [employer] Zayda Metz RN RN iw Nieto, Roman, MD MD rn Garcia, Rubi Whitney Petty RN RN [facility]
--- NOTE | 2021-04-04 16:49 | EDPHYS ---
Physician Documentation [facility] Name: Melody Duarte Age: 65 yrs Sex: Male : 1955 Arrival Date: 04/04/2021 Time: 13:02 Bed 28 Private MD: ED Physician Srinivas Lemos HPI: 04/04 15:39 This 65 yrs old Male presents to ER via Wheelchair with complaints of rn Vomiting/Diarrhea, Weakness. 15:39 The patient presents to the emergency department with nausea, vomiting, diarrhea, rn abdominal pain, of the abdomen diffusely, described as achy, crampy, and does not radiate. 15:40 Onset: The symptoms/episode began/occurred 4 day(s) ago. Possible causes: unknown. The rn symptoms are aggravated by nothing. The symptoms are alleviated by nothing. Associated signs and symptoms: Pertinent positives: abdominal pain, anorexia, diarrhea, Pertinent negatives: fever, GI bleeding. Severity of symptoms: At their worst the symptoms were moderate in the emergency department the symptoms have improved. The patient has not experienced similar symptoms in the past. The patient has not recently seen a physician. Reports 4 days of abdominal pain, nausea, vomiting, diarrhea. Now able to tolerate p.o. Reports still having nonbloody diarrhea. No fever, positive chills. No known sick contacts.. Historical: - Allergies: 14:16 Sulfa (Sulfonamide Antibiotics); iw - Home Meds: 14:16 aspirin 81 mg Oral TbEC 1 tab once daily [Active]; azelastine 137 mcg (0.1 %) nasal iw spra 2 times per day [Active]; docusate sodium 100 mg Oral cap 1 cap 2 times per day [Active]; donepezil 5 mg Oral tab 1 tab once daily [Active]; gabapentin 300 mg Oral cap 1 cap 3 times per day [Active]; galantamine 12 mg Oral tab 1 tab 2 times per day [Active]; glimepiride 2 mg Oral tab 1 tab once daily [Active]; hydromorphone 4 mg Oral tab 1 tab [Active]; losartan 25 mg Oral tab 1 tab once daily [Active]; metformin 500 mg Oral tab 1 tab 2 times per day [Active]; mirtazapine 15 mg Oral tab [Active]; nitroglycerin 0.4 mg SL subl 1 tab every 5 minutes [Active]; rosuvastatin 40 mg Oral tab 1 tab once daily [Active]; tamsulosin 0.4 mg Oral cp24 1 cap once daily [Active]; tizanidine 4 mg Oral cap [Active]; Xarelto 20 mg Oral tab [Active]; - PMHx: 14:16 Chronic pain; Dementia; Diabetes - NIDDM; Hyperlipidemia; Hypertension; iw - PSHx: 14:16 lower back; right knee; iw - Immunization history:: Client reports receiving the 2nd dose of the Covid vaccine. - Family history:: not pertinent. - Social history:: Smoking status: unknown. - Hospitalizations: : No recent hospitalization is reported. ROS: 15:41 Constitutional: Negative for fever, and weight loss, Eyes: Negative for injury, pain, rn redness, and discharge, Neck: Negative for injury, pain, and swelling, Cardiovascular: Negative for chest pain, palpitations, and edema, Respiratory: Negative for shortness of breath, cough, wheezing, and pleuritic chest pain, Abdomen/GI: + abd pain/nausea/vomiting/diarrhea Back: Negative for injury and pain, : Negative for injury, bleeding, discharge, and swelling, MS/Extremity: Negative for injury and deformity, Skin: Negative for injury, rash, and discoloration, Neuro: Negative for headache, numbness, tingling, and seizure. Exam: 15:41 Constitutional: This is a well developed, well nourished patient who is awake, alert, rn and in no acute distress. Head/Face: Normocephalic, atraumatic. Eyes: Periorbital areas with no swelling, redness, or edema. ENT: Dry mucous membranes Cardiovascular: Regular rate and rhythm. No pulse deficits. Respiratory: No increased work of breathing, no retractions or nasal flaring. Abdomen/GI: Soft, non-tender Skin: Warm, dry MS/ Extremity: Pulses equal, no cyanosis. Neuro: Awake and alert, GCS 15 Vital Signs: 14:14 BP 123 / 75; Pulse 82; Resp 16; Temp 98.9; Pulse Ox 100% on R/A; Weight 102.06 kg; iw Height 6 ft. 3 in. (190.50 cm); 16:36 BP 154 / 96; Pulse 62; Resp 16; Pulse Ox 100% ; ll1 19:18 BP 151 / 91; Pulse 60; Resp 17; Pulse Ox 100% ; ll1 14:14 Body Mass Index 28.12 (102.06 kg, 190.50 cm) iw MDM: 15:28 Patient medically screened. rn 16:47 Differential diagnosis: diverticulitis, viral gastroenteritis, gastroenteritis, rn colitis. Data reviewed: vital signs, nurses notes, lab test result(s), radiologic studies, CT scan, and as a result, I will discharge patient. Counseling: I had a detailed discussion with the patient and/or guardian regarding: the historical points, exam findings, and any diagnostic results supporting the discharge/admit diagnosis, lab results, radiology results, the need for outpatient follow up, to return to the emergency department if symptoms worsen or persist or if there are any questions or concerns that arise at home. Response to treatment: the patient's symptoms have mildly improved after treatment, and as a result, I will discharge patient. Special discussion: I discussed with the patient/guardian in detail that at this point there is no indication for admission to the hospital. It is understood, however, that if the symptoms persist or worsen the patient needs to return immediately for re-evaluation. Based on the history and exam findings, there is no indication for further emergent testing or inpatient evaluation. I discussed with the patient/guardian the need to see the primary care provider for further evaluation of the symptoms. ED course: Shows mild left-sided colitis, normal blood work, stable vitals. Will DC home with antibiotics and return precautions.. 04/04 14:18 Order name: Basic Metabolic Panel; Complete Time: 15:28 04/04 14:18 Order name: CBC with Diff; Complete Time: 15: 04/04 14:18 Order name: Hepatic Function; Complete Time: 15:04/04 14:18 Order name: Lipase; Complete Time: 15:04/04 17:54 Order name: SARS-COV-2 RT PCR EDKY 04/04 14:18 Order name: IV Saline Lock; Complete Time: 15:32 04/04 14:18 Order name: Labs collected and sent; Complete Time: 15:32 04/04 15:39 Order name: CT Abd/Pelvis - IV Contrast Only; Complete Time: 16:42 rn Administered Medications: 16:05 Drug: Zofran (Ondansetron) 4 mg Route: IVP; Site: right antecubital; ll1 16:37 Follow up: Response: No adverse reaction; Nausea is decreased; RASS: Alert and Calm (0) ll1 16:10 Drug: NS 0.9% 1000 ml Route: IV; Rate: 1000 ml; Site: right antecubital; ll1 17:33 Follow up: Response: No adverse reaction; IV Status: Completed infusion; IV Intake: ll1 1000ml 16:34 Drug: Potassium Chloride 10 mEq Route: IV; Rate: calculated rate; Site: right ll1 antecubital; 17:32 Follow up: Response: No adverse reaction; IV Status: Completed infusion; IV Intake: [id number] 17:07 Drug: Rocephin (cefTRIAXone) 1 grams Route: IV; Rate: calculated rate; Site: right ll1 antecubital; 17:32 Follow up: Response: No adverse reaction; IV Status: Completed infusion; IV Intake: [id number] 17:07 Drug: Flagyl (metroNIDAZOLE) 500 mg Volume: 100 ml; Route: IVPB; Rate: 200 ml/hr; ll1 Infused Over: 30 mins; Site: right antecubital; 18:17 Follow up: Response: No adverse reaction; RASS: Alert and Calm (0); IV Status: ll1 Completed infusion; IV Intake: 100ml Disposition Summary: 04/04/21 16:49 Discharge Ordered Location: Home rn Problem: new rn Symptoms: have improved rn Condition: Stable rn Diagnosis - Left sided colitis without complications rn - Hypokalemia rn Followup: rn - With: Private Physician - When: As needed - Reason: Recheck today's complaints, Re-evaluation by your physician Discharge Instructions: - Discharge Summary Sheet rn - Hypokalemia rn - Colitis rn Forms: - Medication Reconciliation Form rn - Thank You Letter rn - Antibiotic pharmacy graduate intern - Prescription Opioid Use rn Prescriptions: - Augmentin 875-125 mg Oral Tablet - take 1 tablet by ORAL route every 12 hours for 10 days; 20 tablet; Refills: 0, rn Product Selection Permitted - Flagyl 500 mg Oral Tablet - take 1 tablet by ORAL route every 8 hours for 10 days; 30 tablet; Refills: 0, rn Product Selection Permitted - ondansetron 4 mg Oral tablet,disintegrating - take 1 tablet by ORAL route every 8 hours As needed; 20 tablet; Refills: 0, rn Product Selection Permitted Signatures: Dispatcher [employer] EDZayda Ramon RN RN iw Nieto, Roman, MD MD rn Lewis, Lynsay, RN RN ll1 Corrections: (The following items were deleted from the chart) 16:42 15:42 CORONAVIRUS+Z ordered. EDMS EDMS
[2021-04-04] MEDS ORDERED: METRONIDAZOLE 500mg IVPB 500 MG/100 ML BAG IV ONE (17:14)
[2021-04-04] MEDS ORDERED: CEFTRIAXONE/SWI 1gm 1 GM/10 ML SYR ONE (17:14)
[2021-04-04 18:22] VITALS: TEMP 98.9; O2SAT 100
[2021-04-04 18:24] VITALS: BP 154/96
== END 2021-04-04 18:18 | disposition home or self-care (01) ==
LOC: ER 12:59
DX: K51.50 Left sided colitis without complications (principal); E87.6 Hypokalemia; I10 Essential (primary) hypertension; E11.9 Type 2 diabetes mellitus without complications; F03.90 Unspecified dementia, unspecified severity, without behavioral disturbance, psychotic disturbance, mood disturbance, and anxiety; Z79.01 Long term (current) use of anticoagulants; Z79.82 Long term (current) use of aspirin; Z88.2 Allergy status to sulfonamides; Z20.822 Contact with and (suspected) exposure to COVID-19
CPT/HCPCS: 96365; 96367; 85025; 80048; 36415; 80076; 83690; 74177; 96375; 99284; U0003; Q9967; J3480; J0696; J7030; J2405

== ENCOUNTER 2021-04-08 11:21 | Emergency (ER) | payer MEDICARE ==
--- OUTSIDE RECORDS SUMMARY | 2021-04-08 11:25 | XMS REPORT | Continuity of Care Document ---
:1955 Author Organization [facility] t Address [address] [place] [address] Care Team Providers Name Role Phone Sharpless Primary Care Physician Yamil THOMPSON Attending Clinician Porfirio MUNROEP Attending Clinician Lab, Fam Pob I Attending Clinician Unavailable Merchant THOMPSON Attending Clinician IRINA Attending Clinician Unavailable Irina THOMPSON Attending Clinician Jen Castano MD Attending Clinician MEGHA Attending Clinician Unavailable LEYDA Attending Clinician Unavailable Donald Cleveland Attending Clinician JEN CASTANO Admitting Clinician Unavailable Donald Cleveland Admitting Clinician Payers Payer Name Policy Type Policy Effective Date Expiration Date Sour ce Number WELL[employer]ARE MEDICARE [id number] [address] [facility] MGD CAREWELLCARE 00:00:00 - Medica l [id number] Center 21-Present CARE IMPROVEMENT [id number] [address] [facility] MEDICARE MGD 00:00:00 - Medical CARECARE Center IMPROVEMENT [id number] Problems Condition Condition Condition Status Onset Resolution Last Treating Co mments Source Name Details Category Date Date Treatment Clinician Date Acute Acute Disease Active [facility] pulmonary 1-08 [facility] - embolism embolism 00:00: Medica l 00 Center Opiate Opiate Disease Active [facility] withdrawal withdrawal -08 Parvin kes - 00:00: Medical 00 Center Pneumonia Pneumonia Disease Active [facility] - [facility] 00 Center Weakness Weakness Disease Active [facility] - [facility] Medical 00 Center PAINFUL Diagnosis Active 2016-092017-08-22 Az moria TKA 10-03 16:59:00 l PAINFUL 00:00: Malick TKA 00 Active 08/03/2017 [facility] [place] Diabetes Problem Active 2017-08-22 Mem oria mellitus [...] Active 2017-08-22 M emoria (disorder) 01:57:15 l [place] Neuropathy (disorder) Active Problem 08/22/2017 Feet MH [...] M emoria c opioid 01:57:15 l induced [place] constipati Therapeuti on c opioid (disorder) induced constipati on (disorder) Active Problem 08/22/2017 [facility] Diabetes Problem Active 2017-08-22 Mem oria mellitus 01:57:15 l type 2 Diabetes Ken n (disorder) mellitus type 2 (disorder) Active Problem 08/22/2017 [facility] Arthritis Problem Active 2017-08-22 [...] sulfamet Active Memori a hoxazole hoxazole l [place] Social History Social Habit Start Date Stop Date Quantity Comments Source Sex Assigned At [facility] Social History 2017-08-09 2017-08-09 Leilani redmond 20:40:47 20:40:47 Tobacco use and 2015-10-17 2015-10-17 Never used [facility] - exposure 00:00:00 00:00:00 [facility] Alcohol intake 2015-10-17 2015-10-17 [facility]:00 non-drinker of Medical nter alcohol (finding) Smoking Status Start Date Stop Date Source Never smoker [facility] Medications Ordered Filled Start Stop Current Ordering Indication Dosage Frequency Signature Comments Components Source Medication Medication Date Date Medication? Clinician (SIG) Name Name rivaroxaban 2020- No 20mg Take [address] [facility] (XARELTO) 09-1319 tablet (20 Renny es - 20 mg Tab 00:00: 23:59 mg total) Me dical tablet 00 :00 by mouth Center daily with dinner for 69 days. rivaroxaban 2020- No 15mg Take [address] [facility] (XARELTO) 09-13 01-30 tablet (15 [facility]enny es - 15 mg Tab 00:00: 23:59 mg total) Me dical tablet 00 :00 by mouth 2 Center (two) times daily with breakfast and dinner for 21 days. tiZANidine 0 Yes 4mg Q.5D Take [address] (ZANAFLEX) 1-08 by mouth 2 [facility]enny es - 4 MG tablet 18:03: (two) Medic al 17 times Center daily. promethazin 0 Yes 25mg Take [address] [facility] e 1-08 by mouth [facility] - (PHENERGAN) 18:03: every 6 Med ical 25 MG 17 (six) Center tablet hours as needed for Nausea. lisinopril Yes 20mg QD Take [address] (PRINIVIL,Z -08 by mouth Luke s - ESTRIL) 20 18:03: daily. Medic al MG tablet 17 [place] HYDROmorpho Yes 4mg Take [address] ne -08 by mouth [facility] - (DILAUDID) 18:03: every 8 Medi gregory 4 MG tablet 17 (eight) Cente r hours as needed for Pain. donepezil Yes 5mg QD Take [address] [facility] (ARICEPT) 5 -08 by mouth Luke s - MG tablet 18:03: nightly. Medi gregory 17 [place] MORPHINE Yes by [facility] SULFATE -08 Miscellane [facility] - (MORPHINE, 18:03: ous route. M edical BULK, [facility] 17 [place] rosuvastati Yes 40mg QD Take [address] [facility] n (CRESTOR) -08 by mouth Luke s - 40 MG 18:03: daily. Medical tablet 17 Center metFORMIN Yes 500mg Take [address] [facility] (GLUCOPHAGE 1-08 mg by [facility] - ) 500 MG 18:03: mouth 2 Medica l tablet 17 (two) Center times daily with breakfast and dinner. glimepiride 0 Yes 2mg Take [address] (AMARYL) 2 1-08 by mouth [facility] - MG tablet 18:03: every Medical 17 morning Center before breakfast. celecoxib 2020-0 202- No 200mg Take [address] (CELEBREX) 09-12-08 mg by [facility] - 200 MG 09:53: 00:00 mouth Medical capsule 50 :00 every 12 Center (twelve) hours as needed for Pain. apixaban No Take [address] [facility] (ELIQUIS) 5 09-12- tablets Luke s - mg Tab 00:00: [...] n 2-16 (Same As: l 03:00: Crestor) [place] 00 Requip 2016-09 No Notes: Memoria 2-16 (Same as: l 03:00: Requip) [place] 00 donepezil 2016-09 No Notes: Memori a 2-16 (Same as: l 03:00: Aricept) [place] 00 sennosides, 2016-09 No Notes: Nickolas emeka ASSISTED 2-16 (Same as: l 03:00: Senokot) [place] 00 Celebrex 2016-09 No Notes: Memoria 2-16 NSAID. l 00:00: Please [place] 00 check indication . Not for seizure. (Same As: CeleBREX) Vancomycin 2016-09 Yes 2001 mg: Me moria 2-16 infuse l 00:00: over 2.5 Henderson 00 hours MEDICATION WASTE Product Size: 1000 mg Product Wasted: ___ mg Ergocalcife 2016-09 Yes 50,000 Nickolas emeka rol [id number] 2-15 IntlUnit = l UNT Oral 23:26: 1 cap, PO, Her cervantes Capsule 00 Q7D, # 8 caplet, 0 Refill(s) metFORMIN 2016-09 No Notes: Memori a 500 mg oral 2-15 (Same as: l tablet, 23:00: Glucophage Herm ely extended 00 XR) "Do release Not Crush" Docusate 2016-09 No Notes: Memoria Sodium 100 2-15 (Same as: l MG Oral 23:00: Colace) Henderson Capsule 00 (Do Not Crush) Lyrica 2016-09 No Notes: Memoria 2-15 Same as l 22:00: Lyrica [place] 00 Aspirin 325 2016-09 Yes 325 mg = 1 Memoria MG Enteric 2-15 tab, PO, l Coated 20:33: BID, # 60 Ken n Tablet 00 tab, 0 Refill(s) Cefazolin 2016-09 No Notes: Memori a 2-15 (Same As: l 20:00: Ancef, [place] Kefzol) MEDICATION WASTE Product Size: 1000 mg Product Wasted: ___ mg Dextrose 2016-09 No 25 gm, 50 Nickolas emeka 50% Syringe 2-15 mL, Route: l 17:50: IVP, Drug Form: INJ, Dosing Weight 102.273, kg, PRN, PRN Blood Glucose Results, Start date: 08/19/17 11:50:00 RETAIL PRODUCT ADVISOR, Duration: 30 day, Stop date: 09/18/17 11:49:00 RETAIL PRODUCT ADVISOR Insulin 2016-09 No Notes: Memoria Lispro 2-15 [...] 2-15 Route: IM, l 17:50: Drug form: Henderson 00 PDR/INJ, PRN, Dosing Weight 102.273, kg, PRN Blood Glucose Results, Start date: 08/19/17 11:50:00 RETAIL PRODUCT ADVISOR, Duration: 30 day, Stop date: 09/18/17 11:49:00 RETAIL PRODUCT ADVISOR Ergocalcife 2016-09 No Notes: Nickolas emeka rol 08629 2-15 (Same as: l UNT Oral 16:00: [...] Total Volume: 1,000, Start date: 08/19/17 9:30:00 RETAIL PRODUCT ADVISOR, Duration: 30 day, Stop date: 09/18/17 9:29:00 RETAIL PRODUCT ADVISOR, 2.35, m2 Promethazin 2016-09 No Notes: Do M emoria e 2-15 not give l 13:38: IV push. Henderson 00 (Same as: Phenergan) Ondansetron 2016-09 No Notes: Nickolas emeka 2-15 (Same as: l 13:38: Zofran) MEDICATION WASTE Product Size: 4 mg Product Wasted: ___ mg Meperidine 2016-09 No Notes: Memor ia 2-15 (Same as: l 13:38: Demerol) Malick 00 "Use Precaution in Elderly, Seizure disorders, and Renal impairment " Acetaminoph 2016-09 No Notes: Max Memoria en 2-15 acetaminop l 13:38: hen 4000 [place] 00 mg/day (4 gm/day). (Same as: Tylenol Extra Strength) Naloxone 2016-09 No Notes: Memoria 2-15 Same as l 13:38: Narcan Flumazenil 2016-09 No Notes: Memor ia 2-15 (Same as: l 13:38: Romazicon) [place] 00 Hydromorpho 2016-09 No Notes: Nickolas emeka ne 2-15 (Same as: l 13:38: Dilaudid) Morphine 2016-09 No Notes: Memoria 2-15 (Same l 13:38: as:MORPhin [place] 00 e Sulfate) Labetalol 2016-09 No 10 mg, 2 Nickolas emeka 2-15 mL, Route: l 13:38: IVP, Drug form: INJ, Q5Min, Dosing Weight 102.273, kg, PRN Elevated BP, Start date: 08/19/17 7:38:00 RETAIL PRODUCT ADVISOR, Duration: 5 doses or times, Stop date: 08/19/17 22:00:00 RETAIL PRODUCT ADVISOR Hydralazine 2016-09 No Notes: Nickolas emeka 2-15 [...] 0.9% IV 250 mL vancomycin 2016-09 No 2000 mg: Me moria 2-15 infuse l 12:00: over 2.5 [place] 00 hours Cefazolin 2016-09 No Notes: Memori a 2-15 (Same As: l 12:00: Ancef, Henderson 00 Kefzol) MEDICATION WASTE Product Size: 1000 mg Product Wasted: ___ mg Vancomycin 2016-09 No 1,534.095 Me moria 2-15 mg, Route: l 12:00: IVPB, Henderson 00 ONCALL, Dosing Weight 102.273, kg, Start date: 08/19/17 6:00:00 RETAIL PRODUCT ADVISOR, Duration: 1 doses or times, ABX Indication : Surgical Prophylaxi s celecoxib 2016-09 No Notes: Memori a 2-15 NSAID. l 12:00: Please [place] 00 check indication . Not for seizure. (Same As: CeleBREX) 72 HR 2016-09 No Notes: Memoria Scopolamine 2-15 Change l 0.0139 11:24: patch Henderson MG/HR 00 every 72 Transdermal hours Patch [...] Start MEQ/ML date: Injectable 08/19/17 Solution 5:24:00 RETAIL PRODUCT ADVISOR, Stop date: 08/19/17 5:24:00 RETAIL PRODUCT ADVISOR Lactated 2016-09 No 1,000 mL, Nickolas emeka Ringers IV 2-15 Rate: 100 l 1,000 mL 11:24: ml/hr, Malick 00 Infuse over: 10 hr, Route: IV, Dosing Weight 102.273 kg, Total Volume: 1,000, Start date: 08/19/17 5:24:00 RETAIL PRODUCT ADVISOR, Duration: 30 day, Stop date: 09/18/17 5:23:00 RETAIL PRODUCT ADVISOR, 2.35, m2 Acetaminoph 2016-09 No Notes: Max Memoria en 2-15 acetaminop l 11:24: hen 4000 Henderson 00 mg/day (4 gm/day). (Same as: Tylenol Extra Strength) Famotidine 2016-09 No Notes: Memor ia 2-15 (Same as: l 11:24: Pepcid) [place] 00 linaclotide 2016-09 Yes 290 Memori a 0.29 MG 2-05 microgram l Oral 20:49: = 1 cap, Henderson Capsule 00 PO, Daily, [Linzess] PRN Constipati [...] PO, l oral tablet 20:46: Bedtime, # Henderson 00 90 tab, 1 Refill(s) Azelastine 2016-09 Yes 2 spray, Mem oria hydrochlori 2-05 NASAL, l de 0.137 20:45: BID, 0 Henderson MG/ACTUAT 00 Refill(s) Metered Dose Nasal [place] metFORMIN 2016-09 No 500 mg = 1 [...] NASAL, l de 0.137 20:43: BID, 0 Henderson MG/ACTUAT 00 Refill(s) Metered Dose Nasal [place] linaclotide 2016-09 No 290 Memori a 0.29 MG 2-05 microgram l Oral 20:43: = 1 cap, Henderson Capsule 00 PO, Daily, [Linzess] PRN Constipati [...] Source Systolic blood 2020-09-12 11:42:00 138 mm[Hg] [facility] Diastolic blood 2020-09-12 11:42:00 76 mm[Hg] [facility] Heart rate 2020-09-12 11:42:00 69 /min [facility] Body temperature 2020-09-12 11:42:00 36.72 [facility] Respiratory rate 2020-09-12 11:42:00 19 /min [facility] Oxygen saturation in 2020-09-12 11:42:00 100 /min [facility] Arterial blood by Medical Ce nter Pulse oximetry Body height 2020-09-10 22:00:00 190.5 cm [facility] Body weight 2020-09-10 22:00:00 99.746 kg [facility] BMI 2020-09-10 22:00:00 27.49 kg/m2 [facility] Respitory Rate 2017-08-19 21:15:00 Memori al [place] Systolic (mm Hg) 2017-08-19 21:15:00 Nickolas rial [place] Diastolic (mm Hg) 2017-08-19 21:15:00 Mem orial [place] Temperature Oral (F) 2017-08-19 21:15:00 97.7 F [facility] Heart Rate 2017-08-19 21:15:00 [facility] [place] Systolic (mm Hg) 2017-08-19 16:23:00 Nickolas rial [place] Diastolic (mm Hg) 2017-08-19 16:23:00 Mem orial [place] Respitory Rate 2017-08-19 16:23:00 Memori al [place] Heart Rate 2017-08-19 16:23:00 [facility] [place] Heart Rate 2017-08-19 16:20:00 [facility] [place] Temperature Oral (F) 2017-08-19 16:20:00 96.9 F [facility] [place] Systolic (mm Hg) 2017-08-19 16:20:00 Nickolas rial [place] Diastolic (mm Hg) 2017-08-19 16:20:00 Mem orial [place] Respitory Rate 2017-08-19 16:20:00 Memori al [place] Temperature Oral (F) 2017-08-19 11:25:00 97.8 F [facility] [place] BMI Calculated 2017-08-19 11:20:00 Shirin al [place] Weight 2017-08-19 11:20:00 [facility] Height 2017-08-19 11:20:00 193.04 cm [facility] Procedures Procedure Date / Time Performing Clinician Source Performed CT CHEST PE TEST DESIGN 2020-09-12 09:10:00 Sp Castano [facility] POCT-GLUCOSE METER 2020-09-11 20:47:00 [facility] POCT-GLUCOSE METER 2020-09-11 17:02:00 [facility] URINALYSIS WITH 2020-09-11 12:07:00 pS Castano [facility] - MICROSCOPIC IF INDICATED [facility] URINALYSIS MICROSCOPIC 2020-09-11 12:07:00 Sp Castano CH I [facility] POCT-GLUCOSE METER 2020-09-11 11:09:00 [facility] [place] [facility] POCT-GLUCOSE METER 2020-09-11 08:32:00 Merchant [facility] TROPONIN I 2020-09-11 06:07:00 Sp Castano [facility] SARS-COV2/INFLUENZA/RSV 2020-09-11 05:50:00 Sp Castano [facility] - RT-PCR [facility] RESPIRATORY PANEL [facility] 2020-09-11 05:50:00 Sp Castano CH, I [facility] BLOOD CULTURE 2020-09-11 01:00:00 Ann [facility] BLO[facility] CULTURE 2020-09-11 [facility] AUTO 2020-09-11 00:46:00 Sp Castano [facility] BASIC METABOLIC PANEL (7) 2020-09-11 00:46:00 Ann [facility] HEPATIC FUNCTION PANEL 2020-09-11 00:46:00 Sp Castano [facility] TROPONIN I 2020-09-11 00:46:00 [facility] CREATINE KINASE (CK) 2020-09-11 00:46:00 [facility] LACTIC ACID, VENOUS 2020-09-11 00:46:00 [facility] TSH/FREE T4 IF INDICATED 2020-09-11 00:46:00 [facility] 2020-09-11 00:46:00 [facility] D-DIMER 2020-09-11 00:46:00 [facility] LACTATE DEHYDROGENASE 2020-09-11 00:46:00 [facility] C-REACTIVE PROTEIN 2020-09-11 00:46:00 [facility] REPORT OF PROCEDURE - 2020-09-10 00:00:00 ProviderGunjan [facility] ENDOSCOPY SCAN Scanning Medical [place] [U] XRAY KNEE 3 VWS RIGHT 2017-10-11 00:00:00 [facility] [address] [facility] [[facility] XRAY KNEE 3 VWS RIGHT 2017-10-04 00:00:00 [facility] [address] Physicians [[facility]] HEMOGLOBIN A1c 2017-07-20 00:00:00 [facility] Physicians Arthroscopic procedure [facility] [place] Back fusion [facility] Cholecystectomy [facility] Implantation of sacral [facility]ick nerve stimulator<sup>1</sup> Insertion of implantable Memoria l [place] intrathecal pump<sup>2</sup> Knee replacement Memorial Ken n Procedure on foot Memorial Suzy nn Plan of Care Planned Activity Planned [...] - Test 00:00:00 of 2) [code = [facility] SHINGLES VACCINES (1 of 2)] Future Scheduled [address] [facility] - Test 00:00:00 (procedure) [code = [facility] 67212270] Future Scheduled [address] [facility] - Test 00:00:00 SCREENING [code = Medical Ce nter HEPATITIS C SCREENING] Future Scheduled [address] [facility]enny [facility] - Test 00:00:00 malignant neoplasm Medical C enter of colon (procedure) [code = 142701229] Encounters Start End Encounter Admission Attending Care Care Encounter Source Date/Time Date/Time Type Type Clinicians Facility Department ID 2021-04-08 2021-04-08 Telephone Yamil [facility] [id number] 00:00:00 00:00:00 Earnest [employer] [id number] [place] [id number] [place] [id number] nal 0[address] 2021-04-07 2021-04-07 Telephone Porfirio [facility] [id number] 00:00:00 00:00:00 [facility] [id number] [place] [id number] Professio [phone] nal 044 Office [address] One 2021-04-06 2021-04-06 Biology Intern Lab, [facility] [id number] 14:37:07 14:57:07 Visit Fam Pob I Health [id number] [place] [id number] Professio [phone] nal 044 Office [address] One 2021-04-06 2021-04-06 Office Anene, [facility] [id number] 13:27:46 13:57:46 Visit Xin Health [id number] [place] [id number] Professio [phone] nal 044 Office [address] One 2017-10-13 2017-10-13 AppointTRINH Kidd [facility] [id number] Univers 10:15:00 10:15:00 t; [facility]Y [place] Orthopedics Lesley Doty M.D. Physici ans 2017-10-05 2017-10-05 Appointmen TRINH [place] [facility] [id number] Univers 13:45:00 13:45:00 t; [facility]Y [place] Orthopedics ity of [place], M.D. [place] M.D. Physici ans 2017-09-02 2017-09-02 Appointmen TRINH CRABTREE [facility] [id number] Univers 10:00:00 10:00:00 t; Anegl [place] KELLY, Physici P.A. ans 2017-08-19 2017-08-19 Outpatient Megha [facility] [id number] 05:05:00 18:00:00 Zeny Bennett 2017-08-19 2017-08-19 Appointmen TRINH [place] [facility] [id number] Univers 09:00:00 09:00:00 t; ZENY [place] it y [place], M.D. [place] M.D. Physici ans 2017-07-20 2017-07-20 AppointTRINH Kidd [facility] [id number] Univers 12:30:00 12:30:00 t; ZENY [place], it y of Lesley MOURA M.D. Physici ans Results Test Description Test Time Test Comments Results Result Comments Source Blood Culture - Routine (Right Venipuncture) 2020-09-16 03:0 1:00 Test Item Value Reference Range Interpretation Comme nts Result (test code = 6463-4) No growth in 5 days [id number] 03:01:00 Test Item Value Reference Range Interpretation Comments CULTURE (BEAKER) (test No growth in 5 days code = 1095) BLOOD [id number] 03:01:00 Test Item Value Reference Range Interpretation Comments CULTURE (BEAKER) (test No growth in 5 days code = 1095) CT, CHEST WITH IV CONTRAST- PE TEST [id number] 09:38:00Unlisted Reason for Exam - Click Yes and Enter Reason Below->No [facility] : 1955 Sex: MFINAL REPORT TECHNIQUE: CT [...] relayed toDr. Negron at 9:37 am. Via [employer]). Signed: Jovita Doherty MDReport Verified Date/Time: 09/12/2020 09:38:21 Reading Location: [facility] Diagnostic Imaging Reading Room - [place] [address] [facility]us 2020-09-12 09:38:00Interface, External [...] to Dr. Negron at 9:37 am. Via [employer]). Signed: Jovita Doherty MDReport Verified Date/Time: 09/12/2020 09:38:21 Reading Location: [facility] Diagnostic Imaging Reading Room - [place] [address] [facility] POC-Glucose [id number] 20:59:00 Test Item Value Reference Range Interpretation Comments POC-Glucose Meter (test 146 mg/dL 70-110 H : No tified RN/MD: code = 1538) TESTED AT [address], [address]: Rig Hand/Techni keren ID = [id number] for NOHEMY RODRIGUEZ Lab Interpretation (test Abnormal code = 63238-6) [facility] [id number] 20:59:00 Test Item Value Reference Range Interpretation Comments POC-GLUCOSE METER 146 mg/dL 70-110 H : Notified RN/MD: (NELSON) (test code = TESTED AT [place] [address] 1538) [facility], [address]: Rig Hand/Techni keren ID = [id number] for NOHEMY NG POCT-GLUCOSE [id number] 17:20:00 Test Item Value Reference Range Interpretation Comments POC-GLUCOSE METER 141 mg/dL 70-110 H : TESTED A T [facility] 6720 (NELSON) (test code = [place], 1538) [address]: Rig Hand/Techni keren ID = [id number] for TRACEY CADET TTE Respiratory Panel [id number] 15:25:00 Test Item Value Reference Range Interpretation Comments Human Metapneumovirus Not detected Not detected, (test code = 52615-1) Equivocal Rhinovirus (test code = Not detected Not detected, 11639-0) Equivocal INFLUENZA A (NO Not detected Not detected, SUBTYPE) (test code = Equivocal 89998-4) Influenza A subtype H1 (test code = 09195-2) Influenza A Subtype H3 (test code = 58994-9) Influenza A Subtype H1-2009 (test code = 46111-2) Influenza B (test code Not detected Not detected, = 28324-6) Equivocal Respiratory Syncytial Not detected Not detected, Virus (test code = Equivocal 63198-0) Parainfluenza Virus 1 Not detected Not detected, (test code = 15629-6) Equivocal Parainfluenza Virus 2 Not detected Not detected, (test code = 28984-5) Equivocal Parainfluenza virus 3 Not detected Not detected, (test code = 74591-5) Equivocal Parainfluenza Virus 4 Not detected Not detected, (test code = 49274-0) Equivocal Adenovirus (test code = Not detected Not detected, 21719-0) Equivocal Coronavirus 229E (test Not detected Not detected, code = 99120-4) Equivocal Coronavirus HKU1 (test Not detected Not detected, code = 01170-4) Equivocal Coronavirus NL63 (test Not detected Not detected, code = 79560-2) Equivocal Coronavirus OC43 (test Not detected Not detected, code = 16797-2) Equivocal Bordetella Pertussis Not detected Not detected, (test code = 99235-9) Equivocal Chlamydophila Not detected Not detected, Pneumoniae (test code = Equivocal 14464-2) Mycoplasma Pneumoniae Not detected Not detected, (test code = 36682-2) Equivocal JEFF (test code = JEFF) Other viruses and bacteria not targeted by this PCR panel cannot be excluded; therefore clinical correlation and follow up of serology, culture results, and other molecular studies is required. The results are not intended to be used as the sole means for clinical diagnosis or patient management decisions. This sample was tested at the [facility] Molecular Diagnostics Laboratory using the ZdorovioArray Respiratory Panel. It is FDA cleared and has been verified and approved by the [facility] Molecular Diagnostics Laboratory for clinical use on nasopharyngeal swab specimens. The performance of the FilmArray RP has not been established in individuals who received influenza vaccine. Recent administration of a nasal influenza vaccine may cause false positive results for Influenza A and/orInfluenza B. [facility] PAN[facility] [id number] 15:25:00 Test Item Value Reference Range Interpretation [...] decisions. This sample was tested at the [facility] Molecular Diagnostics Laboratory using the ZdorovioArray Respiratory Panel. It is FDA cleared and has been verified and approved by the [facility] Molecular Diagnostics Laboratory for clinical use on nasopharyngeal swab specimens.The performance of the FilmArrayRP has not been established in individuals who received influenza vaccine. Recent administration ofa nasal influenza vaccine may cause false positive results for Influenza A and/orInfluenza B.Urinalysis with Microscopic If [id number] 12:34:00 Test Item Value Reference Range Interpretation Comments Color, UA (test code = Yellow 5778-6) Clarity, UA (test code = Clear 5767-9) Specific [place], UA (test 1.024 1.001-1.035 code = 5811-5) pH, UA (test code = 6.0 5.0-8.0 5803-2) Protein, UA (test code = 10 mg/dL Negative A 15448-7) Glucose, UA (test code = Negative Negative 365) Ketones, UA (test code = 10 mg/dL Negative A 2514-8) Bilirubin, UA (test code = Negative Negative 66611-2) Blood, UA (test code = Negative Negative 19429-1) Nitrite, UA (test code = Negative Negative 5802-4) Leukocytes, UA (test code Negative Negative = 5799-2) Urobilinogen, UA (test 3.0 mg/dL 0.2-1 H code = 08790-1) Specimen Source (test code = 2795) JEFF (test code = JEFF) Rig Hand ID - [auto]Rig Hand ID - [auto] Lab Interpretation (test Abnormal code = 21732-2) [facility] [facility]Urinal[facility] Microscopic [id number] 12:34:00 Test Item Value Reference Range Interpretation Comments RBC, UA (test 0 See_Comment [Automated me ssage] code = 27967-7) The system w hich generated this result transmitted ref erence range: /HPF. Th e reference range was not used to int erpret this result as normal/abnormal . WBC, UA (test 1 See_Comment [Automated me ssage] code = 5821-4) The system wh ich generated this result transmitted ref erence range: /HPF. Th e reference range was not used to int erpret this result as normal/abnormal . Mucus (test Rare code = 8247-9) JEFF (test code Rig Hand ID - = JEFF) [auto] [facility] IF [id number] 12:34:00 Test Item Value Reference Range Interpretation [...] = 463) SOURCE(BEAKER) (test code = 2795) Rig Hand ID - [auto]Rig Hand ID - [auto]URINALYSIS [id number] 12:34:00 Test Item Value Reference Range Interpretation Comments RBC UA (BEAKER) (test code = 519) 0 /HPF WBC UA (BEAKER) (test code = 520) 1 /HPF MUCUS (BEAKER) (test code = 1574) Rare Rig Hand ID - [auto]POCT-GLUCOSE [id number] 11:21:00 Test Item Value Reference Range Interpretation Comments POC-GLUCOSE METER 158 mg/dL 70-110 H : TESTED A T [facility] (NELSON) (test code = HELEN Dobson [place], 1538) [address]: Rig Hand/Techni keren ID = [id number] for TRACEY CADET TTE POCT-GLUCOSE [id number] 08:44:00 Test Item Value Reference Range Interpretation Comments POC-GLUCOSE METER 156 mg/dL 70-110 H : TESTED A T [facility] [address] (NELSON) (test code = HELEN Dobson [facility], 1538) [address]: Rig Hand/Techni keren ID = [id number] for TRACEY CADET TTE SARS-CoV2/Influenza/RSV RT-PCR (Symptomatic ONLY)2020-09-11 08:28:00 Test Item Value Reference Range Interpretation Comments SARS-COV2/RT-PCR (test Negative Negative code = 08397-2) Influenza A RT-PCR Negative Negative (test code = 84402-6) Influenza B RT-PCR Negative Negative (test code = 52035-8) RSV by RT-PCR (test Negative Negative Performa nce of the code = 88071-5) Xpert Xpress SARS-CoV-2/Flu/ RSV test has only [...] result s.This test has been authorized by [employer] under an EUA for use by authorized [...] Fact Sh eet for Healthcare Prov iders: https://www.[employer] /Documents/Xper t%20Xpre ss%82WJRW-McU-2 -Flu-RSV /3024508%20Rev .%20B%20 HCP%20Fact%20Sh eet.pdf Fact Sheet for Healthcare Maria D ents: https://www.[employer].DOZ /Documents/Xper t%20Xpre ss%02PKYI-KyG-3 -Flu-RSV /3024507%20Rev .%20B%20 Patient%20Fact% 20Sheet. pdf Lab Interpretation Normal (test code = 18701-7) [facility]RSV [id number] 08:28:00 Test Item Value Reference Range Interpretation Comments SARS-COV2/RT-PCR Negative Negative (test code = 2484546) INFLUENZA A RT-PCR Negative Negative (test code = 7168474) INFLUENZA B RT-PCR Negative Negative (test code = 7600589) RSV RT-PCR (test Negative Negative Performanc e of the Xpert code = 9436391) Xpress SARS- CoV-2/Flu/RSV test has only b een established in nasopharyngeal swab specimens. Use of the Xpert Xpress SARS-CoV-2/Flu/ RSV test with other spec imen types has not been as sessed and performance characteristics are unknown. As wi th any molecular test, mutations within the targ eted genetic regions identified by t he Xpert Xpress SARS-CoV -2/Flu/RSV test could affe [...] sooner.Fact She et for Healthcare Prov iders: https://www.[employer].DOZ/D ocuments/Xpert% 20Xpress%2 0XBAC-HvO-7-Flu -RSV/302-4 508%20Rev.%20B% 20HCP%20Fa ct%20Sheet.pdfF act Sheet for Healthcare Patients: https://www.[employer].DOZ/D ocuments/Xpert% 20Xpress%2 6LRHH-ClA-4-Flu -RSV/302-4 507%20Rev.%20B% 20Patient% 20Fact%20Sheet. pdf Creatine Kinase (CK)2020-09-11 08:01:00 Test Item Value Reference Range Interpretation Comments Total CK (test code = 53 U/L 29-200 2157-6) JEFF (test code = JEFF) Rig Hand ID - JOVON M Lab Interpretation (test Normal code = 32683-5) [facility])2020-09-11 08:01:00 Test Item Value Reference Range Interpretation Comments CREATINE KINASE TOTAL (BEAKER) (test 53 U/L 29-200 code = 380) Rig Hand ID - JOVON MTroponin [id number] 08:00:00 Test Item Value Reference Range Interpretation Comments Troponin I (test code = <0.01 0-0.03 28578-2) JEFF (test code = JEFF) Troponin I [...] acute neurological disease, and persistent tachyarrhythmia.Opera tor ID - JOVON M Lab Interpretation (test Normal code = 99153-6) [facility] CampusTROPONIN [id number] 08:00:00 Test Item Value Reference Range Interpretation [...] failure, acidosis, acute neurological disease, and persistent tachyarrhythmia.Rig Hand ID [place] SIGALA [id number] 02:36:00 Test Item Value Reference Range Interpretation Comments Ferritin (test code = 34.09 ng/mL 5-275 2276-4) JEFF (test code = JEFF) Rig Hand ID - JOVON M Lab Interpretation (test Normal code = 56944-0) [facility] CampusTSH/Free T4 If [id number] 02:36:00 Test Item Value Reference Range Interpretation Comments TSH (test code = 0.788 See_Comment [Automated 21464-5) message] The system which generated this result transmit sanjiv reference range : 0.350 - 4.940 uIU/mL. The reference range was not used to interpret this result as normal/abnormal . JEFF (test code = JEFF) Rig Hand ID - JOVON M Lab Interpretation Normal (test code = 31257-9) [facility] CampusFERRITIN2021-01-07 02:36:00 Test Item Value Reference Range Interpretation Comments FERRITIN (BEAKER) (test code = 34.09 ng/mL 5.00-275.00 361) Rig Hand ID - JOVON MTSH/FREE T4 IF [id number] 02:36:00 Test Item Value Reference Range Interpretation Comments THYROID STIMULATING HORMONE 0.788 uIU/mL 0.350-4.940 (BEAKER) (test code = 772) Rig Hand ID - JOVON MBasic Metabolic Csgmh3813-55-77 02:11:00 Test Item Value Reference Range Interpretation Comments Sodium (test code = 140 meq/L 085-318 2586-2) Potassium (test code = 2.9 meq/L 3.5-5.1 L 2823-3) Chloride (test code = 112 meq/L 98-107 H 5-0) CO2 (test code = 19 meq/L 22-29 L 2028-9) BUN (test code = 18 mg/dL 7-21 3094-0) Creatinine (test code 0.93 mg/dL 0.57-1.25 = 2160-0) Glucose (test code = 117 mg/dL 70-105 H 2345-7) Calcium (test code = 7.2 mg/dL 8.4-10.2 L 00989-8) EGFR (test code = 82 mL/min/1.73 [place] [address]-3) NOT ACCURATE CREATININE CLEARANCE IN PREDICTING GLOMERULAR FILTRATION RATE . ESTIMATED GFR I S NOT APPLICABLE FOR DIALYSIS PATIENTS. JEFF (test code = JEFF) Rig Hand ID - JOVON M Lab Interpretation Abnormal (test code = 13494-2) [facility] METABOLIC [id number] 02:11:00 Test Item Value Reference Range Interpretation [...] S NOT APPLICABLE FOR DIALYSIS PATIEN TS. Rig Hand ID - JOVON MTROPONIN [id number] 02:08:00 Test Item Value Reference Range Interpretation [...] failure, acidosis, acute neurological disease, and persistent tachyarrhythmia.Rig Hand ID - JOVON epatic function [id number] 02:05:00 Test Item Value Reference Range Interpretation Comments Protein, Total (test 5.7 See_Comment L [Autom ated code = 2885-2) message] The system which generated this result transmit sanjiv reference range : 6.0 - 8.3 gm/dL . The reference range was not u sed to interpret th is result as normal/abnormal . Albumin (test code = 3.0 g/dL 3.5-5 L 99441-4) Total Bilirubin (test 1.2 mg/dL 0.2-1.2 code = 1975-2) Bilirubin, Direct 0.5 mg/dL 0.1-0.5 (test code = 1968-7) Alkaline Phosphatase 49 U/L 40-150 (test code = 6768-6) AST (test code = 14 U/L 5-34 1920-8) ALT (test code = 12 U/L 6-55 1742-6) JEFF (test code = JEFF) Rig Hand ID - [facility] Lab Interpretation Abnormal (test code = 09039-9) [facility] CampusLactate dehydrogenase (LDH)2020-09-11 02:05:00 Test Item Value Reference Range Interpretation Comments LDH (test code = 2532-0) 203 U/L 125-220 JEFF (test code = JEFF) Rig Hand ID - [facility] Lab Interpretation (test Normal code = 66363-8) [facility] CampusC-Reactive [id number] 02:05:00 Test Item Value Reference Range Interpretation Comments CRP (test code = 676) 0.07 mg/dL 0-0.5 JEFF (test code = JEFF) Rig Hand ID [facility] Lab Interpretation (test Normal code = 42793-9) [facility] CampusHEPATIC FUNCTION [id number] 02:05:00 Test Item Value Reference Range Interpretation [...] (test code = 12 U/L 6-55 347) Rig Hand ID - JOVON MLACTATE DEHYDROGENASE (LDH)2020-09-11 02:05:00 Test Item Value Reference Range Interpretation Comments LACTATE DEHYDROGENASE (BEAKER) (test 203 U/L 125-220 code = 635) Rig Hand ID - JOVON MC-REACTIVE [id number] 02:05:00 Test Item Value Reference Range Interpretation Comments C-REACTIVE PROTEIN (BEAKER) (test 0.07 mg/dL 0.00-0.50 code = 676) Rig Hand HEVER - JOVON MLactic acid, [id number] 01:46:00 Test Item Value Reference Range Interpretation Comments Lactate, Venous (test code 1.19 mmol/L 0.5-2.2 = 2872) JEFF (test code = JEFF) Rig Hand HEVER - JOVON M Lab Interpretation (test Normal code = 27965-7) [facility] CampusLACTIC ACID, [id number] 01:46:00 Test Item Value Reference Range Interpretation Comments LACTATE BLOOD VENOUS (2) (BEAKER) 1.19 mmol/L 0.50-2.20 (test code = 2872) Rig Hand HEVER SIGALA OR-henfa0008-24-07 01:39:00 Test Item Value Reference Range Interpretation Comments D-Dimer, Quant (test 3.43 See_Comment H [Autom ated code = 50672-0) message] The system which generated this result [...] range. Lab Interpretation Abnormal (test code = 52023-9) [id number] 01:39:00 Test Item Value Reference Range Interpretation [...] 95-100% range.CBC with platelet count + automated [id number] 01:18:00 Test Item Value Reference Range Interpretation Comments WBC (test code = 6690-2) 8.5 See_Comment [A utomated message] The system Medlert generated this result transmitted ref erence range: 3.5 - 10 .5 K/L. The refe rence range was not u sed to interpret this result as normal/abnor mal. RBC (test code = 789-8) 5.13 See_Comment [Au tomated message] The system Medlert generated this result transmitted ref erence range: 4.63 - 6 .08 M/L. The refe rence range was not u sed to interpret this result as normal/abnor mal. MCHC (test code = 786-4) 31.9 See_Comment L [A utomated message] The system Medlert generated this result transmitted ref erence range: [...] See_Comment [Aut omated message] 777-3) The system Medlert generated this result transmitted ref erence range: 150 - 45 0 K/CU MM. The referen ce range was not u sed to interpret this result as normal/abnor mal. MPV (test code = 9.0 fL 9.4-12.4 L 23582-0) nRBC (test code = 413) 0 See_Comment [Aut omated message] The system Medlert generated this result transmitted ref erence range: [...] H [Aut omated message] 670) The system Medlert generated this result transmitted ref erence range: 1.78 - 5 .38 K/L. The refe rence range was not u sed to interpret this result as normal/abnor mal. # Lymphs (test code = 1.52 See_Comment [Auto mated message] 414) The system Medlert generated this result transmitted ref erence range: 1.32 - 3 .57 K/L. The refe rence range was not u sed to interpret this result as normal/abnor mal. # Monos (test code = 0.66 See_Comment [Autom ated message] 415) The system Medlert generated this result transmitted ref erence range: 0.30 - 0 .82 K/L. The refe rence range was not u sed to interpret this result as normal/abnor mal. # Eos (test code = 416) 0.05 See_Comment [Au tomated message] The system Medlert generated this result transmitted ref erence range: 0.04 - 0 .54 K/L. The refe rence range was not u sed to interpret this result as normal/abnor mal. # Baso (test code = 417) 0.03 See_Comment [A utomated message] The system Medlert generated this result transmitted ref erence range: 0.01 - 0 .08 K/L. The refe rence range was not u sed to interpret this result as normal/abnor mal. Immature 0 % 0-1 Granulocytes-Relative (test code = 2801) Lab Interpretation (test Abnormal code = 22286-1) [facility] W/PLT COUNT & AUTO [id number] 01:18:00 Test Item Value Reference Range Interpretation [...] 0-1 PERCENT (BEAKER) (test code = 2801) RZE-[id number] 00:00:00Ordered by an unspecified provider.[facility] CampusCHEM [id number] 16:50:000.7[facility]annCHEM PANEL 2017-08-09 16:50:007.6[facility]annCHEM [id number] 16:50:0025[facility]annCHEM NGFJD3748-06-67 16:50:003.7[facility]annCHEM IRKMD9457-30-45 16:50:0019[facility] HermannCHEM LRNXN0785-33-21 16:50:009.3[facility]annCHEM [id number] 16:50:94909Ztsedqui HermannCHEM [id number] 16:50:004.2 [facility] OtoanadFTYEAJOSFX1833-21-54 16:50:000.91[facility]annHEMATOLOGY 2017-08-09 16:50:00 Test Item Value Reference Range Interpretation Comments PROTIME (test code = PROTIME) 12.3 s 12.0-14.7 [facility] JdztwomPZVFTGMTDB9455-74-05 16:50:00 Test Item Value Reference Range Interpretation Comments aPTT (test code = aPTT) 33.6 s 22.9-35.8 [facility] MarshallFeqrnvqXCLJPXSLFQ7632-48-43 16:50:007.5[facility]annHEMATOLOGY 2017-08-09 16:50:02262Uivfxxks OpqhkwcNDMKEAYLWZ2786-83-38 16:50:0017.4[facility] EguvrqyTMBMCQQZHH8082-10-35 16:50:00 Test Item Value Reference Range Interpretation Comments MCH (test code = MCH) 25.4 pg 27.0-31.0 [facility] XchcrtpPTLEFMEGQU0014-86-33 16:50:0031.9[facility]annHEMATOLOGY 2017-08-09 16:50:0079.5[facility] TgbzffjGFPNLOUIQV9003-15-83 16:50:0042.1[facility] HrinqneZIZUEDNZCE6717-73-49 16:50:0013.4[facility] MskweooZLKOXXMUXD2613-80-75 16:50:005.29[facility] JwnxlpvLJVJOGMZIB9917-53-81 16:50:004.8[facility] IAYJWETHWE8172-02-31 16:50:000.5[facility] FtepmheTUIWNOMXSU6720-09-84 16:50:000.2 [facility] ImzduxcEEPFTHNZAC1116-11-36 16:50:001.1[facility]annHEMATOLOGY 2017-08-09 16:50:003.0[facility] FtqkkouXMGXHMQWWT2168-67-12 16:50:000.7[facility] CqcyiznVHUKXVMDTM0257-86-00 16:50:004.7[facility] IpgxcwrNPSUIKGEWG9028-37-75 16:50:0010.6[facility] YglxvnmQMFKAMFTEO0336-69-74 16:50:0023.0[facility] CFJCCXNSWL8027-37-22 16:50:0061.0[facility] HermannSPECIAL IWFPCUOAO3678-83-90 16:50:007.1[facility]annCHEM BJHYW4144-58-13 16:50:0024.0[facility]annCHEM PPXVQ3456-15-15 16:50:003.9[facility]annCHEM KBXEI9297-63-15 16:50:000.9 [facility]annCHEM OSLJP7846-54-43 16:50:007.2[facility]annCHEM PANEL 2017-08-09 16:50:0015[facility]annCHEM SFFDD6423-38-41 16:50:0065[facility]annCHEM GCIOU9749-95-93 16:50:0034[facility]annCHEM FMNVU5892-50-19 16:50:0087[facility]annCHEM OYEKZ5499-34-15 16:50:0018[facility] HermannCHEM OFAKL3952-88-93 16:50:001.20[facility]CHE[facility] JIRYF0438-43-74 16:50:94979 [facility] HermannCHEM BTAYZ0290-30-82 16:50:0055[facility]] D-DIMER, [id number] 15:20:01 Test Item Value Reference Range Interpretation [...] out DVT/PE . [facility]] C-REACTIVE [id number] 15:20:01 Test Item Value Reference Range Interpretation Comments CRP (test code = CRP) <2.9 <=2.9 [facility]] SED RATE BY MODIFIED SCANIJXNEN2019-09-57 15:20:01 Test Item Value Reference Range Interpretation Comments Sedimentation Rate (test code = 11 {mm/hr} 0-15 Sedimentation Rate) [facility]] HEMOGLOBIN [id number] 15:20:01 Test Item Value Reference Range Interpretation Comments Hemoglobin A1c; Above High Threshold 7.8 % <=5.6 (test code = 4548-4) [facility][U] XRAY KNEE 3 VWS RIGHT [id number] 14:25:00 Images acquired, not reported on this accession number.[facility]
--- NOTE | 2021-04-08 16:13 | RAD REPORT ---
EXAM DESCRIPTION: RAD - Chest Single View - 04/08/2021 3:54 pm CLINICAL HISTORY: ABDOMINAL DISTENTION COMPARISON: Chest Single View dated 10/30/2020 FINDINGS: No evidence of edema or pneumonia. The heart size is within normal limits.No acute osseous abnormality. No significant pleural effusions or pneumothorax. IMPRESSION: No acute cardiopulmonary disease.
[2021-04-08 17:20] LABS: Basophils % 0.5 % (0-1.3); Hematocrit 45.1 % (39.6-49.0); Lymphocytes % 16.7 % (15.3-44.8); MPV 7.3 fL (7.6-11.3); RBC Red Blood Cell Count 5.71 M/uL (4.33-5.43)
[2021-04-08] MEDS ORDERED: FAMOTIDINE 20 MG/2 ML VIAL IV ONE (17:32)
[2021-04-08] MEDS ORDERED: NA CHLORIDE 0.9% 1,000 ML ONE ×2 (17:32→19:38)
[2021-04-08 18:34] LABS: Protime INR 1.1
--- NOTE | 2021-04-08 18:37 | RAD REPORT ---
EXAM DESCRIPTION: CTAbdomen Pelvis W Contrast - 04/08/2021 6:22 pm CLINICAL HISTORY: Abdominal pain. ABD PAIN COMPARISON: Abdomen Pelvis W Contrast dated 04/04/2021; Abdomen Pelvis W Contrast dated 05/21/2020 TECHNIQUE: Biphasic CT imaging of the abdomen and pelvis was performed with 100 ml non-ionic IV cont rast. All CT scans are performed using dose optimization technique as appropriate and may include automated exposure control or mA/KV adjustment according to patient size. FINDINGS: The lung bases are clear.Coronary artery calcifications. The liver, spleen, pancreas, adrenal glands and kidneys are within normal limits. Cholecystectomy. Inflammatory changes in the colon have improved. Normal appendix. No bowel obstruction. The appendix is normal. No evidence of significant lymphadenopathy. No suspicious bony findings. Epidural pain pump left lower quadrant. Spinal stimulator in the right a bdominal wall. Advanced multilevel degenerate disc disease. IMPRESSION: No acute intra-abdominal or pelvic finding. Inflammatory changes involving the colon on the prior CT have resolved.
[2021-04-08 18:42] LABS: ALT/SGPT 15 U/L (12-78); AST/SGOT 5 U/L (15-37); Albumin 3.5 g/dL (3.4-5.0); Alkaline Phosphatase 60 U/L (45-117); BUN Blood Urea Nitrogen 12 mg/dL (7-18); Bicarbonate 27 mmol/L (21-32); Bilirubin Direct 0.3 mg/dL (0-0.2); Glucose Level 106 mg/dL (74-106); Lipase 167 U/L (73-393); Magnesium 1.8 mg/dL (1.8-2.4); NT PRO-BNP 173 pg/mL (<125); Potassium 3.4 mmol/L (3.5-5.1); Protein, Total 7.1 g/dL (6.4-8.2); Sodium Level 141 mmol/L (136-145); Troponin (Emerg Dept Use Only) < 0.02 ng/mL (0.0-0.045)
--- NOTE | 2021-04-08 19:07 | EDPHYS ---
Physician Documentation [facility] Name: Melody Duarte Age: 65 yrs Sex: Male : 1955 Arrival Date: 04/08/2021 Time: 11:24 Bed 23 Private MD: ED Physician Kings Bergeron HPI: 04/08 15:39 This 65 yrs old Male presents to ER via Wheelchair with complaints of Chills, isha Weakness. 15:39 The patient presents to the emergency department with weakness of the entire body, isha generalized weakness. Onset: The symptoms/episode began/occurred 4 day(s) ago. Context: occurred at an unknown location. Historical: - Allergies: 11:54 Sulfa (Sulfonamide Antibiotics); ss - Home Meds: 11:54 aspirin 81 mg Oral TbEC 1 tab once daily [Active]; azelastine 137 mcg (0.1 %) nasal ss spra 2 times per day [Active]; docusate sodium 100 mg Oral cap 1 cap 2 times per day [Active]; donepezil 5 mg Oral tab 1 tab once daily [Active]; gabapentin 300 mg Oral cap 1 cap 3 times per day [Active]; galantamine 12 mg Oral tab 1 tab 2 times per day [Active]; hydromorphone 4 mg Oral tab 1 tab [Active]; glimepiride 2 mg Oral tab 1 tab once daily [Active]; losartan 25 mg Oral tab 1 tab once daily [Active]; metformin 500 mg Oral tab 1 tab 2 times per day [Active]; mirtazapine 15 mg Oral tab [Active]; nitroglycerin 0.4 mg SL subl 1 tab every 5 minutes [Active]; rosuvastatin 40 mg Oral tab 1 tab once daily [Active]; tamsulosin 0.4 mg Oral cp24 1 cap once daily [Active]; tizanidine 4 mg Oral cap [Active]; Xarelto 20 mg Oral tab [Active]; - PMHx: 11:54 Chronic pain; Dementia; Diabetes - NIDDM; Hyperlipidemia; Hypertension; ss - PSHx: 11:54 lower back; right knee; ss - Immunization history:: Adult Immunizations up to date, Client reports receiving the 2nd dose of the Covid vaccine. - Social history:: Smoking status: Patient denies any tobacco usage or history of. ROS: 15:40 Constitutional: Negative for fever, chills, and weight loss, Eyes: Negative for injury, isha pain, redness, and discharge, ENT: Negative for injury, pain, and discharge, Neck: Negative for injury, pain, and swelling, Cardiovascular: Negative for chest pain, palpitations, and edema, Respiratory: Negative for shortness of breath, cough, wheezing, and pleuritic chest pain, Back: Negative for injury and pain, : Negative for injury, bleeding, discharge, and swelling, MS/Extremity: Negative for injury and deformity, Skin: Negative for injury, rash, and discoloration, Neuro: Negative for headache, weakness, numbness, tingling, and seizure, Psych: Negative for depression, anxiety, suicide ideation, homicidal ideation, and hallucinations, Allergy/Immunology: Negative for hives, rash, and allergies, Endocrine: Negative for neck swelling, polydipsia, polyuria, polyphagia, and marked weight changes, Hematologic/Lymphatic: Negative for swollen nodes, abnormal bleeding, and unusual bruising. 15:40 Abdomen/GI: Positive for abdominal pain, nausea and vomiting, of the right upper quadrant, left upper quadrant, right lower quadrant and left lower quadrant. Exam: 15:40 Constitutional: This is a well developed, well nourished patient who is awake, alert, isha and in no acute distress. Head/Face: Normocephalic, atraumatic. Eyes: Pupils equal round and reactive to light, extra-ocular motions intact. Lids and lashes normal. Conjunctiva and sclera are non-icteric and not injected. Cornea within normal limits. Periorbital areas with no swelling, redness, or edema. ENT: Nares patent. No nasal discharge, no septal abnormalities noted. Tympanic membranes are normal and external auditory canals are clear. Oropharynx with no redness, swelling, or masses, exudates, or evidence of obstruction, uvula midline. Mucous membranes moist. Neck: Trachea midline, no thyromegaly or masses palpated, and no cervical lymphadenopathy. Supple, full range of motion without nuchal rigidity, or vertebral point tenderness. No Meningismus. Chest/axilla: Normal chest wall appearance and motion. Nontender with no deformity. No lesions are appreciated. Cardiovascular: Regular rate and rhythm with a normal S1 and S2. No gallops, murmurs, or rubs. Normal PMI, no JVD. No pulse deficits. Respiratory: Lungs have equal breath sounds bilaterally, clear to auscultation and percussion. No rales, rhonchi or wheezes noted. No increased work of breathing, no retractions or nasal flaring. Back: No spinal tenderness. No costovertebral tenderness. Full range of motion. Skin: Warm, dry with normal turgor. Normal color with no rashes, no lesions, and no evidence of cellulitis. MS/ Extremity: Pulses equal, no cyanosis. Neurovascular intact. Full, normal range of motion. Neuro: Awake and alert, GCS 15, oriented to person, place, time, and situation. Cranial nerves II-XII grossly intact. Motor strength 5/5 in all extremities. Sensory grossly intact. Cerebellar exam normal. Normal gait. Psych: Awake, alert, with orientation to person, place and time. Behavior, mood, and affect are within normal limits. 15:40 Abdomen/GI: Inspection: abdomen appears normal, Bowel sounds: normal, Palpation: soft, in all quadrants, mild abdominal tenderness, in all quadrants, Liver: no appreciated palpable abnormalities, Hernia: not appreciated. 18:01 ECG was reviewed by the Attending Physician. [facility] Vital Signs: 11:54 BP 132 / 91; Pulse 95; Resp 16; Temp 98.0(TE); Pulse Ox 99% ; Weight 95.71 kg; Height 6 ss ft. 3 in. (190.50 cm); 16:00 BP 127 / 86; Pulse 91; Resp 18; Pulse Ox 98% on R/A; ph 17:00 BP 120 / 78; Pulse 87; Resp 18; Pulse Ox 99% on R/A; ph 18:00 BP 122 / 84; Pulse 89; Resp 16; Pulse Ox 98% on R/A; ph 20:45 BP 123 / 78; Pulse 80; Resp 18; Pulse Ox 98% ; ea 11:54 Body Mass Index 26.37 (95.71 kg, 190.50 cm) ss MDM: 14:50 Patient medically screened. [facility] 15:41 Differential Diagnosis sepsis. Data reviewed: vital signs, nurses notes, lab test [facility] result(s), EKG, radiologic studies, CT scan, plain films. 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 Test interpretation: by ED physician or midlevel provider: ECG, plain radiologic studies. Counseling: I had a detailed discussion with the patient and/or guardian regarding: the historical points, exam findings, and any diagnostic results supporting the discharge/admit diagnosis, lab results, radiology results. 04/08 15:38 Order name: Basic Metabolic Panel [facility] 04/08 15:38 Order name: CBC with Diff [facility] 04/08 15:38 Order name: LFT's; Complete Time: 19:03 [facility] 04/08 15:38 Order name: Magnesium; Complete Time: 19:03 [facility] 04/08 15:38 Order name: NT PRO-BNP; Complete Time: 19:03 [facility] 04/08 15:38 Order name: PT-INR; Complete Time: 19:03 [facility] 04/08 15:38 Order name: Troponin (emerg Dept Use Only); Complete Time: 19:03 [facility] 04/08 15:38 Order name: XRAY Chest (1 view); Complete Time: 17:51 [facility] 04/08 15:38 Order name: Lipase; Complete Time: 19:03 [facility] 04/08 15:38 Order name: Lactate; Complete Time: 17:51 [facility] 04/08 15:38 Order name: Basic Metabolic Panel; Complete Time: 19:03 [facility] 04/08 15:38 Order name: CBC with Automated Diff; Complete Time: 17:51 [facility] 04/08 20:32 Order name: Urine Dipstick-Ancillary [facility] 04/08 15:38 Order name: EKG; Complete Time: 15:39 [facility] 04/08 15:38 Order name: Cardiac monitoring; Complete Time: 17:25 [facility] 04/08 15:38 Order name: EKG - Nurse/Tech; Complete Time: 17:25 [facility] 04/08 15:38 Order name: IV Saline Lock; Complete Time: 17:25 [facility] 04/08 15:38 Order name: Labs collected and sent; Complete Time: 17:25 [facility] 04/08 15:38 Order name: O2 Per Protocol; Complete Time: 17:25 [facility] 04/08 15:38 Order name: O2 Sat Monitoring; Complete Time: 17:25 [facility] 04/08 18:20 Order name: Abdomen ; Complete Time: 19:03 [facility] 04/08 19:06 Order name: PO challenge: gatorade; Complete Time: 19:31 [facility] 04/08 19:55 Order name: Bladder Scanner; Complete Time: 20:43 isha 04/08 19:55 Order name: Misc. Order: get ua; Complete Time: 20:43 isha 04/08 20:43 Order name: Martinez; Complete Time: 20:44 ea 04/08 20:44 Order name: Martinez Leg Bag; Complete Time: 20:44 ea EC:01 Rate is 74 beats/min. Rhythm is regular. QRS [place] is Normal. RI interval is normal. QRS isha interval is normal. QT interval is normal. No Q waves. T waves are Normal. No ST changes noted. Clinical impression: Normal ECG and No evidence of ischemia. Interpreted by me. Reviewed by me. Administered Medications: 17:25 Drug: NS 0.9% 1000 ml Route: IV; Rate: 1 bolus; Site: right antecubital; ph 17:25 Drug: Pepcid (famotidine) 20 mg Route: IVP; Site: right antecubital; ph 18:28 Follow up: Response: No adverse reaction ph 19:15 Drug: NS 0.9% 1000 ml Route: IV; Rate: 1 bolus; Site: right antecubital; ea 20:44 Follow up: IV Status: Completed infusion; IV Intake: 1000ml ea Disposition Summary: 04/08/21 19:06 Discharge Ordered Location: Home isha Problem: new isha Symptoms: have improved isha Condition: Stable isha Diagnosis - Dehydration isha - Type 2 diabetes mellitus with hyperglycemia isha - Left sided colitis without complications isha - Hypokalemia isha Followup: isha - With: Private Physician - When: 2 - 3 days - Reason: Recheck today's complaints, Continuance of care, Re-evaluation by your physician Followup: isha - With: - When: 2 - 3 days - Reason: Recheck today's complaints, Continuance of care, Re-evaluation by your physician Discharge Instructions: - Discharge Summary Sheet isha - Dehydration, Adult isha - Type 2 Diabetes Mellitus, Diagnosis, Adult isha - Nausea, Adult isha - Diabetes Mellitus and Nutrition, Adult isha - Potassium Content of Foods isha - Colitis isha - Hypokalemia isha Forms: - Medication Reconciliation Form isha - Thank You Letter isha - Antibiotic Education isha - Prescription Opioid Use isha Prescriptions: - Pepcid 20 mg Oral Tablet - take 1 tablet by ORAL route every 12 hours for 10 days; 20 tablet; Refills: 0, isha Product Selection Permitted - Zofran 4 mg Oral Tablet - take 1 tablet by ORAL route every 12 hours As needed; 20 tablet; Refills: 0, isha Product Selection Permitted - dicyclomine 20 mg Oral Tablet - take 1 tablet by ORAL route 4 times per day; 28 tablet; Refills: 0, Product isha Selection Permitted Signatures: Dispatcher [employer] EDMS Kings Bergeron MD MD cha Smirch, Shelby, RN RN Nataly Malik RN RN Rosa M Montalvo RN RN ea Corrections: (The following items were deleted from the chart) 18:12 15:39 Abdomen Pelvis W [id number] ordered. EDMS EDMS 18:20 18:12 Abdomen ordered. EDMS EDMS
--- NOTE | 2021-04-08 19:07 | ER ---
Nurse's Notes [facility] Name: Melody Duarte Age: 65 yrs Sex: Male : 1955 Arrival Date: 04/08/2021 Time: 11:24 Bed 23 Private MD: Diagnosis: Dehydration;Type 2 diabetes mellitus with hyperglycemia;Left sided colitis without complications;Hypokalemia Presentation: 04/08 11:51 Chief complaint: Patient states: Chills, abd pain and unable to sleep that began more ss than a week ago. Pt was seen in ER Tuesday and was told if he did not improve to come back for reevaluation. DX with Hypokalemia and colitis. Coronavirus screen: Client denies travel out of the [place] in the last 14 days. The client reports previous COVID testing was negative. Date of collection: April 04, 2021. Ebola Screen: Patient denies exposure to infectious person. Patient denies travel to an Ebola-affected area in the 21 days before illness onset. Initial Sepsis Screen: Does the patient meet any 2 criteria? No. Patient's initial sepsis screen is negative. Does the patient have a suspected source of infection? No. Patient's initial sepsis screen is negative. Risk Assessment: Do you want to hurt yourself or someone else? Patient reports no desire to harm self or others. Onset of symptoms was March 29, 2021. 11:51 Method Of Arrival: Wheelchair ss 11:51 Acuity: EVA 3 ss Historical: - Allergies: 11:54 Sulfa (Sulfonamide Antibiotics); ss - Home Meds: 11:54 aspirin 81 mg Oral TbEC 1 tab once daily [Active]; azelastine 137 mcg (0.1 %) nasal ss spra 2 times per day [Active]; docusate sodium 100 mg Oral cap 1 cap 2 times per day [Active]; donepezil 5 mg Oral tab 1 tab once daily [Active]; gabapentin 300 mg Oral cap 1 cap 3 times per day [Active]; galantamine 12 mg Oral tab 1 tab 2 times per day [Active]; hydromorphone 4 mg Oral tab 1 tab [Active]; glimepiride 2 mg Oral tab 1 tab once daily [Active]; losartan 25 mg Oral tab 1 tab once daily [Active]; metformin 500 mg Oral tab 1 tab 2 times per day [Active]; mirtazapine 15 mg Oral tab [Active]; nitroglycerin 0.4 mg SL subl 1 tab every 5 minutes [Active]; rosuvastatin 40 mg Oral tab 1 tab once daily [Active]; tamsulosin 0.4 mg Oral cp24 1 cap once daily [Active]; tizanidine 4 mg Oral cap [Active]; Xarelto 20 mg Oral tab [Active]; - PMHx: 11:54 Chronic pain; Dementia; Diabetes - NIDDM; Hyperlipidemia; Hypertension; ss - PSHx: 11:54 lower back; right knee; ss - Immunization history:: Adult Immunizations up to date, Client reports receiving the 2nd dose of the Covid vaccine. - Social history:: Smoking status: Patient denies any tobacco usage or history of. Screenin:28 Abuse screen: Denies threats or abuse. Denies injuries from another. Nutritional ph screening: No deficits noted. Tuberculosis screening: No symptoms or risk factors identified. Fall Risk None identified. Assessment: 16:00 General: Appears in no apparent distress. comfortable, slender, well groomed, Behavior ph is calm, cooperative, appropriate for age, Denies fever. Pain: Denies pain. Neuro: Level of Consciousness is awake, alert, obeys commands, Oriented to person, place, time, situation, Reports weakness. Cardiovascular: Capillary refill < 3 seconds in bilateral fingers Patient's skin is warm and dry. Respiratory: Airway is patent Respiratory effort is even, unlabored, Respiratory pattern is regular, symmetrical. GI: Patient currently denies abdominal pain. Derm: Skin is intact, is healthy with good turgor, Skin is pink, warm \T\ dry. Musculoskeletal: Circulation, motion, and sensation intact. Range of motion: intact in all extremities. 17:00 Reassessment: Patient appears in no apparent distress at this time. Patient and/or ph family updated on plan of care and expected duration. Pain level reassessed. Patient is alert, oriented x 3, equal unlabored respirations, skin warm/dry/pink. Patient denies pain at this time. 18:00 Reassessment: Patient appears in no apparent distress at this time. Patient and/or ph family updated on plan of care and expected duration. Pain level reassessed. Patient is alert, oriented x 3, equal unlabored respirations, skin warm/dry/pink. 20:44 Reassessment: Patient and/or family updated on plan of care and expected duration. Pain ea level reassessed. Patient is alert, oriented x 3, equal unlabored respirations, skin warm/dry/pink. Bladder scanner 798 mls. 21:19 Reassessment: Patient and/or family updated on plan of care and expected duration. Pain ea level reassessed. Patient is alert, oriented x 3, equal unlabored respirations, skin warm/dry/pink. Discharge instruction given to patient verbalized the understanding of instruction. Vital Signs: 11:54 BP 132 / 91; Pulse 95; Resp 16; Temp 98.0(TE); Pulse Ox 99% ; Weight 95.71 kg; Height 6 ss ft. 3 in. (190.50 cm); 16:00 BP 127 / 86; Pulse 91; Resp 18; Pulse Ox 98% on R/A; ph 17:00 BP 120 / 78; Pulse 87; Resp 18; Pulse Ox 99% on R/A; ph 18:00 BP 122 / 84; Pulse 89; Resp 16; Pulse Ox 98% on R/A; ph 20:45 BP 123 / 78; Pulse 80; Resp 18; Pulse Ox 98% ; ea 11:54 Body Mass Index 26.37 (95.71 kg, 190.50 cm) ED Course: 11:24 Patient arrived in ED. ds1 11:53 Triage completed. ss 11:54 Arm band placed on right wrist. ss 14:47 Nataly Malik, RN is Primary Nurse. ph 14:50 Kings Bergeron MD is Attending Physician. isha 15:54 XRAY Chest (1 view) In Process Unspecified. EDMS 17:20 No provider procedures requiring assistance completed. Initial lab(s) drawn, by ks, ph sent to lab. Inserted saline lock: 20 gauge in right antecubital area, using aseptic technique. Blood collected. 18:23 Abdomen In Process Unspecified. EDMS 19:06 Jitendra Stokes MD is Referral Physician. isha 19:11 Primary Nurse role handed off by Nataly Malik, JOSE F 19:28 Patient has correct armband on for positive identification. Placed in gown. Bed in low ph position. Call light in reach. Side rails up X 1. Pulse ox on. NIBP on. Door closed. Noise minimized. Warm blanket given. 19:35 Rosa M Montalvo, RN is Primary Nurse. ea 20:45 Martinez cath inserted, using sterile technique, 18 Fr., by me, balloon inflated, urine ea specimen collected. 21:20 IV discontinued, intact, bleeding controlled, No redness/swelling at site. Pressure ea dressing applied. Administered Medications: 17:25 Drug: NS 0.9% 1000 ml Route: IV; Rate: 1 bolus; Site: right antecubital; ph 17:25 Drug: Pepcid (famotidine) 20 mg Route: IVP; Site: right antecubital; ph 18:28 Follow up: Response: No adverse reaction ph 19:15 Drug: NS 0.9% 1000 ml Route: IV; Rate: 1 bolus; Site: right antecubital; ea 20:44 Follow up: IV Status: Completed infusion; IV Intake: 1000ml ea Intake: 20:44 IV: 1000ml; Total: 1000ml. ea Outcome: 19:06 Discharge ordered by . isha 21:19 Patient left the ED. ea 21:19 Discharged to home ambulatory, with family. ea 21:19 Condition: stable 21:19 Discharge instructions given to patient, family, Instructed on discharge instructions, follow up and referral plans. Demonstrated understanding of instructions, follow-up care, Prescriptions given X 4. Signatures: Dispatcher [employer] Kings Yost MD MD cha [place], Demi ds1 Sumi Martino RN RN Nataly Malik RN RN ph Antunez, Elena, RN JOSE F au
[2021-04-08 20:32] LABS: Urine Blood Negative (Negative); Urine Glucose Negative (Negative); Urine Protein 1+ (Negative); Urine Specific Gravity 1.015 (1.005-1.030); Urine pH 6.5 (5.0-7.0)
[2021-04-08 23:29] VITALS: TEMP 98
[2021-04-08 23:35] VITALS: O2SAT 98
[2021-04-08 23:37] VITALS: BP 123/78
== END 2021-04-08 21:19 | disposition home or self-care (01) ==
LOC: ER 11:21
DX: E86.0 Dehydration (principal); E11.65 Type 2 diabetes mellitus with hyperglycemia; E87.6 Hypokalemia; K51.50 Left sided colitis without complications; I10 Essential (primary) hypertension; F03.90 Unspecified dementia, unspecified severity, without behavioral disturbance, psychotic disturbance, mood disturbance, and anxiety; Z79.01 Long term (current) use of anticoagulants; Z79.82 Long term (current) use of aspirin; Z88.2 Allergy status to sulfonamides
CPT/HCPCS: 96361; 93005; 85025; 80048; 36415; 83735; 85610; 82565; 80076; 83605; 81003; 84484; 83690; 83880; 74177; 71045; 51702; 96374; 99284; Q9967; J7030 ×2

== ENCOUNTER 2022-01-27 11:26 | Emergency (ER) | payer OTHER ==
--- OUTSIDE RECORDS SUMMARY | 2022-01-27 11:30 | XMS REPORT | Continuity of Care Document ---
:1955 Author Organization [facility] t Address [address] [place] [address] Care Team Providers Name Role Phone SHARPLESS Primary Care Physician Unavailable TANI Attending Clinician Unavailable NAT Attending Clinician Unavailable SHAWNEE Attending Clinician Unavailable Nat THOMPSON Attending Clinician Kyler POLO Attending Clinician Unavailable Noman ROBERTO Attending Clinician Porfirio BLAIR Attending Clinician Lab, Fam Pob I Attending Clinician Unavailable MEGHA Attending Clinician Unavailable LEYDA Attending Clinician Unavailable TANI Admitting Clinician Unavailable JEN CASTANO Admitting Clinician Unavailable Payers Payer Name Policy Type Policy Number Effective Date Expiration Date S [facility] CARE IMPROVEMENT [id number] 2015 PLUS 00:00:00 MEDICARE PART A \\T\\ [id number] 1992 B 00:00:00 PHYSICIAN MUTUAL [id number] 2021 00:00:00 Problems Condition Condition Condition Status Onset Resolution Last Treating Co mments Source Name Details Category Date Date Treatment Clinician Date Cloudy Cloudy Disease Active [facility] urine urine 4-22 ity of 00:00: [place] 00 Medical Branch Cystitis Cystitis Disease Active Unive rs 4-22 ity of 00:00: [place] [facility] Nausea and Nausea and Disease Active U nivers vomiting, vomiting, 4-22 ity of intractabi intractabi 00:00: [place] lity of lity of 00 Medical vomiting vomiting Branch not not specified, specified, unspecifie unspecifie d vomiting d vomiting type type Diarrhea, Diarrhea, Disease Active Uni vers unspecifie unspecifie 4-22 it y of d type d type 00:00: [place] [facility] Generalize Generalize Disease Active U nivers d d 4-22 ity of abdominal abdominal 00:[place] 00 [place] Gastroente Gastroente Disease Active U nivers ritis ritis 4-22 ity of 00:00: [place] [facility] Pneumonia Pneumonia Disease Active Uni vers 3-22 ity of 00:00: [place] [facility] Bronchopne Bronchopne Disease Active U nivers umonia umonia 3-21 ity of 00:00: [place] [facility] Stage 3a Stage 3a Disease Active Unive rs chronic chronic 1-26 ity of kidney kidney 00:00: [place] disease disease 00 Medical Branch Polydrug Polydrug Disease Active Unive rs dependence dependence 9-15 it y of including including 00:00[place] opioid opioid 00 Medical type drug type drug Bran ch with with continuous continuous use with use with complicati complicati on on UZAIR (acute UZAIR (acute Disease Active U nivers kidney kidney 8-25 ity of injury) injury) 00:00: [place] [facility] Orthostati Orthostati Disease Active U nivers c c 8-23 ity of hypotensio hypotensio 00:[place]: [place] n 00 [facility] [place] Hypercapni Hypercapni Disease Active U nivers a a 4-15 ity of 00:00: [place] [facility] Other Other Disease Active Univers pulmonary pulmonary 3-24 ity of embolism embolism 00:00: [place] without without 00 Medical acute cor acute cor Bran ch pulmonale, pulmonale, unspecifie unspecifie d d chronicity chronicity POTS POTS Disease Active Univers (postural (postural 1-14 ity of orthostati orthostati 00:[place]: [place] c c 00 Medical tachycardi tachycardi Br anch a a syndrome) syndrome) Nonobstruc Nonobstruc Disease Active U nivers tive tive 1-14 ity of atheroscle atheroscle 00:00: [place] rosis of rosis of 00 Medica l coronary coronary Branch artery artery Enlarged Enlarged Disease Active 2019-09 Unive rs prostate prostate 0-12 ity of 00:00: [place] [address] Medical Branch E44.1 Mild E44.1 Mild Disease Active U nivers protein-ca protein-ca 9-27 it y of andrew morales 00:00: [place] malnutriti malnutriti 00 Me dical on on Branch Hypotensio Hypotensio Disease Active U janelers n n 9-24 ity of 00:00: [place] [facility] Low serum Low serum Disease Active Uni vers vitamin vitamin 9-12 ity of B12 B12 00:00: [place] [address] Medical Branch SOB SOB Disease Active Univers (shortness (shortness 9-16 it y of of breath) of breath) 00:00: [place] 00 [place] Atypical Atypical Disease Active Unive rs chest pain chest pain 9-16 it y of 00:00: [place] [facility] PVC PVC Disease Active Univers (premature (premature 9-16 it y of ventricula ventricula 00:00: [place] r r 00 Medical contractio contractio Br anch n) n) Dizziness Dizziness Disease Active Uni vers 9-16 ity of 00:00: [place] [facility] Venous Venous Disease Active Univers insufficie insufficie 9-16 it y of ncy ncy 00:00: [place] [facility] Palpitatio Palpitatio Disease Active U nivers ns ns 9-15 ity of 00:00: [place] [address] Medical Branch PAINFUL Diagnosis Active 2016-092017-08-22 Me moria TKA 10-03 16:59:00 l PAINFUL 00:00: [place] TKA 00 Active 08/03/2017 [facility] Type 2 Type 2 Disease Active 2014-09 Univers diabetes diabetes 0-02 ity of mellitus mellitus 00:00: [place] 00 Medical Branch Essential Essential Disease Active 2014-09 Uni vers hypertensi hypertensi 0-02 it y of on on 00:00: [place] 00 Medical Branch Degenerati Degenerati Disease Active 2014-09 U nivers ve disc ve disc 0-02 ity of disease, disease, 00:00: [place] lumbar lumbar 00 Medical Branch Fusion of Fusion of Disease Active 2014-09 Uni vers lumbar lumbar 0- ity of spine spine 00:00: [place] 00 Medical Branch History of History of Disease Active 2014-09 U nivers knee knee 0-02 ity of replacemen replacemen 00:00: [place] t, total, t, total, 00 Medi gregory right right Branch Chronic Chronic Disease Active 2014-09 Univers back pain back pain 0-02 ity of 00:00: [place] [facility] Fracture Fracture Disease Active 2014-09 Unive rs of of 0-02 ity of metatarsal metatarsal 00:00: [place] bone of bone of 00 Medical left foot left foot Bran ch with with malunion malunion H/O repair H/O repair Disease Active 2014-09 U nivers of right of right 0-02 ity of rotator rotator 00:00: [place] cuff cuff 00 Medical Branch Neuropathy Neuropathy Disease Active 2014-09 U nivers in in 0-02 ity of diabetes diabetes 00:00: [place] 00 Medical Branch Presence Presence Disease Active 2014-09 Unive rs of of 0-02 ity of intratheca intratheca 00:00: [place] l pump l pump 00 Medical Branch Hypogonadi Hypogonadi Disease Active 2014-09 U nivers sm in male sm in male 0-02 it y of 00:00: [place] 00 Medical Branch Hyperlipid Problem Active 2017-08-22 M emoria emia 01:57:15 l (disorder) Ken n Hyperlipid emia (disorder) Active Problem 08/22/2017 [facility] Hypertensi Problem Active 2017-08-22 M emoria ve 01:57:15 l disorder, [place] systemic Hypertensi arterial ve (disorder) disorder, systemic arterial (disorder) Active Problem 08/22/2017 [facility] Neuropathy Problem Active 2017-08-22 M emoria (disorder) 01:57:15 l [place] Neuropathy (disorder) Active Problem 08/22/2017 Feet [facility] Pain Problem Active 2017-08-22 Memor ia (finding) 01:57:15 l Pain [place] (finding) Active Problem 08/22/2017 Chronic back pain [...] M emoria c opioid 01:57:15 l induced [place] constipati Therapeuti on c opioid (disorder) induced [...] ents Source Name Type Date Date Clinician ONDANSET DRUG Active Hives Univers FERNANDEZ HCL 9-24 ity of (PF) 00:00: [place] 00 Medical Branch Ondanset Propensi Active Hives 0 Univer s fernandez Hcl ty to 9-24 ity of (Pf) adverse 00:00: [place] reaction 00 Medical s Branch SULFAMET DRUG Active N/V 2015-09 Univers HOXAZOLE INGREDI 2-12 ity of 00:00: [place] 00 Medical Branch Sulfamet Propensi Active Nausea 2015-09 Univer s hoxazole ty to and/or 2-12 ity of adverse Vomiting 00:00: [place] reaction 00 Medical s to Branch drug NO KNOWN Allergy Active [facility] S sulfamet sulfamet Active Memori a hoxazole hoxazole l [place] Social History Social Habit Start Date Stop Date Quantity Comments Source History [facility] [place] Alcohol Std Drinks Medica l Branch History [facility] [place] Alcohol Binge Medical Bra [facility] Alcohol intake 2022-01-15 2022-01-15 .14 /d [facility] 00:00:00 00:00:00 Medical Branch Exposure to 2021-12-25 2022-01-04 Not sure [facility] SARS-CoV-2 (event) 00:00:00 09:00:00 Medica l Branch Alcohol Comment 2021-12-25 2021-12-25 social [facility] 00:00:00 00:00:00 Medical Branch Tobacco use and 2020-12-18 2020-12-18 Never used [facility] exposure 00:00:00 00:00:00 Medical Branch History [facility] 2019-07-04 2019-07-04 2 [facility] [place] Alcohol Frequency 00:00:00 00:00:00 Medical Branch Social History 2017-08-09 2017-08-09 Leilani Akash nyla 20:40:47 20:40:47 [birth year] [facility] 00:00:00 00:00:00 Medical Branch Smoking Status Start Date Stop Date Source Never smoker [facility] Medical Branch Medications Ordered Filled Start Stop Current Ordering Indication Dosage Frequency Signature Comments Components Source Medication Medication Date Date Medication? Clinician (SIG) Name Name HYDROmorpho Yes [id number] 4mg Take 4 mg U nivers ne 5-13 by mouth 2 ity of (DILAUDID) 09:39: (two) [place] 4 mg tablet 36 times Medical daily. Branch Indication s: chronic pain HYDROmorpho Yes [id number] 4mg Take 4 mg U nivers ne 5-13 by mouth 2 ity of (DILAUDID) 09:39: (two) [place] 4 mg tablet 36 times Medical daily. Branch Indication s: chronic pain HYDROmorpho Yes [id number] 4mg Take 4 mg U nivers ne 5-13 by mouth 2 ity of (DILAUDID) 09:39: (two) [place] 4 mg tablet 36 times Medical daily. Branch Indication s: chronic pain rosuvastati 0 Yes [id number] 40mg Take 1 Univers n 40 mg 5-02 tablet by ity of tablet 00:00: mouth [place] 00 every Medical evening. Branch proMETHazin Yes [id number] 25mg Take 1 Univers e 25 mg 5-02 tablet by ity of tablet 00:00: mouth [place] 00 every 6 Medical (six) Branch hours as needed for Nausea and Vomiting (N/V). rosuvastati Yes [id number] 40mg Take 1 Univers n 40 mg 5-02 tablet by ity of tablet 00:00: mouth [place] 00 every Medical evening. Branch proMETHazin Yes [id number] 25mg Take 1 Univers e 25 mg 5-02 tablet by ity of tablet 00:00: mouth [place] 00 every 6 Medical (six) Branch hours as needed for Nausea and Vomiting (N/V). rosuvastati Yes [id number] 40mg Take 1 Univers n 40 mg 5-02 tablet by ity of tablet 00:00: mouth [place] 00 every Medical evening. Branch proMETHazin 0 Yes [id number] 25mg Take 1 Univers e 25 mg 5-02 tablet by ity of tablet 00:00: mouth [place] 00 every 6 Medical (six) Branch hours as needed for Nausea and Vomiting (N/V). GABAPENTIN 2021-0 Yes [id number] TAKE ONE Univers 300 mg 4-18 CAPSULE BY ity of capsule 00:00: MOUTH [place] 00 THREE Medical TIMES A Branch DAY GABAPENTIN 2021-0 Yes [id number] TAKE ONE Univers 300 mg 4-18 CAPSULE BY ity of capsule 00:00: MOUTH [place] 00 THREE Medical TIMES A Branch DAY GABAPENTIN 2021-0 Yes [id number] TAKE ONE Univers 300 mg 4-18 CAPSULE BY ity of capsule 00:00: MOUTH [place] 00 THREE Medical TIMES A Branch DAY Donepezil 2021-0 Yes [id number] 23mg Take 23 mg Univers (ARICEPT) 4-08 by mouth ity of 23 mg Tab 00:00: daily. [place] 00 Medical Branch Donepezil 2021-0 Yes [id number] 23mg Take 23 mg Univers (ARICEPT) 4-08 by mouth ity of 23 mg Tab 00:00: daily. [place] [facility] Branch Donepezil 2021-0 Yes [id number] 23mg Take 23 mg Univers (ARICEPT) 4-08 by mouth ity of 23 mg Tab 00:00: daily. [address] Branch metformin 2021-0 Yes [id number] TAKE TWO Univers ER 500 mg 3-22 TABLETS BY ity of 24 hr 00:00: MOUTH [place] tablet 00 EVERY Medical MORNING Branch AND 1 TABLET EVERY EVENING ranolazine 2021-0 Yes [id number] 500mg Take 1 Univers 500 mg 12 3-22 tablet by ity o f hr tablet 00:00: mouth 2 [place] (two) Medical times Branch daily. metformin 2021-0 Yes [id number] TAKE TWO Univers ER 500 mg 3-22 TABLETS BY ity of 24 hr 00:00: MOUTH [place] tablet 00 EVERY Medical MORNING Branch AND 1 TABLET EVERY EVENING ranolazine 2021-0 Yes [id number] 500mg Take 1 Univers 500 mg 12 3-22 tablet by ity o f hr tablet 00:00: mouth 2 [place] (two) Medical times Branch daily. metformin 2021-0 Yes [id number] TAKE TWO Univers ER 500 mg 3-22 TABLETS BY ity of 24 hr 00:00: MOUTH [place] tablet 00 EVERY Medical MORNING Branch AND 1 TABLET EVERY EVENING ranolazine 2021-0 Yes [id number] 500mg Take 1 Univers 500 mg 12 3-22 tablet by ity o f hr tablet 00:00: mouth 2 [place] (two) Medical times Branch daily. blood sugar 2020-0 Yes [id number] Use as Univers diagnostic 9-16 directed ity o f strip 00:00: [place] [facility] Branch blood sugar 2020-0 Yes [id number] Use as Univers diagnostic 9-16 directed ity o f strip 00:00: [place] [facility] Branch blood sugar 2020-0 Yes [id number] Use as Univers diagnostic 9-16 directed ity o f strip 00:00: [address] Branch proMETHazin 2020-0 Yes [id number] 25mg Insert 1 Univers e 25 mg 7-30 Suppositor ity of suppository 00:00: [place] 00 rectum Medical every 4 Branch (four) hours as needed for Nausea and Vomiting (N/V). proMETHazin Yes [id number] 25mg Insert 1 Univers e 25 mg 7-30 Suppositor ity of suppository 00:00: [place] 00 rectum Medical every 4 Branch (four) hours as needed for Nausea and Vomiting (N/V). proMETHazin Yes [id number] 25mg Insert 1 Univers e 25 mg 7-30 Suppositor ity of suppository 00:00: [place] 00 rectum Medical every 4 Branch (four) hours as needed for Nausea and Vomiting (N/V). azelastine Yes [id number] USE ONE Univers 137 mcg 7-27 SPRAY IN ity of (0.1 %) 00:00: EACH [place] nasal spray 00 NOSTRIL Medic al TWICE Branch DAILY azelastine Yes [id number] USE ONE Univers 137 mcg 7-27 SPRAY IN ity of (0.1 %) 00:00: EACH [place] nasal spray 00 NOSTRIL Medic al TWICE Branch DAILY azelastine Yes [id number] USE ONE Univers 137 mcg 7-27 SPRAY IN ity of (0.1 %) 00:00: EACH [place] nasal spray 00 NOSTRIL Medic al TWICE Branch DAILY albuterol Yes [id number] 2{puff} Inhale 2 Univers 90 4-19 Puffs ity of mcg/actuati 00:00: every 6 [place] as on inhaler 00 (six) Medical hours as Branch needed for Wheezing or Shortness of Breath. albuterol Yes [id number] 2{puff} Inhale 2 Univers 90 4-19 Puffs ity of mcg/actuati 00:00: every 6 [place] as on inhaler 00 (six) Medical hours as Branch needed for Wheezing or Shortness of Breath. albuterol Yes [id number] 2{puff} Inhale 2 Univers 90 4-19 Puffs ity of mcg/actuati 00:00: every 6 [place] as on inhaler 00 (six) Medical hours as Branch needed for Wheezing or Shortness of Breath. MIRTAZAPINE Yes [id number] TAKE ONE Univers 15 mg 3-22 TABLET BY ity of tablet 00:00: MOUTH AT [place] 00 BEDTIME Medical Branch MIRTAZAPINE Yes [id number] TAKE ONE Univers 15 mg 3-22 TABLET BY ity of tablet 00:00: [address]TH [address] Branch MIRTAZAPINE 2021-0 Yes [id number] TAKE ONE Univers 15 mg 3-22 TABLET BY ity of tablet 00:00: MOUTH AT [address] Branch blood sugar 2020-1 Yes [id number] Use as Univers diagnostic 0-15 directed ity o f (ONETOUCH 00:00: for once a [place] ULTRA BLUE day Medical TEST STRIP) glucose Branc h strip monitoring for ICD of E11.9 blood sugar 2019- Yes [id number] Use as Univers diagnostic 0-15 directed ity o f (ONETOUCH 00:00: for once a [place] ULTRA BLUE day Medical TEST STRIP) glucose Branc h strip monitoring for ICD of E11.9 blood sugar 2019- Yes [id number] Use as Univers diagnostic 0-15 directed ity o f (ONETOUCH 00:00: for once a [place] ULTRA BLUE day Medical TEST STRIP) glucose Branc h strip monitoring for ICD of E11.9 bisacodyL 5 2020-0 Yes [id number] 10mg Take 2 Univers mg EC 9-27 tablets by ity of tablet 00:00: mouth 3 [place] 00 (three) Medical times Branch daily as needed for Constipati on. Polyethylen 2020-0 Yes [id number] 17g Take 1 Univers e Glycol 9-27 Packet by ity of 3350 17 00:00: mouth 3 [place] gram powder 00 (three) Medic al times Branch daily as needed for Constipati on. bisacodyL 5 2020-0 Yes [id number] 10mg Take 2 Univers mg EC 9-27 tablets by ity of tablet 00:00: mouth 3 [place] 00 (three) Medical times Branch daily as needed for Constipati on. Polyethylen 2020-0 Yes [id number] 17g Take 1 Univers e Glycol 9-27 Packet by ity of 3350 17 00:00: mouth 3 [place] gram powder 00 (three) Medic al times Branch daily as needed for Constipati on. bisacodyL 5 2020-0 Yes [id number] 10mg Take 2 Univers mg EC 9-27 tablets by ity of tablet 00:00: mouth 3 [place] 00 (three) Medical times Branch daily as needed for Constipati on. Polyethylen 2020-0 Yes [id number] 17g Take 1 Univers e Glycol 9-27 Packet by ity of 3350 17 00:00: mouth 3 [place] gram powder 00 (three) Medic al times Branch daily as needed for Constipati on. nitroglycer 2018-[id number] 1 Univers in 0.4 mg 0-25 tablet ity of sublingual 00:00: under the [place] tablet 00 tongue Medical every 5 Branch (five) minutes as needed for Chest pain. nitroglycer 2018-[id number] 1 Univers in 0.4 mg 0-25 tablet ity of sublingual 00:00: under the [place] tablet 00 tongue Medical every 5 Branch (five) minutes as needed for Chest pain. nitroglycer 2018-[id number] 1 Univers in 0.4 mg 0-25 tablet ity of sublingual 00:00: under the [place] tablet 00 tongue Medical every 5 Branch (five) minutes as needed for Chest pain. ONE TOUCH Yes [id number] Use as Un dave DELICA 33 918 directed ity of gauge Misc 00:00: once a day [place] 00 to monitor Medical blood Branch glucose for ICD code of E11.9. ONE TOUCH Yes [id number] Use as Un dave DELICA Kit 9-18 directed ity o f 00:00: once a day [place] 00 to monitor Medical blood Branch glucose for ICD code of E11.9. ONE TOUCH Yes [id number] Use as Un dave DELICA 33 918 directed ity of gauge Misc 00:00: once a day [place] 00 to monitor Medical blood Branch glucose for ICD code of E11.9. ONE TOUCH Yes [id number] Use as Un dave DELICA Kit 9-18 directed ity o f 00:00: once a day [place] 00 to monitor Medical blood Branch glucose for ICD code of E11.9. ONE TOUCH 2018- Yes [id number] Use as Un dave DELICA 33 9-18 directed ity of gauge Misc 00:00: once a day [place] 00 to monitor Medical blood Branch glucose for ICD code of E11.9. ONE TOUCH Yes [id number] Use as Un dave DELICA Kit 9-18 directed ity o f 00:00: once a day [place] 00 to monitor Medical blood Branch glucose for ICD code of E11.9. ONETOUCH Yes Use as Univers ULTRA2 9-11 directed ity of METER Kit 00:00: once a day [place] 00 to monitor Medical blood Branch glucose for ICD code of E11.9. ONETOUCH Yes Use as Univers ULTRA2 9-11 directed ity of METER Kit 00:00: once a day [place] 00 to monitor Medical blood Branch glucose for ICD code of E11.9. ONETOUCH Yes Use as Univers ULTRA2 9-11 directed ity of METER Kit 00:00: once a day [place] 00 to monitor Medical blood Branch glucose for ICD code of E11.9. docusate 2017-09 Yes TAKE ONE Unive rs (STOOL 2-18 CAPSULE BY ity of SOFTENER) 00:00: MOUTH [place] 100 mg 00 TWICE A Medical capsule DAY Branch docusate 2017-09 Yes TAKE ONE Unive rs (STOOL 2-18 CAPSULE BY ity of SOFTENER) 00:00: MOUTH [place] 100 mg 00 TWICE A Medical capsule DAY Branch docusate 2017-09 Yes TAKE ONE Unive rs (STOOL 2-18 CAPSULE BY ity of SOFTENER) 00:00: MOUTH [place] 100 mg 00 TWICE A Medical capsule DAY Branch POLYETHYLEN 2016-09 No Notes: Nickolas emeka E GLYCOL 2-16 Dissolve l 3350 15:00: in 8 oz of [place] 00 water or juice. (Same as: Miralax) remove 2016-09 No Notes: Memoria patch 2-16 Remove old l 15:00: patch [place] 00 before applicatio n of new patch. Aspirin 325 2016-09 No Notes: (Do Memoria MG Enteric 2-16 Not Crush) l Coated 14:00: Do not [place] Tablet 00 crush or chew. pantoprazol 2016-09 No Notes: [place] emeka e 2-16 Tablet l 13:30: should not [place] 00 be chewed or crushed. (Same as: Protonix) rosuvastati 2016-09 No Notes: [place] emeka n 2-16 (Same As: l 03:00: Crestor) [place] 00 Requip 2016-09 No Notes: Memoria 2-16 (Same as: l 03:00: Requip) [place] 00 donepezil 2016-09 No Notes: Memori a 2-16 (Same as: l 03:00: Aricept) [place] 00 sennosides, 2016-09 No Notes: Nickolas emeka CARE HOME 2-16 (Same as: l 03:00: Senokot) [place] 00 Celebrex 2016-09 No Notes: Memoria 2-16 NSAID. l 00:00: Please [place] 00 check indication . Not for seizure. (Same As: CeleBREX) Vancomycin 2016-09 Yes 2001 mg: Me moria 2-16 infuse l 00:00: over 2.5 [place] hours MEDICATION WASTE Product Size: 1000 mg Product Wasted: ___ mg Ergocalcife 2016-09 Yes 50,000 Nickolas emeka rol [id number] 2-15 IntlUnit = l UNT Oral 23:26: 1 cap, PO, Her cervantes Capsule 00 Q7D, # 8 caplet, 0 Refill(s) metFORMIN 2016-09 No Notes: Memori a 500 mg oral 2-15 (Same as: l tablet, 23:00: Glucophage Herm ely extended XR) "Do release Not Crush" Docusate 2016-09 No Notes: Memoria Sodium 100 2-15 (Same as: l MG Oral 23:00: Colace) [place] Capsule 00 (Do Not Crush) Lyrica 2016-09 No Notes: Memoria 2-15 Same as l 22:00: [place] Aspirin 325 2016-09 Yes 325 mg = [...] Blood Glucose Results, Start date: 08/19/17 11:50:00 [employer], Duration: 30 day, Stop date: 09/18/17 11:49:00 [employer] Insulin 2016-09 No Notes: Memoria Lispro 2-15 [...] 2-15 Route: IM, l 17:50: Drug form: [place] PDR/INJ, PRN, Dosing Weight 102.273, kg, PRN Blood Glucose Results, Start date: 08/19/17 11:50:00 [employer], Duration: 30 day, Stop date: 09/18/17 11:49:00 [employer] Ergocalcife 2016-09 No Notes: Nickolas emeka rol [id number] 2-15 (Same as: l UNT Oral 16:00: [...] 2-15 (Same as: l 15:30: Milk of Vineet, MOM) Lactated 2016-09 No 1,000 mL, Nickolas emeka Ringers IV 2-15 Rate: 75 l 1,000 mL 15:30: ml/hr, Infuse over: 13.3 hr, Route: IV, Dosing Weight 102.273 kg, Total Volume: 1,000, Start date: 08/19/17 9:30:00 [employer], Duration: 30 day, Stop date: 09/18/17 9:29:00 [employer], 2.35, m2 Promethazin 2016-09 No Notes: Do [...] en 2-15 acetaminop l 13:38: hen 4000 mg/day (4 gm/day). (Same as: Tylenol Extra Strength) Naloxone 2016-09 No Notes: Mem[place] 2-15 Same as l 13:38: Narcan Flumazenil 2016-09 No Notes: Memor ia 2-15 (Same as: l 13:38: Romazicon) Hydromorpho 2016-09 No Notes: Nickolas emeka ne 2-15 (Same as: l 13:38: Dilaudid) Morphine 2016-09 No Notes: Memoria 2-15 (Same l 13:38: as:MORPhin e Sulfate) Labetalol 2016-09 No 10 mg, 2 Nickolas emeka 2-15 mL, Route: l 13:38: IVP, Drug form: INJ, Q5Min, Dosing Weight 102.273, kg, PRN Elevated BP, Start date: 08/19/17 7:38:00 [employer], Duration: 5 doses or times, Stop date: 08/19/17 22:00:00 [employer] Hydralazine 2016-09 No Notes: Nickolas emeka 2-15 (Same as: l 13:38: Apresoline [place] 00 ) Push over 5 minutes vancomycin [...] a 2-15 (Same As: l 12:00: Ancef, [place] 00 Kefzol) MEDICATION WASTE Product Size: 1000 mg Product Wasted: ___ mg Vancomycin 2016-09 No 1,534.095 Me moria 2-15 mg, Route: l 12:00: IVPB, [place] 00 ONCALL, Dosing Weight 102.273, kg, Start date: 08/19/17 6:00:00 [employer], Duration: 1 doses or times, ABX Indication : Surgical Prophylaxi s celecoxib 2016-09 No Notes: Memori a 2-15 NSAID. l 12:00: Please [place] 00 check indication . Not for seizure. (Same As: CeleBREX) 72 HR 2016-09 No Notes: Memoria Scopolamine 2-15 Change l 0.0139 11:24: patch [place] MG/HR 00 every 72 Transdermal hours Patch (Same as: Transderm- Scop) Calcium 2016-09 No 1,000 mL, Memor ia Chloride 2-15 1,000 l 0.0014 11:24: ml/hr, [place] MEQ/ML / 00 Infuse Potassium Over: 1 Chloride hr, Route: 0.004 IV, 1,000, MEQ/ML / Drug form: Sodium INJ, ONCE, Chloride Priority: 0.103 STAT, MEQ/ML / Dosing Sodium Weight Lactate 105.909 0.028 kg, Start MEQ/ML date: Injectable 08/19/17 Solution 5:24:00 [employer], Stop date: 08/19/17 5:24:00 [employer] Lactated 2016-09 No 1,000 mL, Nickolas emeka Ringers IV 2-15 Rate: 100 l 1,000 mL 11:24: ml/hr, [place] 00 Infuse over: 10 hr, Route: IV, Dosing Weight 102.273 kg, Total Volume: 1,000, Start date: 08/19/17 5:24:00 [employer], Duration: 30 day, Stop date: 09/18/17 5:23:00 [employer], 2.35, m2 Acetaminoph 2016-09 No Notes: Max Memoria en 2-15 acetaminop l 11:24: hen 4000 [place] 00 mg/day (4 gm/day). (Same as: Tylenol Extra Strength) Famotidine 2016-09 No Notes: Memor ia 2-15 (Same as: l 11:24: Pepcid) [place] 00 linaclotide 2016-09 Yes 290 Memori a 0.29 MG 2-05 microgram l Oral 20:49: = 1 cap, [place] Capsule 00 PO, Daily, [Linzess] PRN Constipati on, 30 minutes prior to the first meal of the day, # 30 cap, 0 Refill(s) MORPHINE 2016-09 Yes MORPHINE Mem[facility] PAIN PUMP 2-05 PAIN PUMP, l 20:49: Refill(s) [place] 00 0 donepezil 5 2016-09 No 5 [...] NASAL, l de 0.137 20:45: BID, 0 [place] MG/ACTUAT 00 Refill(s) Metered Dose Nasal [place] metFORMIN 2016-09 No 500 mg = 1 [...] [place] MG/ACTUAT 00 Refill(s) Metered Dose Nasal [place] linaclotide 2016-09 No 290 Memori a 0.29 MG 2-05 microgram l Oral 20:43: = 1 cap, [place] Capsule 00 PO, Daily, [Linzess] PRN Constipati [...] # [place] 00 30 tab, 0 Refill(s) Immunizations Ordered Filled Immunization Date Status Comments [facility] e Immunization Name Name SARS-COV-2 COVID-19 2021-03-06 Completed Unive rsity of MODERNA VACCINE 00:00:00 [facility] SARS-COV-2 COVID-19 2021-03-06 Completed Unive rsity of MODERNA VACCINE 00:00:00 [facility] SARS-COV-2 COVID-19 2021-03-06 Completed Unive rsity of MODERNA VACCINE 00:00:00 [facility] SARS-COV-2 COVID-19 2020-11-12 Completed Unive rsity of MODERNA VACCINE 00:00:00 [facility] SARS-COV-2 COVID-19 2020-11-12 Completed Unive rsity of MODERNA VACCINE 00:00:00 [facility] SARS-COV-2 COVID-19 2020-11-12 Completed Unive rsity of MODERNA VACCINE 00:00:00 [facility] Influenza Virus 2020-07-16 Completed Universit y of Vaccine Quad .5 mL 00:00:00 [facility] 6+ MO Branch Influenza Virus 2020-07-16 Completed Universit y of Vaccine [place] .5 mL 00:00:00 [facility] IM 6+ MO Branch Influenza Virus 2020-07-16 Completed Universit y of Vaccine [place] .5 mL 00:00:00 [facility] IM 6+ MO Branch TDAP 2019-11-07 Completed University of 00:00:00 [facility] TDAP 2019-11-07 Completed University of 00:00:00 [facility] TDAP 2019-11-07 Completed University of 00:00:00 [facility] Influenza Virus 2019-06-20 Completed Universit y of Vaccine Quad .5 mL 00:00:00 [facility] IM 6+ MO Branch Influenza Virus 2019-06-20 Completed Universit y of Vaccine Quad .5 mL 00:00:00 [facility] IM 6+ MO Branch Influenza Virus 2019-06-20 Completed Universit y of Vaccine Quad .5 mL 00:00:00 [facility] 6+ MO Branch Pneumococcal 2018-05-21 Completed University o f Polysaccharide, 00:00:00 [place] [facility] PPSV23 (PNEUMOVAX) Branch Pneumococcal 2018-05-21 Completed University o f Polysaccharide, 00:00:00 [place] [facility] PPSV23 (PNEUMOVAX) Branch Pneumococcal 2018-05-21 Completed University o f Polysaccharide, 00:00:00 [place] [facility] PPSV23 (PNEUMOVAX) Branch Influenza Virus 2016-08-03 Completed Universit y of Vaccine Quad IM 00:00:00 [facility] Multi-dose 6+ MO Branch Influenza Virus 2016-08-03 Completed Universit y of Vaccine Quad IM 00:00:00 [facility] Multi-dose 6+ MO Branch Influenza Virus 2016-08-03 Completed Universit y of Vaccine Quad IM 00:00:00 [place] [facility] Multi-dose 6+ MO Branch Influenza Virus 2015-06-06 Completed [facility]it y of Vaccine Quad ID 00:00:00 [facility] 18-64 Y[facility] Influenza Virus 2015-06-06 Completed Universit y of Vaccine Quad ID 00:00:00 [facility] 18-64 Y[facility] Influenza Virus 2015-06-06 Completed Universit y of Vaccine Quad ID 00:00:00 [facility] 18-64 Y[facility] Vital Signs Vital Name Observation Time Observation Value Comments Source HEIGHT 2020-09-10 22:00:00 190.5 cm WEIGHT 2020-09-10 22:00:00 99.746 kg Systolic blood 2022-01-15 14:40:00 105 mm[Hg] Univer sity of pressure [facility] Diastolic blood 2022-01-15 14:40:00 65 mm[Hg] Unive rsity of pressure [facility] Heart rate 2022-01-15 14:40:00 74 /min Universi ty of [facility] Respiratory rate 2022-01-15 14:40:00 22 /min Univ ersity of [facility] Body height 2022-01-15 14:40:00 190.5 cm Universi ty [facility] Body weight 2022-01-15 14:40:00 82.645 kg Universi ty [facility] BMI 2022-01-15 14:40:00 22[facility]77 [facility] 2022-01-15 14:40:00 95 /min [facility] Arterial blood by [facility] Pulse oximetry Branch HEIGHT 2020-09-10 22:00:00 190.5 cm WEIGHT 2020-09-10 22:00:00 99.746 kg Respitory Rate 2017-08-19 21:15:00 Memori al [place] Systolic (mm Hg) 2017-08-19 21:15:00 Nickolas rial [place] Diastolic (mm Hg) 2017-08-19 21:15:00 Mem orial [place] Temperature Oral (F) 2017-08-19 21:15:00 97.7 F [facility] [place] Heart Rate 2017-08-19 21:15:00 [facility] [place] Systolic (mm Hg) 2017-08-19 16:23:00 Nickolas rial [place] Diastolic (mm Hg) 2017-08-19 16:23:00 Mem orial [place] Respitory Rate 2017-08-19 16:23:00 Memori al [place] Heart Rate 2017-08-19 16:23:00 [facility] [place] Heart Rate 2017-08-19 16:20:00 [facility] [place] Temperature Oral (F) 2017-08-19 16:20:00 96.9 F [facility] [place] Systolic (mm Hg) 2017-08-19 16:20:00 Nickolas rial [place] Diastolic (mm Hg) 2017-08-19 16:20:00 Mem orial [place] Respitory Rate 2017-08-19 16:20:00 Memori al [place] Temperature Oral (F) 2017-08-19 11:25:00 97.8 F [facility] [place] BMI Calculated 2017-08-19 11:20:00 Shirin al [place] Weight 2017-08-19 11:20:00 [facility] [place] Height 2017-08-19 11:20:00 193.04 cm [facility] [place] Procedures Procedure Date / Time Performing Clinician Source Performed [U] XRAY KNEE 3 VWS RIGHT 2017-10-11 00:00:00 [facility] [id number] [U] XRAY KNEE 3 VWS RIGHT 2017-10-04 00:00:00 [facility] [id number] [QLH] HEMOGLOBIN A1c 2017-07-20 00:00:00 [facility] Arthroscopic procedure [facility] [place] Back fusion [facility] [place] Cholecystectomy [facility] [place] Implantation of sacral [facility] [place] nerve stimulator<sup>1</sup> Insertion of implantable Memoria l [place] intrathecal pump<sup>2</sup> Knee replacement [facility] [place] n Procedure on foot [facility] Suzy nn Encounters Start End Encounter Admission Attending Care Care Encounter Source Date/Time Date/Time Type Type Clinicians Facility Department ID 2020-09-10 Inpatient ER [facility] [id number] [facility] 20:58:00 RITESH Med 2022-01-28 2022-01-28 Outpatient Olya JOHNS [facility] [id number] Univers 10:15:00 10:15:00 HARI [id number] [facility] 2022-01-28 2022-01-28 Outpatient Olya JOHNS [facility] [id number] Univers 10:15:00 10:15:00 HARI barreto [facility] 2022-01-27 2022-01-27 Outpatient Olya MALLORY [facility] [id number] Univers 15:40:00 15:40:00 DEMARCO [id number] mary lou o [facility] 2022-01-27 2022-01-27 Outpatient Olya MALLORY [facility] [id number] Univers 15:40:00 15:40:00 DEMARCO barreto o [facility] 2022-01-25 2022-01-25 [facility] [id number] Univers 00:00:00 00:00:00 Hari HEALTH [id number] it y [facility] [id number] Brennen as IRENE?BLEA [phone] [place] ghassan [address] OFFICE [facility] 2022-01-22 2022-01-22 [facility]phone [facility] [id number] Univers 00:00:00 00:00:00 Hari HEALTH [id number] it y of [facility] [id number] Brennen as IRENE?BLEA [phone] [address] OFFICE [facility] 2022-01-21 2022-01-21 Outpatient R CHRIST [facility] [id number] Univers 10:15:00 10:15:00 MARIE barreto [facility] 2022-01-15 2022-01-15 Office [facility] [id number] Univers 09:30:00 10:08:02 Visit Rosa LESLIE [id number] i ty [facility] [id number] PROF[place] [phone] [facility] 2022-01-11 2022-01-11 Outpatient R SHAWNEE [facility] [id number] Univers 08:40:00 08:40:00 DEMARCO barreto o f [facility] 2021-04-08 2021-04-08 [facility]phone [facility] [id number] 00:00:00 00:00:00 Hari Health [id number] [place] [id number] Professio [phone] nal 044 Office [facility] One 2021-04-07 2021-04-07 Telephone [facility] [id number] 00:00:00 00:00:00 Xin Health [id number] [place] [id number] Professio [phone] nal [facility] Office [facility] One 2021-04-06 2021-04-06 [facility], [facility] [id number] 14:37:07 14:57:07 Visit Neptali Casiano I Health [id number] [place] [id number] Professio [phone] nal 044 Office Building One 2021-04-06 2021-04-06 Office Porfirio, [facility] [id number] 13:27:46 13:57:46 Visit Xin Health [id number] [place] [id number] Professio [phone] nal 044 Office Building One 2017-10-13 2017-10-13 TRINH Oglesby [facility] [id number] [place] 10:15:00 10:15:00 t; ZENY CLEVELAND OrthopedicLesley Sebastian M.D. 2017-10-05 2017-10-05 TRINH Oglesby [facility] [id number] [place] 13:45:00 13:45:00 t; ZENY C[place]AND Orthopedics Lesley Martinez M.D. 2017-09-02 2017-09-02 TRINH Miles UTP [id number] [place] 10:00:00 10:00:00 t; Angel CHESTER Ph nghia Farris P.A. 2017-08-19 2017-08-20 [facility] [id number] [facility] 11:05:00 00:00:00 Outpatient [facility] 02 l Orthopedic [facility] 2017-08-19 2017-08-19 TRINH Oglesby [facility] [id number] [place] 09:00:00 09:00:00 t; ZENY CLEVELAND, Lesley Alejandra M.D. 2017-07-20 2017-07-20 TRINH Oglesby UTP [id number] [place] 12:30:00 12:30:00 t; ZENY C[place]AND Ph ysici KENNETH, M.D. ans M.D. Results Test Description Test Time Test Comments Results Result Comments Source BLOOD CULTURE 2020-09-16 03:01:00 Test Item Value Reference Range Interpretation Comme nts CULTURE (BEAKER) (test code = 1095) No growth in 5 days BLOOD [id number] 03:01:00 Test Item Value Reference Range Interpretation Comments CULTURE (BEAKER) (test No growth in 5 days code = 1095) CT, CHEST WITH IV CONTRAST- PE TEST [id number] 09:38:00Unlisted Reason for Exam - Click Yes and Enter Reason Below->No [facility] : 1955 Sex: MFINAL [...] relayed toDr. Negron at 9:37 [address] [employer]henai. Signed: Jovita Doherty MDReport Verified Date/Time: 09/12/2020 09:38:21 Reading Location: [facility] Diagnostic Imaging Reading Room - [place] [address] POCT-GLUCOSE [id number] 20:59:00 Test Item Value Reference Range Interpretation Comments POC-GLUCOSE METER 146 mg/dL 70-110 H : Notified RN/MD: ([facility]) (test code = TESTED AT [facility] 6720 1538) [facility], [address]: Jewelry Bench Worker/Techni keren ID = [id number] for LORENZO NGY POCT-GLUCOSE [id number] 17:20:00 Test Item Value Reference Range Interpretation Comments POC-GLUCOSE METER 141 mg/dL 70-110 H : TESTED A T [facility] 6720 ([facility]) (test code = [facility], 1538) [address]: Jewelry Bench Worker/Techni keren ID = [id number] for TRACEY CADET TTE RESPIRATORY PANEL [id number] 15:25:00 Test Item Value Reference Range Interpretation [...] decisions. This sample was tested at the [facility] Molecular Diagnostics Laboratory using the [employer] Limited[employer] Respiratory Panel. It is FDA cleared and has been verified and approved by the [facility] Molecular Diagnostics Laboratory for clinical use on nasopharyngeal swab specimens.The performance of the FilmArrayRP has not been established in individuals who received influenza vaccine. Recent administration ofa nasal influenza vaccine may cause false positive results for Influenza A and/orInfluenza B.URINALYSIS WITH MICROSCOPIC IF [id number] 12:34:00 Test Item Value Reference Range Interpretation [...] = 463) SOURCE(BEAKER) (test code = 2795) Jewelry Bench Worker ID - [auto]Jewelry Bench Worker ID - [auto]URINALYSIS [id number] 12:34:00 Test Item Value Reference Range Interpretation Comments RBC UA (BEAKER) (test code = 519) 0 /HPF WBC UA (BEAKER) (test code = 520) 1 /HPF MUCUS (BEAKER) (test code = 1574) Rare Jewelry Bench Worker ID - [auto]POCT-GLUCOSE [id number] 11:21:00 Test Item Value Reference Range Interpretation Comments POC-GLUCOSE METER 158 mg/dL 70-110 H : TESTED A T [facility] 6720 (BEAKER) (test code = [facility], 1538) [address]: Jewelry Bench Worker/Techni keren ID = [id number] for CADET, TRACEY TTE POCT-GLUCOSE [id number] 08:44:00 Test Item Value Reference Range Interpretation Comments POC-GLUCOSE METER 156 mg/dL 70-110 H : TESTED A T [facility] 6720 (BEAKER) (test code = [facility], 1538) [address]: Jewelry Bench Worker/Techni keren ID = [id number] for CADET, TRACEY TTE SARS-COV2/INFLUENZA/RSV [id number] 08:28:00 Test Item Value Reference Range Interpretation Comments SARS-COV2/RT-PCR Negative Negative (test code = 6523545) INFLUENZA A RT-PCR Negative Negative (test code = 3598958) INFLUENZA B RT-PCR Negative Negative (test code = 8519532) RSV RT-PCR (test Negative Negative Performanc e of the Xpert code = 6272564) Xpress SARS- CoV-2/Flu/RSV test has only b [...] sooner.Fact She et for Healthcare Prov iders: https://www.[employer].Evisors/D Fidzupuments/Xpert% 20Xpress%2 2NVVM-UhY-2-Flu -RSV/302-4 508%20Rev.%20B% 20HCP%20Fa ct%20Sheet.pdfF act Sheet for Healthcare Patients: https://www.[employer].Evisors/D ocuments/Xpert% 20Xpress%2 9JLIZ-ArB-5-Flu -RSV/302-4 507%20Rev.%20B% 20Patient% 20Fact%20Sheet. pdf CREATINE KINASE (CK)2020-09-11 08:01:00 Test Item Value Reference Range Interpretation Comments CREATINE KINASE TOTAL (BEAKER) (test 53 U/L 29-200 code = 380) Jewelry Bench Worker ID Eden SIGALA MTROPONIN [id number] 08:00:00 Test Item Value Reference Range Interpretation [...] failure, acidosis, acute neurological disease, and persistent tachyarrhythmia.Jewelry Bench Worker ID - JOVON [id number] 02:36:00 Test Item Value Reference Range Interpretation Comments FERRITIN (BEAKER) (test code = 34.09 ng/mL 5.00-275.00 361) Jewelry Bench Worker ID - JOVON MTSH/FREE T4 IF [id number] 02:36:00 Test Item Value Reference Range Interpretation Comments THYROID STIMULATING HORMONE 0.788 uIU/mL 0.350-4.940 (BEAKER) (test code = 772) Jewelry Bench Worker ID - JOVON MBASIC METABOLIC [id number] 02:11:00 Test Item Value Reference Range Interpretation [...] S NOT APPLICABLE FOR DIALYSIS PATIEN TS. Jewelry Bench Worker ID - JOVON MTROPONIN [id number] 02:08:00 Test Item Value Reference Range Interpretation [...] failure, acidosis, acute neurological disease, and persistent tachyarrhythmia.Jewelry Bench Worker ID - JOVON EPATIC FUNCTION [id number] 02:05:00 Test Item Value Reference Range Interpretation [...] (test code = 12 U/L 6-55 347) Jewelry Bench Worker ID - JOVON MLACTATE DEHYDROGENASE (LDH)2020-09-11 02:05:00 Test Item Value Reference Range Interpretation Comments LACTATE DEHYDROGENASE (BEAKER) (test 203 U/L 125-220 code = 635) Jewelry Bench Worker ID - JOVON MC-REACTIVE [id number] 02:05:00 Test Item Value Reference Range Interpretation Comments C-REACTIVE PROTEIN (BEAKER) (test 0.07 mg/dL 0.00-0.50 code = 676) Jewelry Bench Worker ID - JOVON MLACTIC ACID, [id number] 01:46:00 Test Item Value Reference Range Interpretation Comments LACTATE BLOOD VENOUS (2) (BEAKER) 1.19 mmol/L 0.50-2.20 (test code = 2872) Jewelry Bench Worker ID - JOVON [id number] 01:39:00 Test Item Value Reference Range Interpretation [...] exclusion of thrombosis is within 95-100% range.CBC W/PLT COUNT & AUTO [id number] 01:18:00 Test Item Value Reference Range Interpretation [...] 0-1 PERCENT (BEAKER) (test code = 2801) [id number] 16:50:00 Test Item Value Reference Range Interpretation Comments Hgb (test code = Hgb) 13.4 14.0-18.0 [id number] 16:50:00 Test Item Value Reference Range Interpretation Comments RBC (test code = RBC) 5.29 4.70-6.10 [id number] 16:50:00 Test Item Value Reference Range Interpretation Comments WBC (test code = WBC) 4.8 3.7-10.4 [id number] 16:50:00 Test Item Value Reference Range Interpretation Comments Monocytes # (test code 0.5 See_Comment [Aut omated message] The = Monocytes #) system which generated this result tra nsmitted reference range : <=0.8. The reference r manuel was not used to int erpret this result as normal/abnormal . [id number] 16:50:00 Test Item Value Reference Range Interpretation Comments Eosinophils # (test code 0.2 See_Comment [A utomated message] The = Eosinophils #) system whic h generated this result tra nsmitted reference range : <=0.5. The reference r manuel was not used to int erpret this result as normal/abnormal . [id number] 16:50:00 Test Item Value Reference Range Interpretation Comments Lymphocytes # (test code = Lymphocytes 1.1 1.0-5.5 #) [id number] 16:50:00 Test Item Value Reference Range Interpretation Comments Segs-Bands # (test code = Segs-Bands #) 3.0 1.5-8.1 [id number] 16:50:00 Test Item Value Reference Range Interpretation Comments Basophils (test code = 0.7 See_Comment [Aut omated message] The Basophils) system which ge nerated this result tra nsmitted reference range : <=1.0. The reference r manuel was not used to int erpret this result as normal/abnormal . [id number] 16:50:00 Test Item Value Reference Range Interpretation Comments Eosinophils (test code = 4.7 See_Comment [A utomated message] The Eosinophils) system which ge nerated this result tra nsmitted reference range : <=4.0. The reference r manuel was not used to int erpret this result as normal/abnormal . [id number] 16:50:00 Test Item Value Reference Range Interpretation Comments Monocytes (test code = Monocytes) 10.6 2.0-12.0 [facility] [id number] 16:50:00 Test Item Value Reference Range Interpretation Comments Lymphocytes (test code = Lymphocytes) 23.0 20.0-40.0 [id number] 16:50:00 Test Item Value Reference Range Interpretation Comments Segs (test code = Segs) 61.0 45.0-75.0 [facility] [id number] 16:50:00 Test Item Value Reference Range Interpretation Comments Hgb A1C (test code = Hgb A1C) 7.1 [facility]2017-12-05 16:50:00 Test Item Value Reference Range Interpretation Comments Vitamin D, 25-OH, Total (test code = 24.0 30.0-100.0 Vitamin D, 25-OH, Total) [facility]2017-12-05 16:50:00 Test Item Value Reference Range Interpretation Comments Globulin (test code = Globulin) 3.9 2.7-4.2 [facility]2017-12-05 16:50:00 Test Item Value Reference Range Interpretation Comments A/G Ratio (test code = A/G Ratio) 0.9 0.7-1.6 [facility]2017-12-05 16:50:00 Test Item Value Reference Range Interpretation Comments AGAP (test code = AGAP) 7.2 10.0-20.0 [facility]2017-12-05 16:50:00 Test Item Value Reference Range Interpretation Comments B/C Ratio (test code = B/C Ratio) 15 6-25 [facility]2017-12-05 16:50:00 Test Item Value Reference Range Interpretation Comments eGFR (test code = eGFR) 65 [facility]2017-12-05 16:50:00 Test Item Value Reference Range Interpretation Comments CO2 (test code = CO2) 34 24-32 [facility]2017-12-05 16:50:00 Test Item Value Reference Range Interpretation Comments Glucose Lvl (test code = Glucose Lvl) 87 70-99 [facility]2017-12-05 16:50:00 Test Item Value Reference Range Interpretation Comments BUN (test code = BUN) 18 7-22 [facility]2017-12-05 16:50:00 Test Item Value Reference Range Interpretation Comments Creatinine Lvl (test code = Creatinine 1.20 0.50-1.40 Lvl) [facility]2017-12-05 16:50:00 Test Item Value Reference Range Interpretation Comments Sodium Lvl (test code = Sodium Lvl) 141 135-145 [facility]2017-12-05 16:50:00 Test Item Value Reference Range Interpretation Comments Alk Phos (test code = Alk Phos) 55 39-136 [facility]2017-12-05 16:50:00 Test Item Value Reference Range Interpretation Comments Bili Total (test code = Bili Total) 0.7 0.2-1.3 [facility]2017-12-05 16:50:00 Test Item Value Reference Range Interpretation Comments Total Protein (test code = Total 7.6 6.4-8.4 Protein) [facility]2017-12-05 16:50:00 Test Item Value Reference Range Interpretation Comments ALANINE AMINOTRANSFERASE 25 See_Comment [A utomated message] (test code = ALANINE The sys tem which AMINOTRANSFERASE) generated this result transmitted ref erence range: <=65. Th e reference range was not used to int erpret this result as normal/abnormal . [facility]2017-12-05 16:50:00 Test Item Value Reference Range Interpretation Comments Albumin Lvl (test code = Albumin Lvl) 3.7 3.5-5.0 [facility]2017-12-05 16:50:00 Test Item Value Reference Range Interpretation Comments ASPARTATE TRANSAMINASE 19 See_Comment [Aut omated message] (test code = ASPARTATE The s ystem which TRANSAMINASE) generated this result transmitted ref erence range: <=37. Th e reference range was not used to interpr et this result as normal/abnormal . [facility]2017-12-05 16:50:00 Test Item Value Reference Range Interpretation Comments Calcium Lvl (test code = Calcium Lvl) 9.3 8.5-10.5 [facility]2017-12-05 16:50:00 Test Item Value Reference Range Interpretation Comments Chloride Lvl (test code = Chloride Lvl) 104 95-109 [facility]2017-12-05 16:50:00 Test Item Value Reference Range Interpretation Comments Potassium Lvl (test code = Potassium 4.2 3.5-5.1 Lvl) [id number] 16:50:00 Test Item Value Reference Range Interpretation Comments INR (test code = INR) 0.91 0.85-1.17 [id number] 16:50:00 Test Item Value Reference Range Interpretation Comments PROTIME (test code = PROTIME) 12.3 s 12.0-14.7 [facility] [id number] 16:50:00 Test Item Value Reference Range Interpretation Comments aPTT (test code = aPTT) 33.6 s 22.9-35.8 [facility] [id number] 16:50:00 Test Item Value Reference Range Interpretation Comments MPV (test code = MPV) 7.5 7.4-10.4 [facility] [id number] 16:50:00 Test Item Value Reference Range Interpretation Comments Platelet (test code = Platelet) 196 133-450 [facility] [id number] 16:50:00 Test Item Value Reference Range Interpretation Comments RDW (test code = RDW) 17.4 11.5-14.5 [facility] [id number] 16:50:00 Test Item Value Reference Range Interpretation Comments MCH (test code = MCH) 25.4 pg 27.0-31.0 [facility] [id number] 16:50:00 Test Item Value Reference Range Interpretation Comments MCHC (test code = MCHC) 31.9 32.0-36.0 [facility] [id number] 16:50:00 Test Item Value Reference Range Interpretation Comments MCV (test code = MCV) 79.5 80.0-94.0 [facility] [id number] 16:50:00 Test Item Value Reference Range Interpretation Comments Hct (test code = Hct) 42.1 42.0-54.[address] [facility]] D-DIMER, [id number] 15:20:01 Test Item Value Reference Range Interpretation [...] u sed to rule out DVT/PE . [facility]] C-REACTIVE [id number] 15:20:01 Test Item Value Reference Range Interpretation Comments CRP (test code = CRP) <2.9 <=2.9 [facility]] SED RATE BY MODIFIED [id number] 15:20:01 Test Item Value Reference Range Interpretation Comments Sedimentation Rate (test code = 11 {mm/hr} 0-15 Sedimentation Rate) [facility]] HEMOGLOBIN [id number] 15:20:01 Test Item Value Reference Range Interpretation Comments Hemoglobin A1c; Above High Threshold 7.8 % <=5.6 (test code = 4548-4) [facility][U] XRAY KNEE 3 VWS RIGHT [id number] 14:25:00Images acquired, not reported on this accession number.[facility]
[2022-01-27] MEDS ORDERED: NA CHLORIDE 0.9% 1,000 ML ONE ×2 (11:43→13:19)
[2022-01-27 12:10] LABS: Absolute Lymphocytes (CBC) 1.6 K/uL (0.7-4.9); Hematocrit 48.3 % (39.6-49.0); Lymphocytes % 23.3 % (15.3-44.8); MPV 7.9 fL (7.6-11.3); RBC Red Blood Cell Count 5.52 M/uL (4.33-5.43)
[2022-01-27 12:27] LABS: Albumin 3.9 g/dL (3.4-5.0); Bilirubin Total 1.2 mg/dL (0.2-1.0); Potassium 3.3 mmol/L (3.5-5.1); Protein, Total 8.1 g/dL (6.4-8.2); Troponin High Sensitivity 7.3 pg/mL (<58.9)
--- NOTE | 2022-01-27 12:59 | RAD REPORT ---
EXAM DESCRIPTION: CT - Abdomen Pelvis Wo Contrast - 01/27/2022 12:50 pm CLINICAL HISTORY: Abdominal pain. Abdominal pain, acute, nonlocalized COMPARISON: Abdomen Pelvis W Contrast dated 04/08/2021 TECHNIQUE: CT imaging of the abdomen and pelvis was performed without contrast. Solid organ, bowel a nd vascular assessment is limited due to lack of IV and oral contrast. All CT scans are performed using dose optimization technique as appropriate and may include automated exposure control or mA/KV adjustment according to patient size. FINDINGS: The lower lung martin are clear. The liver, spleen, pancreas, adrenal glands and kidneys are within normal limits for a limited non-co ntrast examination.Cholecystectomy clips. No bowel obstruction, free air, free fluid or abscess. Moderate stool is present throughout the colon . The appendix is normal. Advanced degenerative changes affect the lumbar spine with bony fusion present lower lumbar levels. L umbar dextroscoliosis is present. IMPRESSION: No acute intra-abdominal or pelvic findings. Advanced degenerative and postoperative changes involving the lumbar spine. A limited non-contrast examination was performed as detailed.
--- NOTE | 2022-01-27 13:38 | EDPHYS ---
Physician Documentation [facility] Name: Melody Duarte Age: 66 yrs Sex: Male : 1955 Arrival Date: 01/27/2022 Time: 11:29 Bed 6 Private MD: ED Physician Srinivas Lemos HPI: 01/27 12:36 This 66 yrs old Male presents to ER via EMS with complaints of General Weakness, abd rn pain. 12:36 The patient presents with abdominal pain in the epigastric area, in the upper abdomen. rn 12:36 Onset: The symptoms/episode began/occurred 1 week(s) ago. The symptoms do not radiate. rn Associated signs and symptoms: Pertinent positives: constipation, generalized weakness, Pertinent negatives: nausea and vomiting, blood in stools, fever, hematuria. The symptoms are described as crampy. Modifying factors: The symptoms are alleviated by nothing, the symptoms are aggravated by touching the area. Severity of pain: At its worst the pain was moderate in the emergency department the pain is unchanged. The patient has experienced similar episodes in the past. The patient has not recently seen a physician. Historical: - Allergies: 11:30 Sulfa (Sulfonamide Antibiotics); ll1 - PMHx: 11:30 Diabetes - NIDDM; Chronic pain; Hyperlipidemia; Hypertension; Dementia; ll1 - PSHx: 11:30 lower back; right knee; pain pump; ll1 - Immunization history:: Adult Immunizations up to date. - Social history:: Smoking status: unknown. - Family history:: not pertinent. - Hospitalizations: : No recent hospitalization is reported. ROS: 12:36 Constitutional: Negative for fever, chills, and weight loss, Eyes: Negative for injury, rn pain, redness, and discharge, Neck: Negative for injury, pain, and swelling, Cardiovascular: Negative for chest pain, palpitations, and edema, Respiratory: Negative for shortness of breath, cough, wheezing, and pleuritic chest pain, Abdomen/GI: + abd pain, + constipation, no blood in stool Back: Negative for injury and pain, : Negative for injury, bleeding, discharge, and swelling, MS/Extremity: Negative for injury and deformity, Skin: Negative for injury, rash, and discoloration, Neuro: Negative for headache, numbness, tingling, and seizure. Exam: 12:36 Constitutional: This is a well developed, well nourished patient who is awake, alert, rn and in no acute distress. Head/Face: Normocephalic, atraumatic. ENT: dry MM Cardiovascular: Regular rate and rhythm. No pulse deficits. Respiratory: No increased work of breathing, no retractions or nasal flaring. Abdomen/GI: soft, + tender all 4 quadrants, no masses or peritoneal signs. Skin: Warm, dry MS/ Extremity: Pulses equal, no cyanosis. Neuro: Awake and alert, GCS 15 Vital Signs: 11:29 BP 116 / 94; Pulse 87; Resp 17; Temp 97.8; Pulse Ox 100% on R/A; ll1 11:45 BP 121 / 71; Pulse 81; Resp 15; Pulse Ox 97% ; jl7 12:30 BP 131 / 74; Pulse 76; Resp 15; Pulse Ox 96% ; jl7 13:15 BP 126 / 67; Pulse 66; Resp 16; Pulse Ox 100% ; jl7 14:00 BP 144 / 75; Pulse 64; Resp 15; Pulse Ox 100% ; jl7 MDM: 11:29 Patient medically screened. rn 13:34 Differential diagnosis: bowel obstruction, diverticulitis, non-specific abd pain, rn constipation, dehydration, adverse effect of medication. Data reviewed: vital signs, nurses notes, lab test result(s), EKG, radiologic studies, CT scan, and as a result, I will discharge patient. Counseling: I had a detailed discussion with the patient and/or guardian regarding: the historical points, exam findings, and any diagnostic results supporting the discharge/admit diagnosis, lab results, radiology results, the need for outpatient follow up, to return to the emergency department if symptoms worsen or persist or if there are any questions or concerns that arise at home. Response to treatment: the patient's symptoms have mildly improved after treatment, and as a result, I will discharge patient. Special discussion: I discussed with the patient/guardian in detail that at this point there is no indication for admission to the hospital. It is understood, however, that if the symptoms persist or worsen the patient needs to return immediately for re-evaluation. Based on the history and exam findings, there is no indication for further emergent testing or inpatient evaluation. I discussed with the patient/guardian the need to see the finish painter for further evaluation of the symptoms. ED course: No acute findings in blood or imaging. + fecal retention without obstruction or impaction. Most likely combination of dehydration, dementia, and too much pain medication. Pt with pain pump, as well as oral pain medication that is not supervised. Has had multiple visits where told was taking too much medication and possibly overdosing. Spoke at length with and daughter, recommend f/u with pain management to turn down pump, and push more fluids. Stable vitals. will dc home after fluids complete.. 01/27 11:37 Order name: CBC with Diff; Complete Time: 12:35 rn 01/27 11:37 Order name: CMP; Complete Time: 12:35 rn 01/27 11:37 Order name: Lipase; Complete Time: 12:35 rn 01/27 11:37 Order name: SARS-COV-2 RT PCR (Document "Date of Onset" if Symptomatic); Complete Time: rn 13:12 01/27 11:37 Order name: Troponin High Sensitivity; Complete Time: 12:35 rn 01/27 11:37 Order name: IV Saline Lock; Complete Time: 11:40 rn 01/27 11:37 Order name: Labs collected and sent; Complete Time: 11:40 rn 01/27 11:37 Order name: Urine Dipstick-Ancillary (obtain specimen); Complete Time: 11:49 rn 01/27 11:37 Order name: EKG; Complete Time: 11:38 rn 01/27 11:37 Order name: EKG - Nurse/Tech; Complete Time: 11:41 rn 01/27 12:38 Order name: Abdomen ; Complete Time: 13:12 EDNC 01/27 11:37 Order name: Cardiac monitoring; Complete Time: 11:41 rn Administered Medications: 11:49 Drug: NS 0.9% 1000 ml Route: IV; Rate: 1 bolus; Site: right antecubital; jl7 13:00 Follow up: IV Status: Completed infusion; IV Intake: 1000ml jl7 13:20 Drug: NS 0.9% 1000 ml Route: IV; Rate: 1000 ml; Site: right antecubital; jl7 14:20 Follow up: IV Status: Completed infusion; IV Intake: 1000ml jl7 Disposition Summary: 01/27/22 13:37 Discharge Ordered Location: Home rn Problem: an ongoing problem rn Symptoms: have improved rn Condition: Stable rn Diagnosis - Constipation, unspecified rn - Dehydration rn - Weakness rn - 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 rn Followup: rn - With: Pipe Mathis DO - When: As needed - Reason: Recheck today's complaints, Re-evaluation by your physician Discharge Instructions: - Discharge Summary Sheet rn - Constipation, Adult rn - Dehydration, Adult rn - Weakness rn Forms: - Medication Reconciliation Form rn - Thank You Letter rn - Antibiotic journeyman apprentice electricians - Prescription Opioid Use rn Signatures: Dispatcher [employer] EDMS Srinivas Lemos MD MD rn Leal, Jahala, RN RN jl7 Whitney Eli, RN RN ll1 Corrections: (The following items were deleted from the chart) 12:38 11:41 Abdomen Pelvis W Con+CT.RAD.BRZ ordered. [facility] EDNC
--- NOTE | 2022-01-27 13:38 | ER ---
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 No ll1 fever or cough. EMS states: VSS for EMS. + orthostatic VS. Ebola Screen: Patient denies travel to an Ebola-affected area in the 21 days before illness onset. Initial Sepsis Screen: Does the patient meet any 2 criteria? No. Patient's initial sepsis screen is negative. Does the patient have a suspected source of infection? No. Patient's initial sepsis screen is negative. Risk Assessment: Do you want to hurt yourself or someone else? Patient reports no desire to harm self or others. Onset of symptoms was January 20, 2022. 11:29 Method Of Arrival: EMS ll1 11:29 Acuity: EVA 3 ll1 15:22 Coronavirus screen: At this time, the client does not indicate any symptoms associated jl7 with coronavirus-19. Triage Assessment: 11:31 General: Appears uncomfortable, ill, Behavior is cooperative, appropriate for age. ll1 Pain: Complains of pain in chest. Neuro: Reports dizziness, weakness. Cardiovascular: Reports chest pain, fatigue. GI: Reports no appetite. Musculoskeletal: Reports weakness in generalized. Historical: - Allergies: 11:30 Sulfa (Sulfonamide Antibiotics); ll1 - PMHx: 11:30 Diabetes - NIDDM; Chronic pain; Hyperlipidemia; Hypertension; Dementia; ll1 - PSHx: 11:30 lower back; right knee; pain pump; ll1 - Immunization history:: Adult Immunizations up to date. - Social history:: Smoking status: unknown. - Family history:: not pertinent. - Hospitalizations: : No recent hospitalization is reported. Screenin:35 Abuse screen: Denies threats or abuse. Denies injuries from another. Nutritional jl7 screening: No deficits noted. Tuberculosis screening: No symptoms or risk factors identified. Fall Risk IV access (20 points). Total Romero Fall Scale indicates No Risk (0-24 pts). Assessment: 11:35 General: Appears in no apparent distress. uncomfortable, Behavior is calm, cooperative, jl7 appropriate for age. Pain: Complains of pain in diaphragm Pain does not radiate. Pain currently is 6 out of 10 on a pain scale. Quality of pain is described as "An elephant on my chest." Pain began 2-3 days ago. Is continuous. Neuro: Level of Consciousness is awake, alert, obeys commands, Oriented to person, place, time, situation. Cardiovascular: Patient's skin is warm and dry. Rhythm is regular. Respiratory: Airway is patent Respiratory effort is even, unlabored, Respiratory pattern is regular, symmetrical. Derm: Skin is pink, warm \\T\\ dry. 13:00 Reassessment: Patient appears in no apparent distress at this time. No changes from jl7 previously documented assessment. Patient and/or family updated on plan of care and expected duration. Pain level reassessed. Patient is alert, oriented x 3, equal unlabored respirations, skin warm/dry/pink. 14:00 Reassessment: Patient appears in no apparent distress at this time. No changes from jl7 previously documented assessment. Patient and/or family updated on plan of care and expected duration. Pain level reassessed. Patient is alert, oriented x 3, equal unlabored respirations, skin warm/dry/pink. Vital Signs: 11:29 BP 116 / 94; Pulse 87; Resp 17; Temp 97.8; Pulse Ox 100% on R/A; ll1 11:45 BP 121 / 71; Pulse 81; Resp 15; Pulse Ox 97% ; jl7 12:30 BP 131 / 74; Pulse 76; Resp 15; Pulse Ox 96% ; jl7 13:15 BP 126 / 67; Pulse 66; Resp 16; Pulse Ox 100% ; jl7 14:00 BP 144 / 75; Pulse 64; Resp 15; Pulse Ox 100% ; jl7 ED Course: 11:29 Patient arrived in ED. ll1 11:29 Srinivas Lemos MD is Attending Physician. rn 11:30 Triage completed. ll1 11:31 Arm band placed on Patient placed in an exam room, on a stretcher. ll1 11:35 Kathy Pastrana RN is Primary Nurse. jl7 11:35 Patient has correct armband on for positive identification. Placed in gown. Bed in low jl7 position. Call light in reach. Side rails up X 1. Client placed on continuous cardiac and pulse oximetry monitoring. NIBP monitoring applied. Warm blanket given. 11:35 Initial lab(s) drawn, by ED staff, sent to lab. COVID swab sent to lab. jl7 11:36 Inserted saline lock: 20 gauge in right antecubital area, using aseptic technique. zm Blood collected. 11:40 CBC with Diff Sent. zm 11:40 CMP Sent. zm 11:40 Lipase Sent. zm 11:41 Troponin High Sensitivity Sent. zm 11:46 SARS-COV-2 RT PCR (Document "Date of Onset" if Symptomatic) Sent. zm 12:52 Abdomen In Process Unspecified. EDMS 13:36 Pipe Mathis DO is Referral Physician. rn 15:00 No provider procedures requiring assistance completed. IV discontinued, intact, jl7 bleeding controlled, No redness/swelling at site. Pressure dressing applied. Administered Medications: 11:49 Drug: NS 0.9% 1000 ml Route: IV; Rate: 1 bolus; Site: right antecubital; jl7 13:00 Follow up: IV Status: Completed infusion; IV Intake: 1000ml jl7 13:20 Drug: NS 0.9% 1000 ml Route: IV; Rate: 1000 ml; Site: right antecubital; jl7 14:20 Follow up: IV Status: Completed infusion; IV Intake: 1000ml jl7 Medication: 15:00 VIS not applicable for this client. jl7 Intake: 13:00 IV: 1000ml; Total: 1000ml. jl7 14:20 IV: 1000ml; Total: 2000ml. jl7 Outcome: 13:37 Discharge ordered by . rn 15:22 Discharged to home via wheelchair. jl7 15:22 Condition: stable 15:22 Discharge instructions given to patient, family, Instructed on discharge instructions, follow up and referral plans. Demonstrated understanding of instructions, follow-up care. 15:22 Patient left the ED. jl7 Signatures: Dispatcher [employer] EDMS Srinivas Lemos MD MD rn Leal, Jahala, RN RN jl7 Whitney Eli RN RN ll1 Sharee Oviedo
[2022-01-27 15:30] VITALS: TEMP 97.8
[2022-01-27 15:34] VITALS: O2SAT 100
[2022-01-27 15:35] VITALS: BP 144/75
--- NOTE | 2022-01-28 07:55 | EKG ---
Test Date: 2022-01-27 Test Time: 11:30:10 Software Architect: AMY MEASUREMENT RESULTS: Intervals: Rate: 92 WI: 178 QRSD: 92 QT: 354 QTc: 437 [place]: P: 71 WI: 178 QRS: 85 T: 50 INTERPRETIVE STATEMENTS: Normal sinus rhythm Normal ECG Compared to ECG 04/08/2021 17:09:28 No significant changes Electronically Signed On 01-28-22 07:52:21 CDT by Chago Hernandez
== END 2022-01-27 15:22 | disposition home or self-care (01) ==
LOC: ER 11:26
DX: K59.00 Constipation, unspecified (principal); E86.0 Dehydration; R53.1 Weakness; T40.605A Adverse effect of unspecified narcotics, initial encounter; Z79.891 Long term (current) use of opiate analgesic; E11.9 Type 2 diabetes mellitus without complications; I10 Essential (primary) hypertension; F03.90 Unspecified dementia, unspecified severity, without behavioral disturbance, psychotic disturbance, mood disturbance, and anxiety; E78.5 Hyperlipidemia, unspecified; Z88.2 Allergy status to sulfonamides; Z20.822 Contact with and (suspected) exposure to COVID-19
CPT/HCPCS: 96361; 93005; 85025; 36415; 84484; 83690; 80053; 74176; 96360; 99284; U0003; J7030 ×2

== ENCOUNTER 2025-01-05 19:55 | Inpatient (IN) | payer OTHER ==
[2025-01-05] MEDS ORDERED: ASPIRIN 81 MG CHEWABLE TABLET ONE (20:14)
[2025-01-05] MEDS ORDERED: NITROGLYCERIN 0.4 MG/TAB SL ONE (20:14)
[2025-01-05 20:30] LABS: Absolute Eosinophils 0.1 K/uL (0-0.5); Absolute Lymphocytes (CBC) 1.1 K/uL (0.7-4.9); Absolute Monocytes 0.5 K/uL (0.1-1.3); Absolute Neutrophil 2.6 K/uL (1.8-8.0); Basophils % 0.6 % (0-1.3); Eosinophils % 2.3 % (0-4.4); Hematocrit 36.5 % (39.6-49.0); Hemoglobin 12.4 g/dL (13.6-17.9); Lymphocytes % 24.5 % (15.3-44.8); MCH 30.3 pg (27.0-35.0); MCV 89.3 fL (80-100); MPV 7.8 fL (7.6-11.3); Monocytes % 12.1 % (3.3-12.3); Neutrophils % 60.5 % (41.7-73.7); Nucleated Red Blood Cells % 0.1 % (0-0); Platelets 134 thou/uL (152-406); RBC Red Blood Cell Count 4.09 M/uL (4.33-5.43)
[2025-01-05 20:47] LABS: ALT/SGPT 16 U/L (16-61); Albumin 3.2 g/dL (3.4-5.0); Albumin/Globulin Ratio 0.9 (1.1-1.8); Alkaline Phosphatase 69 U/L (45-117); Anion Gap 8.5 mEq/L (5.0-15.0); BUN Blood Urea Nitrogen 13 mg/dL (7-18); Bicarbonate 31 mEq/L (21-32); Bilirubin Direct 0.3 mg/dL (0-0.2); Bilirubin Indirect, Calculated 0.7 mg/dL (0.2-0.8); Globulin 3.4 g/dL (2.3-3.5); Glomerular Filtration Rate 52 ml/min (=/>90); Glucose Level 266 mg/dL (74-106); Potassium 3.5 mEq/L (3.5-5.1); Protein, Total 6.6 g/dL (6.4-8.2); Sodium Level 142 mEq/L (136-145); Troponin High Sensitivity 3.1 pg/mL (<58.9)
[2025-01-05 20:55] LABS: AST/SGOT < 10 U/L (15-37)
--- NOTE | 2025-01-05 20:59 | RAD REPORT ---
EXAMINATION: ONE VIEW CHEST XR CLINICAL INDICATION: Male, 69 years old.,CHEST PAIN TECHNIQUE: Frontal chest projection is submitted. Examination is limited by patient positioning and t echnique. COMPARISON: 10/14/2023 FINDINGS: The lungs are well inflated and clear. No pneumothorax or sizable effusion. The heart is normal in s ize. Mediastinal contours are unremarkable. IMPRESSION: No acute intrathoracic abnormalities.
[2025-01-05] MEDS ORDERED: MORPHINE 4 MG/ML SYR ONE (22:33)
[2025-01-05] MEDS ORDERED: ONDANSETRON 4 MG/2 ML VIAL ONE (22:33)
[2025-01-05] MEDS ORDERED: ACETAMINOPHEN 325 MG TABLET PO PRN (22:39)
--- NOTE | 2025-01-05 22:39 | P.HP ---
Certification for Inpatient Patient admitted to: Observation With expected LOS: <2 Midnights Practitioner: I am a practitioner with admitting privileges, knowledge of patient current condition, hospital course, and medical plan of care. Services: Services provided to patient in accordance with Admission requirements found in Title 42 Section 412.3 of the Code of Federal Regulations Patient History Date of Service: 01/06/25 Reason for admission: Chest Pain History of Present Illness: 69 yrs old Male with past medical history of hypertension, hyperlipidemia, diabetes, chronic pain on pain pump was brought to ER with chest pain. Pain is located substernally and nonradiating started yesterday when he was moving plants outside. Pain is pressure-like not associated with any shortness of breath but was associated with some diaphoresis with nausea and dizziness. Patient states that he has been having this pain on and off for the last 1 month but not that this severe . Denies any fever or chills. As the pain was not relieving was brought to ER. At the time of interview pain is slightly better. Denies any cough or upper respiratory tract symptoms. No sick contacts. Patient was assessed in the ER and is admitted for further management of chest pain rule out ACS Allergies Sulfa (Sulfonamide Antibiotics) Allergy (Intermediate, Verified 10/30/20 21:44) Hives/Rash Home medications list reviewed: Yes Home Medications: Donepezil [Aricept*] 5 mg PO BEDTIME 10/30/20 Gabapentin 300 mg PO TID 10/30/20 Hydromorphone [Dilaudid*] 4 mg PO BID 10/30/20 Metformin ER [Glucophage ER*] 500 mg PO BID 10/30/20 Mirtazapine [Remeron] 15 mg PO BEDTIME 10/30/20 Rivaroxaban [Xarelto] 20 mg PO BEDTIME 10/30/20 Rosuvastatin [Crestor*] 40 mg PO BEDTIME 10/30/20 Tizanidine [Zanaflex*] 4 mg PO BID 10/30/20 - Past Medical/Surgical History Diabetic: Yes Past Medical History: Reviewed- Non-Contributory -: DEMENTIA ,DM,HLP,HTN,CHRONIC PAIN Past Surgical History: Reviewed- Non-Contributory - Social History Smoking Status: Never smoker Alcohol use: No CD- Drugs: No Caffeine use: No Review of Systems 10-point ROS is otherwise unremarkable Physical Examination - Vital Signs Temperature: 97.6 F Blood Pressure: 138/73 Pulse: 48 Respirations: 18 Pulse Ox (%): 94 - Physical Exam General: Alert, In no apparent distress, Cooperative HEENT: Atraumatic, Normocephalic Neck: Supple Respiratory: Clear to auscultation bilaterally, Normal air movement Cardiovascular: Regular rate/rhythm, Normal S1 S2 Capillary refill: <2 Seconds Gastrointestinal: Soft and benign, W/out hepatosplenomegaly, No tenderness Musculoskeletal: No clubbing, No swelling Integumentary: No rashes, No breakdown Neurological: Other (Alert awake nonfocal) Lymphatics: No axilla or inguinal lymphadenopathy - Studies Laboratory Data (last 24 hrs) 01/05/25 01/05/25 20:16 20:16 WBC 4.30 Hgb 12.4 L Hct 36.5 L Plt Count 134 L Sodium 142 Potassium 3.5 BUN 13 Creatinine 1.46 H Glucose 266 H Total Bilirubin 1.0 AST < 10 L ALT 16 Alkaline Phosphatase 69 Assessment and Plan - Plan Chest pain to rule out ACS Will trend cardiac enzymes Will monitor telemetry Started on aspirin and statin EKG did not show any acute changes suggestive of ischemia Will get an echocardiogram Cardiology consult Hypertension Antihypertensives titrated Continue home medications and titrate as needed Hyperlipidemia Continue statin Diabetes Insulin sliding scale Accu-Chek before every meal and at bedtime GI/DVT prophylaxis Advanced directive full code Discharge Plan: Home Plan to discharge in: 48 Hours - Advance Directives Does patient have a Living Will: No Does patient have a Durable POA for Healthcare: No - Code Status/Comfort Care Code Status: Full Code Time Spent Managing Pts Care (In Minutes): 48
--- NOTE | 2025-01-05 22:39 | ER ---
Nurse's Notes [facility] Name: Melody Duarte Age: 69 yrs Sex: Male : 1955 Arrival Date: 01/05/2025 Time: 19:55 Bed 6 Private MD: Diagnosis: Chest pain, unspecified Presentation: 01/05 20:09 Coronavirus screen: Client denies travel out of the [place] in the last 14 days. Ebola ha1 Screen: No symptoms or risks identified at this time. Initial Sepsis Screen: Does the patient meet any 2 criteria? No. Patient's initial sepsis screen is negative. Does the patient have a suspected source of infection? No. Patient's initial sepsis screen is negative. Risk Assessment: Do you want to hurt yourself or someone else? Patient reports no desire to harm self or others. Onset of symptoms was January 05, 2025. 20:09 Acuity: EVA 2 ha1 20:10 Chief complaint: Patient states: Left sided chest pain onset today at 1900. Pt reports cm10 dizziness and nausea. Pt describes the pain as pressure. 20:10 Method Of Arrival: Wheelchair cm10 Triage Assessment: 20:12 General: Appears in no apparent distress. uncomfortable, Behavior is calm, cooperative. cm10 Pain: Complains of pain in chest Pain currently is 9 out of 10 on a pain scale. Quality of pain is described as pressure. Neuro: No deficits noted. Level of Consciousness is awake, alert, obeys commands, Oriented to person, place, time, situation, Appropriate for age Reports dizziness, headache. Respiratory: No deficits noted. Airway is patent Respiratory effort is even, unlabored, Respiratory pattern is regular, symmetrical. Historical: - Allergies: 20:11 Sulfa (Sulfonamide Antibiotics); cm10 - PMHx: 20:11 Chronic pain; Dementia; Diabetes - NIDDM; Hyperlipidemia; Hypertension; cm10 - PSHx: 20:11 lower back; pain pump; right knee; cm10 - Immunization history:: Adult Immunizations up to date. - Infectious Disease History:: Denies. - Social history:: Smoking status: Patient denies any tobacco usage or history of. - Family history:: not pertinent. Screenin:08 [facility] ED Fall Risk Assessment (Adult) History of falling in the last 3 months, ha1 including since admission No falls in past 3 months (0 pts) Confusion or Disorientation No (0 pts) Intoxicated or Sedated No (0 pts) Impaired Gait Yes (1 pt) Mobility Assist Device Used Yes (1 pt) Altered Elimination No (0 pt) Score/Fall Risk Level 0 - 2 = Low Risk Oriented to surroundings, Maintained a safe environment, Educated pt \T\ family on fall prevention, incl call for assistance when getting out of bed, Hourly rounding (assess needs \T\ fall precautionary measures) done. Abuse screen: Denies threats or abuse. Denies injuries from another. Nutritional screening: No deficits noted. Tuberculosis screening: No symptoms or risk factors identified. Assessment: 19:58 General: Appears uncomfortable, Behavior is cooperative. Pain: Complains of pain in ha1 chest Pain does not radiate. Pain currently is 9 out of 10 on a pain scale. Quality of pain is described as pressure, Pain began suddenly. Neuro: Level of Consciousness is awake, alert, obeys commands, Oriented to person, place, time, situation. Cardiovascular: Reports chest pain, Heart tones S1 S2 present Capillary refill < 3 seconds Patient's skin is warm and dry. Respiratory: Airway is patent Respiratory effort is even, unlabored, Respiratory pattern is regular, symmetrical. GI: No signs and/or symptoms were reported involving the gastrointestinal system. Abdomen is round non-distended. : No signs and/or symptoms were reported regarding the genitourinary system. Derm: Skin is moist, Skin is pink, warm \T\ dry. Musculoskeletal: Circulation, motion, and sensation intact. Range of motion: intact in all extremities. 20:35 Reassessment: Patient appears in no apparent distress at this time. No changes from vc1 previously documented assessment. Patient and/or family updated on plan of care and expected duration. Pain level reassessed. Patient is alert, oriented x 3, equal unlabored respirations, skin warm/dry/pink. 21:58 Reassessment: Patient appears in no apparent distress at this time. No changes from vc1 previously documented assessment. Patient and/or family updated on plan of care and expected duration. Pain level reassessed. Patient is alert, oriented x 3, equal unlabored respirations, skin warm/dry/pink. 22:08 Reassessment: Patient and/or family updated on plan of care and expected duration. Pain ha1 level reassessed. Patient is alert, oriented x 3, equal unlabored respirations, skin warm/dry/pink. Patient states feeling better. Patient states symptoms have improved. 23:52 Reassessment: Patient appears in no apparent distress at this time. No changes from vc1 previously documented assessment. Patient and/or family updated on plan of care and expected duration. Pain level reassessed. Patient is alert, oriented x 3, equal unlabored respirations, skin warm/dry/pink. 01/06 00:20 Reassessment: Patient and/or family updated on plan of care and expected duration. Pain ha1 level reassessed. Patient is alert, oriented x 3, equal unlabored respirations, skin warm/dry/pink. PAIN 3/10 Patient states feeling better. Patient states symptoms have improved. Vital Signs: 01/05 20:10 BP 161 / 69; Pulse 85; Resp 14; Temp 97.8(O); Pulse Ox 100% on R/A; Weight 76.2 kg; cm10 Height 6 ft. 4 in. ; Pain 9/10; 20:34 BP 135 / 59; Pulse 86; Resp 16; Pulse Ox 98% ; vc1 21:58 BP 116 / 71; Pulse 66; Resp 17; Pulse Ox 96% ; vc1 23:51 BP 131 / 75; Pulse 69; Resp 14; Pulse Ox 98% ; vc1 20:10 Body Mass Index 20.45 (76.20 kg, 193.04 cm) cm10 20:10 Pain Scale: Adult cm10 ED Course: 19:56 Patient arrived in ED. [id number] 19:56 Armando Arevalo MD is Attending Physician. rt 20:08 Jayde Kay, JOSE F is Primary Nurse. ha1 20:09 Triage completed. ha1 20:10 Inserted saline lock: 20 gauge in right antecubital area, using aseptic technique. ha1 Blood collected. Flushed with 10 mL NS. 20:12 Basic Metabolic Panel Sent. ha1 20:12 CBC with Diff Sent. ha1 20:12 LFT's Sent. ha1 20:12 Troponin HS Sent. ha1 20:12 Arm band placed on left wrist. Patient placed in an exam room, on a stretcher, on cm10 director of cardiac cath lab, on pulse oximetry. EKG completed in triage. Results shown to MD. 20:13 Patient has correct armband on for positive identification. Bed in low position. Call cm10 light in reach. Side rails up X2. Client placed on continuous cardiac and pulse oximetry monitoring. NIBP monitoring applied. teletype technician on. 20:47 XRAY Chest (1 view) In Process Unspecified. EDMS 22:38 Vishnu Rodriguez MD is Hospitalizing Provider. rt 05 00:47 No provider procedures requiring assistance completed. ha1 00:48 Patient admitted, IV remains in place. ha1 00:48 Patient maintains SpO2 saturation greater than 95% on room air. ha1 00:48 Provided Education on: NEED FOR ADMIT . ha1 Administered Medications: 01/05 20:19 Drug: Aspirin PO Chewable Tablet 324 mg PO once; 81 mg tablets x 4 Route: PO; ha1 20:30 Follow up: Response: No adverse reaction vc1 20:19 Drug: Nitroglycerin Sublingual 0.4 mg Sublingual once; every five minute if needed x3 ha1 Route: Sublingual; 21:55 Drug: Nitroglycerin Sublingual 0.4 mg Sublingual once; every five minute if needed x3 ha1 Route: Sublingual; 23:00 Follow up: Response: No adverse reaction; Marked relief of symptoms; Pain is decreased vc1 22:35 Drug: Ondansetron IVP 4 mg IVP once; over 2 minutes Route: IVP; Site: right antecubital;ha1 23:00 Follow up: Response: No adverse reaction; Marked relief of symptoms vc1 22:37 Drug: morphine IVP or IV 4 mg IVP once over 4 mins Route: IVP; Infused Over: 4 mins; ha1 Site: right antecubital; 23:00 Follow up: Response: No adverse reaction; Marked relief of symptoms; Pain is decreased vc1 Medication: 01/06 00:48 VIS not applicable for this client. ha1 Outcome: 01/05 22:38 Decision to Hospitalize by Provider. rt 01/06 00:48 Admitted to Med/surg accompanied by tech, via wheelchair, room 410, with chart, ha1 Condition: stable Instructed on the need for admit, Demonstrated understanding of instructions, 00:49 Patient left the ED. ha1 Signatures: Dispatcher [employer] EDMS Lavonne Ambrose [id number] Angelina Parsons RN RN vc1 Jayde Kay, RN RN ha1 Armando Arevalo MD MD rt Martinez, Clarissa RN RN cm10 Corrections: (The following items were deleted from the chart) 01/05 23:52 23:51 BP 131 / 5; Pulse 69bpm; Resp 14bpm; Pulse Ox 98%; vc1 vc1
--- NOTE | 2025-01-05 22:39 | EDPHYS ---
Physician Documentation [facility] Name: Melody Duarte Age: 69 yrs Sex: Male : 1955 Arrival Date: 01/05/2025 Time: 19:55 Bed 6 Private MD: ED Physician Armando Arevalo HPI: 01/05 21:09 This 69 yrs old Male presents to ER via Wheelchair with complaints of Chest Pain. rt 21:09 Patient presents to the ED with acute onset of chest pain, substernal, nonradiating rt starting at about 7:00 when he was moving plants outside. Has associated nausea, dizziness. Patient states that he has had similar symptoms off and on for about a month but never to this degree. Denies other acute complaints, symptoms are moderate severity, no other aggravating or alleviating factors.. Historical: - Allergies: 20:11 Sulfa (Sulfonamide Antibiotics); cm10 - PMHx: 20:11 Chronic pain; Dementia; Diabetes - NIDDM; Hyperlipidemia; Hypertension; cm10 - PSHx: 20:11 lower back; pain pump; right knee; cm10 - Immunization history:: Adult Immunizations up to date. - Infectious Disease History:: Denies. - Social history:: Smoking status: Patient denies any tobacco usage or history of. - Family history:: not pertinent. ROS: 21:09 Constitutional: Negative for fever, chills, and weight loss, MS/Extremity: Negative for rt injury and deformity, Skin: Negative for injury, rash, and discoloration, 21:09 Cardiovascular: Positive for chest pain, Negative for orthopnea, 21:09 Respiratory: Positive for shortness of breath, Negative for cough, 21:09 Abdomen/GI: Positive for nausea, Negative for abdominal pain, 21:09 Neuro: Positive for near syncope, Negative for loss of consciousness, Exam: 21:09 Constitutional: This is a well developed, well nourished patient who is awake, alert, rt and in no acute distress. Head/Face: Normocephalic, atraumatic. Chest/axilla: Normal chest wall appearance and motion. Nontender with no deformity. No lesions are appreciated. Cardiovascular: Regular rate and rhythm with a normal S1 and S2. No gallops, murmurs, or rubs. Normal PMI, no JVD. No pulse deficits. Respiratory: Lungs have equal breath sounds bilaterally, clear to auscultation and percussion. No rales, rhonchi or wheezes noted. No increased work of breathing, no retractions or nasal flaring. Abdomen/GI: Soft, non-tender, with normal bowel sounds. No distension or tympany. No guarding or rebound. No evidence of tenderness throughout. Skin: Warm, dry with normal turgor. Normal color with no rashes, no lesions, and no evidence of cellulitis. MS/ Extremity: Pulses equal, no cyanosis. Neurovascular intact. Full, normal range of motion. Neuro: Awake and alert, GCS 15, oriented to person, place, time, and situation. Cranial nerves II-XII grossly intact. Motor strength 5/5 in all extremities. Sensory grossly intact. Cerebellar exam normal. Normal gait. 21:09 ECG was reviewed by the Attending Physician. Vital Signs: 20:10 BP 161 / 69; Pulse 85; Resp 14; Temp 97.8(O); Pulse Ox 100% on R/A; Weight 76.2 kg; cm10 Height 6 ft. 4 in. ; Pain 9/10; 20:34 BP 135 / 59; Pulse 86; Resp 16; Pulse Ox 98% ; vc1 21:58 BP 116 / 71; Pulse 66; Resp 17; Pulse Ox 96% ; vc1 23:51 BP 131 / 75; Pulse 69; Resp 14; Pulse Ox 98% ; vc1 20:10 Body Mass Index 20.45 (76.20 kg, 193.04 cm) cm10 20:10 Pain Scale: Adult cm10 MDM: 19:59 Medical Screening Exam initiated rt 23:31 Differential diagnosis: ACS, angina, nonspecific chest pain, pneumonia, pneumothorax. rt HEART Score: History: Highly Suspicious (2), ECG: Non specific repolarization disturbance / LBTB / PM (1), Age: > or = 65 years (2), Risk Factors: > or = 3 Risk factors for atherosclerotic disease (2), Troponin: < or = 1 x Normal Limit (0), Total Score = 7. The patient was given aspirin in the Emergency Department. Data reviewed: vital signs, nurses notes, lab test result(s), EKG, radiologic studies. Consideration of Admission/Observation Patient was admitted/placed on observation. Management of patient was discussed with the following: Hospitalist: Agrees to admit. I considered the following discharge prescriptions or medication management in the emergency department Medications were administered in the Emergency Department. See MAR. Independent interpretation of the following test(s) in the Emergency Department X-Ray: My interpretation is No infiltrate seen on interpretation of x-ray images. Test considered but Not performed: CT: Low suspicion for pulmonary embolus, CT angiogram not indicated. Care significantly affected by the following chronic conditions: Diabetes, Hypertension. Counseling: I had a detailed discussion with the patient and/or guardian regarding the historical points, exam findings, and any diagnostic results supporting the discharge/admit diagnosis, lab results, radiology results, the need for further work-up and treatment in the hospital. Response to treatment: the patient's symptoms have mildly improved after treatment. 01/05 20:09 Order name: Basic Metabolic Panel; Complete Time: 20:55 rt 01/05 20:09 Order name: CBC with Diff; Complete Time: 20:55 rt 01/05 20:09 Order name: LFT's; Complete Time: 20:55 rt 01/05 20:09 Order name: Troponin HS; Complete Time: 20:55 rt 01/05 22:45 Order name: CBC with Automated Diff EDMS 01/05 22:45 Order name: CBC with Automated Diff EDMS / 22:45 Order name: Comprehensive Metabolic Panel EDMS / 22:45 Order name: Comprehensive Metabolic Panel EDMS / 22:45 Order name: Troponin High Sensitivity EDMS / 22:45 Order name: Troponin High Sensitivity EDMS / 22:45 Order name: Troponin High Sensitivity EDMS / 22:45 Order name: Troponin High Sensitivity EDMS 05/03 20:09 Order name: XRAY Chest (1 view); Complete Time: 21:01 rt 01/05 20:09 Order name: EKG; Complete Time: 20:10 rt 01/05 20:09 Order name: Cardiac monitoring; Complete Time: 20:12 rt 01/05 20:09 Order name: EKG - Nurse/Tech; Complete Time: 20:12 rt 01/05 20:09 Order name: IV Saline Lock; Complete Time: 20:12 rt 01/05 20:09 Order name: Labs collected and sent; Complete Time: 20:12 rt 01/05 20:09 Order name: O2 Per Protocol; Complete Time: 20:12 rt 01/05 20:09 Order name: O2 Sat Monitoring; Complete Time: 20:12 rt EC:09 Rate is 79 beats/min. Rhythm is regular, Normal Sinus Rhythm with Unifocal PVCs. QRS rt [place] is Normal. CA interval is normal. QRS interval is normal. QT interval is normal. No Q waves. Clinical impression: NSR w/ Non-specific ST/T Changes. Administered Medications: 20:19 Drug: Aspirin PO Chewable Tablet 324 mg PO once; 81 mg tablets x 4 Route: PO; ha1 20:30 Follow up: Response: No adverse reaction vc1 20:19 Drug: Nitroglycerin Sublingual 0.4 mg Sublingual once; every five minute if needed x3 ha1 Route: Sublingual; 21:55 Drug: Nitroglycerin Sublingual 0.4 mg Sublingual once; every five minute if needed x3 ha1 Route: Sublingual; 23:00 Follow up: Response: No adverse reaction; Marked relief of symptoms; Pain is decreased vc1 22:35 Drug: Ondansetron IVP 4 mg IVP once; over 2 minutes Route: IVP; Site: right antecubital;ha1 23:00 Follow up: Response: No adverse reaction; Marked relief of symptoms vc1 22:37 Drug: morphine IVP or IV 4 mg IVP once over 4 mins Route: IVP; Infused Over: 4 mins; ha1 Site: right antecubital; 23:00 Follow up: Response: No adverse reaction; Marked relief of symptoms; Pain is decreased vc1 Disposition Summary: 01/05/25 22:38 Hospitalization Ordered Notes: Hospitalization Status: Observation rt Provider: Vishnu Rodriguez rt [facility] rt Condition: Stable rt Problem: new rt Symptoms: have improved rt Bed/Room Type: Standard rt Room Assignment: 410(01/05/25 22:59) km Diagnosis - Chest pain, unspecified rt Forms: - Medication Reconciliation Form rt - SBAR form rt - Leadership Thank You Letter rt Signatures: Dispatcher [employer] Jayde Platt RN RN ha1 Armando Arevalo MD MD rt Olivia Oviedo RN RN 10 Rere Torres f Angelina Parsons RN vc1 Corrections: (The following items were deleted from the chart) 20:10 20:10 BASIC METABOLIC PANEL+C.LAB.BRZ ordered. EDMS EDMS 20:10 20:10 CBC+H.LAB.BRZ ordered. EDMS EDMS 20:10 20:10 HEPATIC FUNCTION+C.LAB.BRZ ordered. EDMS EDMS 20:10 20:10 Troponin High Sensitivity+C.LAB.BRZ ordered. EDMS EDMS 22:59 22:38 rt kmf
[2025-01-06 01:00] VITALS: BMI 20.4
[2025-01-06] MEDS: TIZANIDINE 4 MG TABLET PO PRN (03:14)
[2025-01-06] MEDS ORDERED: ONDANSETRON 4 MG/2 ML VIAL IV PRN (04:00)
[2025-01-06 05:24] LABS: Absolute Eosinophils 0.1 K/uL (0-0.5); Absolute Lymphocytes (CBC) 1.4 K/uL (0.7-4.9); Absolute Monocytes 0.4 K/uL (0.1-1.3); Absolute Neutrophil 2.5 K/uL (1.8-8.0); Basophils % 0.8 % (0-1.3); Eosinophils % 2.2 % (0-4.4); Hematocrit 32.8 % (39.6-49.0); Hemoglobin 11.2 g/dL (13.6-17.9); Lymphocytes % 30.6 % (15.3-44.8); MCH 30.1 pg (27.0-35.0); MCHC 34.1 g/dL (32.0-36.0); MCV 88.1 fL (80-100); MPV 7.3 fL (7.6-11.3); Monocytes % 9.8 % (3.3-12.3); Neutrophils % 56.6 % (41.7-73.7); Nucleated Red Blood Cells % 0.2 % (0-0); Platelets 129 thou/uL (152-406); RBC Red Blood Cell Count 3.72 M/uL (4.33-5.43)
[2025-01-06 05:47] LABS: ALT/SGPT 15 U/L (16-61); Albumin 2.7 g/dL (3.4-5.0); Alkaline Phosphatase 59 U/L (45-117); Anion Gap 5.4 mEq/L (5.0-15.0); BUN Blood Urea Nitrogen 15 mg/dL (7-18); Bicarbonate 30 mEq/L (21-32); Bilirubin Total 0.8 mg/dL (0.2-1.0); Globulin 2.7 g/dL (2.3-3.5); Glomerular Filtration Rate 62 ml/min (=/>90); Glucose Level 117 mg/dL (74-106); Potassium 3.4 mEq/L (3.5-5.1); Protein, Total 5.4 g/dL (6.4-8.2); Sodium Level 142 mEq/L (136-145)
[2025-01-06 05:54] LABS: AST/SGOT < 10 U/L (15-37)
[2025-01-06] MEDS: TIZANIDINE 4 MG TABLET PO SCH (08:23)
[2025-01-06] MEDS: ASPIRIN EC 81 MG TAB PO SCH (08:23)
[2025-01-06] MEDS: GABAPENTIN 300 MG CAP PO SCH (08:24)
[2025-01-06] MEDS: HYDROMORPHONE ORAL 4 MG TAB PO SCH (09:00)
[2025-01-06] MEDS ORDERED: PROMETHAZINE 25 MG TABLET PO PRN (09:07)
[2025-01-06] MEDS ORDERED: ONDANSETRON 4 MG (ODT) TAB PO PRN (09:07)
[2025-01-06] MEDS: VILANTEROL IH SCH (09:08)
[2025-01-06] MEDS: FLUTICASONE IH SCH (09:08)
[2025-01-06] MEDS: POTASSIUM CL SA 10 MEQ TAB PO ONE (10:20)
[2025-01-06] MEDS: FLUDROCORTISONE 0.1 MG TAB PO SCH (10:20)
[2025-01-06] MEDS: DIVALPROEX NA 125 MG CAP PO SCH (10:24)
[2025-01-06] MEDS: MONTELUKAST 10 MG TAB PO SCH (10:24)
[2025-01-06] MEDS: MEMANTINE HCL 10 MG TABLET PO SCH (10:24)
[2025-01-06] MEDS: LOSARTAN POTASSIUM 50 MG TABLET PO SCH (10:24)
[2025-01-06] MEDS ORDERED: HYDROMORPHONE ORAL 4 MG TAB PO PRN (11:39)
--- NOTE | 2025-01-06 12:02 | P.CNS ---
Date of Consult: 01/06/25 Chief Complaint: Chest Pain History of Present Illness: Patient with PMH of DM, chronic pain, presented with chest pain, pressure in nature that started yesterday, intermittent, left sided, denies any associated symptoms, has been going on for few months. Allergies Sulfa (Sulfonamide Antibiotics) Allergy (Intermediate, Verified 10/30/20 21:44) Hives/Rash Home medications list reviewed: Yes Home Medications: Donepezil [Aricept*] 23 mg PO DAILY 10/30/20 Gabapentin 600 mg PO 0900 10/30/20 Hydromorphone [Dilaudid*] 4 mg PO BID PRN 10/30/20 Metformin ER [Glucophage ER*] 1,000 mg PO 00 10/30/20 Rosuvastatin [Crestor*] 40 mg PO BEDTIME 10/30/20 Tizanidine [Zanaflex*] 4 mg PO BID PRN 10/30/20 Aspirin [[place] Aspirin] 81 mg PO DAILY 01/06/25 Divalproex [Depakote Sprinkle*] 125 mg PO BID 01/06/25 Docusate Sodium [Stool Softener] 100 mg PO BID 01/06/25 Fludrocortisone [Florinef *] 0.1 mg PO DAILY 01/06/25 Fluticasone [Flonase 50MCG Nasal [place]*] 2 spray BAR DAILY 01/06/25 Fluticasone/Vilanterol [Breo Ellipta 200-25 Mcg Inhalr] 1 puff IH DAILY 01/06/25 Gabapentin 300 mg PO 209901/06/25 Losartan Potassium 25 mg PO DAILY 01/06/25 Memantine HCl 5 mg PO BID 01/06/25 Memantine HCl 10 mg PO BID 01/06/25 Metformin HCl [Metformin HCl ER] 500 mg PO 2100 01/06/25 Montelukast Sodium 10 mg PO DAILY 01/06/25 Ondansetron [Zofran (Odt)*] 4 mg PO Q8H PRN 01/06/25 Potassium Chloride 10 meq PO DAILY 01/06/25 Promethazine HCl 25 mg PO Q6H PRN 01/06/25 Ranolazine [Ranolazine ER] 500 mg PO BID 01/06/25 Saw [place] 450 mg PO BID 05/04/25 Tamsulosin HCl 0.4 mg PO BEDTIME 01/06/25 - Past Medical/Surgical History Diabetic: Yes -: DEMENTIA ,DM,HLP,HTN,CHRONIC PAIN -: right knee surgery -: multiple back surgeries -: right shoulder surgery -: right foot surgery -: pain pump -: spinal stimulator - Social History Smoking Status: Unknown if ever smoked Alcohol use: No CD- Drugs: No Caffeine use: No Place of Residence: Home Review of Systems 10-point ROS is otherwise unremarkable Physical Examination Temp Pulse Resp BP Pulse Ox 97.6 F 53 20 134/60 97 01/06/25 08:00 01/06/25 08:00 01/06/25 08:00 01/06/25 08:00 01/06/25 08:00 General: Alert, In no apparent distress HEENT: Atraumatic, PERRLA, Mucous membr. moist/pink, EOMI, Sclerae nonicteric Neck: Supple, 2+ carotid pulse no bruit, No LAD, Without JVD or thyroid abnormality Respiratory: Clear to auscultation bilaterally, Normal air movement Cardiovascular: Regular rate/rhythm, Normal S1 S2 Gastrointestinal: Normal bowel sounds, No tenderness Musculoskeletal: No tenderness Integumentary: No rashes Neurological: Normal gait, Normal speech, Normal tone, Normal affect Lymphatics: No axilla or inguinal lymphadenopathy Laboratory Data (last 24 hrs) 01/05/25 01/05/25 20:16 20:16 WBC 4.30 Hgb 12.4 L Hct 36.5 L Plt Count 134 L Sodium 142 Potassium 3.5 BUN 13 Creatinine 1.46 H Glucose 266 H Total Bilirubin 1.0 AST < 10 L ALT 16 Alkaline Phosphatase 69 - Problems (1) Chest pain Current Visit: No Status: Acute Plan: concern for unstable angina NPO after midnight for coronary angiogram in am ASA 81 mg daily Lipitor 40 mg daily get echo Qualifiers: Chest pain type: unspecified Qualified Code(s): R07.9 - Chest pain, unspecified (2) Hyperlipidemia Current Visit: No Status: Chronic Plan: lipitor 40 mg daily Qualifiers: Hyperlipidemia type: unspecified Qualified Code(s): E78.5 - Hyperlipidemia, unspecified (3) Hypertension Current Visit: No Status: Chronic Plan: continue to monitor Qualifiers: Hypertension type: essential hypertension Qualified Code(s): I10 - Essential (primary) hypertension
[2025-01-06] MEDS: ENOXAPARIN 40 MG/0.4 ML SQ SCH (12:33)
[2025-01-06] MEDS: FLUTICASONE 50MCG NASAL SPRAY NAS SCH (12:33)
[2025-01-06] MEDS: predniSONE 20 MG TAB PO SCH (12:33)
--- NOTE | 2025-01-06 14:25 | P.PN ---
Subjective Date of Service: 01/06/25 Chief Complaint: Chest Pain Patient denies any chest pain at the moment. Patient reports his chest pain earlier was associated with shortness of breathoccurred during the night with. He denies any palpitations. Patient denies any orthopnea. Physical Examination - Vital Signs Temperature: 97.6 F Blood Pressure: 134/60 Pulse: 53 Respirations: 20 Pulse Ox (%): 97 - Studies Laboratory Data (last 24 hrs) 01/05/25 01/05/25 20:16 20:16 WBC 4.30 Hgb 12.4 L Hct 36.5 L Plt Count 134 L Sodium 142 Potassium 3.5 BUN 13 Creatinine 1.46 H Glucose 266 H Total Bilirubin 1.0 AST < 10 L ALT 16 Alkaline Phosphatase 69 Assessment And Plan - Plan Physical examination General: Alert and oriented x3, NAD, HEENT: Conjunctiva not pale, anicteric sclera Neck: Supple, no elevated JVD Heart: Heart sounds 1 and 2 normal, regular rhythm, normal rate, no pedal edema Lungs: Clear to auscultation bilaterally, adequate breath sounds bilaterally, no rhonchi or crackles. Abdomen: Soft, nondistended, nontender, normal bowel sounds. Extremities: No tenderness, no deformity Skin: Normal skin turgor, no rash, no nodules or ulcers. Neuro: No focal motor deficit. Normal speech. Psychiatry: Normal mood, no agitation. Diagnosis Chest pain Chronic pain syndrome DM type II Dementia Hypertension Plan Chest pain Troponin trended negative. ACS ruled out. Cardiology input appreciated. Patient's symptoms sounds typical. Cardiology is planning cardiac catheterization tomorrow. Continue telemetry Continue aspirin and statin Echocardiogram is pending. Patient is on Ranexa at home which is continued. Chronic pain syndrome Patient has pain pump for his chronic back pain Continue home pain regimen-oral Dilaudid, tizanidine Diabetes mellitus type 2 Insulin sliding scale for glucose management. Hold metformin. Hypertension Continue home medications Hyperlipidemia Continue statin DVT prophylaxis: Lovenox Advanced directive: full code
[2025-01-06] MEDS ORDERED: HOME MED 1 EA UNK (Memantine Hcl [Memantine Hcl] 5 MG Tablet) PO SCH (21:00)
[2025-01-06] MEDS: DOCUSATE NA 100 MG CAP PO SCH (21:00)
[2025-01-06] MEDS ORDERED: D10W 125 ML IV PRN (21:20)
[2025-01-06] MEDS ORDERED: GLUCAGON 1 MG/VIAL IM PRN (21:20)
[2025-01-06] MEDS: INSULIN REGULAR (HUMAN) 100 UNIT/ML SQ SCH ×2 (21:55→22:01)
[2025-01-06] MEDS: MIRTAZAPINE 15 MG TAB PO SCH (21:57)
[2025-01-06] MEDS: ROSUVASTATIN 10 MG TAB PO SCH (21:57)
[2025-01-06] MEDS: TAMSULOSIN 0.4 MG SR CAP PO SCH (21:58)
[2025-01-06] MEDS: DONEPEZIL HCL 5 MG TAB PO SCH (21:58)
[2025-01-07 04:49] LABS: Anion Gap 7.6 mEq/L (5.0-15.0); Potassium 4.6 mEq/L (3.5-5.1)
[2025-01-07] MEDS: DIPHENHYDRAMINE 25 MG TAB/CAP ONE (06:59)
[2025-01-07] MEDS: DIPHENHYDRAMINE 25 MG TAB/CAP PO ONE (07:00)
[2025-01-07] MEDS: NA CHLORIDE 0.9% 500 ML ONE (07:41)
[2025-01-07] MEDS ORDERED: ASPIRIN 81 MG CHEWABLE TABLET ONE (07:45)
[2025-01-07] MEDS ORDERED: HEPARIN 10,000 UNIT/10 ML VIAL IV ONE (08:28)
[2025-01-07] MEDS ORDERED: MIDAZOLAM HCL 2 MG/2 ML INJ ONE (08:28)
[2025-01-07] MEDS ORDERED: HEPA 1000U/500MLS 2,000 UNIT/1,000 ML BAG IV ONE (08:28)
[2025-01-07] MEDS ORDERED: ATROPINE SULF 1 MG/10 ML SYR IV ONE (08:28)
[2025-01-07] MEDS ORDERED: LIDOCAINE 1% 20 ML MDV ONE (08:28)
[2025-01-07] MEDS ORDERED: FENTANYL CITR 100 MCG/2 ML ONE (08:29)
[2025-01-07] MEDS ORDERED: CLOPIDOGREL 75 MG TABLET ONE (08:29)
[2025-01-07] MEDS ORDERED: HEPARIN 5000 UNIT/ML 1 ML VIAL ONE (08:29)
[2025-01-07] MEDS ORDERED: TICAGRELOR 90 MG TABLET PO ONE (08:29)
[2025-01-07] MEDS ORDERED: NALOXONE 0.4 MG/ML VIAL ONE (08:30)
[2025-01-07] MEDS ORDERED: FLUMAZENIL 0.1 MG/ML (5 mL VIAL) IV ONE (08:30)
[2025-01-07] MEDS ORDERED: HOME MED 1 EA UNK (Losartan Potassium [Losartan Potassium] 25 MG Tablet) PO SCH (09:00)
[2025-01-07] MEDS ORDERED: METHYLPREDNISOLONE 125 MG INJ ONE (09:19)
--- NOTE | 2025-01-07 09:40 | P.PN ---
Subjective Date of Service: 01/07/25 Chief Complaint: Chest Pain Subjective: No new changes, No C/O voiced, Tolerating diet, Ambulating, Improving Review of Systems 10-point ROS is otherwise unremarkable Physical Examination - Vital Signs Temperature: 97.4 F Blood Pressure: 111/64 Pulse: 38 Respirations: 14 Pulse Ox (%): 98 - Physical Exam General: Alert, In no apparent distress HEENT: Atraumatic, PERRLA, EOMI Neck: Supple, JVD not distended Respiratory: Clear to auscultation bilaterally, Normal air movement Cardiovascular: Regular rate/rhythm, Normal S1 S2 Gastrointestinal: Normal bowel sounds, No tenderness Musculoskeletal: No tenderness Integumentary: No rashes Neurological: Normal speech, Normal tone, Normal affect Lymphatics: No axilla or inguinal lymphadenopathy - Studies Medications List Reviewed: Yes Assessment And Plan - Current Problems (Diagnosis) (1) Chest pain Current Visit: No Status: Acute Plan: concern for unstable angina, coronary angiogram done and shows mild to moderate CAD, medical management ASA 81 mg daily Lipitor 40 mg daily Qualifiers: Chest pain type: unspecified Qualified Code(s): R07.9 - Chest pain, unspecified (2) Hyperlipidemia Current Visit: No Status: Chronic Plan: lipitor 40 mg daily Qualifiers: Hyperlipidemia type: unspecified Qualified Code(s): E78.5 - Hyperlipidemia, unspecified (3) Hypertension Current Visit: No Status: Chronic Plan: Stop Losartan start Toprol XL 25 mg daily (please give even if HR is low as those are PVCs causing wrong reading on pulse) outpatient follow up with cardiology for event monitor. Qualifiers: Hypertension type: essential hypertension Qualified Code(s): I10 - Essential (primary) hypertension
--- NOTE | 2025-01-07 12:08 | EKG ---
Test Date: 2025-01-05 Test Time: 20:04:13 Support Group Manager: ZOE MEASUREMENT RESULTS: Intervals: Rate: 79 TX: 186 QRSD: 78 QT: 364 QTc: 417 [place]: P: 69 TX: 186 QRS: 85 T: 134 INTERPRETIVE STATEMENTS: Sinus rhythm with frequent premature ventricular complexes Septal infarct, age undetermined Abnormal ECG Compared to ECG 01/27/2022 11:30:10 Ventricular premature complex(es) now present Myocardial infarct finding now present Electronically Signed On 01-07-25 12:05:52 CDT by Carrington Sanduh
[2025-01-07 12:15] VITALS: O2SAT 97
--- NOTE | 2025-01-07 14:54 | P.DS ---
Admission Date: 01/05/25 Discharge Date: 01/07/25 Disposition: ROUTINE DISCHARGE Discharge Condition: FAIR Reason for Admission: Chest Pain Brief History of Present Illness: Patient presented to the emergency department due to chest pain associated with shortness of breath, nausea, dizziness and diaphoresis. Initial troponin negative, EKG with did not demonstrate ischemic changes. Patient was admitted for further evaluation of chest pain. Hospital Course: Diagnosis Chest pain Chronic pain syndrome DM type II Dementia Hypertension Patient's cardiac enzyme(troponin measured with negative). Patient was seen and evaluated by cardiology Dr. Sandhu who performed cardiac catheterization. No intervention done during the cardiac catheterization. Patient was given a few doses of oral prednisone prior to the procedure given his allergy to sulfa. Patient is prescribed prednisone for 1 more day. Patient has chronic kidney disease, creatinine 1.5 prior to the cardiac cath. Patient advised to repeat his renal function test within 1 week given that iodine contrast was used during the cardiac cath to make sure he did not develop contrast nephropathy. Patient is advised not to take his metformin for diabetes until he has had a repeat renal function test and followed up with his PCP. Patient vitals are stable, he has been asymptomatic. Patient is deemed stable for discharge. Dr. Sandhu. Vital Signs/Physical Exam: Temp Pulse Resp BP Pulse Ox 97.4 F 55 13 108/61 98 01/07/25 09:40 01/07/25 12:00 01/07/25 12:00 01/07/25 12:00 01/07/25 09:40 General: Alert, In no apparent distress, Oriented x3 HEENT: Mucous membr. moist/pink, Sclerae nonicteric Neck: Supple, JVD not distended Respiratory: Clear to auscultation bilaterally, Normal air movement Cardiovascular: No edema, Regular rate/rhythm, Normal S1 S2 Gastrointestinal: Normal bowel sounds, Soft and benign, Non-distended Musculoskeletal: No swelling Integumentary: No rashes, No cyanosis Neurological: Normal strength at 5/5 x4 extr Laboratory Data at Discharge: WBC 4.50 thou/uL (4.3-10.9) 01/06/25 05:09 Hgb 11.2 g/dL (13.6-17.9) L D 01/06/25 05:09 Hct 32.8 % (39.6-49.0) L 01/06/25 05:09 Plt Count 129 thou/uL (152-406) L 01/06/25 05:09 Sodium 141 mEq/L (136-145) 01/07/25 04:06 Potassium 4.6 mEq/L (3.5-5.1) D 01/07/25 04:06 BUN 20 mg/dL (7-18) H 01/07/25 04:06 Creatinine 1.50 mg/dL (0.70-1.30) H 01/07/25 04:06 Glucose 211 mg/dL (74-106) H 01/07/25 04:06 Total Bilirubin 0.8 mg/dL (0.2-1.0) 01/06/25 05:09 AST < 10 U/L (15-37) L 01/06/25 05:09 ALT 15 U/L (16-61) L 01/06/25 05:09 Alkaline Phosphatase 59 U/L (45-117) 01/06/25 05:09 Home Medications: Donepezil [Aricept*] 23 mg PO DAILY 10/30/20 Gabapentin 600 mg PO 0900 10/30/20 Hydromorphone [Dilaudid*] 4 mg PO BID PRN 10/30/20 Rosuvastatin [Crestor*] 40 mg PO BEDTIME 10/30/20 Tizanidine [Zanaflex*] 4 mg PO BID PRN 10/30/20 Aspirin [[place] Aspirin] 81 mg PO DAILY 01/06/25 Divalproex [Depakote Sprinkle*] 125 mg PO BID 01/06/25 Docusate Sodium [Stool Softener] 100 mg PO BID 01/06/25 Fludrocortisone [Florinef *] 0.1 mg PO DAILY 01/06/25 Fluticasone [Flonase 50MCG Nasal [place]*] 2 spray BAR DAILY 01/06/25 Fluticasone/Vilanterol [Breo Ellipta 200-25 Mcg Inhalr] 1 puff IH DAILY 01/06/25 Gabapentin 300 mg PO 2100 01/06/25 Losartan Potassium 25 mg PO DAILY 01/06/25 Memantine HCl 5 mg PO BID 01/06/25 Memantine HCl 10 mg PO BID 01/06/25 Montelukast Sodium 10 mg PO DAILY 01/06/25 Ondansetron [Zofran (Odt)*] 4 mg PO Q8H PRN 01/06/25 Potassium Chloride 10 meq PO DAILY 01/06/25 Promethazine HCl 25 mg PO Q6H PRN 01/06/25 Ranolazine [Ranolazine ER] 500 mg PO BID 01/06/25 Saw [place] 450 mg PO BID 01/06/25 Tamsulosin HCl 0.4 mg PO BEDTIME 01/06/25 predniSONE [Prednisone*] 40 mg PO Q8H #3 tab 01/07/25 New Medications: predniSONE [Prednisone*] 40 mg PO Q8H #3 tab Physician Discharge Instructions: Patient presented to the emergency department due to chest pain associated with shortness of breath, nausea, dizziness and diaphoresis. Initial troponin negative, EKG with did not demonstrate ischemic changes. Patient was admitted for further evaluation of chest pain. Patient's cardiac enzyme(troponin measured with negative). Patient was seen and evaluated by cardiology Dr. Sandhu who performed cardiac catheterization. No intervention done during the cardiac catheterization. Patient was given a few doses of oral prednisone prior to the procedure given his allergy to sulfa. Patient is prescribed prednisone for 1 more day. Patient has chronic kidney disease, creatinine 1.5 prior to the cardiac cath. Patient advised to repeat his renal function test within 1 week given that iodine contrast was used during the cardiac cath to make sure he did not develop contrast nephropathy. Patient is advised not to take his metformin for diabetes until he has had a repeat renal function test and followed up with his PCP. Patient vitals are stable, he has been asymptomatic. Patient is deemed stable for discharge. Dr. Sandhu. Diet: ADA Activity: Fall precautions Followup: Earnest Lobo MD [Primary Care Provider] - 1 Week (Patient need repeat renal function test after iodine contrast use during cardiac catheterization.) Time spent managing pt's care (in minutes): 33
[2025-01-07 16:04] VITALS: BP 122/58; TEMP 97.6
--- NOTE | 2025-01-07 23:37 | OP ---
Date of Procedure: 01/07/2025 Surgeon: Carrington Sandhu Procedure Performed: Left heart catheterization with selective coronary angiogram. Indication For Procedure: Unstable angina. Complications: None. Estimated Blood Loss: Less than 50 cc. Access: Right radial, closed by TR band. Sedation Time: 20 minutes with 1 of Versed and 25 fentanyl. Description Of Procedure: After risks, benefits, and alternatives were explained to the patient, the patient agreed to proceed with procedure and signed informed consent. The patient was brought back to the tailings dam laborer. Prepped and draped in sterile fashion. Time-out was performed. Sedation was admin istered. Next, right radial access was obtained. Using ultrasound-guided micropuncture technique. The [place] 4 catheter was advanced to the LV cavity. LVEDP was obtained. Pullback did not show any g radient. Same catheter was used for selective angiogram of the left and right coronary systems. At the end of procedure, catheter was removed over a J-wire. Sheath was removed. TR band was applied. Hemostasis achieved. The patient was moved back to recovery in stable condition. Findings: 1. Left main: Normal. 2. LAD: Mild luminal irregularities. 3. Left circumflex: Calcified with mid 30% disease and mild luminal irregularities. 4. RCA: Calcified artery with mid 30% to 40% disease, then mild luminal irregularities. 5. LVEDP: 12 mmHg. Assessment: 1. Mild coronary artery disease involving the left circumflex and the right coronary artery. 2. Normal filling pressure. Plan: To continue medical management. CARRIE/LUPE Voice ID: [id number] Report ID: [id number]
--- NOTE | 2025-01-08 08:31 | ECHO ---
HEIGHT: 6 ft 4 in WEIGHT: 168 lb 0 oz DATE OF STUDY: 01/07/[address]: Chito Barnard MD 2-DIMENSIONAL: YES M.MODE: YES DOPPLER: YES COLOR FLOW: YES TDS: PORTABLE: YES DEFINITY: BUBBLE STUDY: DIAGNOSIS: CHEST PAIN CARDIAC HISTORY: CATHERIZATION: SURGERY: PROSTHETIC VALVE: PACEMAKER: MEASUREMENTS (cm) DIASTOLIC (NORMALS) SYSTOLIC (NORMALS) IVSd 1.0 (0.6-1.2) LA Diam 3.6 (1.9-4.0) LVEF 60-65% LVIDd 4.2 (3.5-5.7) LVIDs 2.9 (2.0-3.5) %FS 30% LVPWd 1.1 (0.6-1.2) Ao Diam 2.8 (2.0-3.7) 2 DIMENSIONAL ASSESSMENT: RIGHT ATRIUM: NORMAL LEFT ATRIUM: NORMAL RIGHT VENTRICLE: NORMAL LEFT VENTRICLE: NORMAL TRICUSPID VALVE: NORMAL MITRAL VALVE: NORMAL PULMONIC VALVE: NORMAL AORTIC VALVE: NORMAL PERICARDIAL EFFUSION: NONE AORTIC ROOT: NORMAL LEFT VENTRICULAR WALL MOTION: NORMAL DOPPLER/COLOR FLOW: NORMAL COMMENTS: 1. NORMAL LEFT VENTRICULAR SYSTOLIC FUNCTION, EJECTION FRACTION 60-65%, NORMAL WALL MOTION 2. NORMAL DIASTOLIC FUNCTION TECHNOLOGIST: JASMINA MOORE
== END 2025-01-07 16:10 | disposition home or self-care (01) | DRG 287 ==
LOC: ER 19:55 → ERHOLD 22:39 → 4TH 01-06 00:16 → OBSVTOIN 01-07 14:20
PROVIDERS: ADMIT Family Medicine; ATTEND Internal Medicine
PROC: 4A023N7 Measurement of Cardiac Sampling and Pressure, Left Heart, Percutaneous Approach (ICD-10-PCS; principal; 2025-01-07)
PROC: B2111ZZ Fluoroscopy of Multiple Coronary Arteries using Low Osmolar Contrast (ICD-10-PCS; 2025-01-07)
DX: I25.110 Atherosclerotic heart disease of native coronary artery with unstable angina pectoris (principal); E78.5 Hyperlipidemia, unspecified; G89.4 Chronic pain syndrome; I12.9 Hypertensive chronic kidney disease with stage 1 through stage 4 chronic kidney disease, or unspecified chronic kidney disease; N18.9 Chronic kidney disease, unspecified; E11.22 Type 2 diabetes mellitus with diabetic chronic kidney disease; F03.90 Unspecified dementia, unspecified severity, without behavioral disturbance, psychotic disturbance, mood disturbance, and anxiety; Z88.2 Allergy status to sulfonamides; Z79.84 Long term (current) use of oral hypoglycemic drugs; Z79.82 Long term (current) use of aspirin; Z79.899 Other long term (current) drug therapy
CPT/HCPCS: 36415; 71045; 76937; 80048; 80053; 80076; 82947; 84484; 85025; 93005; 93306; 93458; 94760; 96374; 96375; 99152; 99153; 99285; C1893; G0378; J0461; J1644; J1650; J1815; J2003; J2250; J2310; J2405; J2919; J3010; J7040; J7512; Q9966